=== PATIENT | female | born 1980 ===

== ENCOUNTER → 2020-10-06 08:53 | Outpatient (BNVA) | payer MEDICAID, SELFPAY | PROVIDERS: PCP Internal Medicine; Referring Provider Internal Medicine; Visit Provider Nurse Practitioner | DX: Z76.89 Persons encountering health services in other specified circumstances (principal) ==

== ENCOUNTER → 2020-10-23 09:39 | Outpatient (BNVA) | payer MEDICAID, SELFPAY | PROVIDERS: PCP Internal Medicine; Referring Provider Internal Medicine; Visit Provider Nurse Practitioner | DX: Z13.89 Encounter for screening for other disorder (principal) | CPT/HCPCS: 99212 ==

== ENCOUNTER → 2020-10-26 20:13 | Outpatient (REF) | payer MEDICAID, SELFPAY | LOC: HO.SL 20:13 | PROVIDERS: Visit Provider Internal Medicine Cardiovascular Disease | DX: G47.30 Sleep apnea, unspecified (principal) | CPT/HCPCS: 95810 ==

== ENCOUNTER → 2020-11-02 10:45 | Outpatient (BNVA) | payer MEDICAID, SELFPAY | PROVIDERS: PCP Internal Medicine; Visit Provider Advanced Practice Midwife | DX: N92.6 Irregular menstruation, unspecified (principal); Z30.09 Encounter for other general counseling and advice on contraception | CPT/HCPCS: 81025; 99212 ==

== ENCOUNTER → 2020-12-09 08:55 | Outpatient (REF) | payer MEDICAID, SELFPAY | LOC: HO.SL 08:55 | PROVIDERS: PCP Internal Medicine; Visit Provider Internal Medicine | DX: R06.81 Apnea, not elsewhere classified (principal) | CPT/HCPCS: 95806 ==

== ENCOUNTER 2021-02-03 08:59 | Outpatient (REF) | payer MEDICAID, SELFPAY ==
--- NOTE | ~2021-02-03 | XR_ITS ---
EXAMINATION: XR LUMBOSACRAL SPINE CLINICAL INFORMATION: Pain COMPARISON: Lumbar spine radiographs 05/28/2019, dorsal spine radiographs 02/03/2021. TECHNIQUE: Three views of the lumbosacral spine. FINDINGS: There is normal lumbar segmentation with 5 [id number] lumbar vertebrae of normal height and normal lumbar lordosis. There is no lumbar vertebral compression, spondylolisthesis, disc narrowing or destructive process. The SI joints and visualized sacrum are unremarkable. XR/XR lumbar spine 2-3V IMPRESSION: Unremarkable examination.
--- NOTE | ~2021-02-03 | XR_ITS ---
EXAMINATION: XR THORACOLUMBAR SPINE CLINICAL INFORMATION: Pain. COMPARISON: Chest radiographs 11/24/2013, lumbar spine 02/03/2021. TECHNIQUE: AP and lateral views of the thoracic spine are obtained. FINDINGS: There is normal thoracic segmentation with 12 rib-bearing thoracic vertebrae of normal height and normal thoracic kyphosis. There is borderline levocurvature upper thoracic spine similar to frontal chest radiographs 11/24/2013. There is no vertebral compression, spondylolisthesis, disc narrowing, or destructive process. No paraspinal soft tissue swelling. Lateral view shows focal prominent soft tissue fullness upper dorsal region measuring approximately 4 cm in thickness and 9 cm in length. Discussion with radiography technologist notes nothing overlying the back at time of imaging to suggest overlying artifact. XR/XR thoracic spine 2V IMPRESSION: 1. Focal superficial soft tissue prominence upper dorsal region approximately 4 cm in thickness by 9 cm in length. Finding is of uncertain significance. This could represent a lipoma or other nonspecific soft tissue lesion. Further evaluation with CT or MR is suggested. 2. Otherwise, unremarkable thoracic spine. Mild levocurvature stable from 2013.
[2021-02-03 10:42] LABS: MANUAL DIFF FLAG NO
[2021-02-03 10:47] LABS: Basophils Percent Auto 0.4 % (0-2); Eosinophils Percent Auto 0.2 % (0-4); Hematocrit 38.8 % (37-47); Hemoglobin 12.3 g/dl (12.0-16.0); Imm Gran Abs Auto 0.02 X10*3/uL (0.00-0.03); Imm Gran Pct Auto 0.4 % (0.0-0.4); Lymphocytes Absolute Auto 0.9 X10*3/uL (1.2-4.9); Lymphocytes Percent Auto 19.7 % (20-40); Mean Corpuscular HGB Conc 31.7 g/dl (31.0-35.0); Mean Corpuscular Hemoglobin 26.5 pg (27.0-33.0); Mean Corpuscular Volume 83.6 fL (80-98); Mean Platelet Volume 9.2 fL (9.4-12.3); Monocytes Absolute Auto 0.3 X10*3/uL (0.1-1.2); Monocytes Percent Auto 5.6 % (2-11); Neutrophils Absolute Auto 3.5 X10*3/uL (2.0-8.3); Neutrophils Percent Auto 73.7 % (45-73); Platelet Count 368 X10*3/uL (160-400); Red Blood Count 4.64 X10*6/uL (4.20-5.50); Red Cell Distribution Width 12.4 % (11.0-16.0); White Blood Count 4.8 X10*3/uL (4.8-10.8)
[2021-02-03 11:28] LABS: Alanine Aminotransferase 8 U/L (0-31); Albumin Level 4.1 g/dL (3.5-5.0); Alkaline Phosphatase 120 U/L (39-117); Anion Gap 13 (12-20); Aspartate Amino Transferase 13 U/L (5-31); Bilirubin Total 0.6 mg/dL (0.0-1.0); Blood Urea Nitrogen 9 mg/dL (9-16); C Reactive Protein 1.15 mg/dL (< or = 0.50); Calcium 9.1 mg/dL (8.4-10.2); Carbon Dioxide 26 mmol/L (22-29); Chloride 102 mmol/L (96-108); Estimated Glomerular Filt Rate > 60; Glucose Random 88 mg/dL (60-115); Potassium 4.4 mmol/L (3.3-5.1); Rheumatoid Factor < 15.0 IU/mL (<15.0); Sodium 137 mmol/L (135-145); Total Protein 7.7 g/dL (6.5-8.0)
[2021-02-03 11:33] LABS: Erythrocyte Sedimentation Rate 29 MM/HR (0-20)
[2021-02-03 12:24] LABS: Glucose Urine UA NEG (NEG); Leukocyte Esterase Urine NEG (NEG); Nitrite Urine NEG (NEG); Urine Blood NEG (NEG); Urine Ketones NEG (NEG); Urine Protein NEG (NEG-TRACE)
[2021-02-03 12:30] LABS: Appearance Urine HAZY; Color Urine YELLOW
[2021-02-03 12:59] LABS: Bacteria Urine TRACE /LPF; Mucus Urine 2+ /LPF; Squamous Epithelial Cell Urine 1+ /LPF; WBC Urine 0-2 /HPF (0-4)
[2021-02-04 05:22] LABS: Lyme Abs Screen <0.90 index
[2021-02-04 13:48] LABS: Anti Nuclear Antibody Screen NEGATIVE (NEGATIVE)
[2021-02-04 14:12] LABS: PTT (LAC) Screen 32 sec (< OR = 40)
[2021-02-04 15:01] LABS: Prot Elec - Alpha1 0.4 g/dL (0.2-0.3); Prot Elec - Alpha2 0.8 g/dL (0.5-0.9); Prot Elec - Beta 1 0.4 g/dL (0.4-0.6); Prot Elec - Beta 2 0.5 g/dL (0.2-0.5); Prot Elec - Gamma 1.6 g/dL (0.8-1.7); Prot Elec - Total Protein 7.6 g/dL (6.1-8.1)
[2021-02-04 15:27] LABS: IgA 314 mg/dL (47-310); IgG 1706 mg/dL (600-1640); IgM 147 mg/dL (50-300)
[2021-02-05 22:17] LABS: Cyclic Citrullinated Peptide <16 UNITS
[2021-02-06 11:16] LABS: Antibody to SS-A Antigen <1.0 NEG AI (<1.0 NEG); Antibody to SS-B Antigen <1.0 NEG AI (<1.0 NEG)
[2021-02-08 22:13] LABS: Cardiolipin IgG Ab <14 GPL; Cardiolipin IgM Ab <12 MPL
== END 2021-02-03 09:00 | disposition home or self-care (01) ==
LOC: HO.LAB 08:59
PROVIDERS: PCP Internal Medicine; Visit Provider Student in an Organized Health Care Education/Training Program
DX: M25.50 Pain in unspecified joint (principal); R79.82 Elevated C-reactive protein (CRP)
CPT/HCPCS: 36415; 72070; 72100; 80053; 81001; 82232; 82784; 84155; 84165; 85025; 85597; 85613; 85652; 85730; 86038; 86039; 86140; 86147; 86200; 86235; 86334; 86431; 86618; 99202

== ENCOUNTER 2021-02-04 07:43 | Outpatient (REF) | payer MEDICAID, SELFPAY ==
--- NOTE | ~2021-02-04 | MM_ITS ---
EXAMINATION: MM SCREENING DIGITAL BREAST TOMOSYNTHESIS, BILATERAL CLINICAL INFORMATION: Screening. Asymptomatic. The lifetime risk of breast cancer based on the Tyrer-Cuzick Model is 7.6%. COMPARISON: Mammography: None TECHNIQUE: Digital breast tomosynthesis is performed in both the craniocaudal and mediolateral oblique views along with computer-aided detection (CAD). Synthesized 2D images are generated from the tomosynthesis. FINDINGS: The breasts are extremely dense, which lowers the sensitivity of mammography (ACR BI-RADS breast composition Category d). There are no significant masses, abnormal calcifications, or other abnormalities. MM/MM tomosynthesis screening BI IMPRESSION: There are no significant changes from prior study. ASSESSMENT: BI-RADS 1: Negative RECOMMENDATION: Routine annual mammography screening. This patient's information was entered into a reminder system with a target due date for their next mammogram.
== END 2021-02-04 07:44 | disposition home or self-care (01) ==
LOC: HO.MAMMO 07:43
PROVIDERS: Visit Provider Internal Medicine
DX: Z12.31 Encounter for screening mammogram for malignant neoplasm of breast (principal)
CPT/HCPCS: 77063; 77067

== ENCOUNTER → 2021-02-08 07:59 | Outpatient (REF) | payer MEDICAID, SELFPAY ==
--- NOTE | ~2021-02-08 | NM_ITS ---
Exercise Myocardial perfusion study Indication: Palpitations and shortness of breath evaluate for myocardial ischemia Technique: The patient was brought in for an exercise perfusion study on 02/08/2021. Patient performed exercise as per Donovan protocol and was injected 25 mCi of sestamibi was given intravenously one target HR was achieved. Images were obtained using the SPECT gamma camera interlaced with the gating device. Images were obtained in supine position. Resting perfusion study was performed on 02/09/2021. Patient was administered 25 mCi of sestamibi intravenously at rest. Images were then obtained in supine position. Images obtained with and without CT attenuation. Total DLP 62 mGy-c. Images were processed with the software and compared side to side in short axis, horizontal long axis and vertical long axis views. Findings: The stress perfusion study showed non attenuated images show normal uptake of radiotracer in all segments of LV myocardium. Attenuated corrected images show mildly reduced uptake in the apex of the LV myocardium. The gated study shows normal LV systolic function with calculated LVEF of greater than 70 %. LV cavity is normal in size. The gated study shows normal systolic wall thickening and contraction of all segments. There is no transient ischemic dilation. Resting study shows no change in perfusion pattern compared to stress perfusion study. Gating at rest reveals normal cyst folic wall motion with ejection fraction at 63%. The findings are consistent with normal myocardial perfusion. NM/NM jose perf SPECT rest & str Impression: 1. Normal myocardial perfusion 2. Gated LVEF is 63% 3. Transient ischemic dilatation not present Stress EKG is negative for ischemia
--- NOTE | 2021-02-08 08:30 | CA_ITS ---
Acquisition Time: 2021-02-08 09:49:50 Total Exercise Time: 00:05:55 Test Indications: Dyspnea Medications: Protocol: WESLEY Max HR: 171 BPM 95% of Pred: 180 BPM Max BP: 140/080 mmHG Max Work Load: 7.0 METS Exercise stress nuclear using Wesley protocol. Total of 5 min 55 sec. METS 7.0 TAPHR up to 95 %. Pt tolerated well denies any anginal sx. EKG without arrhythmias no ischemic changes during exercise or in recovery. Nuclear images to follow. Normotensive response to exercise. Test reviewed with Dr. Armstrong Referred By: Don Blas Overread By: Bhavya Gann NP
[2021-02-08 09:59] LABS: UPreg QC Valid YES; Urine Pregnancy NEGATIVE (NEGATIVE)
== END ==
LOC: HO.CARD 07:59
PROVIDERS: Nurse Practitioner Family; Visit Provider Internal Medicine Cardiovascular Disease
DX: R00.2 Palpitations (principal)
CPT/HCPCS: 78452; 81025; 93016; 93017; 93018; A9500

== ENCOUNTER 2021-02-16 12:57 | Outpatient (REF) | payer MEDICAID, SELFPAY ==
--- NOTE | ~2021-02-16 | US_ITS ---
EXAMINATION: US ABDOMEN LIMITED CLINICAL INFORMATION: Anterior chest wall lump. COMPARISON: None. TECHNIQUE: Ultrasound of the sternum where patient palpates lump. FINDINGS: Scanning about the sternum where patient complains of lump and pain does not demonstrate any abnormal cystic or solid mass. No edematous change within the soft tissues identified. US/US abdomen limited IMPRESSION: No ultrasound abnormality identified in region of patient's complaint.
== END 2021-02-16 12:58 | disposition home or self-care (01) ==
LOC: HO.US 12:57
PROVIDERS: PCP Internal Medicine; Visit Provider Internal Medicine
DX: R22.2 Localized swelling, mass and lump, trunk (principal)
CPT/HCPCS: 76705

== ENCOUNTER → 2021-02-18 07:49 | Outpatient (BNVA) | payer MEDICAID, SELFPAY | PROVIDERS: Visit Provider Student in an Organized Health Care Education/Training Program | DX: M25.50 Pain in unspecified joint (principal); R93.7 Abnormal findings on diagnostic imaging of other parts of musculoskeletal system | CPT/HCPCS: 99212 ==

== ENCOUNTER 2021-02-25 07:43 | Outpatient (REF) | payer MEDICAID, SELFPAY ==
--- NOTE | ~2021-02-25 | CT_ITS ---
EXAMINATION: CT THORACIC SPINE WITHOUT CONTRAST CLINICAL INFORMATION: Abnormal findings on diagnostic imaging. COMPARISON: Thoracic spine x-ray 02/03/2021. TECHNIQUE: Axial 2 mm thin and reformatted 2 mm thin sagittal and coronal images of thoracic spine were obtained. This CT examination was performed using dose optimization techniques as appropriate, variously including the following: *Automated exposure control *Adjustment of mA and/or kV according to patient size (this includes techniques or standardized protocols for targeted exams where dose is matched to indication/reason for exam; i.e. extremities or head) *Use of iterative reconstruction technique DLP: 452 mGy-cm. FINDINGS: On reconstructed sagittal images of the thoracic spine, there is maintained thoracic kyphosis. The vertebral heights, alignment and disc heights are normal. There is no visible fracture, dislocation or lytic process. There is no evidence of disc bulge, herniation or spinal canal stenosis. The neural foramina are widely patent. The lungs are well expanded and are clear. The paravertebral soft tissues are normal. No soft tissue mass seen in the mid back region to correspond with ultrasound findings. CT/CT thoracic spine wo con IMPRESSION: Unremarkable CT thoracic spine exam.
--- NOTE | ~2021-02-25 | CT_ITS ---
EXAMINATION: CT THORACIC SPINE WITHOUT CONTRAST CLINICAL INFORMATION: Abnormal findings on thoracic spine x-ray 02/03/2021 COMPARISON: Thoracic spine x-ray 02/03/2021 TECHNIQUE: 2 mm axial and reformatted, 2 mm sagittal and coronal images of thoracic spine were obtained without contrast. This CT examination was performed using dose optimization techniques as appropriate, variously including the following: *Automated exposure control *Adjustment of mA and/or kV according to patient size (this includes techniques or standardized protocols for targeted exams where dose is matched to indication/reason for exam; i.e. extremities or head) *Use of iterative reconstruction technique DLP: 452 mGy-cm FINDINGS: There is normal thoracic kyphosis. The vertebral heights, alignment and disc heights are normal. There is no fracture, dislocation, lytic or sclerotic process. There is no bony or soft tissue mass seen along the posterior chest to corroborate thoracic spine x-ray findings. No bony erosive changes or hypertrophy involving any of posterior ribs. Visualized lungs are clear. CT/CT thoracic spine wo con IMPRESSION: No soft tissue mass seen along the posterior thoracic cavity. No bony erosive changes. No fracture or bony tumor involving the posterior ribs or the spine.
== END 2021-02-25 07:44 | disposition home or self-care (01) ==
LOC: HO.CT 07:43
PROVIDERS: Visit Provider Student in an Organized Health Care Education/Training Program
DX: R93.7 Abnormal findings on diagnostic imaging of other parts of musculoskeletal system (principal)
CPT/HCPCS: 72128

== ENCOUNTER 2021-02-26 15:27 | Outpatient (REF) | payer MEDICAID, SELFPAY | END 2021-02-26 15:28 | disposition home or self-care (01) | LOC: HO.LAB 15:27 | PROVIDERS: Visit Provider Internal Medicine | DX: Z20.822 Contact with and (suspected) exposure to COVID-19 (principal) | CPT/HCPCS: C9803; U0003; U0005 ==

== ENCOUNTER 2021-03-30 10:58 | Outpatient (REF) | payer MEDICAID, SELFPAY ==
--- NOTE | ~2021-03-30 | XR_ITS ---
EXAMINATION: XR CHEST CLINICAL INFORMATION: Dyspnea COMPARISON: 03/10/2018 TECHNIQUE: 2 views of the chest were obtained. FINDINGS: No significant abnormality is noted involving the heart, lungs, mediastinum, bony thorax or soft tissues. XR/XR chest 2V IMPRESSION: Unremarkable examination.
== END 2021-03-30 10:59 | disposition home or self-care (01) ==
LOC: HO.XRAY 10:58
PROVIDERS: PCP Internal Medicine; Visit Provider Internal Medicine Pulmonary Disease
DX: R06.00 Dyspnea, unspecified (principal)
CPT/HCPCS: 71046; 99202

== ENCOUNTER 2021-04-15 10:01 | Outpatient (REF) | payer MEDICAID, SELFPAY ==
--- NOTE | 2021-04-15 17:24 | PFT_ITS ---
FLOWS: FEV1 of 90% of predicted at 2.35 L. FVC 80% of predicted at 2.55 L. FEV1 to FVC ratio of 0.92. No bronchodilator response. LUNG VOLUMES: Total lung capacity 86% of predicted at 3.86 L. Residual volume 96% of predicted at 1.36 L. Slow vital capacity 82% of predicted at 2.50 L. Expiratory reserve volume 94% of predicted at 0.98 L. Diffusion capacity is normal. IMPRESSION: No obstructive or restrictive ventilatory defect. No bronchodilator response. Normal pulmonary function test. Poncho Ross MD AP/MODL / [id number]
== END 2021-04-15 10:02 | disposition home or self-care (01) ==
LOC: HO.RESP 10:01
PROVIDERS: PCP Internal Medicine; Visit Provider Internal Medicine Pulmonary Disease
DX: R60.0 Localized edema (principal)
CPT/HCPCS: 94060; 94727; 94729

== ENCOUNTER → 2021-04-22 10:37 | Outpatient (BNVA) | payer MEDICAID, SELFPAY | PROVIDERS: PCP Internal Medicine; Visit Provider Internal Medicine Pulmonary Disease | DX: R06.00 Dyspnea, unspecified (principal); Z79.899 Other long term (current) drug therapy | CPT/HCPCS: 99212 ==

== ENCOUNTER → 2021-05-28 15:00 | Outpatient (BNVA) | payer MEDICAID, SELFPAY | PROVIDERS: Visit Provider Nurse Practitioner ==

== ENCOUNTER → 2021-06-10 13:59 | Outpatient (BNVA) | payer MEDICAID, SELFPAY | PROVIDERS: PCP Internal Medicine; Visit Provider Internal Medicine Pulmonary Disease | DX: J45.909 Unspecified asthma, uncomplicated (principal) | CPT/HCPCS: 99212 ==

== ENCOUNTER → 2021-07-08 15:46 | Outpatient (BNVA) | payer MEDICAID, SELFPAY | PROVIDERS: PCP Internal Medicine; Visit Provider Nurse Practitioner ==

== ENCOUNTER 2021-08-03 14:59 | Outpatient (REF) | payer MEDICAID, SELFPAY ==
--- NOTE | ~2021-08-03 | MM_ITS ---
EXAMINATION: MM DIAGNOSTIC DIGITAL BREAST TOMOSYNTHESIS, RIGHT US TARGETED BREAST, RIGHT CLINICAL INFORMATION: Right axillary mass. The lifetime risk of breast cancer based on the Tyrer-Cuzick Model is 7.4%. COMPARISON: Mammography: 02/04/2021. TECHNIQUE: Digital breast tomosynthesis is performed in both the craniocaudal and mediolateral oblique views along with computer-aided detection (CAD). Synthesized 2-D images are generated from the tomosynthesis. FINDINGS: The breasts are heterogeneously dense, which may obscure small masses (ACR BI-RADS breast composition Category c). There are no significant masses, abnormal calcifications, or other abnormalities. ULTRASOUND: Targeted ultrasound evaluation of the right breast axillary region where patient states axillary mass is did not demonstrate any abnormal cystic or solid mass. No region of abnormal distal sound shadowing appreciated. There are normal-appearing lymph nodes present without cortical thickening or lobulation. Results are provided to the patient at time of visit by the technologist. MM/MM tomosynthesis diagnostic RT IMPRESSION: No specific evidence to suggest malignancy. ASSESSMENT: BI-RADS 1: Negative. RECOMMENDATION: 1. Patient should be managed based on the clinical impression 2. Otherwise, routine annual screening mammography. This patient's information was entered into a reminder system with a target due date for their next mammogram.
--- NOTE | ~2021-08-03 | US_ITS ---
EXAMINATION: US DIAGNOSTIC ULTRASOUND BREAST, RIGHT CLINICAL INFORMATION: Axillary mass. COMPARISON: Mammography of same day and February 04, 2021. TECHNIQUE: Ultrasound of the breast is performed with real-time carter scale imaging and color Doppler. FINDINGS: Targeted ultrasound evaluation of the right breast axillary region where patient states axillary mass is did not demonstrate any abnormal cystic or solid mass. No region of abnormal distal sound shadowing appreciated. There are normal-appearing lymph nodes present without cortical thickening or lobulation. Results are provided to the patient at time of visit by the technologist. US/US breast RT limited IMPRESSION: No specific evidence to suggest malignancy ASSESSMENT: BI-RADS 1: Negative RECOMMENDATION: 1. Patient should be managed based on the clinical impression 2. Otherwise, routine annual screening mammography. .
== END 2021-08-03 15:00 | disposition home or self-care (01) ==
LOC: HO.MAMMO 14:59
PROVIDERS: PCP Internal Medicine; Visit Provider Emergency Medicine
DX: N63.31 Unspecified lump in axillary tail of the right breast (principal)
CPT/HCPCS: 76642; 77061; 77065

== ENCOUNTER → 2021-08-19 14:51 | Outpatient (BNVA) | payer MEDICAID, SELFPAY | PROVIDERS: PCP Internal Medicine; Visit Provider Nurse Practitioner ==

== ENCOUNTER → 2022-01-20 15:15 | Outpatient (BNVA) | payer MEDICAID, SELFPAY | PROVIDERS: PCP Internal Medicine; Referring Provider Internal Medicine; Visit Provider Internal Medicine Cardiovascular Disease | DX: R00.2 Palpitations (principal); G47.33 Obstructive sleep apnea (adult) (pediatric); Z79.899 Other long term (current) drug therapy | CPT/HCPCS: 93005; 99202 ==

== ENCOUNTER → 2022-03-16 10:53 | Outpatient (BNVA) | payer MEDICAID, SELFPAY | PROVIDERS: PCP Internal Medicine; Visit Provider Nurse Practitioner Family | DX: G47.9 Sleep disorder, unspecified (principal); R00.2 Palpitations; K21.9 Gastro-esophageal reflux disease without esophagitis | CPT/HCPCS: 99202 ==

== ENCOUNTER → 2022-04-21 15:19 | Outpatient (BNVA) | payer MEDICAID, SELFPAY | PROVIDERS: PCP Internal Medicine; Visit Provider Nurse Practitioner | DX: K21.9 Gastro-esophageal reflux disease without esophagitis (principal); K58.1 Irritable bowel syndrome with constipation; K64.9 Unspecified hemorrhoids | CPT/HCPCS: 99212 ==

== ENCOUNTER 2022-06-22 11:59 | Outpatient (REF) | payer MEDICAID, SELFPAY ==
--- NOTE | ~2022-06-22 | XR_ITS ---
EXAMINATION: XR THORACOLUMBAR SPINE CLINICAL INFORMATION: Dorsalgia COMPARISON: None TECHNIQUE: 3 views FINDINGS: The vertebral alignment is normal. No intrinsic bony abnormality. The disc heights and neural foramina are well maintained. The endplates and posterior elements are normal. No fracture or subluxation. The surrounding prevertebral soft tissues are unremarkable. XR/XR thoracic spine 2V IMPRESSION: No compression fractures or subluxations are identified. The disc spaces are preserved. No endplate changes are seen. The prevertebral soft tissues are normal. The foramina are patent.
== END 2022-06-22 12:00 | disposition home or self-care (01) ==
LOC: HO.XRAY 11:59
PROVIDERS: PCP Internal Medicine; Visit Provider Emergency Medicine
DX: M54.9 Dorsalgia, unspecified (principal)
CPT/HCPCS: 72070

== ENCOUNTER 2022-07-22 15:29 | Outpatient (REF) | payer MEDICAID, SELFPAY ==
--- NOTE | ~2022-07-22 | XR_ITS ---
EXAMINATION: XR WRIST, RIGHT CLINICAL INFORMATION: Pain right distal forearm/wrist. COMPARISON: None TECHNIQUE: Right wrist is imaged in 5 views. FINDINGS: There is no acute or healing fracture, dislocation, destructive process. The ulnar variance is neutral. There is no joint narrowing or erosive change or chondrocalcinosis. Normal bony mineralization. No periostitis. XR/XR wrist RT min 3V IMPRESSION: Normal right wrist.
== END 2022-07-22 15:30 | disposition home or self-care (01) ==
LOC: HO.XRAY 15:29
PROVIDERS: Visit Provider General Practice
DX: M79.631 Pain in right forearm (principal)
CPT/HCPCS: 73110

== ENCOUNTER 2022-08-04 16:05 | Outpatient (REF) | payer MEDICAID, SELFPAY ==
--- NOTE | ~2022-08-04 | MM_ITS ---
EXAMINATION: MM SCREENING DIGITAL BREAST TOMOSYNTHESIS, BILATERAL CLINICAL INFORMATION: Screening. Asymptomatic. The lifetime risk of breast cancer based on the Tyrer-Cuzick Model is 12%. COMPARISON: Mammography: 08/03/2021, 02/04/2021 TECHNIQUE: Digital breast tomosynthesis is performed in both the craniocaudal and mediolateral oblique views along with computer-aided detection (CAD). Synthesized 2D images are generated from the tomosynthesis. FINDINGS: There are scattered areas of fibroglandular density (ACR BI-RADS breast composition Category b). There are no significant masses, abnormal calcifications, or other abnormalities. Parenchymal pattern is similar to prior studies. No developing density. No architectural abnormality. No significant changes. MM/MM tomosynthesis screening BI IMPRESSION: No mammographic evidence of malignancy. ASSESSMENT: BI-RADS 1: Negative RECOMMENDATION: Routine annual mammography screening. This patient's information was entered into a reminder system with a target due date for their next mammogram.
== END 2022-08-04 16:06 | disposition home or self-care (01) ==
LOC: HO.MAMMO 16:05
PROVIDERS: PCP Internal Medicine; Visit Provider Internal Medicine
DX: Z12.31 Encounter for screening mammogram for malignant neoplasm of breast (principal)
CPT/HCPCS: 77063; 77067

== ENCOUNTER 2022-12-11 17:52 | Emergency (ER) | payer MEDICAID, SELFPAY ==
--- NOTE | 2022-12-11 17:57 | ED.SKABFB ---
HPI - Skin/Abscess/Foreign Bdy General Chief complaint: Allergic Reaction <Dana Suarez CNP - Last Filed: 12/11/22 18:06> Stated complaint: rash back/ arms/ face <Dana Suarez CNP - Last Filed: 12/11/22 18:06> Time Seen by Provider: 12/11/22 18:44 <Dana Suarez CNP - Last Filed: 12/11/22 18:06> Source: patient <Gudelia Burleson NP - Last Filed: 12/11/22 22:21> Mode of arrival: ambulatory <Gudelia Burleson NP - Last Filed: 12/11/22 22:21> Limitations: no limitations <Gudelia Burleson NP - Last Filed: 12/11/22 22:21> History of Present Illness HPI narrative: 42-year-old female presents with full body rash, to face, arms, trunk after eating at [employer]. She stated she noted itching and hives about 15 minutes prior to arrival. 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 She is not having any difficulty breathing, and is able to manage her secretions. <Gudelia Burleson NP - Last Filed: 12/11/22 22:21> MD complaint: rash <Gudelia Burleson NP - Last Filed: 12/11/22 22:21> Onset (ago): minute(s) (15 minutes prior to arrival) <Gudelia Burleson NP - Last Filed: 12/11/22 22:21> Tetanus up to date: unsure <Gudelia Burleson NP - Last Filed: 12/11/22 22:21> Location: generalized <Gudelia Burleson NP - Last Filed: 12/11/22 22:21> Severity: moderate <Gudelia Burleson NP - Last Filed: 12/11/22 22:21> Severity scale (1-10): 6 <Gudelia Burleson NP - Last Filed: 12/11/22 22:21> Quality: constant and pruritic <Gudelia Burleson NP - Last Filed: 12/11/22 22:21> Pain Consistency: constant <Gudelia Burleson NP - Last Filed: 12/11/22 22:21> Relieving factors: none <Gudelia Burleson NP - Last Filed: 12/11/22 22:21> Exacerbating factors: other (Itching) <Gudelia Burleson NP - Last Filed: 12/11/22 22:21> Context: other (Suspected food allergy) <Gudelia Burleson NP - Last Filed: 12/11/22 22:21> Associated symptoms: itching <Gudelia Burleson NP - Last Filed: 12/11/22 22:21> Treatments prior to arrival: none <Gudelia Burleson NP - Last Filed: 12/11/22 22:21> Related Data Home medications: Home Medications Medication Instructions Recorded Confirmed clint [id number] 1 tab PO BEDTIME 11/02/20 03/16/22 loratadine 10 mg tablet 10 mg PO DAILY PRN allergies 01/20/22 03/16/22 Previous Rx's Medication Instructions Recorded albuterol sulfate 90 mcg/actuation 2 puff inhalation Q4-6H PRN 03/30/21 aerosol inhaler shortness of breath or wheezing 30 days #1 ea methylcellulose (laxative) 500 mg 1,000 mg PO DAILY #60 tabs 07/08/21 tablet (Citrucel) diltiazem HCl 120 mg 120 mg PO DAILY #30 caps 01/20/22 capsule,extended release 24 hr amitriptyline 10 mg tablet 10 mg PO BEDTIME 30 days #30 tabs 03/16/22 pantoprazole 40 mg tablet,delayed 40 mg PO DAILY 30 days #30 tabs 04/21/22 release (Protonix) diphenhydramine HCl 25 mg capsule 25 mg PO TID 3 days #9 caps 12/11/22 (Benadryl) epinephrine 0.3 mg/0.3 mL 0.3 mg (0.3 mL) IM Q4H PRN 12/11/22 injection, auto-injector (EpiPen anaphylaxis #2 ea 2-Lee) famotidine 20 mg tablet 20 mg PO BID 3 days #6 tabs 12/11/22 <Dana Suarez CNP - Last Filed: 12/11/22 18:06> Allergies/Adverse reactions: Allergies Allergy/AdvReac Type Severity Reaction Status Date / Time shrimp Allergy Severe MOUTH Verified 04/21/22 15:26 SWELLING environmetal Allergy Intermediate itchy eyes Uncoded 04/21/22 15:26 and body <Dana Suarez CNP - Last Filed: 12/11/22 18:06> Review of Systems Review of Systems: Constitutional: No Fever, No Chills Cardiovascular: No Chest Pain, No SOB Respiratory: No Cough, No Dyspnea Gastrointestinal: No Nausea, No Vomiting, No Diarrhea, No abdominal Pain Genitourinary: No Dysuria, No Hematuria Musculoskeletal: No joint pain, No Myalgias, No Joint Swelling Skin: No Skin lacerations, positive rash Neuro: No Weakness, No Numbness, No Paresthesias, No Dizziness, No Headache <Gudelia Burleson NP - Last Filed: 12/11/22 22:21> Yes all other systems are reviewed and are negative <Gudelia Burleson NP - Last Filed: 12/11/22 22:21> [facility] Past Medical History Attestation statement: The following information was validated with the patient. <Gudelia Burleson NP - Last Filed: 12/11/22 22:21> Source: old records reviewed <Gudelia Burleson NP - Last Filed: 12/11/22 22:21> Surgical History: Surgical History History of esophagogastroduodenoscopy (EGD) Hx of colonoscopy <Dana Suarez CNP - Last Filed: 12/11/22 18:06> Family History Family History: Family History Father Cirrhosis of liver Cancer Liver transplanted Mother Apnea Paternal Grandfather Cancer <Dana Suarez CNP - Last Filed: 12/11/22 18:06> Social History Social History: Social History Alcohol intake: never Patient Tobacco Use Status: Never used Tobacco Advance Directives: No Advance Directives Information Provided: No Gender identity: Female <Dana Suarez CNP - Last Filed: 12/11/22 18:06> Physical Exam Vital Signs: Vital Signs: Last Vital Signs Temp 98.1 F 12/11/22 18:00 Pulse 107 H 12/11/22 18:00 Resp 18 12/11/22 18:00 BP 127/74 12/11/22 18:00 Pulse Ox 98 12/11/22 18:00 O2 Del Method 12/11/22 18:00 BMI result Body Mass Index 24.4 <Dana Zhao AntoninoginaANABEL - Last Filed: 12/11/22 18:06> Vital Signs: Last Vital Signs Temp 98.1 F 12/11/22 18:00 Pulse 107 H 12/11/22 18:00 Resp 18 12/11/22 18:00 BP 127/74 12/11/22 18:00 Pulse Ox 98 12/11/22 18:00 O2 Del Method 12/11/22 18:00 BMI result Body Mass Index 24.4 <Gudelia Burleson NP - Last Filed: 12/11/22 22:21> Appearance: Alert. Oriented X3. Mild distress. Eyes: Pupils equal, round and reactive to light. ENT: Pharynx normal. No angioedema. Neck: Normal inspection. Neck supple. No nuchal rigidity. No vertebral tenderness. No mastoid tenderness. CVS: Normal heart rate and rhythm. Pulses normal. Respiratory: No respiratory distress. Lung sounds clear to auscultation all lobes. No tracheal stridor. Abdomen: Soft and nontender. No distention or rigidity. Skin: Skin warm and dry. Normal skin color. Normal skin turgor. Extremities: No lower extremity edema. Gait well-balanced well coordinated. Neuro: No motor deficit. No sensory deficit. Cranial nerves 2-12 intact. <Gudelia Burleson NP - Last Filed: 12/11/22 22:21> Course Course Course Narrative: This is an RME: Additional HPI, ROS, PE not included below will be deferred to primary provider. Patient is a 42 year old female presenting to emergency department for rash to the bilateral arms, back, face surrounding mouth. Started about 20 minutes prior to arrival. First noticed itching, in the noticing the rash. States last ate at 16:00 - [employer]. Denies shortness of breath, difficulty breathing, chest pain, nausea vomiting, abdominal pain, throat closing sensation. Denies any new foods, lotions, soaps, detergent. PE: Macular erythematous rash around lips, chest, arms, no angioedema, airway patent, LSCTA Plan: Benadryl, pepcid, solumedrol, <Dana Suarez, ANABEL - Last Filed: 12/11/22 18:06> This is an RME: Additional HPI, ROS, PE not included below will be deferred to primary provider. Patient is a 42 year old female presenting to emergency department for rash to the bilateral arms, back, face surrounding mouth. Started about 20 minutes prior to arrival. First noticed itching, in the noticing the rash. States last ate at 16:00 - [employer] chicken. Denies shortness of breath, difficulty breathing, chest pain, nausea vomiting, abdominal pain, throat closing sensation. Denies any new foods, lotions, soaps, detergent. PE: Macular erythematous rash around lips, chest, arms, no angioedema, airway patent, LSCTA Plan: Benadryl, pepcid, solumedrol, 42-year-old female presents with urticaria and hives throughout her body that was noted about 15 minutes ago. She did eat at [employer] about 4 hours ago, and has a known shrimp for allergy. Patient is able to manage secretions, able to speak in complete sentences, O2 sat at 99% on room air. Patient was prescribed Benadryl, Solu-Medrol and Pepcid by provider in triage. Patient does have diffuse hives and urticaria throughout her body. We will continue to monitor this patient for approximately an hour. If patient does well, will discharge her to home with Benadryl, Pepcid and prednisone. Patient does understand that she must follow-up with her primary care physician for comprehensive allergy testing. Urticaria and hives have greatly improved, rash on the trunk is now resolved. Lung sounds are clear to auscultation all lobes, no tracheal stridor. Patient continues with even unlabored respirations, and is managing her secretions. Plan of care is to discharge home with Benadryl, Pepcid, and for patient to follow-up with her primary care physician for allergy testing. I did refill her EpiPen. Patient does understand that she could only use her EpiPen if she is having difficult time breathing. Patient verbalized understanding of and agrees to plan of care discharge home. Verbalized understanding of signs symptoms indicating need for emergent intervention <Gudelia Burleson NP - Last Filed: 12/11/22 22:21> Medications Administered Discontinued Medications Generic Name Dose Route Start Last Admin Trade Name Freq PRN Reason Stop Dose Admin Diphenhydramine HCl 50 mg 12/11/22 18:06 12/11/22 18:20 Diphenhydramine Hcl 50 Mg/Ml Vial IVPUSH 12/11/22 18:07 50 mg ONCE ONE Administration Famotidine 20 mg 12/11/22 18:06 12/11/22 18:20 Famotidine/Pf 20 Mg/2 Ml Vial IVPUSH 12/11/22 18:07 20 mg ONCE ONE Administration Methylprednisolone Sodium Succinate 125 mg 12/11/22 18:06 12/11/22 18:20 Methylprednisolone Sod Succ 125 Mg/2 Ml Vial IVPUSH 12/11/22 18:07 125 mg ONCE ONE Administration <Dana Suarez CNP - Last Filed: 12/11/22 18:06> Medications Administered Discontinued Medications Generic Name Dose Route Start Last Admin Trade Name Freq PRN Reason Stop Dose Admin Diphenhydramine HCl 50 mg 12/11/22 18:06 12/11/22 18:20 Diphenhydramine Hcl 50 Mg/Ml Vial IVPUSH 12/11/22 18:07 50 mg ONCE ONE Administration Famotidine 20 mg 12/11/22 18:06 12/11/22 18:20 Famotidine/Pf 20 Mg/2 Ml Vial IVPUSH 12/11/22 18:07 20 mg ONCE ONE Administration Methylprednisolone Sodium Succinate 125 mg 12/11/22 18:06 12/11/22 18:20 Methylprednisolone Sod Succ 125 Mg/2 Ml Vial IVPUSH 12/11/22 18:07 125 mg ONCE ONE Administration <Gudelia Burleson NP - Last Filed: 12/11/22 22:21> Medical Decision Making Differential Diagnosis Differential Diagnoses: The differential diagnosis associated with the presentation includes <Gudelia Burleson NP - Last Filed: 12/11/22 22:21> Allergic reaction, contact dermatitis <Gudelia Burleson NP - Last Filed: 12/11/22 22:21> External Record Review External record reviewed: Outpatient record <Gudelia Burleson NP - Last Filed: 12/11/22 22:21> Prescription Management I considered prescription management with: Other (Antihistamines) <Gudelia Burleson NP - Last Filed: 12/11/22 22:21> Discharge Plan Discharge Clinical Impression: Allergic reaction, Urticaria <Dana Suarez CNP - Last Filed: 12/11/22 18:06> Patient Disposition: Home, Self-Care <Dana Suarez CNP - Last Filed: 12/11/22 18:06> Instructions: Urticaria (ED), General Allergic Reaction (ED), Allergy Testing (ED) <Dana Suarez CNP - Last Filed: 12/11/22 18:06> Additional Instructions: You were evaluated for an allergic reaction. Please take Benadryl 25 mg every 8 hours for the next 3 days. Please take Pepcid 20 mg every 12 hours for the next 3 days. We refilled her EpiPen. Use your EpiPen only if you are having an allergic reaction and cannot breathe. Follow-up with primary care physician for allergy testing. Thank you for choosing this emergency department for evaluation. Please follow-up with primary care physician as needed. Return to the emergency department for any new, concerning, or worsening symptoms. <Dana Suarez CNP - Last Filed: 12/11/22 18:06> Prescriptions: New epinephrine [EpiPen 2-Lee] 0.3 mg/0.3 mL auto-injector 0.3 mg IM Q4H PRN (Reason: anaphylaxis) Qty: 2 0RF diphenhydramine HCl [Benadryl] 25 mg capsule 25 mg PO TID 3 Days Qty: 9 0RF famotidine 20 mg tablet 20 mg PO BID 3 Days Qty: 6 0RF No Action prenat.vits,clint,[id number]-[id number] Tablet 1 tab PO BEDTIME albuterol sulfate 90 mcg/actuation HFA aerosol inhaler 2 puff inhalation Q4-6H PRN (Reason: shortness of breath or wheezing) 30 Days Qty: 1 3RF Citrucel 500 mg tablet 1,000 mg PO DAILY Qty: 60 6RF pantoprazole [Protonix] 40 mg tablet,delayed release (DR/EC) 40 mg PO DAILY 30 Days Qty: 30 6RF loratadine 10 mg tablet 10 mg PO DAILY PRN (Reason: allergies) diltiazem HCl 120 mg capsule,extended release 24hr 120 mg PO DAILY Qty: 30 3RF amitriptyline 10 mg tablet 10 mg PO BEDTIME 30 Days Qty: 30 3RF <Dana Suarez CNP - Last Filed: 12/11/22 18:06> Referrals: Zenaida Allen MD [Primary Care Provider] - 2 weeks (Allergy testing) <Dana Suarez CNP - Last Filed: 12/11/22 18:06> Interventions: ED Discharge Assessment Last Done: 12/11/22 21:04 <Dana Suarez CNP - Last Filed: 12/11/22 18:06> Discharge Date/Time: 12/11/22 21:06 <Dana Suarez CNP - Last Filed: 12/11/22 18:06>
[2022-12-11 18:00] VITALS: BP 127/74; PULSE 107; RESP 18; TEMP 36.7; O2SAT 98; BMI 24.4
[2022-12-11] MEDS: diphenhydrAMINE HCL 50 MG/ML VIAL IVPUSH (18:20)
[2022-12-11] MEDS: Famotidine/PF 20 MG/2 ML VIAL IVPUSH (18:20)
[2022-12-11] MEDS: methylPREDNISolone Sod Succ 125 MG/2 ML VIAL IVPUSH (18:20)
--- NOTE | 2022-12-11 18:39 | PC.NURSE ---
pt medicated for s/sx of allg rxn, placed 20g IV in right AC hives have become less red at this time
--- NOTE | 2022-12-11 20:26 | PC.NURSE ---
pt hives have resolved, pt verbalizes that she feels much better- provider aware awaiting dc paperwork
== END 2022-12-11 21:06 | disposition home or self-care (01) ==
PROVIDERS: Emergency Provider Internal Medicine; PCP Internal Medicine
DX: L50.0 Allergic urticaria (principal); Z79.899 Other long term (current) drug therapy
CPT/HCPCS: 96374; 96375; 99282; 99284; J1200; J2930

== ENCOUNTER 2022-12-12 17:40 | Emergency (ER) | payer MEDICAID, SELFPAY ==
[2022-12-12 17:58] VITALS: BP 132/72; PULSE 90; RESP 18; TEMP 36.8; O2SAT 99; BMI 27.3
--- NOTE | 2022-12-12 17:58 | ED_ITS ---
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 Patient reports she was seen here yesterday after having an allergic reaction and received IV Benadryl, Solu-Medrol and famotidine. Patient reports she was discharged with famotidine twice daily and Benadryl p.r.n. as well as a prescription for an EpiPen as needed. Patient reports she picked up both the famotidine and Benadryl. She did not take any of the famotidine today. She took a dose of Benadryl this afternoon but noticed to continued rash around her neck which made her concerned prompting her to come to the ER for further evaluation. Patient denies any difficulty breathing, abdominal cramping, vomiting, diarrhea, difficulty swallowing. Patient reports recently she changed her laundry detergent and believes this may be contributing to her right Related Data Home Medications Medication Instructions Recorded Confirmed prenat.vits,clint,[id number]-[id number] 1 tab PO BEDTIME 11/02/20 03/16/22 loratadine 10 mg tablet 10 mg PO DAILY PRN allergies 01/20/22 03/16/22 Previous Rx's Medication Instructions Recorded albuterol sulfate 90 mcg/actuation 2 puff inhalation Q4-6H PRN 03/30/21 aerosol inhaler shortness of breath or wheezing 30 days #1 ea methylcellulose (laxative) 500 mg 1,000 mg PO DAILY #60 tabs 07/08/21 tablet (Citrucel) diltiazem HCl 120 mg 120 mg PO DAILY #30 caps 01/20/22 capsule,extended release 24 hr amitriptyline 10 mg tablet 10 mg PO BEDTIME 30 days #30 tabs 03/16/22 pantoprazole 40 mg tablet,delayed 40 mg PO DAILY 30 days #30 tabs 04/21/22 release (Protonix) diphenhydramine HCl 25 mg capsule 25 mg PO TID 3 days #9 caps 12/11/22 (Benadryl) epinephrine 0.3 mg/0.3 mL 0.3 mg (0.3 mL) IM Q4H PRN 12/11/22 injection, auto-injector (EpiPen anaphylaxis #2 ea 2-Lee) famotidine 20 mg tablet 20 mg PO BID 3 days #6 tabs 12/11/22 Allergies Allergy/AdvReac Type Severity Reaction Status Date / Time shrimp Allergy Severe MOUTH Verified 04/21/22 15:26 SWELLING environmetal Allergy Intermediate itchy eyes Uncoded 04/21/22 15:26 and body Review of Systems Review of Systems: Yes all other systems are reviewed and are negative Constitutional: Constitutional: Reports no additional constitutional complaints, Denies body ache(s), Denies chills, Denies fever(s), Denies headache(s) and Denies weakness Eyes: Eyes: Reports no additional eye complaints and Denies change in vision ENT: Reports system reviewed and no additional complaints, except as documented, Denies dizziness, Denies headache(s), Denies nasal congestion, Denies nasal discharge and Denies neck pain Cardiovascular: Cardiovascular: Reports no additional cardiovascular complaints, Denies chest pain, Denies leg edema and Denies dyspnea Respiratory: Respiratory: Reports no additional respiratory complaints, Denies cough and Denies dyspnea Gastrointestinal: Gastrointestinal: Reports no additional gastrointestinal complaints, Denies abdominal pain, Denies diarrhea, Denies nausea and Denies vomiting Genitourinary: Genitourinary: Reports no additional female genitourinary complaints and Denies urinary incontinence Musculoskeletal: Musculoskeletal: Reports no additional musculoskeletal complaints, Denies back pain, Denies arthralgias, Denies joint swelling, Denies neck pain, Denies numbness and Denies tingling Integumentary/Breasts: Skin/Breast: Reports system reviewed and no additional complaints, except as docu and Reports rash Neurologic: Reports system reviewed and no additional complaints, except as documented, Denies dizziness, Denies headache(s), Denies numbness, Denies tingling and Denies weakness [facility] Past Medical History Attestation statement: The following information was validated with the patient. Source: old records reviewed and nursing notes reviewed Surgical History History of esophagogastroduodenoscopy (EGD) Hx of colonoscopy Family History Family History Father Cirrhosis of liver Cancer Liver transplanted Mother Apnea Paternal Grandfather Cancer Social History Social History Alcohol intake: never Patient Tobacco Use Status: Never used Tobacco Advance Directives: No Advance Directives Information Provided: No Gender identity: Female Physical Exam ED Vital Signs: Vital Signs - 24 hr 12/12/22 17:58 Temperature 98.3 F Pulse Rate 90 Respiratory Rate 18 Blood Pressure 132/72 Pulse Oximetry 99 Oxygen Delivery Method Room Air BMI result Body Mass Index 27.3 Const General: cooperative, healthy appearing, comfortable and no acute distress Orientation/consciousness: patient oriented x3 Limitations: no limitations HENMT Head: Yes normal to inspection Ears: hearing grossly normal bilaterally General nose exam: Normal external nose present Face and sinus: Yes normal facial exam Mouth: Normal oral and palatal mucosa present, lip normal and tongue normal Throat: Yes posterior oropharynx normal, Yes tonsils normal and Yes uvula midline Eyes General: appearance normal, both eyes and all related structures Pupils: Equal, round and reactive pupils present Neck Neck: Yes normal visual inspection, Yes full ROM and Yes no lymphadenopathy Chest Chest palpation & inspection: normal inspection of the chest Resp Effort & Inspection: normal respiratory effort Auscultation: clear to auscultation bilaterally Cardio Rate: regular rate Rhythm: regular rhythm Peripheral pulses: Peripheral pulses 2+ throughout GI Inspection: Yes normal to inspection Palpation (GI): Soft to palpation and nontender Back/Spine/Pelvis Thoracic/Lumbar Spine: thoracic and lumbar spine normal to inspection Skin Other: There is a mild urticarial rash noted around the patient's neck and along her bra line as well as 3-4 lesions noted on her face Neuro General: patient oriented x3 and moves all extremities Cranial nerves: Yes Equal, round and reactive pupils present Cognition (Neuro): normal cognition Gait exam (Neuro): Normal gait present Medical Decision Making Medical Decision Making MDM Narrative: 42-year-old female here with urticarial rash unrelieved with taking 1 dose of Benadryl at home. Patient seen here yesterday for allergic reaction was discharged with famotidine, Benadryl and EpiPen. Patient has not taken any of the famotidine. She denies any airway involvement or angioedema. Lungs are clear. Vitals are stable. Patient believes his rash is from changing her laundry detergent recently. She does have famotidine at home. I recommend she continue with plan of doing famotidine twice daily and Benadryl as needed. Patient is agreeable to this. All questions answered. Differential Diagnosis Differential Diagnoses: The differential diagnosis associated with the presentation includes Allergic reaction Discharge Plan Discharge Clinical Impression: Allergic reaction Patient Disposition: Home, Self-Care Instructions: General Allergic Reaction (ED) Additional Instructions: Use tide free and clear laundry detergent Continue your medications Prescriptions: No Action epinephrine [EpiPen 2-Lee] 0.3 mg/0.3 mL auto-injector 0.3 mg IM Q4H PRN (Reason: anaphylaxis) Qty: 2 0RF diphenhydramine HCl [Benadryl] 25 mg capsule 25 mg PO TID 3 Days Qty: 9 0RF famotidine 20 mg tablet 20 mg PO BID 3 Days Qty: 6 0RF prenat.vits,clint,[id number] Tablet 1 tab PO BEDTIME albuterol sulfate 90 mcg/actuation HFA aerosol inhaler 2 puff inhalation Q4-6H PRN (Reason: shortness of breath or wheezing) 30 Days Qty: 1 3RF Citrucel 500 mg tablet 1,000 mg PO DAILY Qty: 60 6RF pantoprazole [Protonix] 40 mg tablet,delayed release (DR/EC) 40 mg PO DAILY 30 Days Qty: 30 6RF loratadine 10 mg tablet 10 mg PO DAILY PRN (Reason: allergies) diltiazem HCl 120 mg capsule,extended release 24hr 120 mg PO DAILY Qty: 30 3RF amitriptyline 10 mg tablet 10 mg PO BEDTIME 30 Days Qty: 30 3RF Referrals: Zenaida Allen MD [Primary Care Provider] - 1 week Interventions: ED Discharge Assessment Last Done: 12/12/22 18:05 Discharge Date/Time: 12/12/22 18:07
--- NOTE | 2022-12-12 18:02 | PC.NURSE ---
eval by relocation specialist in triage. plan for dc.
== END 2022-12-12 18:07 | disposition home or self-care (01) ==
LOC: HO.ED 18:06
PROVIDERS: Emergency Provider Emergency Medicine Emergency Medical Services; PCP Internal Medicine
DX: L50.0 Allergic urticaria (principal)
CPT/HCPCS: 96372; 99282; 99284; J1200; J2930

== ENCOUNTER 2022-12-12 20:13 | Emergency (ER) | payer MEDICAID, SELFPAY ==
[2022-12-12 20:14] VITALS: BP 150/79; PULSE 113; RESP 20; TEMP 36.6; O2SAT 100; BMI 24.4
--- NOTE | 2022-12-12 20:15 | ED.ALLEREA ---
HPI - Allergic Reaction General Chief complaint: Allergic Reaction <Myrna Manzanares NP - Last Filed: 12/12/22 20:19> Stated complaint: Allergic reaction rash on chest <Myrna Manzanares NP - Last Filed: 12/12/22 20:19> Time Seen by Provider: 12/12/22 20:23 <Myrna Manzanares NP - Last Filed: 12/12/22 20:19> Source: patient <Gudelia Burleson NP - Last Filed: 12/13/22 01:18> Mode of arrival: ambulatory <Gudelia Burleson NP - Last Filed: 12/13/22 01:18> Limitations: no limitations <Gudelia Burleson NP - Last Filed: 12/13/22 01:18> History of Present Illness HPI narrative: 42-year-old female was evaluated for allergic reaction, this is her 2nd presentation to this facility today, 3rd in the past 24 hours. She presents with urticaria throughout her body with hives. She does not report any difficulty breathing or difficulty managing secretions. <Gudelia Burleson NP - Last Filed: 12/13/22 01:18> MD complaint: allergic reaction and hives <Gudelia Burleson NP - Last Filed: 12/13/22 01:18> Onset (ago): day(s) <Gudelia Burleson NP - Last Filed: 12/13/22 01:18> Exposure: food and cleaning product exposure <Gudelia Burleson NP - Last Filed: 12/13/22 01:18> Symptoms: rash and itching <Gudelia Burleson NP - Last Filed: 12/13/22 01:18> Severity: mild <Gudelia Burleson NP - Last Filed: 12/13/22 01:18> Treatment prior to arrival: benadryl <Gudelia Burleson NP - Last Filed: 12/13/22 01:18> Previous Allergic Reaction History: prior ED visit(s) <MARNI Purcell Last Filed: 12/13/22 01:18> Related Data Home medications: Home Medications Medication Instructions Recorded Confirmed prenat.vits,clint,[id number] 1 tab PO BEDTIME 11/02/20 03/16/22 loratadine 10 mg tablet 10 mg PO DAILY PRN allergies 01/20/22 03/16/22 Previous Rx's Medication Instructions Recorded albuterol sulfate 90 mcg/actuation 2 puff inhalation Q4-6H PRN 03/30/21 aerosol inhaler shortness of breath or wheezing 30 days #1 ea methylcellulose (laxative) 500 mg 1,000 mg PO DAILY #60 tabs 07/08/21 tablet (Citrucel) diltiazem HCl 120 mg 120 mg PO DAILY #30 caps 01/20/22 capsule,extended release 24 hr amitriptyline 10 mg tablet 10 mg PO BEDTIME 30 days #30 tabs 03/16/22 pantoprazole 40 mg tablet,delayed 40 mg PO DAILY 30 days #30 tabs 04/21/22 release (Protonix) diphenhydramine HCl 25 mg capsule 25 mg PO TID 3 days #9 caps 12/11/22 (Benadryl) epinephrine 0.3 mg/0.3 mL 0.3 mg (0.3 mL) IM Q4H PRN 12/11/22 injection, auto-injector (EpiPen anaphylaxis #2 ea 2-Lee) famotidine 20 mg tablet 20 mg PO BID 3 days #6 tabs 12/11/22 prednisone 20 mg tablet 40 mg PO DAILY 5 days #10 tabs 12/12/22 <Myrna Manzanares NP - Last Filed: 12/12/22 20:19> Allergies/adverse reactions: Allergies Allergy/AdvReac Type Severity Reaction Status Date / Time shrimp Allergy Severe MOUTH Verified 04/21/22 15:26 SWELLING environmetal Allergy Intermediate itchy eyes Uncoded 04/21/22 15:26 and body <Myrna Manzanares NP - Last Filed: 12/12/22 20:19> Review of Systems Review of Systems: Yes all other systems are reviewed and are negative <Gudelia Burleson NP - Last Filed: 12/13/22 01:18> Constitutional: Constitutional: Reports no additional constitutional complaints, Denies body ache(s), Denies chills, Denies fever(s), Denies headache(s) and Denies weakness <Gudelia Burleson NP - Last Filed: 12/13/22 01:18> Eyes: Eyes: Reports no additional eye complaints and Denies change in vision <Gudelia Burleson COPPER PLATE PRINTER - Last Filed: 12/13/22 01:18> ENT: Reports system reviewed and no additional complaints, except as documented, Denies dizziness, Denies headache(s), Denies nasal congestion, Denies nasal discharge and Denies neck pain <Gudelia Burleson COPPER PLATE PRINTER - Last Filed: 12/13/22 01:18> Cardiovascular: Cardiovascular: Reports no additional cardiovascular complaints, Denies chest pain, Denies leg edema and Denies dyspnea <Gudelia Burleson COPPER PLATE PRINTER - Last Filed: 12/13/22 01:18> Respiratory: Respiratory: Reports no additional respiratory complaints, Denies cough and Denies dyspnea <Gudelia Burleson COPPER PLATE PRINTER - Last Filed: 12/13/22 01:18> Gastrointestinal: Gastrointestinal: Reports no additional gastrointestinal complaints, Denies abdominal pain, Denies diarrhea, Denies nausea and Denies vomiting <Gudelia Burleson [employer]PER PLATE PRINTER - Last Filed: 12/13/22 01:18> Genitourinary: Genitourinary: Reports no additional female genitourinary complaints and Denies urinary incontinence <Gudelia Burleson [employer] PLATE PRINTER - Last Filed: 12/13/22 01:18> Musculoskeletal: Musculoskeletal: Reports no additional musculoskeletal complaints, Denies back pain, Denies arthralgias, Denies joint swelling, Denies neck pain, Denies numbness and Denies tingling <Gudelia Burleson [employer]PER PLATE PRINTER - Last Filed: 12/13/22 01:18> Integumentary/Breasts: Skin/Breast: Reports system reviewed and no additional complaints, except as docu and Reports rash <Gudelia Burleson COPPER PLATE PRINTER - Last Filed: 12/13/22 01:18> Neurologic: Reports system reviewed and no additional complaints, except as documented, Denies dizziness, Denies headache(s), Denies numbness, Denies tingling and Denies weakness <Gudelia Burleson [employer] PLATE PRINTER - Last Filed: 12/13/22 01:18> PMFSH Past Medical History Attestation statement: The following information was validated with the patient. <Gudelia Burleson [employer]ATE PRINTER - Last Filed: 12/13/22 01:18> Source: old records reviewed <Gudelia Burleson NP - Last Filed: 12/13/22 01:18> Surgical History: Surgical History History of esophagogastroduodenoscopy (EGD) Hx of colonoscopy <Myrna Manzanares NP - Last Filed: 12/12/22 20:19> Family History Family History: Family History Father Cirrhosis of liver Cancer Liver transplanted Mother Apnea Paternal Grandfather Cancer <Myrna Manzanares NP - Last Filed: 12/12/22 20:19> Social History Social History: Social History Alcohol intake: never Patient Tobacco Use Status: Never used Tobacco Advance Directives: No Advance Directives Information Provided: No Gender identity: Female <Myrna Manzanares NP - Last Filed: 12/12/22 20:19> Physical Exam ED Vital Signs: Vital Signs - 24 hr 12/12/22 20:14 Temperature 97.9 F Pulse Rate 113 H Respiratory Rate 20 Blood Pressure 150/79 H Pulse Oximetry 100 Oxygen Delivery Method Room Air BMI result Body Mass Index 24.4 <Myrna Manzanares NP - Last Filed: 12/12/22 20:19> Vital Signs - 24 hr 12/12/22 20:14 Temperature 97.9 F Pulse Rate 113 H Respiratory Rate 20 Blood Pressure 150/79 H Pulse Oximetry 100 Oxygen Delivery Method Room Air BMI result Body Mass Index 24.4 <Gudelia Burleson NP - Last Filed: 12/13/22 01:18> Const General: cooperative, healthy appearing, comfortable and no acute distress <Gudelia Burleson NP - Last Filed: 12/13/22 01:18> Orientation/consciousness: patient oriented x3 <Gudelia Burleson NP - Last Filed: 12/13/22 01:18> Limitations: no limitations <Gudelia Burleson NP - Last Filed: 12/13/22 01:18> HENMT Head: Yes normal to inspection <Gudelia Burleson NP - Last Filed: 12/13/22 01:18> Ears: hearing grossly normal bilaterally <Gudelia Burleson [employer] PLATE PRINTER - Last Filed: 12/13/22 01:18> General nose exam: Normal external nose present <Gudelia Burleson [employer]ATE PRINTER - Last Filed: 12/13/22 01:18> Face and sinus: Yes normal facial exam <Gudelia Burleson [employer] PRINTER - Last Filed: 12/13/22 01:18> Mouth: Normal oral and palatal mucosa present, lip normal and tongue normal <Gudelia Burleson [employer] PRINTER - Last Filed: 12/13/22 01:18> Throat: Yes posterior oropharynx normal, Yes tonsils normal and Yes uvula midline <Gudelia Burleson [employer] PLATE PRINTER - Last Filed: 12/13/22 01:18> Eyes General: appearance normal, both eyes and all related structures <Gudelia Burleson [employer] PLATE PRINTER - Last Filed: 12/13/22 01:18> Pupils: Equal, round and reactive pupils present <Gudelia Burleson [employer]PER PLATE PRINTER - Last Filed: 12/13/22 01:18> Neck Neck: Yes normal visual inspection, Yes full ROM and Yes no lymphadenopathy <Gudelia Burleson [employer]ATE PRINTER - Last Filed: 12/13/22 01:18> Chest Chest palpation & inspection: normal inspection of the chest <Gudelia Burleson [employer] PRINTER - Last Filed: 12/13/22 01:18> Resp Effort & Inspection: normal respiratory effort <Gudelia Burleson [employer] PRINTER - Last Filed: 12/13/22 01:18> Auscultation: clear to auscultation bilaterally <Gudelia Burleson [employer] PL[employer] PRINTER - Last Filed: 12/13/22 01:18> Cardio Rate: regular rate <Gudelia Burleson [employer]PER PLATE PRINTER - Last Filed: 12/13/22 01:18> Rhythm: regular rhythm <Gudelia Burleson [employer] PRINTER - Last Filed: 12/13/22 01:18> Peripheral pulses: Peripheral pulses 2+ throughout <Gudelia Burleson [employer] PLATE PRINTER - Last Filed: 12/13/22 01:18> GI Inspection: Yes normal to inspection <Gudelia Burleson [employer]PER PLATE PRINTER - Last Filed: 12/13/22 01:18> Palpation (GI): Soft to palpation and nontender <Gudelia Burleson [employer] PRINTER - Last Filed: 12/13/22 01:18> Back/Spine/Pelvis Thoracic/Lumbar Spine: thoracic and lumbar spine normal to inspection <Gudelia Burleson NP - Last Filed: 12/13/22 01:18> Skin Other: There is a mild urticarial rash noted around the patient's neck and along her bra line as well as 3-4 lesions noted on her face <Gudelia Burleson NP - Last Filed: 12/13/22 01:18> Neuro General: patient oriented x3 and moves all extremities <Gudelia Burleson NP - Last Filed: 12/13/22 01:18> Cranial nerves: Yes Equal, round and reactive pupils present <Gudelia Burleson NP - Last Filed: 12/13/22 01:18> Cognition (Neuro): normal cognition <Gudelia Burleson NP - Last Filed: 12/13/22 01:18> Gait exam (Neuro): Normal gait present <Gudelia Burleson NP - Last Filed: 12/13/22 01:18> Course Course Course Narrative: This is a rapid medical exam. Deferred additional HPI, ROS, PE to primary provider. Patient here last night for allergic reaction and received famotidine, benadryl, solumedrol. Discharged with famotidine, benadryl. Came here earlier because she had a mild rash but had not taken famotidine and had taken one dose of benadryl 15 min TURNTABLE MAN. Returns now because she feels rash is worsening. No airway involvement. VSS. Will give oral benadryl, famotidine and prednisone. Nursing will make charge nurse aware <Myrna Manzanares, COPPER PLATE PRINTER - Last Filed: 12/12/22 20:19> This is a rapid medical exam. Deferred additional HPI, ROS, PE to primary provider. Patient here last night for allergic reaction and received famotidine, benadryl, solumedrol. Discharged with famotidine, benadryl. Came here earlier because she had a mild rash but had not taken famotidine and had taken one dose of benadryl 15 min TURNTABLE MAN. Returns now because she feels rash is worsening. No airway involvement. VSS. Will give oral benadryl, famotidine and prednisone. Nursing will make charge nurse aware 42-year-old female presents with recurrent rash from allergic reaction. Patient has not taken any of the medications that were prescribed to her, I had was that provider that saw her last night, gave her a prescription for Benadryl and Pepcid which she has not taken. Patient has hives to her face trunk and arms. Will give IM Solu-Medrol and Benadryl at this time. 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 I did add prednisone to her prescription regimen. I did express the importance of her not exposing herself to new cleaning products and that she must take her medications as directed. Patient verbalized understanding of and agrees of care discharge home. Verbalized understanding of signs symptoms indicating need for emergent intervention. <Gudelia Burleson NP - Last Filed: 12/13/22 01:18> Medications Administered Discontinued Medications Generic Name Dose Route Start Last Admin Trade Name Freq PRN Reason Stop Dose Admin Diphenhydramine HCl 25 mg 12/12/22 20:34 12/12/22 20:49 Diphenhydramine Hcl 50 Mg/Ml Vial IM 12/12/22 20:35 25 mg ONCE ONE Administration Methylprednisolone Sodium Succinate 60 mg 12/12/22 20:34 12/12/22 20:49 Methylprednisolone Sod Succ 125 Mg/2 Ml Vial IM 12/12/22 20:35 60 mg ONCE ONE Administration <Myrna Manzanares NP - Last Filed: 12/12/22 20:19> Medications Administered Discontinued Medications Generic Name Dose Route Start Last Admin Trade Name Freq PRN Reason Stop Dose Admin Diphenhydramine HCl 25 mg 12/12/22 20:34 12/12/22 20:49 Diphenhydramine Hcl 50 Mg/Ml Vial IM 12/12/22 20:35 25 mg ONCE ONE Administration Methylprednisolone Sodium Succinate 60 mg 12/12/22 20:34 12/12/22 20:49 Methylprednisolone Sod Succ 125 Mg/2 Ml Vial IM 12/12/22 20:35 60 mg ONCE ONE Administration <Gudelia Burleson NP - Last Filed: 12/13/22 01:18> Medical Decision Making Differential Diagnosis Differential Diagnoses: The differential diagnosis associated with the presentation includes <Gudelia Burleson NP - Last Filed: 12/13/22 01:18> Allergy <Gudelia Burleson NP - Last Filed: 12/13/22 01:18> External Record Review External record reviewed: Outpatient record and Prior outpatient labs <Gudelia Burleson NP - Last Filed: 12/13/22 01:18> Prescription Management I considered prescription management with: Other (Antihistamines, prednisone) <Gudelia Burleson NP - Last Filed: 12/13/22 01:18> Discharge Plan Discharge Clinical Impression: Urticaria, Allergic reaction <Myrna Manzanares NP - Last Filed: 12/12/22 20:19> Patient Disposition: Home, Self-Care <Myrna Manzanares NP - Last Filed: 12/12/22 20:19> Instructions: Urticaria (ED), Allergy Testing (ED) <Myrna Manzanares NP - Last Filed: 12/12/22 20:19> Additional Instructions: Please take your medications as prescribed. Take Benadryl 25 mg every 6 hours for the next 3 days. Take Pepcid 20 mg every 12 hours for the next 3 days. Take prednisone 60 mg daily for the next 5 days. Thank you for choosing this emergency department for evaluation. Please follow-up with primary care physician as needed. Return to the emergency department for any new, concerning, or worsening symptoms. <Myrna Manzanares NP - Last Filed: 12/12/22 20:19> Prescriptions: New prednisone 20 mg tablet 40 mg PO DAILY 5 Days Qty: 10 0RF No Action epinephrine [EpiPen 2-Lee] 0.3 mg/0.3 mL auto-injector 0.3 mg IM Q4H PRN (Reason: anaphylaxis) Qty: 2 0RF diphenhydramine HCl [Benadryl] 25 mg capsule 25 mg PO TID 3 Days Qty: 9 0RF famotidine 20 mg tablet 20 mg PO BID 3 Days Qty: 6 0RF prenat.vits,clint,[id number] Tablet 1 tab PO BEDTIME albuterol sulfate 90 mcg/actuation HFA aerosol inhaler 2 puff inhalation Q4-6H PRN (Reason: shortness of breath or wheezing) 30 Days Qty: 1 3RF Citrucel 500 mg tablet 1,000 mg PO DAILY Qty: 60 6RF pantoprazole [Protonix] 40 mg tablet,delayed release (DR/EC) 40 mg PO DAILY 30 Days Qty: 30 6RF loratadine 10 mg tablet 10 mg PO DAILY PRN (Reason: allergies) diltiazem HCl 120 mg capsule,extended release 24hr 120 mg PO DAILY Qty: 30 3RF amitriptyline 10 mg tablet 10 mg PO BEDTIME 30 Days Qty: 30 3RF <Myrna Manzanares NP - Last Filed: 12/12/22 20:19> Interventions: ED Discharge Assessment Last Done: 12/12/22 21:06 <Myrna Manzanares NP - Last Filed: 12/12/22 20:19> Discharge Date/Time: 12/12/22 21:08 <Myrna Manzanares NP - Last Filed: 12/12/22 20:19>
[2022-12-12] MEDS: diphenhydrAMINE HCL 50 MG/ML VIAL 25 MG IM (20:49)
[2022-12-12] MEDS: methylPREDNISolone Sod Succ 125 MG/2 ML VIAL 60 MG IM (20:49)
== END 2022-12-12 21:08 | disposition home or self-care (01) ==
LOC: HO.ED 20:51
PROVIDERS: Emergency Provider Emergency Medicine Emergency Medical Services
DX: L50.0 Allergic urticaria (principal); Z79.899 Other long term (current) drug therapy
CPT/HCPCS: 96372; 99282; 99284; J1200; J2930

== ENCOUNTER → 2023-02-09 09:16 | Outpatient (BNVA) | payer MEDICAID, SELFPAY | PROVIDERS: PCP Internal Medicine; Referring Provider Internal Medicine; Visit Provider Internal Medicine Cardiovascular Disease | DX: R00.2 Palpitations (principal); R06.00 Dyspnea, unspecified | CPT/HCPCS: 93005; 99212 ==

== ENCOUNTER → 2023-03-01 14:02 | Outpatient (REF) | payer MEDICAID, SELFPAY ==
--- NOTE | 2023-03-01 14:04 | HM_ITS ---
* Total monitoring time 30 days. Wear time 28.5 days. * Underlying rhythm is sinus. * Average ventricular rate 83/Min. Range 53 to 192/Min. * About 22% the time, rate greater than 100/Min. * Short runs of what appears to be a wide complex rhythm with rates between 80- 100/Min. Some irregularity. Possibly idioventricular. Less likely supraventricular rhythm like atrial fibrillation. Any case lasting only seconds. * Tachycardic strips at 192/Min could be sinus tachycardia and less likely atrial tachycardia or flutter. * No significant pauses or AV blocks. * Palpitations or skipped beats in patient diary correlates with sinus tachycardia. MTDD
== END ==
LOC: HO.CARD 14:02
PROVIDERS: PCP Internal Medicine; Visit Provider Internal Medicine Cardiovascular Disease
DX: R00.2 Palpitations (principal)
CPT/HCPCS: 93270

== ENCOUNTER → 2023-05-17 15:53 | Outpatient (BNVA) | payer MEDICAID, SELFPAY | PROVIDERS: Visit Provider Internal Medicine Cardiovascular Disease | DX: R00.2 Palpitations (principal) | CPT/HCPCS: 99212 ==

== ENCOUNTER 2023-06-07 16:18 | Outpatient (REF) | payer MEDICAID, SELFPAY ==
[2023-06-07 17:16] LABS: MANUAL DIFF FLAG NO
[2023-06-07 17:28] LABS: Basophils Absolute Auto 0.1 X10*3/uL (0.0-0.2); Basophils Percent Auto 0.7 % (0-2); Eosinophils Absolute Auto 0.1 X10*3/uL (0.0-0.4); Eosinophils Percent Auto 0.8 % (0-4); Hematocrit 33.8 % (37.0-47.0); Hemoglobin 9.8 g/dl (12.0-16.0); Imm Gran Abs Auto 0.02 X10*3/uL (0.00-0.03); Imm Gran Pct Auto 0.3 % (0.0-0.4); Lymphocytes Absolute Auto 1.4 X10*3/uL (1.2-4.9); Lymphocytes Percent Auto 19.4 % (20-40); Mean Corpuscular Hemoglobin 20.1 pg (27.0-33.0); Mean Corpuscular Volume 69.3 fL (80.0-98.0); Mean Platelet Volume 10.2 fL (9.4-12.3); Monocytes Absolute Auto 0.5 X10*3/uL (0.1-1.2); Monocytes Percent Auto 6.9 % (2-11); Neutrophils Absolute Auto 5.4 x10*3/uL (2.0-8.3); Neutrophils Percent Auto 71.9 % (45-73); Platelet Count 453 X10*3/uL (160-400); Red Blood Count 4.88 X10*6/uL (4.20-5.50); White Blood Count 7.4 X10*3/uL (4.8-10.8)
[2023-06-07 17:59] LABS: Anion Gap 13 (12-20); Blood Urea Nitrogen 12 mg/dL (9-16); Calcium 9.2 mg/dL (8.4-10.2); Carbon Dioxide 23 mmol/L (22-29); Chloride 105 mmol/L (96-108); Cholesterol 155 mg/dL; Estimated Glomerular Filt Rate > 60; Glucose Random 68 mg/dL (60-115); HDL Cholesterol 42 mg/dL; LDL Cholesterol Calculated 86 mg/dl; Magnesium 2.2 mg/dL (1.6-2.6); Potassium 3.9 mmol/L (3.3-5.1); Sodium 137 mmol/L (135-145); Triglycerides 135 mg/dL
[2023-06-07 18:14] LABS: Vitamin D 25-OH Total 38.4 ng/mL (>30)
[2023-06-07 18:22] LABS: Vitamin B12 476 pg/mL (200-900)
[2023-06-08 08:23] LABS: HBS Num1 10.48 mIU/mL (0-7.99); HBc Num1 0.18 S/CO (0.00-0.79); HBsAGNum1 0.35 S/CO (0.00-0.99); Hepatitis A Antibody IgM 0.21 Index (0-0.79); Hepatitis B Core Antibody Nonreactive (Nonreactive); Hepatitis B Surface Antigen Negative (Negative); ~Hepatitis A Antibody IgM Nonreactive (Nonreactive); ~Hepatitis C Antibody Nonreactive (Nonreactive)
[2023-06-08 10:08] LABS: HBS Num2 10.17 mIU/mL (0-7.99); HBS Num3 10.36 mIU/mL (0-7.99); ~Hepatitis B Surface Antibody GRAYZONE (Nonreactive)
== END 2023-06-07 16:19 | disposition home or self-care (01) ==
LOC: HO.HHCL 16:18
PROVIDERS: Visit Provider Internal Medicine
DX: D50.9 Iron deficiency anemia, unspecified (principal)
CPT/HCPCS: 36415; 80048; 80061; 82306; 82607; 83735; 85025; 86704; 86706; 86709; 86803; 87340

== ENCOUNTER 2023-08-11 14:21 | Outpatient (REF) | payer MEDICAID, SELFPAY ==
--- NOTE | ~2023-08-11 | US_ITS ---
EXAMINATION: MM DIAGNOSTIC DIGITAL BREAST TOMOSYNTHESIS, BILATERAL US BREAST LIMITED, LEFT MAMMOGRAPHY: CLINICAL INFORMATION: Patient complaining of left breast pain inner quadrant. Patient also due for bilateral screening. COMPARISON: Mammography: 08/04/2022, 08/03/2021, 02/04/2021. TECHNIQUE: Digital breast tomosynthesis is performed in both the craniocaudal and mediolateral oblique views along with computer-aided detection (CAD). Synthesized 2D images are generated from the tomosynthesis. FINDINGS: The breasts are heterogeneously dense, which may obscure small masses (ACR BI-RADS breast composition Category c). There are no suspicious masses, suspicious grouped calcifications, or areas of architectural distortion. The parenchymal pattern is stable from prior exams. There are no skin changes or thickening to indicate mastoiditis. Overall appearance is unchanged from prior exams. No mammographic correlate to the region of breast pain. ULTRASOUND: CLINICAL INFORMATION: Patient complaining of breast pain inner quadrant left side. COMPARISON: None contributory. TECHNIQUE: Targeted sonographic evaluation was performed using a high frequency linear transducer. Attention was given to the area of pain left breast 6:00 through 8:00, as indicated by the patient. Selected archived documentation. FINDINGS: LEFT BREAST: There is a mixture of fatty and fibroglandular tissue. No suspicious mass is seen. There is no pathologic acoustic shadowing. There is no skin thickening or edema within the soft tissue planes. There is no cystic abnormality. There is no ultrasonographic correlate to the region of breast pain. US/US breast LT limited mamm only IMPRESSION: There are no imaging findings suspicious for malignancy. Region of breast pain left breast inner quadrant demonstrates no sonographic or mammographic correlate. Recommend clinical management. Otherwise, recommend resuming routine annual screening. OVERALL ASSESSMENT: Mammography: BI-RADS 1 - Negative Ultrasound: BI-RADS 1 - Negative RECOMMENDATION: 1. Patient should be managed based on the clinical impression. 2. Otherwise, routine annual screening mammography. Results were provided to the patient at time of visit by the technologist. This patient's information was entered into a reminder system with a target due date for their next mammogram.
== END 2023-08-11 14:22 | disposition home or self-care (01) ==
LOC: HO.MAMMO 14:21
PROVIDERS: PCP Internal Medicine; Visit Provider Internal Medicine
DX: N64.4 Mastodynia (principal)
CPT/HCPCS: 76642; 77062; 77066

== ENCOUNTER 2023-09-18 16:15 | Outpatient (REF) | payer MEDICAID, SELFPAY ==
[2023-09-18 17:23] LABS: MANUAL DIFF FLAG NO
[2023-09-18 18:02] LABS: Basophils Percent Auto 0.6 % (0-2); Eosinophils Absolute Auto 0.1 X10*3/uL (0.0-0.4); Eosinophils Percent Auto 1.6 % (0-4); Hematocrit 35.9 % (37.0-47.0); Hemoglobin 10.9 g/dl (12.0-16.0); Imm Gran Abs Auto 0.01 X10*3/uL (0.00-0.03); Imm Gran Pct Auto 0.2 % (0.0-0.4); Lymphocytes Absolute Auto 1.2 X10*3/uL (1.2-4.9); Lymphocytes Percent Auto 24.7 % (20-40); Mean Corpuscular HGB Conc 30.4 g/dl (31.0-35.0); Mean Corpuscular Hemoglobin 23.1 pg (27.0-33.0); Mean Corpuscular Volume 76.2 fL (80.0-98.0); Monocytes Absolute Auto 0.4 X10*3/uL (0.1-1.2); Monocytes Percent Auto 8.8 % (2-11); Neutrophils Absolute Auto 3.1 x10*3/uL (2.0-8.3); Neutrophils Percent Auto 64.1 % (45-73); Platelet Count 345 X10*3/uL (160-400); Red Blood Count 4.71 X10*6/uL (4.20-5.50); Red Cell Distribution Width 14.5 % (11.0-16.0); White Blood Count 4.9 X10*3/uL (4.8-10.8)
== END 2023-09-18 16:16 | disposition home or self-care (01) ==
LOC: HO.HHCL 16:15
PROVIDERS: Visit Provider Internal Medicine
DX: D50.0 Iron deficiency anemia secondary to blood loss (chronic) (principal)
CPT/HCPCS: 36415; 85025

== ENCOUNTER 2023-10-23 15:50 | Outpatient (AMB) | payer MEDICAID, SELFPAY ==
[2023-10-23 15:53] VITALS: BP 110/60; PULSE 82; BMI 25.2
--- NOTE | 2023-10-23 15:53 | MHC.OFFVIS ---
Intake Vital Signs 10/23/23 15:53 Height 5 ft Weight 129 lb 3.054 oz BMI 25.2 BP 110/60 Blood Pressure Location Lt brachial Position Sitting Pulse 82 Pulse Source Pulse Oximeter Intake Visit Reasons: 4 mth f/up [facility] Behavioral Health Specialist Required: Yes Behavioral Health Specialist Language: Gathering Machine Feeder Name: terra kate [id number] Allergies shrimp Allergy (Severe, Verified 10/23/23 15:56) MOUTH SWELLING environmetal Allergy (Intermediate, Uncoded 05/17/23 15:59) itchy eyes and body Medication List - Last Reconciled 10/23/23 by FLEX Del Toro albuterol sulfate 90 mcg/actuation 2 puffs inhalation Q4-6H PRN 30 days cetirizine 10 mg PO DAILY PRN diphenhydramine HCl (Benadryl) 25 mg PO TID PRN epinephrine (EpiPen 2-Lee) 0.3 mg (0.3 mL) IM Q4H PRN etonogestrel-ethinyl estradiol 0.12-0.015 mg/24 hr 0 vag rings vaginal methylcellulose (laxative) (Citrucel) 1,000 mg (2 x 500 mg) PO DAILY metoprolol succinate ER (Toprol XL) 25 mg PO BID prenat.vits,clint,[id number] 1 tab PO BEDTIME PRN HPI 4 mth f/up [facility] HPI Details Luann is a 43-year-old female with past medical history of GERD who presents who was being evaluated for shortness of breath and heart palpitations that occur in the nighttime. On last visit her metoprolol dose was increased. Today she reports that she stopped metoprolol. She says it was not helping her symptom at all. She then had concerns that her blood pressure was more elevated after stopping the medication. She does not want to take any medication that is going to cause another problem for her. She continues to describe heart palpitations that occur her when she goes to bed at night. They also wake her up in the night with rapid heart palpitations and a feeling of shortness of breath. She denies this symptom being anxiety or GERD related. No chest discomfort or heart palpitations during the day. No shortness of breath with physical activity. No presyncope, syncope, falls. No PND, orthopnea or edema. She has restriction over her symptom and inability to come up with a proper diagnosis. PFSH Surgical History Hx of colonoscopy History of esophagogastroduodenoscopy (EGD) Family History Father Cirrhosis of liver Cancer Liver transplanted Mother Apnea Paternal Grandfather Cancer Social History Alcohol intake: never Patient Tobacco Use Status: Never used Tobacco Gender identity: Female Female Reproductive History Menstrual Age of Menarche: 12 Review of Systems Const All systems reviewed & are unremarkable except as noted in HPI and below ENT Denies dizziness Card Details: palpitations during at night Denies chest pain, Reports chest pain at rest, Denies chest pain with activity, Denies rapid heart rate, Denies pedal edema, Denies edema, Denies leg edema, Denies lightheadedness, Denies palpitations, Denies dyspnea, Denies dyspnea on exertion and Denies orthopnea Resp Denies cough, Denies dyspnea and Denies dyspnea on exertion GI Denies hematochezia and Denies change in stool character Musc Denies abnormal gait, Denies limited range of motion, Denies muscle cramps, Denies muscle weakness, Denies numbness, Denies radiating pain into limb, Denies stiffness and Denies tingling Neuro Denies abnormal gait, Denies dizziness, Denies numbness and Denies tingling Endo Denies palpitations Physical Exam Vital Signs: Last Vital Signs Pulse 82 10/23/23 15:53 BP 110/60 10/23/23 15:53 BMI result Body Mass Index 25.2 Const General: cooperative, healthy appearing, comfortable and no acute distress Orientation/consciousness: patient oriented x3 Resp Effort & Inspection: normal respiratory effort Auscultation: clear to auscultation bilaterally, no crackles, no rales, no rhonchi and no wheezes Cardio Jugular venous distension: no JVD Rate: regular rate Rhythm: regular rhythm Heart sounds: S1 normal heart sound present, S2 normal heart sound present, no murmurs and no rubs Neuro General: patient oriented x3 Extrem General: Yes normal to inspection and No no pedal edema Psych Appearance: grossly normal Mental Status: mental status grossly normal Speech and movement: Normal speech and movement present Assessment & Plan Assessment & Plan (1) Palpitations: Code(s): R00.2 - Palpitations Plan: Report of heart palpitations which feel like strong and rapid heartbeat occurring mostly at night when she lays down and it will wake her from sleep. She will have associated shortness of breath. An exercise stress test was done 02/08/2021 with exercise 7 Mets, no symptoms, no EKG change and normal myocardial perfusion imaging. A cardiac event monitor was on on 03/01/2023 for 30 days showing sinus rhythm with average heart rate 83, range 53-192, 22% of the time heart rate greater than 100. Max heart rate of 192 could be SVT, Short runs of wide complex rhythm which appears to be possible idioventricular lasting only seconds, no AFib. She was put on metoprolol to help with heart rate control without affect. On last visit her metoprolol dose was doubled to 25 mg b.i.d.. Today she reports that no improvement in her symptom with metoprolol use. She has since stopped metoprolol and was concerned that her blood pressure readings were more elevated upon stopping. Her blood pressure has now normalized. She continues with heart palpitations approximately 3 nights a week. She does not notice symptoms in the daytime. Overall she expresses much concern. Offered trial of another rate slowing medication and she declines at this time. Informed her that I will further discuss her case with her primary director meetings and determine best plan of care. (2) Dyspnea: Code(s): R06.00 - Dyspnea, unspecified Plan: As above Coding Level of Care Code Est Pt Level 4 (83830) Diagnoses Palpitations R00.2 Dyspnea R06.00 Time Spent (min) 30
== END 2023-10-23 16:39 | disposition home or self-care (01) ==
PROVIDERS: PCP Internal Medicine; Visit Provider Nurse Practitioner Family
DX: R00.2 Palpitations (principal); R06.00 Dyspnea, unspecified
CPT/HCPCS: 99214

== ENCOUNTER → 2023-10-23 15:50 | Outpatient (BNVA) | payer MEDICAID, SELFPAY | PROVIDERS: PCP Internal Medicine; Visit Provider Nurse Practitioner Family | DX: R00.2 Palpitations (principal); R06.00 Dyspnea, unspecified | CPT/HCPCS: 99212 ==

== ENCOUNTER 2023-12-25 15:42 | Outpatient (REF) | payer OTHER, SELFPAY ==
[2023-12-25 17:47] LABS: MANUAL DIFF FLAG NO
[2023-12-25 17:57] LABS: Basophils Percent Auto 0.7 % (0-2); Eosinophils Absolute Auto 0.1 X10*3/uL (0.0-0.4); Eosinophils Percent Auto 1.4 % (0-4); Hematocrit 38.4 % (37.0-47.0); Imm Gran Abs Auto 0.01 X10*3/uL (0.00-0.03); Imm Gran Pct Auto 0.2 % (0.0-0.4); Lymphocytes Absolute Auto 1.5 X10*3/uL (1.2-4.9); Lymphocytes Percent Auto 25.7 % (20-40); Mean Corpuscular HGB Conc 31.3 g/dl (31.0-35.0); Mean Platelet Volume 9.6 fL (9.4-12.3); Monocytes Absolute Auto 0.4 X10*3/uL (0.1-1.2); Monocytes Percent Auto 6.6 % (2-11); Neutrophils Absolute Auto 3.8 x10*3/uL (2.0-8.3); Neutrophils Percent Auto 65.4 % (45-73); Platelet Count 375 X10*3/uL (160-400); Red Blood Count 4.99 X10*6/uL (4.20-5.50); Red Cell Distribution Width 14.3 % (11.0-16.0); White Blood Count 5.9 X10*3/uL (4.8-10.8)
[2023-12-25 18:35] LABS: TSH reflex Free T4 0.92 uIU/mL (0.32-4.0)
== END 2023-12-25 15:43 | disposition home or self-care (01) ==
LOC: HO.HHCL 15:42
PROVIDERS: Visit Provider Internal Medicine
DX: D50.9 Iron deficiency anemia, unspecified (principal); R00.2 Palpitations
CPT/HCPCS: 36415; 84443; 85025

== ENCOUNTER 2024-01-02 14:20 | Outpatient (REF) | payer OTHER, SELFPAY ==
--- NOTE | ~2024-01-02 | US_ITS ---
EXAMINATION: US UPPER EXTREMITY, NONVASCULAR, RIGHT CLINICAL INFORMATION: Right mid axillary lump. COMPARISON: None available. TECHNIQUE: Targeted ultrasound images were obtained by the systems developer of the area of concern as indicated by the patient in the right axilla. Radiologist was not in attendance. Images were later provided for interpretation. FINDINGS: No bulky adenopathy or fluid collection identified in the area of concern indicated by the patient to the systems developer in the right axilla. US/US extremity nonvascular IMPRESSION: 1. No bulky adenopathy or fluid collection identified in the area of concern indicated by the patient to the systems developer in the right axilla. 2. Decisions regarding further imaging, treatment or biopsy should be based on the clinical exam, as not all abnormalities are detectable on ultrasound studies.
== END 2024-01-02 14:21 | disposition home or self-care (01) ==
LOC: HO.US 14:20
PROVIDERS: PCP Internal Medicine; Visit Provider Internal Medicine
DX: R22.31 Localized swelling, mass and lump, right upper limb (principal)
CPT/HCPCS: 76882

== ENCOUNTER 2024-01-16 14:18 | Outpatient (AMB) | payer OTHER, SELFPAY ==
[2024-01-16 14:23] VITALS: BP 116/62; BMI 25.4
--- NOTE | 2024-01-16 14:23 | MHC.OFFVIS ---
Intake Vital Signs 01/16/24 14:23 Height 5 ft Weight 130 lb BMI 25.4 BP 116/62 Intake Visit Reasons: ? menopause Pharmacy Clinical Specialist Required: No Information Interpreted: clinical only Clinical Psychology Professor: Clinical Psychology Professor Present Allergies shrimp Allergy (Severe, Verified 01/16/24 14:24) MOUTH SWELLING environmetal Allergy (Intermediate, Uncoded 01/16/24 14:24) itchy eyes and body Medication List - Last Reconciled 01/16/24 by Cornelia Madden CNM albuterol sulfate 90 mcg/actuation 2 puffs inhalation Q4-6H PRN 30 days cetirizine 10 mg PO DAILY PRN diphenhydramine HCl (Benadryl) 25 mg PO TID PRN epinephrine (EpiPen 2-Lee) 0.3 mg (0.3 mL) IM Q4H PRN etonogestrel-ethinyl estradiol 0.12-0.015 mg/24 hr 0 vag rings vaginal Is last menstrual period known: Yes Last menstrual period: 11/12/23 HPI ? menopause HPI Details Patient is here because she is now changed insurances again and is back in this system she had been here in the past and saw Dr. Enriquez and had been diagnosed with fibroids and had been referred to [facility] she ended up having a there and the fibroids had shrunk and she had the baby but the baby because she had trisomy 18. Later she got again but had a miscarriage. She was told the last time her fibroids were says that she had 1 big 1 and 1 little 1. She uses the NuvaRing both for contraception and also it was helping her with vaginal dryness and also she has been having other menopausal symptoms she has been getting hot flashes but if she takes of vitamin supplement called menopause support which has vitamin-B and D and some other herbs in it she finds that it makes her feel better she will be taking the NuvaRing out this week in order to get her. She has been using [id number] lubricant for sex because she has been dry. Additionally she has been hurting with intercourse and thinks that it is the fibroids. She thinks the last ultrasound was done a few years ago at [facility]. She also thinks her last Pap smear was a couple of years ago at [facility]. She and her use 1 position in order to avoid the discomfort that she thinks is related to the fibroids. She does want to continue on the NuvaRing she is worried that it is dangerous to be on it and would cause her something bad if she is now going to menopause but she only had her last period in October she is hoping she will get a period when she takes the NuvaRing out. She is otherwise out of NuvaRing but wants to continue if she can. She does not want to risk another abnormality or miscarriage,. PFSH Surgical History Hx of colonoscopy History of esophagogastroduodenoscopy (EGD) Family History Father Cirrhosis of liver Cancer Liver transplanted Mother Apnea Paternal Grandfather Cancer Social History Alcohol intake: never Patient Tobacco Use Status: Never used Tobacco Gender identity: Female Female Reproductive History Menstrual Age of Menarche: 12 Duration of menses: 3-5 days Date of last menstrual period: 11/12/23 control method: vaginal ring Total pregnancies: 5 Full term: 3 Premature: 1 Ab spontaneous: 1 History of abnormal pap smear: No (previous pap 2021,neg,per patient at [facility]) Physical Exam Vital Signs: BMI result Body Mass Index 25.4 Other: Vagina is pink and moist with smooth mucosa and cervix however the cervix is irregular and scarred patient does believe on questioning that she had a laceration to her cervix during 1 of her deliveries. Her uterus is bulky and enlarged consistent with fibroids. Is anterior. Very good tone with Kegel. External Female Exam: normal external appearance Speculum Exam - Vagina: normal appearance of the vagina and normal vaginal discharge Bimanual exam- vagina & uterus: normal bimanual exam, consistency normal, uterine mobility normal and non-tender Bimanual Exam- Adnexa, other: normal adnexae, no masses and No adnexal tenderness Results AMB Test Urine AMB Test Urine Negative Last Edit by Isiah Carney CMA on 01/16/24 14:37 Assessment & Plan Assessment & Plan (1) Fibroids: Comment: History of fibroids had been referred to [facility] for them states they had shrunk. Had afterwards with trisomy 18. Uterus very bulky today will reassess. Also dyspareunia Code(s): D21.9 - Benign neoplasm of connective and other soft tissue, unspecified (2) Uses control: Comment: Uses NuvaRing refill ordered Code(s): Z78.9 - Other specified health status (3) Perimenopause: Code(s): N95.1 - Menopausal and female climacteric states Plan Discussed her hermila menopausal symptoms and the range of them. The menopause support vitamins she is taking are benign. She says that when she takes them she does not get hot flashes as much. She is using the NuvaRing she also says she gets hot flashes when the NuvaRing is out. She has not gotten menses since October discussed that it has not worth doing an FSH until it has been 12 months of no menses with no hormonal support. Her skin is moist as her is her vagina with normal premenopausal mucosa. Her uterus is bulky consistent with fibroids and her cervix is scarred consistent with a cervical laceration in delivery. Patient does think this is what happened. We will get ultrasound to assess for the fibroids patient will sign for her Pap smear records at [facility] and we will discuss the follow-up after her ultrasound. If the fibroids are very big or enlarged then she can see Dr. Enriquez to discuss best plan for management. Patient states she is getting tired of the 1 position with sex that she uses because of the fibroids. Orders: Orders Bacterial Vaginosis Panel Today Z20.2 - Contact with and (suspected) exposure to infections with a predominantly sexual mode of transmission AMB HCG Urine Test Today Z32.02 - Encounter for test, result negative US pelvic and transvaginal Today D21.9 - Benign neoplasm of connective and other soft tissue, unspecified, Z78.9 - Other specified health status CT NG by PCR Today Z01.419 - Encounter for gynecological examination (general) (routine) without abnormal findings Medications: New etonogestrel-ethinyl estradiol 0.12-0.015 mg/[address] for 3 weeks of a 4-week cycle 1 vag ring vaginal Q4W 3 ea 3RF Coding Level of Care Code Est Pt Level 3 (54821) Diagnoses Fibroids D21.9 Uses control Z78.9 Perimenopause N95.1
== END 2024-01-16 15:38 | disposition home or self-care (01) ==
LOC: HO.HWSM 14:18
PROVIDERS: PCP Internal Medicine; Visit Provider Advanced Practice Midwife
DX: D21.9 Benign neoplasm of connective and other soft tissue, unspecified (principal); Z78.9 Other specified health status; N95.1 Menopausal and female climacteric states; Z32.02 Encounter for pregnancy test, result negative
CPT/HCPCS: 99213

== ENCOUNTER 2024-01-16 14:18 | Outpatient (REF) | payer OTHER, SELFPAY | END 2024-01-16 14:19 | disposition home or self-care (01) | LOC: HO.LAB 14:18 | PROVIDERS: PCP Internal Medicine; Visit Provider Advanced Practice Midwife | DX: D21.9 Benign neoplasm of connective and other soft tissue, unspecified (principal); N95.1 Menopausal and female climacteric states; Z78.9 Other specified health status | CPT/HCPCS: 81025; 99212 ==

== ENCOUNTER 2024-01-16 19:08 | Outpatient (REF) | payer OTHER, SELFPAY ==
[2024-01-18 02:41] LABS: CT PCR NOT DETECTED (Not Detect.); NG PCR NOT DETECTED (Not Detect.)
[2024-01-18 11:10] LABS: BV Int Neg Control Negative (Negative); BV Int Pos Control Positive (Positive)
== END 2024-01-16 19:09 | disposition home or self-care (01) ==
LOC: HO.HHCLNP 19:08
PROVIDERS: Visit Provider Advanced Practice Midwife
DX: Z01.419 Encounter for gynecological examination (general) (routine) without abnormal findings (principal); Z20.2 Contact with and (suspected) exposure to infections with a predominantly sexual mode of transmission
CPT/HCPCS: 0353U; 87480; 87510; 87660

== ENCOUNTER 2024-01-24 16:05 | Outpatient (REF) | payer OTHER, SELFPAY ==
--- NOTE | ~2024-01-24 | US_ITS ---
EXAMINATION: US PELVIS CLINICAL INFORMATION: Leiomyoma. COMPARISON: Pelvic ultrasound 05/24/2019. TECHNIQUE: Ultrasound of the pelvis is performed using both transabdominal and transvaginal transducers along with Doppler. Transvaginal imaging is performed due to inadequate visualization transabdominally. FINDINGS: Uterus: The uterus measures 7.3 x 6.1 x 7.4 cm. The uterus is anteverted and anteflexed. The endometrial stripe measures 2 mm. There is a 8.0 x 6.6 x 6.7 cm subserosal fibroid anterior uterine fundus. This previously measured 7.1 x 4.5 x 7.6 cm in 2019. The right ovary appears normal measuring 2.9 x 1.7 x 2.0 cm, volume 5.2 mL. The left ovary appears normal measuring 2.8 x 1.4 x 1.7 cm, volume 3.5 mm. Trace free fluid in the cul-de-sac consistent with normal physiologic fluid. US/US pelvic and transvaginal IMPRESSION: 8 cm subserosal fibroid anterior uterus increased mildly increased in size from 2019.
== END 2024-01-24 16:06 | disposition home or self-care (01) ==
LOC: HO.US 16:05
PROVIDERS: PCP Internal Medicine; Visit Provider Advanced Practice Midwife
DX: D21.9 Benign neoplasm of connective and other soft tissue, unspecified (principal); Z78.9 Other specified health status
CPT/HCPCS: 76830; 76856

== ENCOUNTER 2024-02-08 14:40 | Outpatient (AMB) | payer OTHER, SELFPAY ==
--- NOTE | 2024-02-08 15:04 | MHC.OFFVIS ---
Intake Vital Signs 02/08/24 15:05 Height 5 ft Weight 129 lb BMI 25.2 BP 112/50 L Intake Visit Reasons: Ultrasound follow/annual Bagging Salvager Required: No Information Interpreted: non-clinical & clinical Fuel Truck Driver: Fuel Truck Driver Present (Dima) Allergies shrimp Allergy (Severe, Verified 02/08/24 15:07) MOUTH SWELLING environmetal Allergy (Intermediate, Uncoded 02/08/24 15:07) itchy eyes and body Is last menstrual period known: Yes Last menstrual period: 01/23/24 Post menopausal: No HPI Ultrasound follow/annual HPI Details Patient is here for her annual exam and Pap smear and also to review the ultrasound that she had done to check on her fibroids she has a longstanding history of fibroids she had fibroids noted many years ago and was referred to [facility] because they were large and Dr. Enriquez had referred her there she then turned out to be so that baby did not live. Her fibroids apparently got a little smaller per her history but they are bothering her now again especially when she has sex and we had the ultrasound done because her uterus felt boggy and to see whether not they had changed in size and according to the ultrasound they have gotten bigger. She also uses the NuvaRing for control but every now and then she stops it to let herself have a heavier. So she has been using it for 3 months at a time and then gives herself a month off and then starts it up again. She is trying to figure out what she wants to do and if there is anything else to be done and she is worried about secondary effects of everything she also does get hot flashes and they are ameliorated when she uses the NuvaRing. Some STI testing was done at the last visit though not the Pap. And the test showed positive Gardnerella she did not have any symptoms of itching burning bad odor bad discharge or anything so she said the nurse told her she did not need to treat it but would like to be checked again I had a discussion with her again that if it is not symptomatic she does not need to treat it that is a very common finding in our vagina as she has no worries about STDs and does not require that test to be done again. [facility] Surgical History Hx of colonoscopy History of esophagogastroduodenoscopy (EGD) Family History Father Cirrhosis of liver Cancer Liver transplanted Mother Apnea Paternal Grandfather Cancer Social History Alcohol intake: never Patient Tobacco Use Status: Never used Tobacco Gender identity: Female Female Reproductive History Menstrual Age of Menarche: 12 Duration of menses: 3-5 days Date of last menstrual period: 01/23/24 control method: vaginal ring Total pregnancies: 7 Full term: 3 Number of Living Children: 3 Ab spontaneous: 3 Date of last pap smear: 06/30/17 (negative) History of abnormal pap smear: Yes (2001 ANSELMO 1) Date of Mammogram: 08/11/23 Physical Exam Vital Signs: Last Vital Signs BP 112/50 L 02/08/24 15:05 BMI result Body Mass Index 25.2 Const General: healthy appearing, comfortable, no acute distress, well developed and alert Nutritional Appearance: average body habitus Orientation/consciousness: patient oriented x3 Limitations: no limitations HEENT Head: Yes normocephalic Neck Neck: Yes normal visual inspection Chest Chest palpation & inspection: normal inspection of the chest Breast/axilla inspection: normal inspection of the breasts and normal inspection of the axillae Breast/axilla palpation: normal palpation of the breasts and normal palpation of the axillae Resp Effort & Inspection: normal respiratory effort GI Inspection: Yes normal to inspection, No Abdominal wall edema and No distended Palpation (GI): Soft to palpation and nontender Other: Cervix is pink appears scarred from a previous obstetrical laceration. Mucosa is very smooth and healthy appearing Uterus is bulky and enlarged consistent with fibroid uterus Adnexa nontender good tone with Kegel General: Yes bladder normal to palpation External Female Exam: normal external appearance and normal appearance of the urethra Speculum Exam - Vagina: normal appearance of the vagina, normal palpation and normal vaginal discharge Speculum Exam - Cervix: normal appearance of the cervix, normal palpation and nontender Bimanual exam- vagina & uterus: normal bimanual exam, normal palpation, uterine size normal, bladder normal to palpation, consistency normal, normal palpation, uterine mobility normal, uterine shape normal, No Cervical tenderness present, non-tender and no cervical motion tenderness Bimanual Exam- Adnexa, other: normal adnexae, no masses, normal and No adnexal tenderness Neuro General: patient oriented x3 Results Reviewed Results Reviewed: Patient: Luann Wellington MR#: [id number] : 1980 Acct:[id number] Age/Sex: 43 / F ADM Date: 01/24/24 Loc: HO.US Attending Dr: Cornelia Madden CNM Ordering Physician: Cornelia Madden CNM Date of Service: 01/24/24 Procedure(s): US pelvic and transvaginal Accession Number(s): [id number] cc: Zenaida Allen MD; Cornelia Madden CNM~ EXAMINATION: US PELVIS CLINICAL INFORMATION: Leiomyoma. COMPARISON: Pelvic ultrasound 05/24/2019. TECHNIQUE: Ultrasound of the pelvis is performed using both transabdominal and transvaginal transducers along with Doppler. Transvaginal imaging is performed due to inadequate visualization transabdominally. FINDINGS: Uterus: The uterus measures 7.3 x 6.1 x 7.4 cm. The uterus is anteverted and anteflexed. The endometrial stripe measures 2 mm. There is a 8.0 x 6.6 x 6.7 cm subserosal fibroid anterior uterine fundus. This previously measured 7.1 x 4.5 x 7.6 cm in 2019. The right ovary appears normal measuring 2.9 x 1.7 x 2.0 cm, volume 5.2 mL. The left ovary appears normal measuring 2.8 x 1.4 x 1.7 cm, volume 3.5 mm. Trace free fluid in the cul-de-sac consistent with normal physiologic fluid. US/US pelvic and transvaginal IMPRESSION: 8 cm subserosal fibroid anterior uterus increased mildly increased in size from 2019. Dictated By: Lino Byers MD Signed By: <Electronically signed by Lino Byers MD in OV> 01/26/24 1544 DD/ 1711 TD/TT: Library Science Professor: KHLOE Assessment & Plan Assessment & Plan (1) Perimenopause: Code(s): N95.1 - Menopausal and female climacteric states (2) Uses control: Comment: Uses NuvaRing refill ordered Code(s): Z78.9 - Other specified health status (3) Fibroids: Comment: History of fibroids had been referred to [facility] for them states they had shrunk. Had afterwards with trisomy 18. Uterus very bulky today will reassess. Also dyspareunia. 02/03 ultrasound shows fibroids have increased by 1 cm. review at follow-up visit today w annual 02/08/[address]riquez.. Code(s): D21.9 - Benign neoplasm of connective and other soft tissue, unspecified (4) Family planning education, guidance, and counseling: Code(s): Z30.09 - Encounter for other general counseling and advice on contraception (5) Well woman exam with routine gynecological exam: Code(s): Z01.419 - Encounter for gynecological examination (general) (routine) without abnormal findings Plan -----Discussed in this visit the following: healthy balanced diet, regular and consistent exercise, getting recommended health screens, doing the best she can for her particular health concerns, kegel exercises, pap smear screening and followup recommendations, mammography screening and SBE, normal changes in cycles in her life stage--- . Discussed what some women do to deal with their fibroids. She had wondered about hysterectomy. She has not interested in having anymore children currently she is using the NuvaRing and has been for years. She is comfortable with it. Patient assisted in finding some reputable medical information sites online that she can read at her leisure to look up about fibroids and hysterectomies and pros and cons in detail including [facility], [facility], [facility] sites. -her next visit will be with Dr. Enriquez and I recommend she do her reading 1st so she can ask questions. Reviewed the possibility that he may refer her back to [facility] for management of this. Pap smear was done today as well as testing for Gardnerella Delia and trich just as a repeat of her Gardnerella testing, Orders: Orders Bacterial Vaginosis Panel Today B96.89 - Other specified bacterial agents as the cause of diseases classified elsewhere, N76.0 - Acute vaginitis Pap Smear Today Z12.4 - Encounter for screening for malignant neoplasm of cervix Coding Level of Care Code Est Pt Prev Care 40-64y(33180) Diagnoses Perimenopause N95.1 Uses control Z78.9 Fibroids D21.9 Family planning education, guidance, and counseling Z30.09 Well woman exam with routine gynecological exam Z01.419
[2024-02-08 15:05] VITALS: BP 112/50; BMI 25.2
== END 2024-02-08 17:00 | disposition home or self-care (01) ==
PROVIDERS: PCP Internal Medicine; Visit Provider Advanced Practice Midwife
DX: Z01.419 Encounter for gynecological examination (general) (routine) without abnormal findings (principal); N95.1 Menopausal and female climacteric states; Z78.9 Other specified health status; D25.9 Leiomyoma of uterus, unspecified; Z30.09 Encounter for other general counseling and advice on contraception
CPT/HCPCS: 99396

== ENCOUNTER 2024-02-08 14:40 | Outpatient (REF) | payer OTHER, SELFPAY ==
[2024-02-09 08:53] LABS: BV Int Neg Control Negative (Negative); BV Int Pos Control Positive (Positive)
[2024-02-13 21:14] LABS: HPV mRNA E6/E7 rflx Not Detected (Not Detected)
== END 2024-02-08 14:41 | disposition home or self-care (01) ==
LOC: HO.LNP 14:40
PROVIDERS: PCP Internal Medicine; Visit Provider Advanced Practice Midwife
DX: Z01.419 Encounter for gynecological examination (general) (routine) without abnormal findings (principal); N95.1 Menopausal and female climacteric states; D21.9 Benign neoplasm of connective and other soft tissue, unspecified; N76.0 Acute vaginitis; B96.89 Other specified bacterial agents as the cause of diseases classified elsewhere
CPT/HCPCS: 87480; 87510; 87624; 87660; 88142; 99396

== ENCOUNTER 2024-03-11 15:23 | Outpatient (REF) | payer OTHER, SELFPAY ==
--- NOTE | ~2024-03-11 | XR_ITS ---
Examination: Bilateral knees CLINICAL INFORMATION: Chronic pain COMPARISON: None TECHNIQUE: AP and lateral views of each knee. FINDINGS: Both knees are unremarkable without evidence of joint effusion or malalignment. Soft tissues unremarkable. XR/XR knee RT 2V IMPRESSION: no abnormal findings
--- NOTE | ~2024-03-11 | XR_ITS ---
Examination: Bilateral knees CLINICAL INFORMATION: Chronic pain COMPARISON: None TECHNIQUE: AP and lateral views of each knee. FINDINGS: Both knees are unremarkable without evidence of joint effusion or malalignment. Soft tissues unremarkable. XR/XR knee LT 2V IMPRESSION: no abnormal findings
--- NOTE | ~2024-03-11 | XR_ITS ---
EXAMINATION: XR LUMBOSACRAL SPINE CLINICAL INFORMATION: Chronic low back pain COMPARISON: 02/03/2021 TECHNIQUE: Three views of the lumbosacral spine. FINDINGS: The vertebral bodies and posterior elements are normal. The disc spaces are preserved and the vertebral alignment is normal. The paraspinal soft tissues are normal. XR/XR lumbar spine 2-3V IMPRESSION: Unremarkable examination.
== END 2024-03-11 15:24 | disposition home or self-care (01) ==
LOC: HO.HHCX 15:23
PROVIDERS: Visit Provider Internal Medicine
DX: M25.561 Pain in right knee (principal); M25.562 Pain in left knee; G89.29 Other chronic pain; M54.50 Low back pain, unspecified
CPT/HCPCS: 72100; 73560

== ENCOUNTER 2024-05-09 15:06 | Outpatient (AMB) | payer OTHER, SELFPAY ==
[2024-05-09 15:08] VITALS: BMI 24.7
--- NOTE | 2024-05-09 15:08 | MHC.OFFVIS ---
Vital Signs 05/09/24 15:08 Height 5 ft Weight 126 lb 8.725 oz BMI 24.7 Intake Visit Reasons: pt req appt Intake Note: Luann presents to in office visit today for concerns of loose stools. CC: Patient states that since after having Covid last July her stools became soft. Per Pt most of the time after she eats out she has to run to the bathroom with diarrhea. Per patient she use to suffer from constipation before. She also c/o LUQ abdominal and a lot of gas. 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 Accompanied by: Self / Same As Patient Allergies shrimp Allergy (Severe, Verified 05/09/24 15:16) MOUTH SWELLING environmetal Allergy (Intermediate, Uncoded 02/08/24 15:07) itchy eyes and body Medication List - Last Reconciled 05/09/24 by JASMEET Sorenson albuterol sulfate 90 mcg/actuation 2 puffs inhalation Q4-6H PRN 30 days cetirizine 10 mg PO DAILY PRN dicyclomine 10 mg PO QID diphenhydramine HCl (Benadryl) 25 mg PO TID PRN epinephrine (EpiPen 2-Lee) 0.3 mg (0.3 mL) IM Q4H PRN etonogestrel-ethinyl estradiol 0.12-0.015 mg/24 hr 1 vag ring vaginal Q4W xxewpwkccweo-Oz-rsdc-minerals tabs PO HPI HPI pt req appt: Details: Assessment & Plan (1) Irritable bowel syndrome with constipation: Code(s): K58.1 - Irritable bowel syndrome with constipation Plan: Indian #[id number], Juliet She says that when she strains at her stooling she will have RB on the TT and in the toilet bowel. She will also have a lot of rectal pain when this happens. She will drink prune juice when this happens and it will succeed to soften the stools and then she will not bleed. This certainly sounds like hemorrhoids. She had a colonoscopy in 2018 that was negative. She is no longer using the senna and colace - it seem she never received the senna and the colace alone did not control her sx. She feels it is much better with the prune juice, and wants to know if this is safe to use daily - which it certainly is. She may add some fiber supplement to it as well if she wishes. I offered to send a hemorrhoid cream but she prefers using [id number] suppositories along with tucks wipes and of course this is fine. She is using her protonix only prn now with better bowel motility. Return office visit in 6 months. (2) GERD (gastroesophageal reflux disease): Code(s): K21.9 - Gastro-esophageal reflux disease without esophagitis (3) Bleeding hemorrhoids: Code(s): K64.9 - Unspecified hemorrhoids Medications: Refilled pantoprazole (Protonix) 40 mg PO DAILY 30 days 30 tabs 6RF K21.9 - Gastro-esophageal reflux disease without esophagitis Discontinued docusate sodium (Colace) Discontinued Reason: Doctor's Order 100 mg PO .DAILY WITH FOOD 30 days 30 caps 6RF K58.1 - Irritable bowel syndrome with constipation, K64.9 - Unspecified hemorrhoids sennosides (senna) Discontinued Reason: Doctor's Order 17.2 mg (2 x 8.6 mg) PO BEDTIME 30 days 60 caps 6RF constipation K58.1 - Irritable bowel syndrome with constipation TODAY'S VISIT Indian #declines Patient has been lost to follow-up since 04/2022 Apparently she had COVID in July of 2023 and ever since then she has been having postprandial diarrhea. This is a big change from her prior baseline of constipation. Her stooling has really changed while she still has CIC sometimes but it is more diarrhea. She has noticed this with eating very spicy foods and sometimes all you can eat DE food. She has not had any surgeries (bree). She is no longer on any GI medications including the pantoprazole she was on in the past. Will get some basic labs to see if we can figure out why this is changed for her and the meantime give her a trial of dicyclomine for comfort. Return office visit in 6 weeks [facility] Medical History Esophagitis Chronic gastritis with bleeding Family planning education, guidance, and counseling Abnormal x-ray of thoracic spine Abnormal x-ray of thoracic spine Sleep disorder Uses control Cervical cancer screening Well woman exam with routine gynecological exam Surgical History Hx of colonoscopy History of esophagogastroduodenoscopy (EGD) Family History Father Cirrhosis of liver Cancer Liver transplanted Mother Apnea Paternal Grandfather Cancer Social History Alcohol intake: never Patient Tobacco Use Status: Never used Tobacco Gender identity: Female Female Reproductive History Menstrual Age of Menarche: 12 Review of Systems Const Denies fatigue, Denies fever(s), Denies night sweats, Denies poor appetite and Denies weight loss ENT Reports Normal hearing present, Denies dental pain, Denies dysphagia, Denies hearing loss, Denies mouth pain, Denies odynophagia, Denies throat swelling, Denies tongue swelling and Reports other (Dentition adequate) Card Reports no additional complaints Resp Reports no additional complaints GI Details: Reports abdominal pain, Denies melena, Denies bloating, Denies hematochezia, Denies constipation, Reports GI cramping, Denies dysphagia, Denies excessive flatus, Denies early satiety, Denies heartburn, Reports diarrhea, Denies nausea, Denies odynophagia, Denies vomiting and Denies hematemesis Skin/Breast Denies pruritus, Denies lesions, Denies rash and Denies jaundice Neuro Reports Normal hearing present and Denies Abnormal speech present Endo Denies fatigue Aller/Immun Denies throat swelling and Denies tongue swelling Physical Exam Vital Signs: BMI result Body Mass Index 24.7 Const General: cooperative, no acute distress, well developed and well groomed Nutritional Appearance: average body habitus and well nourished Orientation/consciousness: oriented to person, oriented to place and oriented to time Limitations: language barrier HEENT Head: Yes normocephalic and Yes atraumatic Eyes General: appearance normal, both eyes and all related structures Pupils: Equal, round and reactive pupils present Neck Neck: Yes normal visual inspection and Yes no lymphadenopathy Thyroid: Thyroid normal Resp Effort & Inspection: normal respiratory effort and able to speak in complete sentences Auscultation: clear to auscultation bilaterally Cardio Rate: regular rate Rhythm: regular rhythm Heart sounds: Normal, physiologic split S2 sound present Peripheral pulses: radial pulses present and posterior tibial pulses present GI Inspection: No distended and No Abdominal panniculus present Palpation (GI): Soft to palpation, nontender, no guarding, not rigid and No hepatosplenomegaly present Percussion: Yes normal to percussion Auscultation: normal bowel sounds Rectal Exam - Female: deferred Skin General skin exam: no rashes or lesions noted, turgor normal, skin not dry, no jaundice, No spider nevi and no striae Rashes: no rashes Nails: normal Neuro General: oriented to person, oriented to place and oriented to time Cranial nerves: Yes Equal, round and reactive pupils present and Yes Normal hearing present Speech: No Abnormal speech present Extrem General: Yes normal to inspection, No clubbing, No cyanosis and No edema Psych Appearance: grossly normal and well kempt Mental Status: mental status grossly normal Speech and movement: Normal speech and movement present Affect: normal affect Attitude: cooperative Thought process: Normal thought process present and not confabulating Thought content: Normal thought content present Insight: Fair insight present (Psych) Judgement: Fair judgement present (Psych) Assessment & Plan Assessment & Plan (1) Bleeding hemorrhoids: Code(s): K64.9 - Unspecified hemorrhoids Category: Medical (2) Irritable bowel syndrome with constipation: Code(s): K58.1 - Irritable bowel syndrome with constipation Category: Medical (3) GERD (gastroesophageal reflux disease): Code(s): K21.9 - Gastro-esophageal reflux disease without esophagitis Category: Medical (4) IBS (irritable bowel syndrome): Code(s): K58.9 - Irritable bowel syndrome without diarrhea Category: Medical (5) Diarrhea: Code(s): R19.7 - Diarrhea, unspecified Category: Medical (6) Acute urticaria: Code(s): L50.8 - Other urticaria Category: Medical (7) Allergic rhinitis: Code(s): J30.9 - Allergic rhinitis, unspecified Category: Medical (8) Abdominal pain: Code(s): R10.9 - Unspecified abdominal pain Category: Medical Plan Indian #declines Patient has been lost to follow-up since 04/2022 Apparently she had COVID in July of 2023 and ever since then she has been having postprandial diarrhea. This is a big change from her prior baseline of constipation. Her stooling has really changed while she still has CIC sometimes but it is more diarrhea. She has noticed this with eating very spicy foods and sometimes all you can eat DE food. She has not had any surgeries (bree). She is no longer on any GI medications including the pantoprazole she was on in the past. Will get some basic labs to see if we can figure out why this is changed for her and the meantime give her a trial of dicyclomine for comfort. I think an ultrasound would be prudent to see if there is any gallstones or gallbladder problems contributing. Return office visit in 6 weeks Orders: Orders Rast Allergen 05/09/24 R19.7 - Diarrhea, unspecified, K58.9 - Irritable bowel syndrome without diarrhea, R10.9 - Unspecified abdominal pain US abdomen complete 05/09/24 R19.7 - Diarrhea, unspecified, K58.9 - Irritable bowel syndrome without diarrhea, R10.9 - Unspecified abdominal pain Calprotectin, Fecal 05/11/24 R19.7 - Diarrhea, unspecified, K58.9 - Irritable bowel syndrome without diarrhea, R10.9 - Unspecified abdominal pain Pancreatic Elastase-1 05/11/24 R19.7 - Diarrhea, unspecified, K58.9 - Irritable bowel syndrome without diarrhea, R10.9 - Unspecified abdominal pain Medications: New dicyclomine 10 mg PO QID 120 caps 6RF K58.9 - Irritable bowel syndrome without diarrhea Coding Level of Care Code Est Pt Level 4 (35529) Diagnoses Bleeding hemorrhoids K64.9 Irritable bowel syndrome with constipation K58.1 GERD (gastroesophageal reflux disease) K21.9 IBS (irritable bowel syndrome) K58.9 Diarrhea R19.7 Acute urticaria L50.8 Allergic rhinitis J30.9 Abdominal pain R10.9 Time Spent (min) 33
== END 2024-05-09 15:39 | disposition home or self-care (01) ==
PROVIDERS: PCP Internal Medicine; Visit Provider Nurse Practitioner
DX: K64.9 Unspecified hemorrhoids (principal); K58.1 Irritable bowel syndrome with constipation; K21.9 Gastro-esophageal reflux disease without esophagitis; K58.9 Irritable bowel syndrome, unspecified; R19.7 Diarrhea, unspecified; L50.8 Other urticaria; J30.9 Allergic rhinitis, unspecified; R10.9 Unspecified abdominal pain
CPT/HCPCS: 99214

== ENCOUNTER 2024-05-09 15:06 | Outpatient (REF) | payer OTHER, SELFPAY ==
[2024-05-09 16:11] LABS: MANUAL DIFF FLAG NO
[2024-05-09 18:48] LABS: Basophils Percent Auto 0.4 % (0-2); Eosinophils Percent Auto 0.4 % (0-4); Hematocrit 35.9 % (37.0-47.0); Hemoglobin 11.2 g/dl (12.0-16.0); Imm Gran Abs Auto 0.02 X10*3/uL (0.00-0.03); Imm Gran Pct Auto 0.3 % (0.0-0.4); Lymphocytes Absolute Auto 1.2 X10*3/uL (1.2-4.9); Lymphocytes Percent Auto 17.4 % (20-40); Mean Corpuscular HGB Conc 31.2 g/dl (31.0-35.0); Mean Corpuscular Hemoglobin 23.3 pg (27.0-33.0); Mean Corpuscular Volume 74.6 fL (80.0-98.0); Monocytes Absolute Auto 0.5 X10*3/uL (0.1-1.2); Monocytes Percent Auto 7.1 % (2-11); Neutrophils Absolute Auto 5.1 x10*3/uL (2.0-8.3); Neutrophils Percent Auto 74.4 % (45-73); Platelet Count 377 X10*3/uL (160-400); Red Blood Count 4.81 X10*6/uL (4.20-5.50); Red Cell Distribution Width 15.7 % (11.0-16.0); White Blood Count 6.9 X10*3/uL (4.8-10.8)
[2024-05-09 19:01] LABS: Alanine Aminotransferase 6 U/L (0-31); Albumin Level 3.7 g/dL (3.5-5.0); Alkaline Phosphatase 98 U/L (39-117); Anion Gap 11 (12-20); Aspartate Amino Transferase 10 U/L (5-31); Bilirubin Total 0.1 mg/dL (0.0-1.0); Blood Urea Nitrogen 11 mg/dL (9-16); C Reactive Protein 2.38 mg/dL (< or = 0.50); Calcium 9.1 mg/dL (8.4-10.2); Carbon Dioxide 23 mmol/L (22-29); Chloride 107 mmol/L (96-108); Estimated Glomerular Filt Rate > 60; Glucose Random 85 mg/dL (60-115); Potassium 3.9 mmol/L (3.3-5.1); Sodium 137 mmol/L (135-145); Total Protein 7.7 g/dL (6.5-8.0)
[2024-05-09 19:16] LABS: TSH reflex Free T4 0.82 uIU/mL (0.32-4.0)
[2024-05-10 22:08] LABS: Transglutaminase Ab IgG <1.0 U/mL; Transglutaminase IgA <1.0 U/mL
== END 2024-05-09 15:07 | disposition home or self-care (01) ==
LOC: HO.LAB 15:06
PROVIDERS: PCP Internal Medicine; Visit Provider Nurse Practitioner
DX: R10.9 Unspecified abdominal pain (principal); K58.1 Irritable bowel syndrome with constipation; K58.0 Irritable bowel syndrome with diarrhea; K21.9 Gastro-esophageal reflux disease without esophagitis; K64.9 Unspecified hemorrhoids; R19.7 Diarrhea, unspecified; L50.8 Other urticaria; J30.9 Allergic rhinitis, unspecified
CPT/HCPCS: 36415; 80053; 84443; 85025; 86003; 86140; 86364; 99212

== ENCOUNTER 2024-05-11 09:15 | Outpatient (REF) | payer OTHER, SELFPAY ==
[2024-05-19 19:03] LABS: Calprotectin, Fecal 80 mcg/g
[2024-05-20 19:38] LABS: Pancreatic Elastase-1 >500 mcg/g
== END 2024-05-11 09:16 | disposition home or self-care (01) ==
LOC: HO.LNP 09:15
PROVIDERS: Visit Provider Nurse Practitioner
DX: R19.7 Diarrhea, unspecified (principal); K58.9 Irritable bowel syndrome, unspecified; R10.9 Unspecified abdominal pain
CPT/HCPCS: 82656; 83993

== ENCOUNTER 2024-05-17 09:08 | Outpatient (REF) | payer OTHER, SELFPAY ==
--- NOTE | ~2024-05-17 | US_ITS ---
EXAMINATION: US ABDOMEN COMPLETE CLINICAL INFORMATION: Diarrhea, unspecified. COMPARISON: Ultrasound abdomen limited 02/16/2021. Renal ultrasound 07/05/2018. CT abdomen and pelvis 06/29/2018. TECHNIQUE: Real-time imaging of the abdominal viscera. Limited visualization due to bowel gas. FINDINGS: PANCREAS: Limited visualization of pancreatic tail and head. Imaged portion of pancreatic body is unremarkable. ABDOMINAL AORTA: Nonaneurysmal INFERIOR VENA CAVA: Visualized portions are normal. LIVER: Hepatic contour is normal. Liver is normal in size. Mildly increased hepatic parenchymal heterogeneity and echogenicity could be associated with hepatocellular disease/hepatic steatosis and substantially limits visualization. Correlation with liver function tests and clinical exam recommended to determine further management. GALLBLADDER: No gallstones. No gallbladder wall thickening. COMMON BILE DUCT: Normal in caliber measuring 0.23 cm in diameter. RIGHT KIDNEY: No hydronephrosis. No renal calculi. Limited visualization. . The kidney measures 10.5 cm in maximum dimension. LEFT KIDNEY: No hydronephrosis. No renal calculi. Limited visualization. The kidney measures 9.3 cm in maximum dimension. SPLEEN: Normal. The spleen measures 10.6 cm in maximum dimension. FREE FLUID: None. US/US abdomen complete IMPRESSION: Mildly increased hepatic parenchymal heterogeneity and echogenicity could be associated with hepatocellular disease/hepatic steatosis and substantially limits visualization. Correlation with liver function tests and clinical exam recommended to determine further management. This study was presented today June 05, 2024 for interpretation. Stat results provided at this time as requested by referring provider.
== END 2024-05-17 09:09 | disposition home or self-care (01) ==
LOC: HO.US 09:08
PROVIDERS: PCP Internal Medicine; Visit Provider Nurse Practitioner
DX: R10.9 Unspecified abdominal pain (principal); R19.7 Diarrhea, unspecified; K58.9 Irritable bowel syndrome, unspecified
CPT/HCPCS: 76700

== ENCOUNTER 2024-06-19 16:15 | Outpatient (AMB) | payer OTHER, SELFPAY ==
--- NOTE | 2024-06-19 16:17 | MHC.OFFVIS ---
Vital Signs 06/19/24 16:18 Height 5 ft Weight 121 lb 4.068 oz BMI 23.7 BP 117/70 Blood Pressure Location Lt brachial Position Sitting Respiration 94 H Intake Visit Reasons: 6 week follow up Intake Note: Patient in office today in follow of US and labs. CC: Patient states that she is a little upset because she tried calling regarding concerns with US results but she never got a call back. She continues to have LUQ abdominal pain and she has noticed the pain the next day after she has a BM. 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 Accompanied by: Self / Same As Patient Allergies shrimp Allergy (Severe, Verified 06/19/24 16:18) MOUTH SWELLING No Known Drug Allergies Allergy (Unknown, Verified 06/19/24 16:27) none Seasonal Allergies Allergy (Verified 06/19/24 16:27) Itchy Eyes HPI HPI 6 week follow up: Details: Assessment & Plan (1) Bleeding hemorrhoids: Code(s): K64.9 - Unspecified hemorrhoids Category: Medical (2) Irritable bowel syndrome with constipation: Code(s): K58.1 - Irritable bowel syndrome with constipation Category: Medical (3) GERD (gastroesophageal reflux disease): Code(s): K21.9 - Gastro-esophageal reflux disease without esophagitis Category: Medical (4) IBS (irritable bowel syndrome): Code(s): K58.9 - Irritable bowel syndrome without diarrhea Category: Medical (5) Diarrhea: Code(s): R19.7 - Diarrhea, unspecified Category: Medical (6) Acute urticaria: Code(s): L50.8 - Other urticaria Category: Medical (7) Allergic rhinitis: Code(s): J30.9 - Allergic rhinitis, unspecified Category: Medical (8) Abdominal pain: Code(s): R10.9 - Unspecified abdominal pain Category: Medical Plan [place]ian #declines Patient has been lost to follow-up since 04/2022 Apparently she had COVID in July of 2023 and ever since then she has been having postprandial diarrhea. This is a big change from her prior baseline of constipation. Her stooling has really changed while she still has CIC sometimes but it is more diarrhea. She has noticed this with eating very spicy foods and sometimes all you can eat [place] food. She has not had any surgeries (bree). She is no longer on any GI medications including the pantoprazole she was on in the past. Will get some basic labs to see if we can figure out why this is changed for her and the meantime give her a trial of dicyclomine for comfort. I think an ultrasound would be prudent to see if there is any gallstones or gallbladder problems contributing. Return office visit in 6 weeks Orders: Orders Rast Allergen 05/09/24 R19.7 - Diarrhea, unspecified, K58.9 - Irritable bowel syndrome without diarrhea, R10.9 - Unspecified abdominal pain US abdomen complete 05/09/24 R19.7 - Diarrhea, unspecified, K58.9 - Irritable bowel syndrome without diarrhea, R10.9 - Unspecified abdominal pain Calprotectin, Fecal 05/11/24 R19.7 - Diarrhea, unspecified, K58.9 - Irritable bowel syndrome without diarrhea, R10.9 - Unspecified abdominal pain Pancreatic Elastase-1 05/11/24 R19.7 - Diarrhea, unspecified, K58.9 - Irritable bowel syndrome without diarrhea, R10.9 - Unspecified abdominal pain Medications: New dicyclomine 10 mg PO QID 120 caps 6RF K58.9 - Irritable bowel syndrome without diarrhea LABS: Laboratory Tests 05/11/24 07:14 Stool Calprotectin 80 Stool Pancreat Elastase >500 Laboratory Tests 05/09/24 16:09 C-Reactive Protein 2.38 H RAST PANEL SHOWS NO SIGNIFICANT FOOD ALLERGIES ULTRASOUND OF THE ABDOMEN 06/05/24 FINDINGS: PANCREAS: Limited visualization of pancreatic tail and head. Imaged portion of pancreatic body is unremarkable. ABDOMINAL AORTA: Nonaneurysmal INFERIOR VENA CAVA: Visualized portions are normal. LIVER: Hepatic contour is normal. Liver is normal in size. Mildly increased hepatic parenchymal heterogeneity and echogenicity could be associated with hepatocellular disease/hepatic steatosis and substantially limits visualization. Correlation with liver function tests and clinical exam recommended to determine further management. GALLBLADDER: No gallstones. No gallbladder wall thickening. COMMON BILE DUCT: Normal in caliber measuring 0.23 cm in diameter. RIGHT KIDNEY: No hydronephrosis. No renal calculi. Limited visualization. . The kidney measures 10.5 cm in maximum dimension. LEFT KIDNEY: No hydronephrosis. No renal calculi. Limited visualization. The kidney measures 9.3 cm in maximum dimension. SPLEEN: Normal. The spleen measures 10.6 cm in maximum dimension. FREE FLUID: None. US/US abdomen complete IMPRESSION: Mildly increased hepatic parenchymal heterogeneity and echogenicity could be associated with hepatocellular disease/hepatic steatosis and substantially limits visualization. Correlation with liver function tests and clinical exam recommended to determine further management. TODAY'S VISIT [place]ian #Keisha She has not tried the bentyl, she says since I changed my diet I have not had diarrhea. It seems that fatty foods really set off her diarrhea. Given the elevated fecal calprotectin and CRP borderline I think we should get a colonoscopy, a repeat crp a [facility] test. She has a very strong FHX Of GB disease so a HIDA scan would be prudent despite the US not showing gallstones. She has a 1/2 sister with Crohns - maternal side - so IBD is in the DDX. Her stools now are soft, but if she has a more solid stool, she will have LUQ pain the next day. I uncertain if this is bowel spasm and I ask her to try the Bentyl when she has it to see if it helps. The ultrasound concerned her because it showed some fatty liver. Because of this she stopped eating and lost 5 lb. Apparently her father really suffered from cirrhosis but he probably had an element of fatty liver superimposed on hepatitis C infection. He had a liver transplant but again developed cirrhosis and is quite ill currently. Obviously this is quite concerning to her. I tell her not to diet so strictly because her transaminases are normal and she only would have a 20-30% chance of developing this without alcohol or another infection stressing the liver and we do not want her to do developed malnutrition related to fearing this. She does not drink alcohol. She was tested last year and is negative for hepatitis a and C and she had a carter zone response hepatitis-B which is likely from her vaccine. Return office visit in 8 weeks and will go over what ever blood work is available at that time. PENDING SALE TO [facility] Medical History (Updated 06/19/24 @ 17:12 by JASMEET Sorenson) IBS (irritable bowel syndrome) Esophagitis Chronic gastritis with bleeding Family planning education, guidance, and counseling Abnormal x-ray of thoracic spine Abnormal x-ray of thoracic spine Sleep disorder Uses control Cervical cancer screening Well woman exam with routine gynecological exam Surgical History Hx of colonoscopy History of esophagogastroduodenoscopy (EGD) Family History Father Cirrhosis of liver Cancer Liver transplanted Mother Apnea Paternal Grandfather Cancer Social History Alcohol intake: never Patient Tobacco Use Status: Never used Tobacco Gender identity: Female Female Reproductive History Menstrual Age of Menarche: 12 Review of Systems Const Denies fatigue, Denies fever(s), Denies night sweats, Denies poor appetite and Reports weight loss ENT Reports Normal hearing present, Denies dysphagia, Denies odynophagia, Denies throat swelling and Denies tongue swelling Card Reports no additional complaints Resp Reports no additional complaints GI Details: Denies abdominal pain, Denies melena, Denies bloating, Denies hematochezia, Denies constipation, Reports GI cramping, Denies dysphagia, Denies excessive flatus, Denies early satiety, Denies heartburn, Denies diarrhea, Reports loose stools, Denies nausea, Denies odynophagia, Denies vomiting and Denies hematemesis Musc Reports back pain, Reports myalgias and Reports muscle cramps Skin/Breast Denies pruritus, Denies lesions, Denies rash and Denies jaundice Neuro Reports Normal hearing present and Denies Abnormal speech present Endo Denies fatigue Aller/Immun Denies throat swelling and Denies tongue swelling Physical Exam Vital Signs: Last Vital Signs Resp 94 H 06/19/24 16:18 BP 117/70 06/19/24 16:18 BMI result Body Mass Index 23.7 Const General: cooperative, no acute distress, well developed and well groomed Nutritional Appearance: average body habitus and well nourished Orientation/consciousness: oriented to person, oriented to place and oriented to time Limitations: language barrier HEENT Head: Yes normocephalic and Yes atraumatic Eyes General: appearance normal, both eyes and all related structures Pupils: Equal, round and reactive pupils present Neck Neck: Yes normal visual inspection and Yes no lymphadenopathy Thyroid: Thyroid normal Resp Effort & Inspection: normal respiratory effort and able to speak in complete sentences Auscultation: clear to auscultation bilaterally Cardio Rate: regular rate Rhythm: regular rhythm Heart sounds: Normal, physiologic split S2 sound present Peripheral pulses: radial pulses present and posterior tibial pulses present GI Inspection: No distended and No Abdominal panniculus present Palpation (GI): Soft to palpation, nontender, no guarding, not rigid and No hepatosplenomegaly present Percussion: Yes normal to percussion Auscultation: normal bowel sounds Rectal Exam - Female: deferred Skin General skin exam: no rashes or lesions noted, turgor normal, skin not dry, no jaundice, No spider nevi and no striae Rashes: no rashes Nails: normal Neuro General: oriented to person, oriented to place and oriented to time Cranial nerves: Yes Equal, round and reactive pupils present and Yes Normal hearing present Speech: No Abnormal speech present Extrem General: Yes normal to inspection, No clubbing, No cyanosis and No edema Psych Appearance: grossly normal and well kempt Mental Status: mental status grossly normal Speech and movement: Normal speech and movement present Affect: normal affect Attitude: cooperative Thought process: Normal thought process present and not confabulating Thought content: Normal thought content present Insight: Limited insight present (Psych) Judgement: Limited judgement present (Psych) Results Reviewed Results Reviewed: Laboratory Tests 05/11/24 07:14 Stool Calprotectin 80 Stool Pancreat Elastase >500 RAST PANEL SHOWS NO SIGNIFICANT FOOD ALLERGIES ULTRASOUND OF THE ABDOMEN 06/05/24 FINDINGS: PANCREAS: Limited visualization of pancreatic tail and head. Imaged portion of pancreatic body is unremarkable. ABDOMINAL AORTA: Nonaneurysmal INFERIOR VENA CAVA: Visualized portions are normal. LIVER: Hepatic contour is normal. Liver is normal in size. Mildly increased hepatic parenchymal heterogeneity and echogenicity could be associated with hepatocellular disease/hepatic steatosis and substantially limits visualization. Correlation with liver function tests and clinical exam recommended to determine further management. GALLBLADDER: No gallstones. No gallbladder wall thickening. COMMON BILE DUCT: Normal in caliber measuring 0.23 cm in diameter. RIGHT KIDNEY: No hydronephrosis. No renal calculi. Limited visualization. . The kidney measures 10.5 cm in maximum dimension. LEFT KIDNEY: No hydronephrosis. No renal calculi. Limited visualization. The kidney measures 9.3 cm in maximum dimension. SPLEEN: Normal. The spleen measures 10.6 cm in maximum dimension. FREE FLUID: None. US/US abdomen complete IMPRESSION: Mildly increased hepatic parenchymal heterogeneity and echogenicity could be associated with hepatocellular disease/hepatic steatosis and substantially limits visualization. Correlation with liver function tests and clinical exam recommended to determine further management. Assessment & Plan Assessment & Plan (1) Elevated C-reactive protein (CRP): Code(s): R79.82 - Elevated C-reactive protein (CRP) Category: Medical (2) Diarrhea: Code(s): R19.7 - Diarrhea, unspecified Category: Medical (3) Elevated fecal calprotectin: Code(s): R19.5 - Other fecal abnormalities Category: Medical (4) Abdominal pain: Code(s): R10.9 - Unspecified abdominal pain Category: Medical (5) Hepatic steatosis: Code(s): K76.0 - Fatty (change of) liver, not elsewhere classified Category: Medical Plan [place] #Keisha She has not tried the bentyl, she says since I changed my diet I have not had diarrhea. It seems that fatty foods really set off her diarrhea. Given the elevated fecal calprotectin and CRP borderline I think we should get a colonoscopy, a repeat crp a [facility] test. She has a very strong FHX Of GB disease so a HIDA scan would be prudent despite the US not showing gallstones. She has a 1/2 sister with Crohns - maternal side - so IBD is in the DDX. Her stools now are soft, but if she has a more solid stool, she will have LUQ pain the next day. I uncertain if this is bowel spasm and I ask her to try the Bentyl when she has it to see if it helps. The ultrasound concerned her because it showed some fatty liver. Because of this she stopped eating and lost 5 lb. Apparently her father really suffered from cirrhosis but he probably had an element of fatty liver superimposed on hepatitis C infection. He had a liver transplant but again developed cirrhosis and is quite ill currently. Obviously this is quite concerning to her. I tell her not to diet so strictly because her transaminases are normal and she only would have a 20-30% chance of developing this without alcohol or another infection stressing the liver and we do not want her to do developed malnutrition related to fearing this. She does not drink alcohol. She was tested last year and is negative for hepatitis a and C and she had a carter zone response hepatitis-B which is likely from her vaccine. Return office visit in 8 weeks and will go over what ever blood work is available at that time. Orders: Orders [facility] SGI Today R19.5 - Other fecal abnormalities, R19.7 - Diarrhea, unspecified, R79.82 - Elevated C-reactive protein (CRP) NM hepatobiliary w pharm Today R10.9 - Unspecified abdominal pain Hepatitis A,B,C Profile Today K76.0 - Fatty (change of) liver, not elsewhere classified Colonoscopy - GI Use Only Today R19.5 - Other fecal abnormalities, R19.7 - Diarrhea, unspecified C Reactive Protein Today R19.5 - Other fecal abnormalities, R19.7 - Diarrhea, unspecified Medications: New sodium,potassium,mag sulfates 17.5-3.13-1.6 gram (Suprep Bowel Prep Kit) 480 mL orally; FOR COLONOSCOPY PREP 354 mL 0RF Coding Level of Care Code Est Pt Level 4 (47524) Diagnoses Elevated C-reactive protein (CRP) R79.82 Diarrhea R19.7 Elevated fecal calprotectin R19.5 Abdominal pain R10.9 Hepatic steatosis K76.0 Time Spent (min) 38
[2024-06-19 16:18] VITALS: BP 117/70; RESP 94; BMI 23.7
== END 2024-06-20 07:47 | disposition home or self-care (01) ==
PROVIDERS: PCP Internal Medicine; Visit Provider Nurse Practitioner
DX: R79.82 Elevated C-reactive protein (CRP) (principal); R19.7 Diarrhea, unspecified; R19.5 Other fecal abnormalities; R10.9 Unspecified abdominal pain; K76.0 Fatty (change of) liver, not elsewhere classified
CPT/HCPCS: 99214

== ENCOUNTER → 2024-06-19 16:15 | Outpatient (BNVA) | payer OTHER, SELFPAY | PROVIDERS: PCP Internal Medicine; Visit Provider Nurse Practitioner | DX: R79.82 Elevated C-reactive protein (CRP) (principal); R19.7 Diarrhea, unspecified; R19.5 Other fecal abnormalities; R10.9 Unspecified abdominal pain; K76.0 Fatty (change of) liver, not elsewhere classified | CPT/HCPCS: 99212 ==

== ENCOUNTER 2024-06-27 14:21 | Outpatient (REF) | payer OTHER, SELFPAY ==
[2024-06-28 04:03] LABS: HBS Num1 2.61 mIU/mL (0-7.99); HBc Num1 0.18 S/CO (0.00-0.79); HBsAGNum1 0.27 S/CO (0.00-0.99); Hepatitis A Antibody IgM 0.23 Index (0-0.79); Hepatitis B Core Antibody Nonreactive (Nonreactive); Hepatitis B Surface Antigen Negative (Negative); ~HepC Num1 0.14 S/CO (0.00-0.79); ~Hepatitis A Antibody IgM Nonreactive (Nonreactive); ~Hepatitis B Surface Antibody NONREACTIVE (Nonreactive); ~Hepatitis C Antibody Nonreactive (Nonreactive)
== END 2024-06-27 14:22 | disposition home or self-care (01) ==
LOC: HO.LAB 14:21
PROVIDERS: PCP Internal Medicine; Visit Provider Nurse Practitioner
DX: K76.0 Fatty (change of) liver, not elsewhere classified (principal); R19.7 Diarrhea, unspecified; K58.9 Irritable bowel syndrome, unspecified; R10.9 Unspecified abdominal pain; R79.82 Elevated C-reactive protein (CRP); R19.5 Other fecal abnormalities
CPT/HCPCS: 36415; 81405; 81479; 82397; 83520; 86003; 86140; 86704; 86706; 86709; 86803; 87340; 88346; 88350

== ENCOUNTER 2024-06-27 14:30 | Outpatient (RCR) | payer OTHER, SELFPAY ==
--- NOTE | 2024-04-22 15:48 | MHC.OT.EP ---
[address] [phone] Occupational Therapy Plan of Care Patient Name: Luann Becerra Date of Evaluation: 04/22/24 Diagnosis: R wrist pain Pain Location: Radial side of wrist and FA Pain Score: 6 Pain Scale Used: Numeric (0 - 10) Aggravating Factors: Work ; lifting ; twisting wrist/ FA Alleviating Factors: Just rest Assessment: Pt is a 43 yr old R hand dominant female who is reporting pain along the radial side of her wrist and elbow. 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 She reports having this problem a few years ago and she went to therapy on [address] in [place] and the sx's improved. No X-ray was taken this time ; she is going to have an EMG but she is awaiting the phone call for the appointment. Pt has been referred to skilled OT therapy for increased functional use of her R UE Frequency and Duration: The patient will be seen 2xs a week for 6 weeks Short Term Goals: Pt will be compliant w/ the use of heat/ ice to decrease inflammation and promote blood flow Pt will report a decrease of pain to 4/10 Pt will be complaint w/ use of prefabricated orthoses during work Residential Goals: Pt will deny pain w/ palpation of the radial side of her wrist/ hand Pt will increase to full wrist extension w/ out pain (50) Pt will increase flight surgeon strength to 10 lbs to Treatment Plan: Therapeutic Exercise Therapeutic Activity Home Exercise Program Splinting Neuro Re-ed Patient Education Desensitization/Sensory Re-ed Edema Control ADL Training Ultrasound NMES Iontophoresis Paraffin Fluidotherapy MHP Cold Packs Joint Mobilization Soft Tissue Mobilization Kinesiotaping Other (see comments) Pt reported pain w/ palpation of her ECRB , Lateral epicondyle and Radial wrist Pt (-) Mariya najera Pt (-) Zavala test Electronically Signed By: Kalli Cortez OTR/L Please Sign and return to therapist. Thank you once again for your referral.
== END 2024-07-23 11:48 | disposition home or self-care (01) ==
LOC: HO.OT 14:30
PROVIDERS: PCP Internal Medicine; Visit Provider Orthopaedic Surgery
DX: S66.911D Strain of unspecified muscle, fascia and tendon at wrist and hand level, right hand, subsequent encounter (principal)
CPT/HCPCS: 36415; 80053; 84443; 85025; 86140; 86364; 97033; 97035; 97110; 97112; 97140; 97165; 97535

== ENCOUNTER → 2024-07-12 07:46 | Outpatient (REF) | payer OTHER, SELFPAY ==
--- NOTE | ~2024-07-12 | NM_ITS ---
EXAMINATION: BILIARY TRACT IMAGING STUDY WITH CCK CLINICAL INFORMATION: Unspecified abdominal pain.. COMPARISON: Abdominal ultrasound done on 05/17/2024.. TECHNIQUE: Serial gamma scintillation camera images were obtained over the abdomen for a total observation period of 60 minutes following the intravenous administration of 5.0 mCi Tc-99m mebrofenin. FINDINGS: There is good concentration of activity in the liver by 5 minutes post injection. Biliary activity is visualized by 15 minutes. The gallbladder is well visualized by 30 minutes. Small bowel is well visualized by 15 minutes. At 60 minutes post radiopharmaceutical injection, a 30-minute infusion of 1.07 micrograms Sincalide was then begun and an additional 40 minutes of images were obtained. There is very poor emptying of the gallbladder. By the end of the study there is good clearance of activity from the liver and visualization of diffuse small bowel activity. The calculated gallbladder ejection fraction is 2% (Normal range of gallbladder ejection fraction is between 35-80%; GBEF <35% is considered biliary hypokinesia and >80% is considered biliary hyperkinesia; Ref. #1-Clinical Journal of Gastroenterology (2020) 14:4953-1282; Ref.#2-[email or web address]). NM/NM hepatobiliary w pharm IMPRESSION: Visualization of the gallbladder is evidence of a patent cystic duct and strong evidence against the diagnosis of acute cholecystitis. The common bile duct is patent. Gallbladder emptying and ejection fraction are abnormal. Liver function appears normal. Electronically signed by: Mel Ceron MD 07/19/2024 04:44 PM EDT
== END ==
LOC: HO.NUCMED 07:46
PROVIDERS: PCP Internal Medicine; Visit Provider Physical Medicine & Rehabilitation
DX: R10.9 Unspecified abdominal pain (principal)
CPT/HCPCS: 78227; A9537; J2805

== ENCOUNTER 2024-08-06 09:15 | Outpatient (AMB) | payer OTHER, SELFPAY ==
[2024-08-06 09:17] VITALS: BP 127/69; PULSE 92; BMI 22.1
--- NOTE | 2024-08-06 09:17 | A.OFFVIS_ITS ---
Vital Signs 08/06/24 09:17 Height 5 ft Weight 113 lb BMI 22.1 BP 127/69 Blood Pressure Location Lt brachial Position Sitting Pulse 92 Intake Visit Reasons: follow up HIDA scan Intake Note: Luann presents to in office follow up of HIDA scan. CC: Patient reports that she has been doing well since she stopped consuming sugar, and decreased carbs. Also, she reports that she had been taking care of her father who yesterday. 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 Accompanied by: Self / Same As Patient Allergies shrimp Allergy (Severe, Verified 08/06/24 09:26) MOUTH SWELLING No Known Drug Allergies Allergy (Unknown, Verified 08/06/24 09:26) none Seasonal Allergies Allergy (Verified 08/06/24 09:26) Itchy Eyes HPI HPI follow up HIDA scan: Details: Assessment & Plan (1) Elevated C-reactive protein (CRP): Code(s): R79.82 - Elevated C-reactive protein (CRP) Category: Medical (2) Diarrhea: Code(s): R19.7 - Diarrhea, unspecified Category: Medical (3) Elevated fecal calprotectin: Code(s): R19.5 - Other fecal abnormalities Category: Medical (4) Abdominal pain: Code(s): R10.9 - Unspecified abdominal pain Category: Medical (5) Hepatic steatosis: Code(s): K76.0 - Fatty (change of) liver, not elsewhere classified Category: Medical Plan Israeli #Keisha She has not tried the bentyl, she says since I changed my diet I have not had diarrhea. It seems that fatty foods really set off her diarrhea. Given the elevated fecal calprotectin and CRP borderline I think we should get a colonoscopy, a repeat crp a [facility] test. She has a very strong FHX Of GB disease so a HIDA scan would be prudent despite the US not showing gallstones. She has a 1/2 sister with Crohns - maternal side - so IBD is in the DDX. Her stools now are soft, but if she has a more solid stool, she will have LUQ pain the next day. I uncertain if this is bowel spasm and I ask her to try the Bentyl when she has it to see if it helps. The ultrasound concerned her because it showed some fatty liver. Because of this she stopped eating and lost 5 lb. Apparently her father really suffered from cirrhosis but he probably had an element of fatty liver superimposed on hepatitis C infection. He had a liver transplant but again developed cirrhosis and is quite ill currently. Obviously this is quite concerning to her. I tell her not to diet so strictly because her transaminases are normal and she only would have a 20-30% chance of developing this without alcohol or another infection stressing the liver and we do not want her to do developed malnutrition related to fearing this. She does not drink alcohol. She was tested last year and is negative for hepatitis a and C and she had a carter zone response hepatitis-B which is likely from her vaccine. Return office visit in 8 weeks and will go over what ever blood work is available at that time. Orders: Orders [facility] SGI Today R19.5 - Other fecal abnormalities, R19.7 - Diarrhea, unspecified, R79.82 - Elevated C-reactive protein (CRP) NM hepatobiliary w pharm Today R10.9 - Unspecified abdominal pain Hepatitis A,B,C Profile Today K76.0 - Fatty (change of) liver, not elsewhere classified Colonoscopy - GI Use Only Today R19.5 - Other fecal abnormalities, R19.7 - Diarrhea, unspecified C Reactive Protein Today R19.5 - Other fecal abnormalities, R19.7 - Diarrhea, unspecified Medications: New sodium,potassium,mag sulfates 17.5-3.13-1.6 gram (Suprep Bowel Prep Kit) 480 mL orally; FOR COLONOSCOPY PREP 354 mL 0RF LABS Laboratory Tests 05/09/24 05/11/24 06/27/24 16:09 07:14 15:08 C-Reactive Protein 2.38 H 1.40 H Stool Calprotectin 80 Hepatitis A IgM Ab Nonreactive Hep Bs Antigen Negative Hep Bs Antibody NONREACTIVE Hep B Core Total Ab Nonreactive Hepatitis C Ab (EIA) Nonreactive PROMETHEUS LABS IS NOT consistent with IBD. COLONOSCOPY 10/17/2024 BIOPSY HIDA SCAN 07/19/24 The calculated gallbladder ejection fraction is 2% (Normal range of gallbladder ejection fraction is between 35-80%; GBEF <35% is considered biliary hypokinesia and >80% is considered biliary hyperkinesia; Ref. #1-Clinical Journal of Gastroenterology (2020) 14:3995-8285; Ref.#2-[email or web address]). NM/NM hepatobiliary w pharm IMPRESSION: Visualization of the gallbladder is evidence of a patent cystic duct and strong evidence against the diagnosis of acute cholecystitis. The common bile duct is patent. Gallbladder emptying and ejection fraction are abnormal. Liver function appears normal. Electronically signed by: Mel Ceron MD 07/19/2024 04:44 PM EDT RP TODAYS VISIT She has not yet started the Creon as she was fearful that something was wrong with her pancreas. I explained that it is used for pancreatic insufficiency but that is not why we are using it in this case, we are using it for biliary dyskinesia. I reviewed the HIDA scan unexplained what this means and how this can cause pain and diarrhea. She did asked to be referred to a surgeon and she has an upcoming appointment to discuss a possible elective cholecystectomy. We discussed the elevated CRP, I am not convinced that this is originating in the bowel given the borderline fecal calprotectin and the negative IBD genetics. However her upcoming colonoscopy in October will be helpful in this determination. I am going to do a basic rheumatology workup/screening to decide if she should go back to see stainless steel finisher. Apparently she has a standing diagnosis of fibromyalgia syndrome but when I look in the computer I do not see that any rheumatologic screening was done on her in the past. She is agreeable to this. She is worried about the fat in her liver and I tell her that this is minimal she likely has not inherited gene for fatty liver, but she is not overweight. I told her that if she gains weight or starts drinking a lot of alcohol this could become a problem for her but at this time it is not something she needs to worry about. She is reassured and will start her Creon. She already has an appointment for me after her colonoscopy in October and we will keep that for her next follow- up. Keep 11/01 [facility] Medical History (Updated 08/06/24 @ 09:56 by JASMEET Sorenson) IBS (irritable bowel syndrome) Esophagitis Chronic gastritis with bleeding Family planning education, guidance, and counseling Abnormal x-ray of thoracic spine Abnormal x-ray of thoracic spine Sleep disorder Uses control Cervical cancer screening Well woman exam with routine gynecological exam Surgical History Hx of colonoscopy History of esophagogastroduodenoscopy (EGD) Family History Father Cirrhosis of liver Cancer Liver transplanted Mother Apnea Paternal Grandfather Cancer Social History Alcohol intake: never Patient Tobacco Use Status: Never used Tobacco Gender identity: Female Female Reproductive History Menstrual Age of Menarche: 12 Review of Systems Const Denies fatigue, Denies fever(s), Denies night sweats, Denies poor appetite and Denies weight loss ENT Reports Normal hearing present, Denies dental pain, Denies dysphagia, Denies hearing loss, Denies mouth pain, Denies odynophagia, Denies throat swelling, Denies tongue swelling and Reports other (Dentition adequate) Card Reports no additional complaints Resp Reports no additional complaints GI Details: Reports abdominal pain, Denies melena, Reports bloating, Denies hematochezia, Denies constipation, Denies GI cramping, Denies dysphagia, Denies excessive flatus, Denies early satiety, Reports heartburn, Reports diarrhea, Denies na usea, Denies odynophagia, Denies vomiting and Denies hematemesis Musc Reports arthralgias Skin/Breast Denies pruritus, Denies lesions, Denies rash and Denies jaundice Neuro Reports Normal hearing present and Denies Abnormal speech present Endo Denies fatigue Aller/Immun Denies throat swelling and Denies tongue swelling Physical Exam Vital Signs: Last Vital Signs Pulse 92 08/06/24 09:17 BP 127/69 08/06/24 09:17 BMI result Body Mass Index 22.1 Const General: cooperative, no acute distress, well developed and well groomed Nutritional Appearance: average body habitus and well nourished Orientation/consciousness: oriented to person, oriented to place and oriented to time Limitations: No language barrier HEENT Head: Yes normocephalic and Yes atraumatic Eyes General: appearance normal, both eyes and all related structures Pupils: Equal, round and reactive pupils present Neck Neck: Yes normal visual inspection and Yes no lymphadenopathy Thyroid: Thyroid normal Resp Effort & Inspection: normal respiratory effort and able to speak in complete sentences Auscultation: clear to auscultation bilaterally Cardio Rate: regular rate Rhythm: regular rhythm Heart sounds: Normal, physiologic split S2 sound present Peripheral pulses: radial pulses present and posterior tibial pulses present GI Inspection: No distended and No Abdominal panniculus present Palpation (GI): Soft to palpation, nontender, no guarding, not rigid and No hepatosplenomegaly present Percussion: Yes normal to percussion Auscultation: normal bowel sounds Rectal Exam - Female: deferred Skin General skin exam: no rashes or lesions noted, turgor normal, skin not dry, no jaundice, No spider nevi and no striae Rashes: no rashes Nails: normal Neuro General: oriented to person, oriented to place and oriented to time Cranial nerves: Yes Equal, round and reactive pupils present and Yes Normal hearing present Speech: No Abnormal speech present Extrem General: Yes normal to inspection, No clubbing, No cyanosis and No edema Psych Appearance: grossly normal and well kempt Mental Status: mental status grossly normal Speech and movement: Normal speech and movement present Affect: normal affect Attitude: cooperative Thought process: Normal thought process present and not confabulating Thought content: Normal thought content present Insight: Limited insight present (Psych) Judgement: Limited judgement present (Psych) Results Reviewed Results Reviewed: Laboratory Tests 05/09/24 16:09 Plt Count 377 Total Bilirubin 0.1 AST 10 ALT 6 Alkaline Phosphatase 98 Laboratory Tests 05/09/24 05/11/24 06/27/24 16:09 07:14 15:08 C-Reactive Protein 2.38 H 1.40 H Stool Calprotectin 80 Hepatitis A IgM Ab Nonreactive Hep Bs Antigen Negative Hep Bs Antibody NONREACTIVE Hep B Core Total Ab Nonreactive Hepatitis C Ab (EIA) Nonreactive PROMETHEUS LABS IS NOT consistent with IBD. COLONOSCOPY 10/17/2024 BIOPSY HIDA SCAN 07/19/24 The calculated gallbladder ejection fraction is 2% (Normal range of gallbladder ejection fraction is between 35-80%; GBEF <35% is considered biliary hypokinesia and >80% is considered biliary hyperkinesia; Ref. #1-Clinical Journal of Gastroenterology (2020) 14:1965-9567; Ref.#2-[email or web address]). NM/NM hepatobiliary w pharm IMPRESSION: Visualization of the gallbladder is evidence of a patent cystic duct and strong evidence against the diagnosis of acute cholecystitis. The common bile duct is patent. Gallbladder emptying and ejection fraction are abnormal. Liver function appears normal. Electronically signed by: Mel Ceron MD 07/19/2024 04:44 PM EDT RP Workstation: [employer] Assessment & Plan Assessment & Plan (1) Biliary dyskinesia: Code(s): K82.8 - Other specified diseases of gallbladder Category: Medical (2) Hepatic steatosis: Comment: BASELINE LABS 05/09/2406/ 16:0907:1415:08 C-Reactive Protein 2.38 H 1.40 H Stool Calprotectin 80 Hepatitis A IgM Ab Nonreactive Hep Bs Antigen Negative Hep Bs Antibody NONREACTIVE Hep B Core Total Ab Nonreactive Hepatitis C Ab (EIA) Nonreactive 16:09 Plt Count 377 Total Bilirubin 0.1 AST 10 ALT 6 Alkaline Phosphatase 98 CURRENT LABS US OF ABD 06/05/24 FINDINGS: PANCREAS: Limited visualization of pancreatic tail and head. Imaged portion of pancreatic body is unremarkable. ABDOMINAL AORTA: Nonaneurysmal INFERIOR VENA CAVA: Visualized portions are normal. LIVER: Hepatic contour is normal. Liver is normal in size. Mildly increased hepatic parenchymal heterogeneity and echogenicity could be associated with hepatocellular disease/hepatic steatosis and substantially limits visualization. Correlation with liver function tests and clinical exam recommended to determine further management. GALLBLADDER: No gallstones. No gallbladder wall thickening. COMMON BILE DUCT: Normal in caliber measuring 0.23 cm in diameter. RIGHT KIDNEY: No hydronephrosis. No renal calculi. Limited visualization. . The kidney measures 10.5 cm in maximum dimension. LEFT KIDNEY: No hydronephrosis. No renal calculi. Limited visualization. The kidney measures 9.3 cm in maximum dimension. SPLEEN: Normal. The spleen measures 10.6 cm in maximum dimension. FREE FLUID: None. US/US abdomen complete IMPRESSION: Mildly increased hepatic parenchymal heterogeneity and echogenicity could be associated with hepatocellular disease/hepatic steatosis and substantially limits visualization. Correlation with liver function tests and clinical exam recommended to determine further management. This study was presented today June 05, 2024 for interpretation. Stat results provided at this time as requested by referring provider. Code(s): K76.0 - Fatty (change of) liver, not elsewhere classified Category: Medical (3) Diarrhea: Code(s): R19.7 - Diarrhea, unspecified Category: Medical (4) Abdominal pain: Code(s): R10.9 - Unspecified abdominal pain Category: Medical (5) Elevated C-reactive protein (CRP): Comment: Fecal calprotectin borderline elevated, RAST panel negative for food allergies Code(s): R79.82 - Elevated C-reactive protein (CRP) Category: Medical Plan She has not yet started the Creon as she was fearful that something was wrong with her pancreas. I explained that it is used for pancreatic insufficiency but that is not why we are using it in this case, we are using it for biliary dyskinesia. I reviewed the HIDA scan unexplained what this means and how this can cause pain and diarrhea. She did asked to be referred to a surgeon and she has an upcoming appointment to discuss a possible elective cholecystectomy. We discussed the elevated CRP, I am not convinced that this is originating in the bowel given the borderline fecal calprotectin and the negative IBD genetics. However her upcoming colonoscopy in October will be helpful in this determination. I am going to do a basic rheumatology workup/screening to decide if she should go back to see stainless steel finisher. Apparently she has a standing diagnosis of fibromyalgia syndrome but when I look in the computer I do not see that any rheumatologic screening was done on her in the past. She is agreeable to this. She is worried about the fat in her liver and I tell her that this is minimal she likely has not inherited gene for fatty liver, but she is not overweight. I told her that if she gains weight or starts drinking a lot of alcohol this could become a problem for her but at this time it is not something she needs to worry about. She is reassured and will start her Creon. She already has an appointment for me after her colonoscopy in October and we will keep that for her next follow- up. Keep 11/01 Orders: Orders CLAUDIO Reflex Titer and Pattern Today K82.8 - Other specified diseases of gallbladder Erythrocyte Sedimentation Rate Today K82.8 - Other specified diseases of gallbladder Rheumatoid Factor Today K82.8 - Other specified diseases of gallbladder Cyclic Citrullinated Peptide Today K82.8 - Other specified diseases of gallbladder Coding Level of Care Code Est Pt Level 4 (17329) Diagnoses Biliary dyskinesia K82.8 Hepatic steatosis K76.0 Diarrhea R19.7 Abdominal pain R10.9 Elevated C-reactive protein (CRP) R79.82 Time Spent (min) 37
== END 2024-08-06 10:07 | disposition home or self-care (01) ==
PROVIDERS: PCP Internal Medicine; Visit Provider Nurse Practitioner
DX: K82.8 Other specified diseases of gallbladder (principal); K76.0 Fatty (change of) liver, not elsewhere classified; R19.7 Diarrhea, unspecified; R10.9 Unspecified abdominal pain; R79.82 Elevated C-reactive protein (CRP)
CPT/HCPCS: 99214

== ENCOUNTER → 2024-08-06 09:15 | Outpatient (BNVA) | payer OTHER, SELFPAY | PROVIDERS: PCP Internal Medicine; Visit Provider Nurse Practitioner | DX: K82.8 Other specified diseases of gallbladder (principal); K76.0 Fatty (change of) liver, not elsewhere classified; R19.7 Diarrhea, unspecified; R10.9 Unspecified abdominal pain; R79.82 Elevated C-reactive protein (CRP) | CPT/HCPCS: 99212 ==

== ENCOUNTER 2024-08-07 08:06 | Outpatient (AMB) | payer OTHER, SELFPAY ==
[2024-08-07 08:13] VITALS: BMI 22.0
--- NOTE | 2024-08-07 08:13 | A.OFFVIS_ITS ---
Vital Signs 08/07/24 08:13 Height 5 ft Weight 112 lb 6.972 oz BMI 22.0 Intake Visit Reasons: Fibroids / do not reschedule x 2 Science Specialist Required: Yes Science Specialist Language: Electric Motor Assembler Services: Science Specialist Present (in person) Science Specialist Name: Shabnam MARVIN Information Interpreted: non-clinical & clinical Accompanied by: Self / Same As Patient Allergies shrimp Allergy (Severe, Verified 08/07/24 08:17) MOUTH SWELLING No Known Drug Allergies Allergy (Unknown, Verified 08/07/24 08:17) none Seasonal Allergies Allergy (Verified 08/07/24 08:17) Itchy Eyes Is last menstrual period known: Yes HPI Comments Details: Presenting complaining of irregular menstrual cycles on NuvaRing associated with pain for intercourse and pelvic pressure. Pelvic ultrasound done in 02/03 showed the following: Uterus: The uterus measures 7.3 x 6.1 x 7.4 cm. The uterus is anteverted and anteflexed. The endometrial stripe measures 2 mm. There is a 8.0 x 6.6 x 6.7 cm subserosal fibroid anterior uterine fundus. This previously measured 7.1 x 4.5 x 7.6 cm in 2019. The right ovary appears normal measuring 2.9 x 1.7 x 2.0 cm, volume 5.2 mL. The left ovary appears normal measuring 2.8 x 1.4 x 1.7 cm, volume 3.5 mm. Trace free fluid in the cul-de-sac consistent with normal physiologic fluid. The patient is complaining of vulvovaginal irritation with no discharge or vaginal odor. Last mammogram in 08/05 was BI-RADS 1 Last co testing in 02/03 was negative [facility] Medical History IBS (irritable bowel syndrome) Esophagitis Chronic gastritis with bleeding Family planning education, guidance, and counseling Abnormal x-ray of thoracic spine Abnormal x-ray of thoracic spine Sleep disorder Uses control Cervical cancer screening Well woman exam with routine gynecological exam Surgical History Hx of colonoscopy History of esophagogastroduodenoscopy (EGD) Family History Father Cirrhosis of liver Cancer Liver transplanted Mother Apnea Paternal Grandfather Cancer Social History Household Members: Spouse Household Members Other:: son Housing: Apartment Alcohol intake: never Patient Tobacco Use Status: Never used Tobacco Current occupational status: employed Current occupation: [employer] and paid Sexual orientation: Straight/Heterosexual Gender identity: Female Female Reproductive History Menstrual Age of Menarche: 12 Total pregnancies: 8 Full term: 3 Number of Living Children: 3 Ab spontaneous: 5 Date of last pap smear: 02/09/24 Review of Systems Const All systems reviewed & are unremarkable except as noted in HPI and below Physical Exam Vital Signs: BMI result Body Mass Index 22.0 General: Yes no CVA tenderness External Female Exam: normal external appearance and normal appearance of the urethra Speculum Exam - Vagina: normal appearance of the vagina, normal palpation, no lesions and no masses Speculum Exam - Cervix: normal appearance of the cervix, normal palpation, no lesions, no masses and nontender Bimanual exam- vagina & uterus: normal bimanual exam, normal palpation, normal palpation, uterine shape normal, No Cervical tenderness present, non-tender and enlarged Bimanual Exam- Adnexa, other: normal adnexae Back/Spine/Pelvis Back: no CVA tenderness Office Procedures Endometrial Biopsy Details: The patient was counseled regarding the indication and benefits of endometrial sampling to rule out endometrial pathology including not limited to endometrial hyperplasia or endometrial cancer and others; The alternatives (Either do nothing vs. hysteroscopy D&C) & the risks were discussed with the patient including but not limited: pain, uterine perforation, bleeding, infection, possible injury to bladder, bowel, ureter, possible need for blood transfusion with all its possible risks. The patient verbalized understanding all questions answered and signed consent. Urine test done in the office was negative The patient was placed into the dorsal lithotomy position; a speculum was inserted in the vagina. Using aseptic technique for the procedure, the cervix was cleansed with Betadine. The anterior lip of the cervix was grasped with a single tooth tenaculum. The uterus was sounded to 7 cm with a 4 mm Pipelle was used. Tissues samples were obtained and placed in formalin, in a patient labeled container and sent to the pathology department. At the end of the procedure, there was minimal bleeding noted The patient tolerated the procedure well and was discharged in good condition with the following instructions: Nothing in the vagina until the bleeding stops. No sex until the bleeding stops, to call if any of the following occurs: fever (>100.4), flu-like symptoms, abdominal pain, heavy bleeding, four smelling vaginal discharge. The patient was instructed to schedule a Follow up appointment in 2 weeks to discuss pathology results of the biopsy and treatment options. This note was generated with a voice recognition program. Some errors may have been overlooked during the review of this note. Sometimes these errors may affect the content or meaning of a given sentence. [id number] Biopsy Assessment & Plan Assessment & Plan (1) Abnormal uterine bleeding (AUB): Comment: on Nuvaring Code(s): N93.9 - Abnormal uterine and vaginal bleeding, unspecified Category: Medical Plan: GC and chlamydia taken CBC, TSH, prolactin, FSH/LH, HCG ordered. Discussed with the patient the different causes of abnormal bleeding including thyroid disorders, uterine and ovarian pathology, endometrial hyperplasia, carcinoma and other potential causes. Discussed with the patient the work up including CBC (to r/o anemia), TSH, prolactin, endometrial biopsy to r/o endometrial pathology. EMB done, see procedure note All questions answered and the patient verbalized understanding. Instructed the patient to schedule a follow-up appointment in 2 weeks. (2) Uterine myoma: Code(s): D25.9 - Leiomyoma of uterus, unspecified Category: Medical Plan: Discussed with the patient the results of the ultrasound and the size of the myomas. Discussed with the patient risk of myosarcoma and symptoms that are caused by myomas including but not limited to pelvic pain, pressure symptoms, abnormal uterine bleeding. In addition discussed with the patient options of treatment for myomas including: Serial ultrasounds periodically to follow-up on the size of the myoma while targeting the treatment against fibroids related symptoms ( control pills, Mirena IUD, progesterone treatment, GnRH agonist/antagonist, uterine artery embolization or endometrial ablation) versus surgical treatment including hysterectomy and or myomectomy. All pros and cons, risks and benefits of all options were discussed with the patient. The patient understands that delay in surgical treatment in case of myosarcoma can affect her prognosis, after further discussion, the patient decided to think about it and get back to us next visit (3) Vulvovaginitis: Code(s): N76.0 - Acute vaginitis Category: Medical Plan: GC/CT, Bacterial Vaginosis panel taken, Terazol 0.8% q.h.s. for 3 days was sent to the patient's pharmacy. The patient was instructed to call if symptoms don't improve in 48 hours. Orders: Orders TSH reflex Free T4 Today N93.9 - Abnormal uterine and vaginal bleeding, unspecified Prolactin Today N93.9 - Abnormal uterine and vaginal bleeding, unspecified Follicle Stimulating Hormone Today N93.9 - Abnormal uterine and vaginal bleeding, unspecified Complete Blood Count no Diff Today N93.9 - Abnormal uterine and vaginal bleeding, unspecified AMB Endometrial Biopsy Today N93.9 - Abnormal uterine and vaginal bleeding, unspecified HCG Quantitative Today N93.9 - Abnormal uterine and vaginal bleeding, unspecified Lutenizing Hormone Today N93.9 - Abnormal uterine and vaginal bleeding, unspecified Medications: New terconazole 0.8% 1 appful vaginal BEDTIME 3 days 20 grams 0RF Coding Level of Care Code Est Pt Level 3 (71006) Procedure Only Diagnoses Abnormal uterine bleeding (AUB) N93.9 Uterine myoma D25.9 Vulvovaginitis N76.0 CPT Codes Endometrial Biopsy - CPT: 38911-Llvdunwidte Biopsy ([id number])
== END 2024-08-07 08:55 | disposition home or self-care (01) ==
PROVIDERS: PCP Internal Medicine; Visit Provider Obstetrics & Gynecology
DX: N93.9 Abnormal uterine and vaginal bleeding, unspecified (principal); D25.9 Leiomyoma of uterus, unspecified; N76.0 Acute vaginitis
CPT/HCPCS: 58100; 99213

== ENCOUNTER 2024-08-07 08:06 | Outpatient (REF) | payer OTHER, SELFPAY ==
[2024-08-07 09:32] LABS: Hematocrit 40.8 % (37.0-47.0); Hemoglobin 12.9 g/dl (12.0-16.0); Mean Corpuscular HGB Conc 31.6 g/dl (31.0-35.0); Mean Corpuscular Hemoglobin 24.1 pg (27.0-33.0); Mean Corpuscular Volume 76.3 fL (80.0-98.0); Mean Platelet Volume 9.7 fL (9.4-12.3); Platelet Count 364 X10*3/uL (160-400); Red Blood Count 5.35 X10*6/uL (4.20-5.50); Red Cell Distribution Width 13.6 % (11.0-16.0); White Blood Count 4.7 X10*3/uL (4.8-10.8)
[2024-08-07 10:10] LABS: Erythrocyte Sedimentation Rate 20 MM/HR (0-20)
[2024-08-07 10:23] LABS: HCG Quantitative < 2 mIU/mL; Rheumatoid Factor < 13.0 IU/mL (<15.0); TSH reflex Free T4 0.55 uIU/mL (0.32-4.0)
[2024-08-07 16:23] LABS: Bacterial Vaginosis PCR NEGATIVE (Negative); Candida Group PCR NOT DETECTED (Not Detect); Candida glab krusei PCR NOT DETECTED (Not Detect); Trichomonas vaginalis PCR NOT DETECTED (Not Detect)
[2024-08-07 16:59] LABS: CT PCR NOT DETECTED (Not Detect.); NG PCR NOT DETECTED (Not Detect.)
[2024-08-08 07:33] LABS: Follicle Stimulating Hormone 73.1 mIU/mL; Lutenizing Hormone 26.6 mIU/mL; Prolactin 3.8 ng/mL
[2024-08-09 11:14] LABS: Anti Nuclear Antibody Screen NEGATIVE (NEGATIVE)
[2024-08-12 15:18] LABS: Cyclic Citrullinated Peptide <16 UNITS
== END 2024-08-07 08:07 | disposition home or self-care (01) ==
LOC: HO.LAB 08:06
PROVIDERS: Absent Provider Nurse Practitioner; PCP Internal Medicine; Visit Provider Obstetrics & Gynecology
DX: N93.9 Abnormal uterine and vaginal bleeding, unspecified (principal); D25.9 Leiomyoma of uterus, unspecified; N76.0 Acute vaginitis; K82.8 Other specified diseases of gallbladder
CPT/HCPCS: 0352U; 36415; 58100; 83001; 83002; 84146; 84443; 84702; 85027; 85652; 86038; 86200; 86431; 87491; 87591; 99212

== ENCOUNTER 2024-08-07 08:56 | Outpatient (REF) | payer OTHER, SELFPAY | END 2024-08-07 08:57 | disposition home or self-care (01) | LOC: HO.LNP 08:56 | PROVIDERS: Visit Provider Obstetrics & Gynecology | DX: N93.9 Abnormal uterine and vaginal bleeding, unspecified (principal); N76.0 Acute vaginitis | CPT/HCPCS: 88305 ==

== ENCOUNTER 2024-08-28 15:54 | Outpatient (AMB) | payer MEDICAID, SELFPAY ==
--- NOTE | 2024-08-28 15:58 | MHC.OFFVIS ---
Vital Signs 08/28/24 15:59 Height 5 ft Weight 112 lb 6.972 oz BMI 22.0 Intake Visit Reasons: EMB results Passenger Car Inspector Required: Yes Passenger Car Inspector Language: Employment Legal Assistant Services: Passenger Car Inspector Present (in person ) Passenger Car Inspector Name: Shabnam MARVIN Information Interpreted: non-clinical & clinical Accompanied by: Self / Same As Patient Allergies shrimp Allergy (Severe, Verified 08/28/24 16:00) MOUTH SWELLING No Known Drug Allergies Allergy (Unknown, Verified 08/28/24 16:00) none Seasonal Allergies Allergy (Verified 08/28/24 16:00) Itchy Eyes HPI Comments Details: The patient is presenting for follow-up to discuss the results and options of treatment. The following workup was done.: H&H= 12.9/40.8 TSH, prolactin, hCG, GC and chlamydia were negative. FSH/LH= 73.1/26.5 Endometrial biopsy pathology showed inactive endometrium no evidence of hyperplasia and/or malignancy. Co testing was done was negative. Mammogram was BI-RADS 1 in 08/05, the patient is scheduled in a week for repeat screening mammogram Pelvic ultrasound in 02/03 showed the following: Uterus: The uterus measures 7.3 x 6.1 x 7.4 cm. The uterus is anteverted and anteflexed. The endometrial stripe measures 2 mm. There is a 8.0 x 6.6 x 6.7 cm subserosal fibroid anterior uterine fundus. This previously measured 7.1 x 4.5 x 7.6 cm in 2019. The right ovary appears normal measuring 2.9 x 1.7 x 2.0 cm, volume 5.2 mL. The left ovary appears normal measuring 2.8 x 1.4 x 1.7 cm, volume 3.5 mm. Trace free fluid in the cul-de-sac consistent with normal physiologic fluid. The patient discontinued her NuvaRing after her last visit, since then no menstrual cycles PFSH Medical History IBS (irritable bowel syndrome) Esophagitis Chronic gastritis with bleeding Family planning education, guidance, and counseling Abnormal x-ray of thoracic spine Abnormal x-ray of thoracic spine Sleep disorder Uses control Cervical cancer screening Well woman exam with routine gynecological exam Surgical History Hx of colonoscopy History of esophagogastroduodenoscopy (EGD) Family History Father Cirrhosis of liver Cancer Liver transplanted Mother Apnea Paternal Grandfather Cancer Social History Household Members: Spouse Household Members Other:: son Housing: Apartment Alcohol intake: never Patient Tobacco Use Status: Never used Tobacco Current occupational status: employed Current occupation: [employer] and paid Sexual orientation: Straight/Heterosexual Gender identity: Female Female Reproductive History Menstrual Age of Menarche: 12 Review of Systems Const All systems reviewed & are unremarkable except as noted in HPI and below Reports as per HPI and Reports no additional complaints GI Reports no additional complaints Reports no additional complaints Assessment & Plan Assessment & Plan (1) Uterine myoma: Code(s): D25.9 - Leiomyoma of uterus, unspecified Category: Medical Plan: Repeat pelvic Ultrasound ordered. Instructions given the patient to schedule ultrasound follow-up appointment to compare the size of the myoma. (2) Abnormal uterine bleeding (AUB): Code(s): N93.9 - Abnormal uterine and vaginal bleeding, unspecified Category: Medical Plan: Discussed with the patient the results of the work up done and options of treatment including expectant management, endometrial ablation and hysterectomy. All pros, cons, risks and benefits if each option was discussed with the patient and the patient decided to think about it and get back to us. All questions answered the patient verbalized understanding. (3) Menopause: Code(s): Z78.0 - Asymptomatic menopausal state Category: Medical Plan: Discussed with the patient the elevated FSH LH and the diagnosis of menopause. All questions answered, the patient verbalized understanding Orders: Orders US pelvic and transvaginal Today D25.9 - Leiomyoma of uterus, unspecified Coding Level of Care Code Est Pt Level 3 (25044) Diagnoses Uterine myoma D25.9 Abnormal uterine bleeding (AUB) N93.9 Menopause Z78.0
[2024-08-28 15:59] VITALS: BMI 22.0
== END 2024-08-28 16:12 | disposition home or self-care (01) ==
LOC: HO.HWS 15:54
PROVIDERS: PCP Internal Medicine; Referring Provider Internal Medicine; Visit Provider Obstetrics & Gynecology
DX: D25.9 Leiomyoma of uterus, unspecified (principal); N93.9 Abnormal uterine and vaginal bleeding, unspecified; Z78.0 Asymptomatic menopausal state
CPT/HCPCS: 99213

== ENCOUNTER → 2024-08-28 15:54 | Outpatient (BNVA) | payer OTHER, SELFPAY | PROVIDERS: PCP Internal Medicine; Visit Provider Obstetrics & Gynecology | DX: D25.9 Leiomyoma of uterus, unspecified (principal); N93.9 Abnormal uterine and vaginal bleeding, unspecified; Z78.0 Asymptomatic menopausal state | CPT/HCPCS: 99212 ==

== ENCOUNTER 2024-08-29 08:26 | Outpatient (AMB) | payer OTHER, SELFPAY ==
[2024-08-29 08:27] VITALS: BP 115/53; PULSE 90; BMI 22.3
--- NOTE | 2024-08-29 08:27 | MHC.OFFVIS ---
Vital Signs 08/29/24 08:27 Height 5 ft Weight 114 lb BMI 22.3 BP 115/53 L Blood Pressure Location Rt brachial Position Sitting Pulse 90 Intake Visit Reasons: Other specified diseases of gallbladder Intake Note: This patient presents for acute cholecystitis. Pt c/o; LLQ pain after meals , reports had diarrhea but this has resolved after changing diet. 05/17/2024: Abd U/S 07/12/2024: HIDA Scan Residential Framing Carpenter Required: Yes Residential Framing Carpenter Services: Residential Framing Carpenter Present Residential Framing Carpenter Name: Eddy Information Interpreted: non-clinical & clinical Accompanied by: Self / Same As Patient Allergies shrimp Allergy (Severe, Verified 08/29/24 08:45) MOUTH SWELLING No Known Drug Allergies Allergy (Unknown, Verified 08/29/24 08:45) none Seasonal Allergies Allergy (Verified 08/29/24 08:45) Itchy Eyes Medication List - Last Reconciled 08/29/24 by Shivam Ceballos MD albuterol sulfate 90 mcg/actuation 2 puffs inhalation Q4-6H PRN 30 days cetirizine 10 mg PO DAILY PRN dicyclomine 10 mg PO QID diphenhydramine HCl (Benadryl) 25 mg PO TID PRN epinephrine (EpiPen 2-Lee) 0.3 mg (0.3 mL) IM Q4H PRN etonogestrel-ethinyl estradiol 0.12-0.015 mg/24 hr 1 vag ring vaginal Q4W hydrocortisone 2.5% (Proctosol HC) 1 appl SC BID ruroae-hxfrlpbr-fyreszu 36,000-114,000- 180,000 unit (Creon) 2 caps PO BID icmyfyqaeboq-Fr-mzmg-minerals tabs PO sodium,potassium,mag sulfates 17.5-3.13-1.6 gram (Suprep Bowel Prep Kit) 480 mL orally; FOR COLONOSCOPY PREP terconazole 0.8% 1 appful vaginal BEDTIME 3 days vitamin E mixed 400 units PO HPI HPI Other specified diseases of gallbladder: Details: 44-year-old female referred for an abnormal HIDA scan. She had an HIDA scan last June, showing an ejection fraction of 2%. The patient denies any history of right upper quadrant pain. She says that she has a long history of diarrhea and periodic left lower quadrant pain. She denies association of these symptoms with oral intake. She denies any abdominal pain recently. She has good oral intake. She actually is being followed by a business insurance agent because of her chronic GI issues. [facility] Medical History IBS (irritable bowel syndrome) Esophagitis Chronic gastritis with bleeding Family planning education, guidance, and counseling Abnormal x-ray of thoracic spine Abnormal x-ray of thoracic spine Sleep disorder Uses control Cervical cancer screening Well woman exam with routine gynecological exam Surgical History Hx of colonoscopy History of esophagogastroduodenoscopy (EGD) Family History Father Cirrhosis of liver Cancer Liver transplanted Mother Apnea Paternal Grandfather Cancer Social History Household Members: Spouse Household Members Other:: son Housing: Apartment Alcohol intake: never Patient Tobacco Use Status: Never used Tobacco Current occupational status: employed Current occupation: [employer] and paid Sexual orientation: Straight/Heterosexual Gender identity: Female Female Reproductive History Menstrual Age of Menarche: 12 Review of Systems Const Denies chills and Denies fever(s) Card Denies chest pain, Denies dyspnea and Denies dyspnea on exertion Resp Denies cough, Denies dyspnea and Denies dyspnea on exertion GI Denies hematochezia and Denies change in bowel habits Denies hematuria Musc Denies back pain and Denies limited range of motion Neuro Denies focal weakness and Denies convulsions Psych Denies depression and Denies mood swings Physical Exam Const General: comfortable and no acute distress Orientation/consciousness: patient oriented x3 Neck Neck: Yes no lymphadenopathy Resp Auscultation: clear to auscultation bilaterally Cardio Rhythm: regular rhythm GI Palpation (GI): Soft to palpation, nontender and no guarding Neuro General: patient oriented x3 Assessment & Plan Assessment & Plan (1) Biliary dyskinesia: Code(s): K82.8 - Other specified diseases of gallbladder Category: Medical Plan: Her HIDA scan showed an ejection fraction of 2% consistent with biliary hypokinesia. However, she really has had no pain on the right upper quadrant. She decide for a long history of periodic diarrhea and left lower quadrant pain. I am uncertain as to the clinical significance of this abnormal HIDA scan. I would not recommend proceeding with cholecystectomy in view of any absence of symptoms that would suggest a gallbladder problem. I do not think there will be benefit of doing this surgery with the symptoms that she is presenting with. It was unlikely that the etiology is gallbladder dysfunction. I explained to her that symptoms of biliary hypokinesia would mimic biliary colic and she does not have any of these. I did explain to her that if she has concerns or questions down the line or if she has right upper quadrant pain, then she should back to the office to be re-evaluated. Coding Level of Care Code New Pt Level 3 (65386) Diagnoses Biliary dyskinesia K82.8
== END 2024-08-29 08:56 | disposition home or self-care (01) ==
PROVIDERS: PCP Internal Medicine; Visit Provider Surgery
DX: K82.8 Other specified diseases of gallbladder (principal)
CPT/HCPCS: 99203

== ENCOUNTER → 2024-08-29 08:26 | Outpatient (BNVA) | payer OTHER, SELFPAY | PROVIDERS: PCP Internal Medicine; Visit Provider Surgery | DX: K82.8 Other specified diseases of gallbladder (principal); R10.32 Left lower quadrant pain | CPT/HCPCS: 99202 ==

== ENCOUNTER 2024-09-05 15:47 | Outpatient (REF) | payer OTHER, SELFPAY ==
--- NOTE | ~2024-09-05 | MM_ITS ---
EXAMINATION: MM SCREENING DIGITAL BREAST TOMOSYNTHESIS, BILATERAL CLINICAL INFORMATION: Screening. Asymptomatic. COMPARISON: Mammography: Comparison is made with available priors TECHNIQUE: Digital breast mammography with tomosynthesis is performed in both the craniocaudal and mediolateral oblique views along with computer-aided detection (CAD). FINDINGS: The breasts are heterogeneously dense, which may obscure small masses (ACR BI-RADS breast composition Category c). There are no significant masses, abnormal calcifications, or other abnormalities. MM/MM tomosynthesis screening BI IMPRESSION: No mammographic evidence of malignancy. ASSESSMENT: BI-RADS BI-RADS 1 - Negative RECOMMENDATION: Routine annual mammography screening. 1 year F/U This examination should not preclude the clinical evaluation of a suspicious palpable abnormality. This patient's information was entered into a reminder system with a target due date for their next mammogram. Electronically signed by: Crys Izaguirre DO 09/17/2024 08:47 AM GRAH[facility]
== END 2024-09-05 15:48 | disposition home or self-care (01) ==
LOC: HO.MAMMO 15:47
PROVIDERS: PCP Internal Medicine; Visit Provider Internal Medicine
DX: Z12.31 Encounter for screening mammogram for malignant neoplasm of breast (principal)
CPT/HCPCS: 77063; 77067

== ENCOUNTER → 2024-09-05 16:00 | Outpatient (BNV) | payer OTHER, SELFPAY | PROVIDERS: PCP Internal Medicine; Visit Provider Internal Medicine | DX: Z12.31 Encounter for screening mammogram for malignant neoplasm of breast (principal) | CPT/HCPCS: 77063; 77067 ==

== ENCOUNTER 2024-09-09 15:50 | Outpatient (REF) | payer MEDICAID, SELFPAY | END 2024-09-09 15:51 | disposition home or self-care (01) | LOC: HO.US 15:50 | PROVIDERS: PCP Internal Medicine; Visit Provider Obstetrics & Gynecology | DX: D25.9 Leiomyoma of uterus, unspecified (principal) | CPT/HCPCS: 76830; 76856 ==

== ENCOUNTER 2024-09-25 15:25 | Outpatient (AMB) | payer MEDICAID, SELFPAY ==
--- NOTE | 2024-09-25 15:25 | MHC.OFFVIS ---
Intake Visit Reasons: Ultrasound follow up Healthcare Translator Required: Yes Healthcare Translator Language: Quality And Reliability Engineer Services: Healthcare Translator Present (in person) Healthcare Translator Name: Shabnam MARVIN Allergies shrimp Allergy (Severe, Verified 08/29/24 08:45) MOUTH SWELLING No Known Drug Allergies Allergy (Unknown, Verified 08/29/24 08:45) none Seasonal Allergies Allergy (Verified 08/29/24 08:45) Itchy Eyes HPI Comments Details: The patient is scheduled tele health visit for ultrasound follow-up. Official report not available yet, unofficial reading showed urine myoma measuring 7.6x 5.3 x7.3cm previously 8 x 6.6 x 6.7 cm The following workup was done.: H&H= 12.9/40.8 TSH, prolactin, hCG, GC and chlamydia were negative. FSH/LH= 73.1/26.5 08/06 Endometrial biopsy pathology showed inactive endometrium no evidence of hyperplasia and/or malignancy. 02/03 Co testing was done was negative. Mammogram was BI-RADS 1 in 09/05 No vag bleeding since Nuvaring was removed in 08/06 c/o hot flashes PFSH Medical History IBS (irritable bowel syndrome) Esophagitis Chronic gastritis with bleeding Family planning education, guidance, and counseling Abnormal x-ray of thoracic spine Abnormal x-ray of thoracic spine Sleep disorder Uses control Cervical cancer screening Well woman exam with routine gynecological exam Surgical History Hx of colonoscopy History of esophagogastroduodenoscopy (EGD) Family History Father Cirrhosis of liver Cancer Liver transplanted Mother Apnea Paternal Grandfather Cancer Social History Household Members: Spouse Household Members Other:: son Housing: Apartment Alcohol intake: never Patient Tobacco Use Status: Never used Tobacco Current occupational status: employed 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 Sexual orientation: Straight/Heterosexual Gender identity: Female Female Reproductive History Menstrual Age of Menarche: 12 Telehealth Telehealth Telehealth Platform: Telephone Location of provider rendering services: practice address Location of patient: address on file Patient Identification confirmed using: Name, : Yes Telehealth method: video Patient verbally consented to treatment: Yes Patient verbally consented to billing insurance company: Yes Patient informed of any privacy concerns related to visit: Yes Assessment & Plan Assessment & Plan (1) Uterine myoma: Code(s): D25.9 - Leiomyoma of uterus, unspecified Category: Medical Plan: Discussed with the patient the findings on pelvic ultrasound & the risk of myosarcoma; discussed with the patient the options of treatment including expectant management versus hysterectomy; the pros and cons, risks benefits of each approach were discussed with the patient including the fact that in cases of myosarcoma, surgical treatment can lead to early diagnosis and positively affects the prognosis; after further discussion, the patient decided to proceed with expectant management. Will repeat pelvic ultrasound periodically. Instructions given to patient to call in case any of the following occurs: pressure symptoms, abnormal uterine bleeding, pelvic pain; and to schedule a six-months pelvic ultrasound and a follow-up appointment . All questions answered, the patient verbalized understanding and agreed with the plan . (2) Hot flashes: Code(s): R23.2 - [place] Category: Medical Plan: Discussed with the patient the options of treatment of hot flashes including hormonal replacement therapy, all the pros, cons, risks and benefits (benefits= prevention of hot flashes, atrophic vaginitis, osteoporosis, decrease colon ca risk; also discussed with the patient the risks of GA, Breast ca, DVT, PE, Strokes). In addition, discussed with the patient non hormonal treatment options for hot flashes treatment in surgical menopausal patient. Options discussed with the patient include the following: SSRI/SNRIs , difficulty has been demonstrated in multiple trials clinical response is more rapid (days) than typical response to SSRI for depression (weeks), they are equally effective in natural versus surgical menopause, they have similar modest benefit for hot flashes; the patient would like to think about it and get back to us I spent a total of 20 minutes reviewing the chart, talking to the patient via video and documenting in the medical record. Orders: Orders US pelvic and transvaginal 6 Months D25.9 - Leiomyoma of uterus, unspecified Coding Level of Care Code Tele Est Pt Level 3 (70428) Diagnoses Uterine myoma D25.9 Hot flashes R23.2
== END 2024-09-25 16:02 | disposition home or self-care (01) ==
LOC: HO.HWS 15:25
PROVIDERS: PCP Internal Medicine; Visit Provider Obstetrics & Gynecology
DX: D25.9 Leiomyoma of uterus, unspecified (principal); R23.2 Flushing
CPT/HCPCS: 99213

== ENCOUNTER → 2024-09-25 15:25 | Outpatient (BNVA) | payer MEDICAID, SELFPAY | PROVIDERS: PCP Internal Medicine; Visit Provider Obstetrics & Gynecology ==

== ENCOUNTER 2024-10-17 07:53 | Day surgery (SDC) | payer MEDICAID, SELFPAY ==
[2024-10-15 11:26] VITALS: BMI 22.1
--- NOTE | 2024-10-16 10:23 | P.CONAN_ITS ---
Documented by User: Marcie Anne NP 10/16/24 10:24 HPI - Anesthesia Eval Consult details Narrative: 44yo F for Colonoscopy PMFSH Active Problems Active Problems: All Active Problems Hot flashes (Acute) Menopause (Acute) Vulvovaginitis (Acute) Uterine myoma (Acute) Abnormal uterine bleeding (AUB) (Acute) Biliary dyskinesia (Acute) Hepatic steatosis (Acute) Abdominal pain (Acute) Allergic rhinitis (Acute) Acute urticaria (Acute) Diarrhea (Acute) Perimenopause (Acute) Fibroids (Acute) ELVI (obstructive sleep apnea) (Acute) Palpitations (Acute) Reactive airway disease (Acute) Dyspnea (Acute) Elevated C-reactive protein (CRP) (Acute) Polyarthralgia (Acute) Late menses (Acute) Bleeding hemorrhoids (Acute) Irritable bowel syndrome with constipation (Acute) GERD (gastroesophageal reflux disease) (Acute) Past Medical History Medical History IBS (irritable bowel syndrome) Esophagitis Chronic gastritis with bleeding Family planning education, guidance, and counseling Abnormal x-ray of thoracic spine Abnormal x-ray of thoracic spine Sleep disorder Uses control Cervical cancer screening Well woman exam with routine gynecological exam Family History Family History Father Cirrhosis of liver Cancer Liver transplanted Mother Apnea Paternal Grandfather Cancer Surgical History Surgical History Hx of colonoscopy History of esophagogastroduodenoscopy (EGD) Social History Social History Household Members: Spouse Household Members Other:: son Housing: Apartment Alcohol intake: never Patient Tobacco Use Status: Never used Tobacco Have you been hit, kicked, punched, or otherwise hurt by someone within the past year? 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 Sexual orientation: Straight/Heterosexual Gender identity: Female Meds Allergies Allergy/AdvReac Type Severity Reaction Status Date / Time shrimp Allergy Severe MOUTH Verified 08/29/24 08:45 SWELLING No Known Drug Allergies Allergy Unknown none Verified 08/29/24 08:45 Seasonal Allergies Allergy Itchy Eyes Verified 08/29/24 08:45 Home Medications ?Medication ?Instructions ?Recorded ?Confirmed ?Last Taken ?Type cetirizine 10 mg tablet 10 mg PO DAILY PRN allergies 02/09/23 08/29/24 10/13/24 History nkmubliunwyk-Gm-kywb-minerals 18 tab PO 02/08/24 08/29/24 10/13/24 History mg-0.4 mg tablet vitamin E mixed 400 unit capsule 400 unit PO 06/19/24 08/29/24 10/13/24 History Exam Height,Weight and Vital Signs: Height 5 ft Weight 51.256 kg Assessment and Plan Assessment Anesthesia Assessment: Chart Reviewed Documented by User: Isela Kennedy MD 10/17/24 09:29 [facility] Past Medical History Medical History IBS (irritable bowel syndrome) Esophagitis Chronic gastritis with bleeding Family planning education, guidance, and counseling Abnormal x-ray of thoracic spine Abnormal x-ray of thoracic spine Sleep disorder Uses control Cervical cancer screening Well woman exam with routine gynecological exam Family History Family History Father Cirrhosis of liver Cancer Liver transplanted Mother Apnea Paternal Grandfather Cancer Family history of problems with anesthesia: No Surgical History Surgical History Hx of colonoscopy History of esophagogastroduodenoscopy (EGD) History of Problems with Anesthesia: No Social History Social History Household Members: Spouse Household Members Other:: son Housing: Apartment Alcohol intake: never Patient Tobacco Use Status: Never used Tobacco Have you been hit, kicked, punched, or otherwise hurt by someone within the past year? 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 Sexual orientation: Straight/Heterosexual Gender identity: Female Meds Allergies Allergy/AdvReac Type Severity Reaction Status Date / Time shrimp Allergy Severe MOUTH Verified 08/29/24 08:45 SWELLING No Known Drug Allergies Allergy Unknown none Verified 08/29/24 08:45 Seasonal Allergies Allergy Itchy Eyes Verified 08/29/24 08:45 Home Medications ?Medication ?Instructions ?Recorded ?Confirmed ?Last Taken ?Type cetirizine 10 mg tablet 10 mg PO DAILY PRN allergies 02/09/23 08/29/24 10/13/24 History arqurrzxvdvk-Jj-cdkf-minerals 18 tab PO 02/08/24 08/29/24 10/13/24 History mg-0.4 mg tablet vitamin E mixed 400 unit capsule 400 unit PO 06/19/24 08/29/24 10/13/24 History Exam Airway Mallampati Class: II TM Dist: >3cm Neck ROM: Full Heart: rrr Lungs: cta Assessment and Plan Assessment Anesthesia Assessment: Anesthesia Plan Discussed Final Anesthetic Review Family History of Problems with Anesthesia: No History of Problems with Anesthesia: No NPO: Yes ASA Class: II Final Preanesthetic Review: No Changes in Pt Med Stat, Meds/Allgs Chart Reviewed, Consent Obtained/Reviewed and Anes Risks/Benef Reviewed Patient Risk: Low Procedure Risk: Low Anesthetic Plan Anesthetic Plan: MAC: Disposition: Standard PACU
[2024-10-17 08:40] LABS: UPreg QC Valid YES; Urine Pregnancy NEGATIVE (NEGATIVE)
[2024-10-17 08:49] VITALS: BP 127/79; PULSE 102; RESP 18; TEMP 36.9; O2SAT 97; BMI 22.5
[2024-10-17] MEDS: Lactated Ringers 1,000 ML 100 ML IVCONT (09:09)
--- NOTE | 2024-10-17 09:17 | MHC.SHP ---
Pre-Procedural Eval Section A - 24 Hr Update-Section A only Date of Service: 10/17/24 Section B - Complete if H&P > 30 days Chief Complaint: diarrhea,abdominal pain,fecal abnormalities Relevant Family History (Specify if Yes): No Relevant Social History: None Present Medications: see Short Stay Collaborative assessment Medical History: Significant History (IBS (irritable bowel syndrome) Esophagitis Chronic gastritis with bleeding Family planning education, guidance, and counseling Abnormal x-ray of thoracic spine Abnormal x-ray of thoracic spine Sleep disorder Uses control Cervical cancer screening Well woman exam with routine gynecological exam) History of Previous Operations: Relevant previous surgery/procedure and date(s) (Hx of colonoscopy History of esophagogastroduodenoscopy (EGD)) Allergies: Allergies Allergy/AdvReac Type Severity Reaction Status Date / Time shrimp Allergy Severe MOUTH Verified 08/29/24 08:45 SWELLING No Known Drug Allergies Allergy Unknown none Verified 08/29/24 08:45 Seasonal Allergies Allergy Itchy Eyes Verified 08/29/24 08:45 Review of Systems Sugical H&P ROS: Negative: Constitution, Cardiovascular, Respiratory, Neurological, Psychiatric, Hem-Onc, Allergic/Immunologic, Gastrointestinal, Genitourinary, Musculoskeletal, Integumentary, Endocrine and Eyes/Ears/Nose/Throat Exam Surgical H&P Exam: Normal: HEENT, Normal: Heart, Normal: Lungs, Normal: Extremities, Normal: Abdomen, Normal: Skin and Normal: Neurological Plan Diagnosis/Plan: Unchanged I have reviewed the history and physical and performed a pertinent physical examination on my patient. No changes have occurred unless specified. Time Spent With Patient Time: Total time managing care of this patient today ____ minutes.
--- NOTE | 2024-10-17 10:26 | P.OPN-COLO_ITS ---
Colonoscopy Operative Note Operative Note Date of Service: 10/17/24 Narrative: Operative Information Procedure Description: Colonoscopy Indication: abdominal pain Anesthesia: MAC COLONOSCOPY Instrument: Olympus variable stiffness pediatric scope 190L Colonoscopy Monitoring: Vital signs and clinical assessment, continuous EKG monitoring, Pulse oximetry, Carbon Dioxide monitoring and blood pressure monitoring were done throughout the procedure. Colon withdrawal time was 6 minutes. Procedure: The patient was placed in the left lateral decubitis position and pre-procedure medications were administered. After a digital rectal examination of the ano-rectum, the video colonoscope was inserted into the rectum and advanced through the colon to the cecum/TI. The colonoscope was slowly withdrawn in a retrograde panoramic fashion and the colon mucosa was carefully examined including a retroflexed view of the rectum. Findings and interventions are described below. Procedure Difficulty: easy Findings: Terminal Ileum-normal random bx taken Random colon bx taken from right and left colon Cecum:normal Ascending Colon: normal Transverse Colon -normal Descending Colon:normal Sigmoid Colon: normal Rectum: Retroflexion with small internal hemorrhoids seen, grade I Anorectum - normal Intervention: cold forceps bx Colon preparation: [place] Bowel Preparation Scale Right colon; 1-2 Transverse colon: 1-2 Left colon; 1-2 (0 = Unprepared colon segment with mucosa not seen due to solid stool that cannot be cleared. 1 = Portion of mucosa of the colon segment seen, but other areas of the colon segment not well seen due to staining, residual stool and/or opaque liquid. 2 = Minor amount of residual staining, small fragments of stool and/or opaque liquid, but mucosa of colon segment seen well. 3 = Entire mucosa of colon segment seen well with no residual staining, small fragments of stool or opaque liquid) Impression and Post Procedure Diagnosis: internal hemorrhoids Plan: High fiber diet leaflet Avoid straining at stool, epsom salts and sitz bath, anusol supps or cream Repeat Colonoscopy in 1 year due to areas of fair prep or earlier if clinically indicated Above findings were reviewed with the patient and relevant handouts were provided if indicated.
[2024-10-17 10:33] VITALS: BP 89/51; PULSE 98; RESP 22; TEMP 36.6; O2SAT 99
[2024-10-17 10:48] VITALS: BP 107/59; PULSE 86; RESP 16; TEMP 36.6; O2SAT 98
== END 2024-10-17 11:16 | disposition home or self-care (01) ==
PROVIDERS: Nurse Practitioner; PCP Internal Medicine; Visit Provider Internal Medicine Gastroenterology
PROC: 0DJD8ZZ Inspection of Lower Intestinal Tract, Via Natural or Artificial Opening Endoscopic (ICD-10-PCS; CPT 45378; principal; 2024-10-17 09:50)
DX: K64.0 First degree hemorrhoids (principal); R19.5 Other fecal abnormalities; K82.8 Other specified diseases of gallbladder; K76.0 Fatty (change of) liver, not elsewhere classified; R19.7 Diarrhea, unspecified; R79.82 Elevated C-reactive protein (CRP); K21.9 Gastro-esophageal reflux disease without esophagitis; G47.33 Obstructive sleep apnea (adult) (pediatric)
CPT/HCPCS: 45380; 81025; 88305; J2003; J2704

== ENCOUNTER → 2024-10-17 07:53 | Outpatient (BNV) | payer MEDICAID, SELFPAY | PROVIDERS: PCP Internal Medicine; Visit Provider Internal Medicine Gastroenterology | DX: R10.9 Unspecified abdominal pain (principal); R19.7 Diarrhea, unspecified; K64.0 First degree hemorrhoids | CPT/HCPCS: 45380 ==

== ENCOUNTER 2024-10-29 15:52 | Outpatient (AMB) | payer MEDICAID, SELFPAY ==
--- NOTE | 2024-10-29 16:17 | A.OFFVIS_ITS ---
Vital Signs 10/29/24 16:20 Height 5 ft Weight 111 lb 8.862 oz BMI 21.8 BP 115/59 L Blood Pressure Location Lt brachial Position Sitting Pulse 70 Intake Visit Reasons: s/p colonoscopy Intake Note: Patient in office today in follow up s/p colonoscopy. CC: Patient reports that after colonoscopy she was having LLQ abdominal pain and her hemorrhoids were out. She said that she tried a natural ointment she found online that helped her with her hemorrhoids. Quarry Plug And Feather Driller Required: No Accompanied by: Self / Same As Patient Allergies shrimp Allergy (Severe, Verified 10/29/24 16:35) MOUTH SWELLING No Known Drug Allergies Allergy (Unknown, Verified 10/29/24 16:35) none Seasonal Allergies Allergy (Verified 10/29/24 16:35) Itchy Eyes HPI HPI s/p colonoscopy: Details: Assessment & Plan (1) Biliary dyskinesia: Code(s): K82.8 - Other specified diseases of gallbladder Category: Medical (2) Hepatic steatosis: Comment: BASELINE LABS 05/09/2406/ [id number] C-Reactive Protein 2.38 H 1.40 H Stool Calprotectin 80 Hepatitis A IgM Ab Nonreactive Hep Bs Antigen Negative Hep Bs Antibody NONREACTIVE Hep B Core Total Ab Nonreactive Hepatitis C Ab (EIA) Nonreactive 16:09 Plt Count 377 Total Bilirubin 0.1 AST 10 ALT 6 Alkaline Phosphatase 98 CURRENT LABS US OF ABD 06/05/24 FINDINGS: PANCREAS: Limited visualization of pancreatic tail and head. Imaged portion of pancreatic body is unremarkable. ABDOMINAL AORTA: Nonaneurysmal INFERIOR VENA CAVA: Visualized portions are normal. LIVER: Hepatic contour is normal. Liver is normal in size. Mildly increased hepatic parenchymal heterogeneity and echogenicity could be associated with hepatocellular disease/hepatic steatosis and substantially limits visualization. Correlation with liver function tests and clinical exam recommended to determine further management. GALLBLADDER: No gallstones. No gallbladder wall thickening. COMMON BILE DUCT: Normal in caliber measuring 0.23 cm in diameter. RIGHT KIDNEY: No hydronephrosis. No renal calculi. Limited visualization. . The kidney measures 10.5 cm in maximum dimension. LEFT KIDNEY: No hydronephrosis. No renal calculi. Limited visualization. The kidney measures 9.3 cm in maximum dimension. SPLEEN: Normal. The spleen measures 10.6 cm in maximum dimension. FREE FLUID: None. US/US abdomen complete IMPRESSION: Mildly increased hepatic parenchymal heterogeneity and echogenicity could be associated with hepatocellular disease/hepatic steatosis and substantially limits visualization. Correlation with liver function tests and clinical exam recommended to determine further management. This study was presented today June 05, 2024 for interpretation. Stat results provided at this time as requested by referring provider. Code(s): K76.0 - Fatty (change of) liver, not elsewhere classified Category: Medical (3) Diarrhea: Code(s): R19.7 - Diarrhea, unspecified Category: Medical (4) Abdominal pain: Code(s): R10.9 - Unspecified abdominal pain Category: Medical (5) Elevated C-reactive protein (CRP): Comment: Fecal calprotectin borderline elevated, RAST panel negative for food allergies Code(s): R79.82 - Elevated C-reactive protein (CRP) Category: Medical Plan She has not yet started the Creon as she was fearful that something was wrong with her pancreas. I explained that it is used for pancreatic insufficiency but that is not why we are using it in this case, we are using it for biliary dyskinesia. I reviewed the HIDA scan unexplained what this means and how this can cause pain and diarrhea. She did asked to be referred to a surgeon and she has an upcoming appointment to discuss a possible elective cholecystectomy. We discussed the elevated CRP, I am not convinced that this is originating in the bowel given the borderline fecal calprotectin and the negative IBD genetics. However her upcoming colonoscopy in October will be helpful in this determination. 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 Apparently she has a standing hugo gnosis of fibromyalgia syndrome but when I look in the computer I do not see that any rheumatologic screening was done on her in the past. She is agreeable to this. She is worried about the fat in her liver and I tell her that this is minimal she likely has not inherited gene for fatty liver, but she is not overweight. I told her that if she gains weight or starts drinking a lot of alcohol this could become a problem for her but at this time it is not something she needs to worry about. She is reassured and will start her Creon. She already has an appointment for me after her colonoscopy in October and we will keep that for her next follow- up. Keep 11/01 Orders: Orders CLAUDIO Reflex Titer and Pattern Today K82.8 - Other specified diseases of gallbladder Erythrocyte Sedimentation Rate Today K82.8 - Other specified diseases of gallbladder Rheumatoid Factor Today K82.8 - Other specified diseases of gallbladder Cyclic Citrullinated Peptide Today K82.8 - Other specified diseases of gallbladder LABS: Laboratory Tests 08/07/24 09:09 ESR 20 Rheumatoid Factor < 13.0 Cycl Citrul Peptide IgG <16 CLAUDIO Screen NEGATIVE COLONOSCOPY 10/17/24 Findings: Terminal Ileum-normal random bx taken Random colon bx taken from right and left colon Cecum:normal Ascending Colon: normal Transverse Colon -normal Descending Colon:normal Sigmoid Colon: normal Rectum: Retroflexion with small internal hemorrhoids seen, grade I Anorectum - normal Intervention: cold forceps bx Impression and Post Procedure Diagnosis: internal hemorrhoids Plan: High fiber diet leaflet Avoid straining at stool, epsom salts and sitz bath, anusol supps or cream Repeat Colonoscopy in 1 year due to areas of fair prep or earlier if clinically indicated BIOPSY Received: 10/17/24 Diagnosis A. Terminal ileum, biopsy: Terminal ileal mucosa within normal limits. B. Colon, right, biopsy: Colonic mucosa within normal limits. C. Colon, left, biopsy: Colonic mucosa within normal limits CORRESPONDENCE Medication Orders hydrocortisone 1 appl GA BID 30 grams 6RF New On 08/20/24 @ 10:27 Shannan Aviles Wrote To Mejia Patient notified and she would like to receive the prescription cream. On 08/20/24 @ 10:24 JackieRaysa Wrote To Shannan Aviles Usually they will progress back in once the swelling goes down. I can send a prescription cream if needed. On 08/20/24 @ 10:15 Shannan Aviles Wrote To Jackie Patient states that last Monday her hemorrhoids came out and she was having a lot of pain and burning. She bought some OTC ointment and suppositories and does not have any more pain or burning. Patient is asking if the hemorrhoids will go back in or what she should do. Denies bleeding, pain, or constipation. Please advise. On 07/23/24 @ 17:08 Raysa Mejia Wrote To JackieFebruary (2) done New Orders General Surgery Referral 07/23/24 On 07/23/24 @ 16:56 Shannan Aviles Wrote To Mejia Patient was notified per message below. She verbalized understanding and asked if you could put a referral in for her to see a surgeon to discuss possible cholecystectomy. On 07/23/24 @ 09:20 Raysa Mejia Wrote To Shannan Aviles Please call this patient and let her know that the gallbladder emptying fraction is extremely low. 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 This mimics the same symptoms as gallstone gallbladder problems but it is not because gallstones or blocking it is because the gallbladder can not eject its enzymes. This can be helped in the short term, sometimes, with Creon which is a digestive enzyme to help breast the gallbladder. I will send her a trial of this medication but she also should consider speaking to a surgeon for possible elective cholecystectomy. I will send the Creon please advise if she wants me to refer her to surgery. Medication Orders [id number] 36,000-114,000- 180,000 unit 2 caps PO BID 120 caps 6 RF TODAY'S VISIT She is agreeable to a 1 year follow up. The procedure was well tolerated. The results were explained and the patient is agreeable to the follow-up interval as stated. The bowel pattern has returned to normal. Education was provided to tell any 1st degree relatives about their findings to be sure that they are screened by age 45. Educated that they will be put on a recall list when it is time for their repeat scope but should they move out of state or away from the hospital they will need to remember along with their primary to repeat the procedure in a timely fashion to avoid any adverse complications. SHe says she is eating more healthfully and the pain is decreasing. She also started a probiotic. We discuss sx that would indicate that her GB is part of the problem, and if she notes increasing pain or diarrhea with fatty foods we may want to reconsder the CREON - which she stopped because she says Dr. Ceballos told her to stop it (!!). However, it also has a role in IBS. I will also give her bentyl as a trial at 10mg ROV 6 mos. [facility] Medical History IBS (irritable bowel syndrome) Esophagitis Chronic gastritis with bleeding Family planning education, guidance, and counseling Abnormal x-ray of thoracic spine Abnormal x-ray of thoracic spine Sleep disorder Uses control Cervical cancer screening Well woman exam with routine gynecological exam Surgical History Hx of colonoscopy History of esophagogastroduodenoscopy (EGD) Family History Father Cirrhosis of liver Cancer Liver transplanted Mother Apnea Paternal Grandfather Cancer Social History Household Members: Spouse Household Members Other:: son Housing: Apartment Alcohol intake: never Patient Tobacco Use Status: Never used Tobacco Current occupational status: employed Current occupation: [employer] and paid Sexual orientation: Straight/Heterosexual Gender identity: Female Female Reproductive History Menstrual Age of Menarche: 12 Review of Systems Const Denies fatigue, Denies fever(s), Denies night sweats, Denies poor appetite and Denies weight loss ENT Reports Normal hearing present, Denies dental pain, Denies dysphagia, Denies hearing loss, Denies mouth pain, Denies odynophagia, Denies throat swelling, Denies tongue swelling and Reports other (Dentition adequate) Card Reports no additional complaints Resp Reports no additional complaints GI Details: Reports abdominal pain, Denies melena, Denies bloating, Denies hematochezia, Denies constipation, Denies GI cramping, Denies dysphagia, Denies excessive flatus, Denies early satiety, Denies heartburn, Reports diarrhea, Denies nausea, Denies odynophagia, Denies vomiting and Denies hematemesis Skin/Breast Denies pruritus, Denies lesions, Denies rash and Denies jaundice Neuro Reports Normal hearing present and Denies Abnormal speech present Endo Denies fatigue Aller/Immun Denies throat swelling and Denies tongue swelling Physical Exam Vital Signs: Last Vital Signs Pulse 70 10/29/24 16:20 BP 115/59 L 10/29/24 16:20 BMI result Body Mass Index 21.8 Const General: cooperative, no acute distress, well developed and well groomed Nutritional Appearance: average body habitus and well nourished Orientation/consciousness: oriented to person, oriented to place and oriented to time Limitations: No language barrier HEENT Head: Yes normocephalic and Yes atraumatic Eyes General: appearance normal, both eyes and all related structures Pupils: Equal, round and reactive pupils present Neck Neck: Yes normal visual inspection and Yes no lymphadenopathy Thyroid: Thyroid normal Resp Effort & Inspection: normal respiratory effort and able to speak in complete sentences Auscultation: clear to auscultation bilaterally Cardio Rate: regular rate Rhythm: regular rhythm Heart sounds: Normal, physiologic split S2 sound present Peripheral pulses: radial pulses present and posterior tibial pulses present GI Inspection: No distended and No Abdominal panniculus present Palpation (GI): Soft to palpation, nontender, no guarding, not rigid and No hepatosplenomegaly present Percussion: Yes normal to percussion Auscultation: normal bowel sounds Rectal Exam - Female: deferred Skin General skin exam: no rashes or lesions noted, turgor normal, skin not dry, no jaundice, No spider nevi and no striae Rashes: no rashes Nails: normal Neuro General: oriented to person, oriented to place and oriented to time Cranial nerves: Yes Equal, round and reactive pupils present and Yes Normal hearing present Speech: No Abnormal speech present Extrem General: Yes normal to inspection, No clubbing, No cyanosis and No edema Psych Appearance: grossly normal and well kempt Mental Status: mental status grossly normal Speech and movement: Normal speech and movement present Affect: normal affect Attitude: cooperative Thought process: Normal thought process present and not confabulating Thought content: Normal thought content present Insight: Limited insight present (Psych) Judgement: Limited judgement present (Psych) Results Reviewed Results Reviewed: Laboratory Tests 08/07/24 09:09 ESR 20 Rheumatoid Factor < 13.0 Cycl Citrul Peptide IgG <16 CLAUDIO Screen NEGATIVE COLONOSCOPY 10/17/24 Findings: Terminal Ileum-normal random bx taken Random colon bx taken from right and left colon Cecum:normal Ascending Colon: normal Transverse Colon -normal Descending Colon:normal Sigmoid Colon: normal Rectum: Retroflexion with small internal hemorrhoids seen, grade I Anorectum - normal Intervention: cold forceps bx Impression and Post Procedure Diagnosis: internal hemorrhoids Plan: High fiber diet leaflet Avoid straining at stool, epsom salts and sitz bath, anusol supps or cream Repeat Colonoscopy in 1 year due to areas of fair prep or earlier if clinically indicated BIOPSY Received: 10/17/24 Diagnosis A. Terminal ileum, biopsy: Terminal ileal mucosa within normal limits. B. Colon, right, biopsy: Colonic mucosa within normal limits. C. Colon, left, biopsy: Colonic mucosa within normal limits Assessment & Plan Assessment & Plan (1) Irritable bowel syndrome with constipation: Code(s): K58.1 - Irritable bowel syndrome with constipation Category: Medical Plan She is agreeable to a 1 year follow up. The procedure was well tolerated. The results were explained and the patient is agreeable to the follow-up interval as stated. The bowel pattern has returned to normal. Education was provided to tell any 1st degree relatives about their findings to be sure that they are screened by age 45. Educated that they will be put on a recall list when it is time for their repeat scope but should they move out of state or away from the hospital they will need to remember along with their primary to repeat the procedure in a timely fashion to avoid any adverse complications. SHe says she is eating more healthfully and the pain is decreasing. She also started a probiotic. We discuss sx that would indicate that her GB is part of the problem, and if she notes increasing pain or diarrhea with fatty foods we may want to reconsder the CREON - which she stopped because she says Dr. Ceballos told her to stop it (!!). However, it also has a role in IBS. I will also give her bentyl as a trial at 10mg ROV 6 mos. Medications: New dicyclomine 10 mg PO TID PRN 90 caps 6RF abdominal pain K58.1 - Irritable bowel syndrome with constipation Coding Level of Care Code Est Pt Level 3 (39694) Diagnoses Irritable bowel syndrome with constipation K58.1
[2024-10-29 16:20] VITALS: BP 115/59; PULSE 70; BMI 21.8
== END 2024-10-30 08:31 | disposition home or self-care (01) ==
PROVIDERS: PCP Internal Medicine; Visit Provider Nurse Practitioner
DX: K58.1 Irritable bowel syndrome with constipation (principal)
CPT/HCPCS: 99213

== ENCOUNTER → 2024-10-29 15:52 | Outpatient (BNVA) | payer MEDICAID, SELFPAY | PROVIDERS: PCP Internal Medicine; Visit Provider Nurse Practitioner | DX: K58.1 Irritable bowel syndrome with constipation (principal) | CPT/HCPCS: 99212 ==

== ENCOUNTER 2025-02-25 14:51 | Outpatient (REF) | payer MEDICAID, SELFPAY ==
--- NOTE | ~2025-02-25 | US_ITS ---
EXAMINATION: US PELVIS TRANSABDOMINAL AND TRANSVAGINAL HISTORY: D25.9 - Leiomyoma of uterus, unspecified COMPARISON: Comparison is made with the prior examination dated 09/09/2024. TECHNIQUE: Transabdominal and endovaginal real-time 2D carter-scale ultrasound was performed. FINDINGS: Uterus: The uterus is normal in size, measuring 11.3 x 4.8 x 5.3 cm. Myometrium has a normal echotexture. Again seen is a left fundal fibroid measuring 7.6 x 6.8 x 6.2 cm (previously 7.6 x 5.3 x 7.3 cm). Endometrium: The endometrial stripe measures 5 mm in thickness. Right ovary: The right ovary measures 1.9 x 1.5 x 2.1 cm. The right ovary is normal in size and echotexture. Left ovary: The left ovary measures 2.4 x 1.9 x 1.7 cm. The left ovary is normal in size and echotexture. Pelvic fluid: none. US/US pelvic and transvaginal IMPRESSION: 7.6 x 6.8 x 6.2 cm left fundal fibroid. Electronically signed by: Jose Huitron MD 02/26/2025 07:56 AM EDT
--- OUTSIDE RECORDS SUMMARY | 2025-02-25 18:07 | XMS_ITS | Data Portability ---
Author Organization [facility], [facility] Address [address] [place] [address] Care Team Providers Care Dining Car Server Name Role Phone KIA KEE Research Biologist [phone] Assessment No assessment recorded. Plan of Treatment Reminders Order Date Submit Date Provider Last Modified By Organization Details Last Modified Time Details Appointments None recorded. Lab None recorded. Referral occupatio nal therapist referral - Diagnosis : rt wrist/for earm strainCus ilene molded orthosis: noneTreat ment: ROM, edema control 2023 024 rmessenger Not available 12:49:34 Procedures None recorded. Surgeries None recorded. Imaging None recorded. Medication Orders None recorded. Patient TargetsNo targets recorded. Patient InstructionsNo instructions recorded. Reason for Referral Occupational Therapist Refer ral for Strain of muscle of right wrist Diagnosis: rt wrist/forearm strainCustom molded orthosis: noneTreatment: ROM, edema control Referring Physician: John Cifuentes, Orthopedic Surgery, Encounter Date: 04/09/2024 Results Created Date Observation Date Name Description Value Unit Range Abnormal Flag Note LastModifiedBy Organization Detail LastModifiedTime 07/03/20 24 07/03/2024 elect romyo gram + nerve condu ction study No observ ation record ed. [facility] [address], [address], 07/04/2024 11:44:39 07/03/20 24 07/03/2024 elect romyo gram + nerve condu ction study No observ ation record ed. [facility] [address] [facility] [address], [address], 07/04/2024 11:44:40 Result Notes None recorded. Procedures Surgical History None recorded. Imaging Results Imaging Date Name Status LastModified by Organization Details LastModified Time 07/03/2024 electromyogram + nerve conduction study completed [facility] 85 [facility] [address], [place], [address], 07/04/2024 11:44:39 07/03/2024 electromyogram + nerve conduction study completed [facility] [address] [facility] [address], [place], [address], 07/04/2024 11:44:40 Procedure Notes None recorded. Medical Equipment None Reported. Allergies Allergen ID Allergen Name Allergen Category Reaction Reaction Severity Criticality Documentation Date Start Date Code Code System Note Provider Name and Address Organization Details Recorded Time 41740 shrimp allergeni c extract food Not available Not available Not available 01/15/20242021 39824 2 RxNorm Not Available [facility] 11:09:53 Medications Name Sig Start Date Stop Date Status Note LastModified by Organization Details LastModified Time cetirizine 10 mg tablet TAKE 1 TABLET (10 MG) BY MOUTH ONCE PER DAY. active Not Available Not Available No t Available metronidazol e 0.75 % (37.5 mg/5 gram) vaginal gel APPLY 1 APPLICATORF UL VAGINALLY BEDTIME FOR 5 DAYS active Not Available Not Available No t Available ciclopirox 8 % topical solution APPLY TO NAILS EVERY NIGHT FOR 48 WEEKS active Not Available Not Available No t Available propranolol 10 mg tablet TOME JUAN TABLETA POR V A ORAL 3 TIMES DAILY active Not Available Not Available Not Available ascorbic acid (vitamin C) 500 mg tablet TAKE ONE TABLET IN THE MORNING TOGETHER WITH IRON PILL active Not Available Not Available No t Available triamcinolon e acetonide 55 mcg nasal spray aerosol INSTILL 1-2 SPRAYS PER NOSTRIL A DIARIO active Not Available Not Available No t Available metoprolol succinate ER 25 mg tablet,exten ded release 24 hr TOME JUAN TABLETA TODOS LOS D active Not Available Not Available No t Available epinephrine 0.3 mg/0.3 mL injection, auto-injecto r PLEASE SEE ATTACHED FOR DETAILED DIRECTIONS active Not Available Not Available N ot Available ferrous sulfate 325 mg (65 mg iron) tablet,delay ed release TOME JUAN TABLETA POR V A ORAL WITH BREAKFAST. DO NOT CRUSH, CHEW OR SPLIT active Not Available Not Available No t Available verapamil ER 120 mg 24 hr capsule,exte nded release TOME JUAN C PSULA TODOS LOS D active Not Available Not Available No t Available etonogestrel 0.12 mg-ethinyl estradiol 0.015 mg/24 hr vaginal ring 1 RING VAGINALLY EVERY [address] FOR 3 WEEKS OF A 4-WEEK CYCLE active Not Available Not Available No t Available blood pressure test kit-large cuff USE TO CHECK BLOOD PRESSURE NEEDED active Not Available Not Available No t Available Vitals Date Recorded Body height Body mass index (BMI) Body weight Provider Name and Address Organization Details Last Updated DateTime 04/09/2024 152.4 cm 25.4 kg/m2 47335.01 g [facility] 04/09/2024 15:07:30 Date Recorded Body height Body mass index (BMI) Body weight Provider Name and Address Organization Details Last Updated DateTime 07/19/2024 152.4 cm 25.4 kg/m2 94891.01 g [facility] 07/19/2024 13:42:05 Social History None recorded. Functional Status None recorded. Mental Status None recorded. Family History Nothing Reported. Medical History No medical history recorded. Gynecological HistoryNo gynecological history recorded. 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 8117954551 38250 G56.01 [id number] MD Ricki Palma [address] [place] [id number] 07/19/2024 13:29:00 08/12/2024 17:55:56 Pain in right arm 534636907 M79.601 Health Concerns Section Related Observation LastModified by Organization Detai ls LastModified Time None Recorded Concern Status LastModified by Organization Details LastModified Time None Recorded Advance Directives Directive None Recorded Payers Encounter Date Sequence Insurance Name Policy Number Policy Walter Covered Member ID Walter Member ID Guarantor Name 04/09/2024 GWYN ESQUIVEL Unknown Luann Ramos 07/19/2024 GWYN - MEMIC Unknown Luann Ramos Notes Date Note Type Note Provider Name and Address Organization Details Recorded Time 04/09/2024 text/html Diagnosis: Right upper extremity pain possible peripheral nerve [id number] d female who presents with pain that begins in her shoulder and runs to her fingers whenever she is working. This involves the index middle and ring fingers. Pain is sharp and she does not describe numbness and tinglingPast family, medical, social history and review of systems has been reviewed, updated and is located in the patient? s chart.Examination: Healthy appearing patient in no apparent distress. Alert and oriented. She has symmetric range of motion of her bilateral elbows, forearms, wrists and digits. Provocative testing of elbows and wrists reveal no instability. She has some tenderness in her forearm and some soft tissue swelling in her hand. No atrophy in either upper extremity. Brisk capillary refill in all digitsPlan:The patient and I discussed the situation at length. The patient's history and physical examination are consistent with a peripheral nerve irritation. I would like to obtain an EMG/NCS to confirm the diagnosis and get a sense of its severity and location. The patient will follow-up with me after the study has been obtained.In the interim the patient will use a Velcro wrist splint intermittently for her wrist and will begin occupational therapy for edema control and range of motion. John Cifuentes MD [address] [place] [address] [address], [place], [address], [facility] 04/10/2024 13:42:05 07/19/2024 text/html Diagnosis: Right upper extremity pain resolvedThe patient returns at our request. Since her last visit she underwent an EMG/NCS of her right upper extremity. She reports that her pain is almost completely resolved.Past family, medical, social history and review of systems has been reviewed, updated and is located in the patient? s chart.Examination: Healthy appearing patient in no apparent distress. Alert and oriented. She has symmetric range of motion of her bilateral elbows, forearms, wrists and digits. Provocative testing of elbows and wrists reveal no instability. No atrophy in either upper extremity. Brisk capillary refill in all digitsI reviewed her EMG/NCS. No abnormalities were noted.Plan: Patient has done well. She is eager to return to work. We will arrange for this. She will follow up at her discretion. John Cifuentes MD [address] [place] [address] [address], [place], [address], [facility] 07/19/2024 13:48:54 OBGyn Episode No OBEpisode recorded.
== END 2025-02-25 14:52 | disposition home or self-care (01) ==
LOC: HO.US 14:51
PROVIDERS: PCP Internal Medicine; Visit Provider Obstetrics & Gynecology
DX: D25.9 Leiomyoma of uterus, unspecified (principal)
CPT/HCPCS: 76830; 76856

== ENCOUNTER → 2025-02-25 14:53 | Outpatient (BNV) | payer MEDICAID, SELFPAY | PROVIDERS: PCP Internal Medicine; Visit Provider Radiology Diagnostic Radiology | DX: D25.9 Leiomyoma of uterus, unspecified (principal) | CPT/HCPCS: 76830; 76856 ==

== ENCOUNTER 2025-03-13 15:17 | Outpatient (REF) | payer MEDICAID, SELFPAY ==
--- OUTSIDE RECORDS SUMMARY | 2025-03-13 17:29 | XMS_ITS | Encounter Summary ---
Author Organization [employer] Address [address] [facility] 7t [place] [address] Care Team Providers Care Design Engineer Products Name Role Phone Zenaida Allen MD Primary Care Provide r Encounter Details Date Type Department Care Team (Late st Contact Info) Description 12/12/2022 Orders Only [facility] MEDICINE [address] [place] [phone] Teresa Santos MD [address] [place] [address] [phone] Skin tags, multiple acquired (Primary Dx) Social [...] Description 03/25/2025 3:15 PM EDT Office Visit [facility] MEDICINE [address] [place] [address] Zenaida Allen MD [address] [place] [address] 08/27/2025 3:00 PM EDT Office Visit [facility] ADULT DENTAL [address] [place], [place] [phone] Trini Yancey [address] [place], [place] [phone] documented as of this encounter Visit Diagnoses Diagnosis Skin tags, multiple acquired- Primary documented in this encounter Care Teams Design Engineer Products Relationship Specialty Start Date End Date Zenaida Allen MD [address] [place], [place] [phone] PCP - General Family Medicine 01/10/19 documented as of this encounter
--- OUTSIDE RECORDS SUMMARY | 2025-03-13 17:29 | XMS_ITS | Encounter Summary ---
Author Organization [employer] Address 75 [facility] 7t [place] [address] Care Team Providers Care Raftsman Name Role Phone Zenaida Allen MD Primary Care Provide r Reason for Visit * Reason Onset Date Comments Referral 10/22/2024 Encounter Details Date Type Department Care Team ([facility] st Contact Info) Description 10/22/2024 Telephone [facility] MEDICINE [address] [place] [address] Zenaida Allen MD [address] [place] [address] Referral Social History Tobacco Use Types Packs/Day [...] herhair. RN advised pt to come to [facility] for concerns d/t no available appt with PCP, RN did offer appt with HOT KNIFE CUTTER but pt will be away on vacation. Pt declined and wants to wait for an appt with PCP, Please set up pt with an appt when recall opebns after 3pm thank you Tc from pt requesting a referral to a freight trucker. Please call to clarify. * Telephone Encounter - Ashely Larkin - 10/22/2024 10:15 AM EST Tc from pt requesting a referral to a freight trucker. Please call to clarify. documented in this encounter Plan of Treatment Upcoming Encounters Date Type Department Care Team (Late st Contact Info) Description 03/25/2025 3:15 PM EDT Office Visit [facility] MEDICINE [address] [place], [place] [phone] Zenaida Allen MD [address] [place] [address] 08/27/2025 3:00 PM EDT Office Visit [facility] ADULT DENTAL [address] [place] [address] Trini Yancey [address] [place], [place] [phone] documented as of this encounter Visit Diagnoses Not on filedocumented in this encounter Additional Health Concerns Assessment Noted Time PHQ-9 Depression Total Score: 0 06/07/20 23 3:39 PM EDT documented as of this encounter Care Teams Raftsman Relationship Specialty Start Date End Date Zenaida Allen MD [address] [place] [address] PCP - General Family Medicine 01/10/19 documented as of this encounter
--- OUTSIDE RECORDS SUMMARY | 2025-03-13 17:29 | XMS_ITS | Encounter Summary ---
Author Organization [employer] [facility] Address 75 [facility] 7t [place] [address] Care Team Providers Care Product Development Ecologist Name Role Phone Zenaida Allen MD Primary Care Provide r Encounter Details Date Type Department Care Team (Latest Contact Info) Description 01/27/2021 Abstract [facility] CONVERSIONS Dental, Provider, DDS Social [...] Description 03/25/2025 3:15 PM EDT Office Visit [facility] MEDICINE [address] [place] [address] Zenaida Allen MD [address] [place] [address] 08/27/2025 3:00 PM EDT Office Visit [facility] ADULT DENTAL [address] [place] [address] Marv Yanceyaris [address] [place] [address] documented as of this encounter Visit Diagnoses Not on filedocumented in this encounter Care Teams Product Development Ecologist Relationship Specialty Start Date End Date Zenaida Allen MD [address] [place] [address] PCP - General Family Medicine 01/10/19 documented as of this encounter
--- OUTSIDE RECORDS SUMMARY | 2025-03-13 17:29 | XMS_ITS | Encounter Summary ---
Author Organization [employer] [facility] Address 75 [facility] 7t [place] [address] Care Team Providers Care Regional Education Coordinator Name Role Phone Zenaida Allen MD Primary Care Provide r Encounter Details Date Type Department Care Team (Latest Contact Info) Description 07/08/2022 Abstract [facility] CONVERSIONS Dental, Provider, DDS Social History [...] Description 03/25/2025 3:15 PM EDT Office Visit [facility] MEDICINE [address] [place] [address] Zenaida Allen MD [address] [place] [address] 08/27/2025 3:00 PM EDT Office Visit [facility] ADULT DENTAL [address] [place] [address] Marv Yanceyaris [address] [place] [address] documented as of this encounter Visit Diagnoses Not on filedocumented in this encounter Care Teams Regional Education Coordinator Relationship Specialty Start Date End Date Zenaida Allen MD [address] [place] [address] PCP - General Family Medicine 01/10/19 documented as of this encounter
--- OUTSIDE RECORDS SUMMARY | 2025-03-13 17:29 | XMS_ITS | Encounter Summary ---
Author Organization [employer] Address 75 [facility] 7t [place] [address] Care Team Providers Care Lead Generation Marketing Manager Name Role Phone Zenaida Allen MD Primary Care Provide r Reason for Referral * Imaging (Routine) - Closed Specialty Diagnoses / Procedures Referred By Contac t Referred To Contact Radiology Diagnoses Lump in armpit, right Procedures US Extremity Non Vascular Tung Watts MD [address] [place] [address] Phone: tel: fax: [address] Phone: tel: fax: Referral ID Status Reason Start Date Expiration Date Visits Re quested Visits Authorized [id number] Closed 10/25/2023 10/24/2024 1 1 Encounter Details Date Type Department Care Team (Late st Contact Info) Description 10/25/2023 Orders Only [facility] [address] [place] [address] Tung Watts MD [address] [place] [address] Lump in armpit, right (Primary Dx) Social [...] Description 03/25/2025 3:15 PM EDT Office Visit [facility] MEDICINE [address] [place] [address] Zenaida Allen MD [address] [place] [address] 08/27/2025 3:00 PM EDT Office Visit [facility] ADULT DENTAL [address] [place] [address] Trini Yancey [address] [place] [address] documented as of this encounter Procedures Procedure Name Priority Date/Time Associated Diagnosis Comments US EXTREMITY NON-VASCULAR Routine 01/02/2024 2:29 PM EST Lump in armpit, right documented in this encounter Results * US Extremity Non Vascular (01/02/2024 2:29 PM EST) Anatomical Region Laterality Modality Ultrasound 01/02/2024 2:29 PM EST Narrative 01/03/2024 7:30 PM EST ? [facility] ?[address] ?[place] [address] ? Ultrasound Report ? Signed ? Patient: Luann Wellington ?MR#: [id number] ?? [id number] ? : 1980 ?Acct:[id number] ? Age/Sex: 43 / F ?ADM Date: 01/02/24 ? Loc: HO.US ? Attending Dr: Tung Kelly MD ? Ordering Physician: Tung Watts MD ?? Date of Service: 01/02/24 ?? Procedure(s): US extremity nonvascular ?? Accession Number(s): [id number] ? cc: Zenaida Allen MD; Tung Watts MD ? EXAMINATION: ?? US UPPER EXTREMITY, NONVASCULAR, RIGHT ? CLINICAL INFORMATION: ?? Right mid axillary lump. ? COMPARISON: ?? None available. ? TECHNIQUE: ?? Targeted ultrasound images were obtained by the hobber of the area ?? of concern as indicated by the patient in the right axilla. Radiologist ?? was not in attendance. Images were later provided for interpretation. ? FINDINGS: ?? No bulky adenopathy or fluid collection identified in the area of ?? concern indicated by the patient to the hobber in the right ?? axilla. ? US/US extremity nonvascular ?? IMPRESSION: ?? 1. No bulky adenopathy or fluid collection identified in the area of ?? concern indicated by the patient to the hobber in the right ?? axilla. ? 2. Decisions regarding further imaging, treatment or biopsy should be ?? based on the clinical exam, as not all abnormalities are detectable on ?? ultrasound studies. ? Dictated By: ?Elana Jc MD ? Signed By: ?<Electronically signed by Elana Jc MD in OV> ? 01/03/241925 ? DD/ 28 ? TD/TT: ? Industrial Court Magistrate: ? Procedure Note Donhirenter, Image - 01/03/2024 [place] [address] Ultrasound Report Signed Patient: Luann Wellington LMR#: [id number] : 1980Acct:[id number] Age/Sex: 43 / FADM Date: 01/02/24 Loc: HO.US Attending Dr: Tung Kelly MD Ordering Physician: Tung Watts MD Date of Service: 01/02/24 Procedure(s): US extremity nonvascular Accession Number(s): [id number] cc: Zenaida Allen MD; Tung Watts MD EXAMINATION: US UPPER EXTREMITY, NONVASCULAR, RIGHT CLINICAL INFORMATION: Right mid axillary lump. COMPARISON: None available. TECHNIQUE: Targeted ultrasound images were obtained by the hobber of the area of concern as indicated by the patient in the right axilla. Radiologist was not in attendance. Images were later provided for interpretation. FINDINGS: No bulky adenopathy or fluid collection identified in the area of concern indicated by the patient to the hobber in the right axilla. US/US extremity nonvascular IMPRESSION: 1. No bulky adenopathy or fluid collection identified in the area of concern indicated by the patient to the hobber in the right axilla. 2. Decisions regarding further imaging, treatment or biopsy should be based on the clinical exam, as not all abnormalities are detectable on ultrasound studies. Dictated By: Elana Jc MD Signed By: <Electronically signed by Elana Jc MD in OV> 01/03/24 192 DD/ 1429 TD/TT: Industrial Court Magistrate: us Tung Kelly MD IMG US PROCEDURES Final Result documented in this encounter Visit Diagnoses Diagnosis Lump in armpit, right- Primary documented in this encounter Additional Health Concerns Assessment Noted Time PHQ-9 Depression Total Score: 0 07/26/20 23 3:39 PM EDT documented as of this encounter Care Teams Lead Generation Marketing Manager Relationship Specialty Start Date End Date Zenaida Allen MD [address] [place] [address] PCP - General Family Medicine 01/10/19 documented as of this encounter
--- OUTSIDE RECORDS SUMMARY | 2025-03-13 17:29 | XMS_ITS | Encounter Summary ---
Author Organization [employer] Address 75 [facility] 7t [place] [address] Care Team Providers Care University President Name Role Phone Zenaida Allen MD Primary Care Provide r Reason for Visit * Reason Onset Date Comments Results 06/06/2024 Encounter Details Date Type Department Care Team ([facility] st Contact Info) Description 06/06/2024 Telephone [facility] MEDICINE [address] [place] [address] Zenaida Allen MD [address] [place] [address] Results Social History Tobacco Use Types Packs/Day [...] - 06/06/2024 3:42 PM EDT Ordered by [facility] February. TC returned to pt. And advised pt. To call their office forresults.Pt. Reports she received results via [employer] and already called [facility] to discuss however they advised would have to wait to f/up appt. In June. Pt. Would like to discuss sooner. Advised pt. Results only showed mild fatty liver, no other concerning findings that can not wait until June for f/up. Reviewed dietary changes and increase physical activity as tolerated. Also reviewed pt.'s recent CBC results ordered by [facility] showing slightly low hemoglobin 11.2) at pt.'s baseline. Pt. Verbalizesunderstanding. Pt is requesting internal referral to construction safety consultant, please place if agreeable thank you! * Telephone Encounter - Cari Matthews - 06/06/2024 3:32 PM EDT Tc from pt requesting a call back with US results from 05/17 Serbian speaker documented in this encounter Plan of Treatment Upcoming Encounters Date Type Department Care Team (Late st Contact Info) Description 03/25/2025 3:15 PM EDT Office Visit [facility] MEDICINE [address] [place] [address] Zenaida Allen MD [address] [place] [address] 08/27/2025 3:00 PM EDT Office Visit [facility] ADULT DENTAL [address] [place] [address] Trini Yancey [address] [place] [address] documented as of this encounter Visit Diagnoses Not on filedocumented in this encounter Additional Health Concerns Assessment Noted Time PHQ-9 Depression Total Score: 0 06/07/20 23 3:39 PM EDT documented as of this encounter Care Teams University President Relationship Specialty Start Date End Date Zenaida Allen MD [address] [place] [address] PCP - General Family Medicine 01/10/19 documented as of this encounter
--- OUTSIDE RECORDS SUMMARY | 2025-03-13 17:29 | XMS_ITS | Encounter Summary ---
Author Organization [employer] Address 75 [facility] 7t [place] [address] Care Team Providers Care Landscape Artist Name Role Phone Zenaida Allen MD Primary Care Provide r Reason for Visit * Reason Onset Date Comments Request For Order(s) 11/09/2023 Encounter Details Date Type Department Care Team ([facility] Contact Info) Description 11/09/2023 Telephone [facility] MEDICINE [address] [place] [address] Zenaida Allen MD [address] [place] [address] Request For Order(s) Social History Tobacco Use [...] EST Tc from pt was advised by [facility] order for US extremity Non vascular needs to be US to the breast. documented in this encounter Plan of Treatment Upcoming Encounters Date Type Department Care Team (Late st Contact Info) Description 03/25/2025 3:15 PM EDT Office Visit [facility] MEDICINE [address] [place] [address] Zenaida Allen MD [address] [place] [address] 08/27/2025 3:00 PM EDT Office Visit [facility] ADULT DENTAL [address] [place] [address] Bc, Trini [address] [place] [address] documented as of this encounter Visit Diagnoses Not on filedocumented in this encounter Additional Health Concerns Assessment Noted Time PHQ-9 Depression Total Score: 0 06/07/20 23 3:39 PM EDT documented as of this encounter Care Teams Landscape Artist Relationship Specialty Start Date End Date Zenaida Allen MD [address] [place] [address] PCP - General Family Medicine 01/10/19 documented as of this encounter
--- OUTSIDE RECORDS SUMMARY | 2025-03-13 17:29 | XMS_ITS | Data Portability ---
Author Organization [facility], [facility] Address [address] [place] [address] Care Team Providers Care Instrument Assembler Name Role Phone [employer] Qa Analyst [phone] Assessment No assessment recorded. Plan of Treatment [...] ction study No observ ation record ed. [facility] [address], [address], 07/04/2024 11:44:39 07/03/20 24 07/03/2024 elect romyo gram + nerve condu ction study No observ ation record ed. [facility] [address] [facility] [address], [place], [address], 07/04/2024 11:44:40 Result Notes None recorded. Procedures Surgical History None recorded. Imaging Results Imaging Date Name Status LastModified by Organization Details LastModified Time 07/03/2024 electromyogram + nerve conduction study completed [facility] 85 [facility] [address], [place], [address], 07/04/2024 11:44:39 07/03/2024 electromyogram + nerve conduction study completed [facility] [address] [facility] [address], [place], [address], 07/04/2024 11:44:40 Procedure Notes None recorded. Medical Equipment None Reported. Allergies Allergen ID Allergen Name Allergen Category Reaction Reaction Severity Criticality Documentation Date Start Date Code Code System Note Provider Name and Address Organization Details Recorded Time 89514 shrimp allergeni c extract food Not available Not available Not available 01/15/20242021 78011 2 RxNorm Not Available [facility] 11:09:53 Medications Name Sig Start Date Stop [...] Updated DateTime 04/09/2024 152.4 cm 25.4 kg/m2 93936.01 g [facility] 04/09/2024 15:07:30 Date Recorded Body height Body mass index (BMI) Body weight Provider Name and Address Organization Details Last Updated DateTime 07/19/2024 152.4 cm 25.4 kg/m2 29463.01 g [facility] 07/19/2024 13:42:05 Social History None recorded. Functional Status None recorded. Mental Status None recorded. Family History Nothing Reported. Medical History No medical history recorded. Gynecological HistoryNo gynecological history recorded. 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 John Cifuentes MD [address] [place] [address] [address], [place], [address], [facility] 04/10/2024 13:42:05 07/19/2024 text/html [...] up at her discretion. John Cifuentes MD [address] [place] [address] [address], [place], [address], [facility] 07/19/2024 13:48:54 OBGyn Episode No OBEpisode recorded.
--- OUTSIDE RECORDS SUMMARY | 2025-03-13 17:29 | XMS_ITS | Clinical Summary ---
Author Organization [employer] Address 75 [facility] 7t [place] [address] Care Team Providers Care Wet End Operator Name Role Phone Zenaida Allen MD Primary [...] the affected area(s) 0 Active sodium chloride ([place]) 0.65 % nasal spray apply every 8 [...] -pt reports already to be following w HUMAN RESOURCES COMPLIANCE MANAGER for this -advised pt to start iron daily prescribed by her PCP and pt was wondering if ok to take with MVI that she has been taking -pt explained that she can take both -advised to f w PCP in 2 months to monitor CBC ,iron panel -ok to continue metoprolol px by her media relations specialist but if causing any symptoms ok to [...] Department Care Team Description 02/25/2025 Orders Only [facility] External Provider, [facility] 02/17/2025 3:00 PM EDT Office Visit [facility] ADULT DENTAL [address] [place] [address] BcTrini Dental calculus (Primary Dx); Impacted molar 01/24/2025 Population Health Risk Score [facility] Department [address] [address] Provider, Population Health Generic 12/27/[address] [facility] MEDICINE [address] [place] [address] NUTRITION APPT REQUEST 12/24/2024 3:30 PM EST Office Visit [facility] MEDICINE [address] [place] [address] Zenaida Allen MD Symptoms, such as flushing, [...] 03/25/2025 3:15 PM EDT Office Visit [facility] MEDICINE [address] [place] [address] Zenaida Allen MD [address] [place] [address] 08/27/2025 3:00 PM EDT Office Visit [facility] ADULT DENTAL [address] [place] [address] Trini Yancey [address] [place] [address] Health Maintenance Due Date Last Done Comments [...] EDT Narrative 02/26/2025 7:59 AM EDT ? [facility] ?[address] ?[place] [address] ? Ultrasound Report ? Signed ? Patient: Ramos Becerra,Luann L ?MR#: [id number] ?? [id number] ? : 1980 ?Acct:[id number] ? Age/Sex: 44 / F ?ADM Date: 02/25/25 ? Loc: HO.US ? Attending Dr: Dmitry Enriquez MD ? Ordering Physician: Dmitry Enriquez MD ?? Date of Service: 02/25/25 ?? Procedure(s): US pelvic and transvaginal ?? Accession Number(s): [id number] ? cc: Zenaida Allen MD; Dmitry Enriquez [...] DD/ 1506 ? TD/TT: 02/25/25 1517 ? Bone Char Operator: ? Procedure Note Donmillicentnicoleter, Image - 02/26/2025 [place] [address] Ultrasound Report Signed Patient: Luann Wellington LMR#: [id number] : 1980Acct:[id number] Age/Sex: 44 / FADM Date: 02/25/25 Loc: HO.US Attending Dr: Dmitry Enriquez MD Ordering Physician: Dmitry Enriquez MD Date of Service: 02/25/25 Procedure(s): US pelvic and transvaginal Accession Number(s): [id number] cc: Zenaida Allen MD; Dmitry Enriquez MD [...] 02/26/25 0756 DD/ 1506 TD/TT: 02/25/25 1517 Bone Char Operator: [facility] External Provider IMG US PROCEDURES Final Result * BI Mammogram Screening Tomosynthesis Bilateral (09/05/2024 3:50 PM EDT) Anatomical Region Laterality Modality Breast Bilateral Mammography 09/05/2024 3:50 PM EDT Narrative 09/17/2024 8:50 AM EST ? [facility] ? [address] [facility] [address] ?[place] [address] ? Mammography Report ? Signed ? Patient: Luann Wellington L ?MR#: [id number] ?? [id number] ? : 1980 ?Acct:[id number] ? Age/Sex: 44 / F ?ADM Date: 10/24/24 ? Loc: HO.MAMMO ? Attending Dr: Zenaida Leal MD ? Ordering Physician: Zenaida Allen MD ?Results: ?? 1Negative ? Date of Service: 09/05/24 ?Follow Up: 1 Year From Orig ?? inal Mammogram ? Procedure(s): MM tomosynthesis screening BI ?? Accession Number(s): [id number] ? cc: Zenaida Allen MD ? EXAMINATION: [...] DO ? Signed By: ?<Electronically signed by Crys Izaguirre, DO in OV> ? 09/17/24 0847 ? DD/ 1550 ? TD/TT: 09/05/24 1603 ? Bone Char Operator: ? Procedure Note Efren, Image - 09/17/2024 [facility] [address] [place], [place] [address] Mammography Report Signed Patient: Luann Wellington LMR#: [id number] : 1980Acct:[id number] Age/Sex: 44 / FADM Date: 09/05/24 Loc: HO.MAMMO Attending Dr: Zenaida Leal MD Ordering Physician: Zenaida Allen MDResults: 1Negative Date of Service: 09/05/24Follow Up: 1 Year From Orig inal Mammogram Procedure(s): MM tomosynthesis screening BI Accession Number(s): [id number] cc: Zenaida Allen MD EXAMINATION: MM SCREENING [...] 09/17/24 0847 DD/ 1550 TD/TT: 09/05/24 1603 Bone Char Operator: us Zenaida Leal MD IMG BI PROCEDURES Fin al Result * Hepatitis Panel, General (06/27/2024 3:08 PM EDT) Hepatitis A IgM Nonreactive Nonreactive [facility] Comment:IgM antibodies to MEDELLIN V not detected; does not exclude earlyacute or recovered HAV infection. ~Hepatitis B Surface Antibody NONREACTIVE Nonreactive [facility] Comment:Nonreactive: < 8.00 mIU/mL Hepatitis B Core Antibody Nonreactive Nonreactive [facility] Hepatitis C Antibody Nonreactive Nonreactive [facility] Comment:Antibodies to HCV no t detected; does not exclude early acuteHCV infection. Hepatitis B Surface Ag Negative Negative [facility] 06/27/2024 3:08 PM EDT 06/27/2024 3:08 PM EDT us Generic External Data Provider LAB BLOOD ORDERAB LES Final Result [facility] [address] [place] [phone] * Pap Smear (02/08/2024 3:47 PM EDT) 02/08/2024 3:47 PM EDT 02/09/2024 9:30 AM EDT Narrative [facility] - 02/18/2024 5:56 PM EDT ----- ------- Name: Luann Wellington ?Age/Sex: 43/F ? : 1980 Unit#: [id number] ?? Attend Dr: Cornelia Madden CNM ?Re02/08/24 ?Status: DEP REF ? Location: HO.LNP ?Disch: ? ----- ------- SPEC : [id number] ? RECD: 02/09/24 ? STATUS: ??SOUT ? REQ NUM: [id number] ? URI: 02/08/24-1547 ? SUBM DR: Cornelia [...] 66, 68) ? HPV testing performed by [facility], [place], [place]. ??See reference laboratory ?? portion of the EMR for entire report. ?Clinical Information LMP: 01/23/24 Previous PAP test: 06/30/2017, WNL ? Material Received ?? ThinPrep-Cervical Copies To: ?? Zenaida Allen MD ?? [address] [facility] ?? [place] [address] ?? [phone] ?? Cornelia Madden CNM ?? [address] [place] [facility] ?? [place] [address] ?? [phone] ----- ------- Signed (signature on file) Nelly Quinn 02/18/24 175 ? ----- ------- ? END OF REPORT ? us Generic External Data Provider LAB CYTOLOGY PACO RENO Final Result [facility] [address] [place] [address] [phone] * Hm Pap Smear (10/18/2022) Pap Negative for intraephithelial lesion or malignancy Negative for intraephithelial lesion or malignancy, Other HPV Undetected Undetected, Indeterminate, Quantitative, Not Detected [facility] Provider HEALTH MAINTENANCE Final Result * HIV 1/2 ANTIGEN/ANTIBODY,FOURTH GENERATION W/RFL (03/16/2022 1:14 PM EDT) HIV-1/2 ANTIGEN AND ANTIBODIES, 4TH GENERATION W/ REFLEX NON-REACT DELL NON-REACT DELL [facility] Comment: HIV-1 antigen and HIV-1/HIV-2 [...] ? For additional information please refer to http://education.Lum[employer]/faq/VJL408 (This link is being provided for informational/ educational purposes only.) ? The performance of this assay has not been clinically validated in patients less than 2 years old. ?? 03/16/2022 1:14 PM EDT Zenaida Leal MD LAB BLOOD ORDERABLES Final Result [facility] [address] from Last 3 Months or Most Recently Relevant to Health Maintenance [place] [address] [place] [address] C3 [facility] MED[facility] STAND ADULT DENTAL - HSN PARTIAL (MEDICAID) Care Teams Wet End Operator Relationship Specialty Start Date End Date Zenaida Allen MD [address] [place] [address] PCP - General Family Medicine 01/10/19
== END 2025-03-13 15:18 | disposition home or self-care (01) ==
LOC: HO.LNP 15:17
PROVIDERS: PCP Internal Medicine; Visit Provider Obstetrics & Gynecology
DX: N93.9 Abnormal uterine and vaginal bleeding, unspecified (principal); Z32.02 Encounter for pregnancy test, result negative
CPT/HCPCS: 58100; 81025; 88305

== ENCOUNTER 2025-03-13 15:17 | Outpatient (AMB) | payer MEDICAID, SELFPAY ==
--- NOTE | 2025-03-13 15:20 | A.OFFVIS_ITS ---
Vital Signs 03/13/25 15:27 Height 5 ft Weight 111 lb BMI 21.7 Intake Visit Reasons: U/S Follow Up & EMB Chief Librarian Circulation Department Required: Yes Chief Librarian Circulation Department Language: Air Bag Stripper Services: Chief Librarian Circulation Department Present (in person) Chief Librarian Circulation Department Name: Shabnam MARVIN Information Interpreted: non-clinical & clinical Allergies shrimp Allergy (Severe, Verified 10/29/24 16:35) MOUTH SWELLING No Known Drug Allergies Allergy (Unknown, Verified 10/29/24 16:35) none Seasonal Allergies Allergy (Verified 10/29/24 16:35) Itchy Eyes HPI Comments Details: Presenting for EMB [facility] Medical History IBS (irritable bowel syndrome) Esophagitis Chronic gastritis with bleeding Family planning education, guidance, and counseling Abnormal x-ray of thoracic spine Abnormal x-ray of thoracic spine Sleep disorder Uses control Cervical cancer screening Well woman exam with routine gynecological exam Surgical History Hx of colonoscopy History of esophagogastroduodenoscopy (EGD) Family History Father Cirrhosis of liver Cancer Liver transplanted Mother Apnea Paternal Grandfather Cancer Social History Household Members: Spouse Household Members Other:: son Housing: Apartment Alcohol intake: never Patient Tobacco Use Status: Never used Tobacco Current occupational status: employed 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 Sexual orientation: Straight/Heterosexual Gender identity: Female Female Reproductive History Menstrual Age of Menarche: 12 Review of Systems Const All systems reviewed & are unremarkable except as noted in HPI and below Reports as per HPI and Reports no additional complaints GI Reports no additional complaints Reports no additional complaints Physical Exam Vital Signs: BMI result Body Mass Index 21.7 Office Procedures Endometrial Biopsy Details: The patient was counseled regarding the indication and benefits of endometrial sampling to rule out endometrial pathology including not limited to endometrial hyperplasia or endometrial cancer and others; The alternatives (Either do nothing vs. hysteroscopy D&C) & the risks were discussed with the patient including but not limited: pain, uterine perforation, bleeding, infection, possible injury to bladder, bowel, ureter, possible need for blood transfusion with all its possible risks. The patient verbalized understanding all questions answered and signed consent. Urine test done in the office was negative The patient was placed into the dorsal lithotomy position; a speculum was inserted in the vagina. Using aseptic technique for the procedure, the cervix was cleansed with Betadine. The anterior lip of the cervix was grasped with a single tooth tenaculum. The uterus was sounded to 7 cm with a 4 mm Pipelle was used. Tissues samples were obtained and placed in formalin, in a patient labeled container and sent to the pathology department. At the end of the procedure, there was minimal bleeding noted The patient tolerated the procedure well and was discharged in good condition with the following instructions: Nothing in the vagina until the bleeding stops. No sex until the bleeding stops, to call if any of the following occurs: fever (>100.4), flu-like symptoms, abdominal pain, heavy bleeding, four smelling vaginal discharge. The patient was instructed to schedule a Follow up appointment in 2 weeks to discuss pathology results of the biopsy and treatment options. This note was generated with a voice recognition program. Some errors may have been overlooked during the review of this note. Sometimes these errors may affect the content or meaning of a given sentence. [id number] Biopsy Assessment & Plan Assessment & Plan (1) Abnormal uterine bleeding (AUB): Code(s): N93.9 - Abnormal uterine and vaginal bleeding, unspecified Category: Medical Plan: EMB done, see procedure Orders: Orders AMB Endometrial Biopsy Today N93.9 - Abnormal uterine and vaginal bleeding, unspecified Coding Level of Care Code Procedure Only Diagnoses Abnormal uterine bleeding (AUB) N93.9 CPT Codes Endometrial Biopsy - CPT: 52666-Ybinhoaddah Biopsy ([id number])
[2025-03-13 15:27] VITALS: BMI 21.7
--- OUTSIDE RECORDS SUMMARY | 2025-03-13 17:05 | XMS_ITS | Encounter Summary ---
Author Organization [employer] Address [address] [facility] [address] [place] [address] Care Team Providers Care [employer] Name Role Phone Zenaida Allen MD Primary Care Provide r Reason for Visit * Reason Onset Date Comments Results 06/06/2024 Encounter Details Date Type Department Care Team ([facility] st Contact Info) Description 06/06/[address] [facility] [address] [place] [address] Zenaida Allen MD [address] [place] [address] Results Social History Tobacco Use Types Packs/Day Years Used Date Smoking Tobacco: Never Passive Smoke Exposure: Never Smokeless Tobacco: Never Alcohol Use Standard Drinks/Week Comments Never 0 (1 standard drink = 0.6 oz pur e alcohol) Depression Answer Date Recorded Patient Health Questionnaire-9 Score 0 06/07/2023 Housing Stability Answer Date Recorded What is your housing situation today? I have danika reilly 09/15/[address] you li ve. Do you have problems with any of the following? None of the above 09/15/2023 Food Insecurity Answer Date Recorded Within the past 12 months, y ou worried that your food would run out before you got money to buy more: Never True 09/15/2023 Within the past 12 months,th e food you bought just didn't last and you didn't have enough money to get more: Never True 01/2023 Transportation Answer Date Recorded In the past 12 months, has l ack of transportation kept you from medical appts, meetings, work or from getting things needed for daily living? No 09/15/2023 Utilities Answer Date Recorded In the past 12 months, has t he electric, gas, oil or water company threatened to shut off services in your home? No 09/15/2023 Depression Answer Date Recorded Patient Health Questionnaire-2 Score 0 06/07/2023 Comments Unknown Sex and Gender Information Value Date Recorded Sex Assigned at Female 09/12/2022 10:14 AM EDT Legal Sex Female 10:14 AM EDT Gender Identity Female 09/12/2022 10:14 AM EDT Sexual Orientation Straight 09/12/2022 10 :14 AM EDT documented as of this encounter Miscellaneous Notes * Telephone Encounter - Gloria Iyer RN - 06/06/2024 3:42 PM EDT Ordered by [facility] February. TC returned to pt. And advised pt. To call their office forresults.Pt. Reports she received results via [employer] and already called [facility] to discuss however they advised would have to wait to f/up appt. In June. Pt. Would like to discuss sooner. Advised pt. Results only showed mild fatty liver, no other concerning findings that can not wait until June for f/up. Reviewed dietary changes and increase physical activity as tolerated. Also reviewed pt.'s recent CBC results ordered by [facility] showing slightly low hemoglobin 11.2) at pt.'s baseline. Pt. Verbalizesunderstanding. 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 * Telephone Encounter - Cari Matthews - 06/06/2024 3:32 PM EDT Tc from pt requesting a call back with US results from 05/17 Tajik speaker documented in this encounter Plan of Treatment Upcoming Encounters Date Type Department Care Team (Late st Contact Info) Description 03/25/2025 3:15 PM EDT Office Visit [facility] [address] [place] [phone] Zenaida Allen MD [address] [place] [address] 08/27/2025 3:00 PM EDT Office Visit [facility] [address] [place] [address] Trini Yancey [address] [place] [address] documented as of this encounter Visit Diagnoses Not on filedocumented in this encounter Additional Health Concerns Assessment Noted Time PHQ-9 Depression Total Score: 0 06/07/20 23 3:39 PM EDT documented as of this encounter Care Teams [employer] Relationship Specialty Start Date End Date Zenaida Allen MD [address] [place] [address] PCP - General Family Medicine 01/10/19 documented as of this encounter
--- OUTSIDE RECORDS SUMMARY | 2025-03-13 17:05 | XMS_ITS | Clinical Summary ---
Author Organization [employer] Address [address] [facility] [address] [place] [address] Care Team Providers Care Edge Kitter Name Role Phone Zenaida Allen MD Primary Care Provide r Allergies Active Allergy Reactions Criticality Noted Date Comments Germanium 12/24/2024 Shellfish-Derived Products 1 Medications acetaminophen (Tylenol) 500 MG tablet Take 1 tablet by mouth every 4 (four) hours. 2 Active chlorhexidine (Periogard) 0.12 % solution Place 15 mL into mouth between cheek and gum every 12 (twelve) hours. 6 Active cholecalciferol (Vitamin D-3) 25 MCG (1000 UT) capsule Take 1 capsule by mouth 1 (one) time each day. 2 Active diclofenac (Voltaren) 75 MG EC tablet Take 1 tablet by mouth every 12 (twelve) hours. 2 Active ferrous sulfate 325 (65 Fe) MG tablet take 1 by Oral route every other day with vitamin C 2 Active hydrocortisone 2.5 % cream apply by topical route every day to the affected area(s) 0 Active sodium chloride ([place]) 0.65 % nasal spray apply every 8 hrs as needed 0 Active Diclofenac Sodium 1 % gel Apply 2 g topically if needed in the morning, at noon, and at bedtime. 2 Active Vit-Fe Fumarate-FA ( Vitamins) 28-0.8 MG tablet Take 1 tablet by mouth in the morning. 1 Active albuterol 108 (90 Base) MCG/ACT inhalerIndicatio ns:Mild intermittent asthma without complication inhale 2 puffs by Inhalation route every 6 hours as needed for shortness of breath 18 g 1 3 Active etonogestrel-eth inyl estradiol (NuvaRing) 0.12-0.015 MG/24HR vaginal ring Insert 1 each into the vagina. 3 Active metoprolol succinate XL (Toprol-XL) 25 MG 24 hr tablet TOME JUAN TABLETA TODOS LOS D 3 Active Blood Pressure Monitor kitIndications:P alpitations Use kit to monitor blood pressure as needed 1 kit 3 Active venlafaxine XR (Effexor XR) 37.5 MG 24 hr capsuleIndicatio ns:Menopause syndrome Take 1 capsule (37.5 mg) by mouth in the morning. Do not crush or chew. 30 capsule 11 4 Active propranolol (Inderal) 10 MG tabletIndication s:Tachycardia TOME JUAN TABLETA POR VIA ORAL 3 TIMES DAILY 270 tablet 1 4 Active Additional Information Patient not taking.Reported on 02/17/2025 cetirizine (ZyrTEC) 10 MG tabletIndication s:Seasonal allergies Take 1 tablet (10 mg) by mouth Once per day. 30 tablet 3 4 Active EPINEPHrine (Epipen) 0.3 MG/0.3ML injection syringeIndicatio ns:Hx of anaphylactic shock INJECT 0.3 ML DIRECTED 1 TIME IF NEEDED FOR ANAPHYLAXIS FOR UP TO 1 DOSE. INJECT INTO UPPER LEG. CALL 911 AFTER USE. 2 each 4 Active Active Problems Problem Noted Date Diagnosed Date Impacted molar 02/17/2025 Symptoms, such as flushing, sleeplessness, headache, lack of concentration, associated with the menopause 12/24/2024 Fatty liver 08/09/2024 Overview (08/09/2024): C/w healthy habits Assessment & Plan (08/09/2024 4:18 PM EDT): C/w healthy habits Gingival bleeding 08/01/2024 Motion sickness 04/09/2024 Dizziness 04/09/2024 Assessment & Plan (04/09/2024 11:37 AM EDT): Meclizine PRN for when she goes to her trip Chronic bilateral low back pain 03/11/2024 Assessment & Plan (03/11/2024 4:48 PM EDT): XRAY Apply heat on affected area Acetaminophen PRN RTC 4 weeks Chronic pain of both knees 03/11/2024 Assessment & Plan (03/11/2024 4:46 PM EDT): Possible fibromyalgia?? I will order XRAYS and review results with patient Meanwhile acetaminophen PRN Tachycardia 03/11/2024 Assessment & Plan (03/11/2024 4:47 PM EDT): Avoid caffeine I started her on propanolol 10mg Q 8hrs RTC 4 weeks Seasonal allergies 03/11/2024 Hx of anaphylactic shock 03/11/2024 Menopause syndrome 12/25/2023 Neck pain 12/25/2023 Dental calculus 12/21/2023 Urticaria 09/18/2023 Breast pain, left 07/27/2023 Assessment & Plan (07/27/2023 5:26 PM EDT): Reports ongoing pain in left breast w normal examination Given ongoing symptoms will further eval with dx MM and US --pt has upcoming apt for screening MM this month -will send referral today to have new test instead trisomy 18 affecting care of mother, antep artum 06/28/2023 Anemia 06/28/2023 Assessment & Plan (09/18/2023 4:30 PM EST): I will ordered CBC to monitor Plan is if hg better will hold iron supplement if is still the same or worse I will prescribe ferrous gluconate every other day to try to avoid constipation Painful rib 06/28/2023 Costochondritis 06/28/2023 Assessment & Plan (06/28/2023 4:34 PM EDT): -Breast exam normal. -Mammo normal 07/2022 -Pt will have a repeat done 07/2023 -No indication for x-ray at this time. -Recomend tylenol, stretching, and warm compress. -Adviced seek medical attentions if symptoms do not resolve or worsen in the next several weeks. Acute thoracic back pain 10/18/2022 Anxiety 10/18/2022 Axillary lymphadenopathy 10/18/2022 Chest pain 10/18/2022 Fatigue 10/18/2022 Fibromyalgia 10/18/2022 Assessment & Plan (12/24/2024 5:19 PM EST): Patient was educated about multidisciplinary approach for her condition, it was advise cardiovascular exercise, maintain hydration Acupuncture information provided Assessment & Plan (08/09/2024 4:18 PM EDT): Patient was educated about multidisciplinary approach for her condition, it was advise cardiovascular exercise, maintain hydration, treat anxiety/depression and take medications as directed Assessment & Plan (04/09/2024 11:37 AM EDT): Patient was educated about multidisciplinary approach for her condition, it was advise cardiovascular exercise, maintain hydration, treat anxiety/depression and take medications as directed Increased frequency of urination 10/18/2022 Iron (Fe) deficiency anemia 10/18/2022 Assessment & Plan (07/27/2023 5:47 PM EDT): Pt with iron def anemia 2/2 menorrhagia 05/2023 Hb1AC 9.8 <---12.2<--10.9 Possible symptoms of dizziness,MEDELLIN and palpitations could be from anemia - currently denies to be symptomatic for the past 2 weeks here w normal VS and exam -pt reports already to be following w [facility] for this -advised pt to start iron daily prescribed by her PCP and pt was wondering if ok to take with MVI that she has been taking -pt explained that she can take both -advised to f w PCP in 2 months to monitor CBC ,iron panel -ok to continue metoprolol px by 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 coordinator but if causing any symptoms ok to hold and to discuss w her specialist -advised pt to have a preg test if nor having regular periods -pt states will do test if not having periods normally this month once is changing her vaginal ring -alarm signs and symptoms explained Assessment & Plan (06/07/2023 4:24 PM EDT): CBC will be check with labs Mild intermittent asthma 10/18/2022 Assessment & Plan (06/07/2023 4:23 PM EDT): Continue with albuterol PRN Avoid asthma triggers Pain in right arm 10/18/2022 Reducible umbilical hernia 10/18/2022 Umbilical pain 10/18/2022 Uterine leiomyoma 07/09/2018 Assessment & Plan (08/09/2024 4:18 PM EDT): Continue to follow with gynecology Constipation 06/15/2018 Acute hemorrhagic cystitis 06/08/2018 Bilateral tinnitus 06/08/2018 Dysuria 06/08/2018 Vitamin D deficiency 06/08/2018 Gastroesophageal reflux disease 04/16/2018 Pain in lower limb 04/16/2018 Palpitations 04/16/2018 Assessment & Plan (12/25/2023 4:35 PM EST): F/iu with cardiology Assessment & Plan (06/07/2023 4:23 PM EDT): Continue to follow with cardiology Continue with metoprolol 25mg at bed time Allergic rhinitis 08/18/2014 Pure hypercholesterolemia 05/02/2012 Encounters Date Type Department Care Team Description 02/25/2025 Orders Only [facility] External Provider, [facility] 02/17/2025 3:00 PM EDT Office Visit [facility] ADULT DENTAL [address] [place] [address] [facility] Dental calculus (Primary Dx); Impacted molar 01/24/2025 Population Health Risk Score [facility] Department [address] [phone] Provider, Population Health Generic 12/27/2024 Telephone [facility] MEDICINE [address] [place] [address] NUTRITION APPT REQUEST 12/24/2024 3:30 PM EST Office Visit [facility] [address] [place] [address] Zenaida Allen MD Symptoms, such as flushing, sleeplessness, headache, lack of concentration, associated with the menopause (Primary Dx); Menopause syndrome; Pure hypercholesterolem ia; Fibromyalgia 12/24/2024 Travel from Last 3 Months Immunizations Name Administration Dates Next Due DTP 02/21/1985, 1,1980,1979 Hep B, adult 10/06/2010,06/11/1997 IPV 02/14/1984, 1,1980,1979 Influenza injectable quadriv alent preservative free 11/29/2019 Influenza, IIV3, injectable 09/02/2011 Influenza, Split (incl. randy fied surface antigen) 08/01/2013,08/14/2012 MMR 05/12/1993,08/13/1981 TD (adult), 2 Lf tetanus tox oid, preservative free, adsorbed 05/15/2007,10/15/1996 Tdap 05/06/2020 Social History Tobacco Use Types Packs/Day Years Used Date Smoking Tobacco: Never Passive Smoke Exposure: Never Smokeless Tobacco: Never Tobacco Cessation:Counseling Given: Not Answered Alcohol Use Standard Drinks/Week Comments Never 0 (1 standard drink = 0.6 oz pur e alcohol) Depression Answer Date Recorded Patient Health Questionnaire-9 Score 0 06/07/2023 Housing Stability Answer Date Recorded What is your housing situation today? I have danika reilly 12/24/[address] you li ve. Do you have problems with any of the following? None of the above 12/24/2024 Food Insecurity Answer Date Recorded Within the past 12 months, y ou worried that your food would run out before you got money to buy more: Never True 12/24/2024 Within the past 12 months,th e food you bought just didn't last and you didn't have enough money to get more: Never True 09/2025 Transportation Answer Date Recorded In the past 12 months, has l ack of transportation kept you from medical appts, meetings, work or from getting things needed for daily living? No 12/24/2024 Utilities Answer Date Recorded In the past 12 months, has t he electric, gas, oil or water company threatened to shut off services in your home? No 12/24/2024 Depression Answer Date Recorded Patient Health Questionnaire-2 Score 0 12/24/2024 Internet Access Answer Date Recorded Internet Access Q1 No 12/24/2024 Internet Access Q2 I do not want or need it 12/14 Comments Unknown Sex and Gender Information Value Date Recorded Sex Assigned at Female 09/12/2022 10:14 AM EDT Legal Sex Female 10:14 AM EDT Gender Identity Female 09/12/2022 10:14 AM EDT Sexual Orientation Straight 09/12/2022 10 :14 AM EDT Last Filed Vital Signs Vital Sign Reading Time Taken Comments Blood Pressure 122/74 02/17/2025 3:05 PM EDT Pulse 74 12/24/2024 3:20 PM EST Temperature 35.4 ??C (95.7 ??F) 12/24/2024 3:20 PM ES T Respiratory Rate 18 12/24/2024 3:20 PM EST Oxygen Saturation 99% 05/17/2024 8:37 AM EDT Inhaled Oxygen Concentration - - Weight 53.6 kg (118 lb 3.2 oz) 12/24/2024 3:20 P M EST Height 152.4 cm (5') 12/24/2024 3:20 PM EST Body Mass Index 23.08 12/24/2024 3:20 PM EST Plan of Treatment Upcoming Encounters Date Type Department Care Team (Late st Contact Info) Description 03/25/2025 3:15 PM EDT Office Visit [facility] [address] [place] [address] Zenaida Allen MD [address] [place] [address] 08/27/2025 3:00 PM EDT Office Visit [facility] ADULT D[facility] [address] [place] [address] Trini Yancey [address] [place] [address] Health Maintenance Due Date Last Done Comments Alcohol/Substance Use Screening 1992 Family Planning (PISQ) 1995 Hepatitis A Vaccines (1 of 2 - Risk 2-dose series) 1999 Pneumococcal Vaccine: Pediatrics (0 to 5 Years) and At-Risk Patients (6 to 49) Years) (1 of 2 - PCV) 1999 Hepatitis B Vaccines (3 of 3 - 3-dose series) 12/01/2010 10/06/2010, 06/11/1997 COVID-19 Vaccine (3 - season) 2024 04/06/2021, 03/11/2021 Influenza Vaccine (#1) 2024 , 08/01/2013, 08/14/2012, Additional history exists Dental Oral Exam 08/20/2025 02/17/2025, 06/2024, 07/08/2022, Additional history exists Dental Prophylaxis 08/20/2025 02/17/2025, 0 08/01/2024, 12/21/2023, Additional history exists Mammogram 09/05/2025 09/05/2024, 07/15, 08/11/2023, Additional history exists Depression Screening 12/24/2025 12/24/2024, 06/07/20 23 SDOH Screening 12/24/2025 12/24/2024 Tobacco Screening 02/17/2026 02/17/2025 Dental X-Ray: Bitewings 02/18/2026 02/18/20 25, 12/21/2023, 07/08/2022, Additional history exists Cervical Cancer Screening 10/18/2027 HPV/Cotest 10/18/2027 10/18/2022 Dental X-Ray: Full Mouth 02/19/2028 025, 02/12/2021, 01/27/2021, Additional history exists Pap Smear 02/07/2029 02/08/2024, 10/18/2022 DTaP/Tdap/Td Vaccines (6 - Td or Tdap) 05/06/2030 05/06/2020, 05/15/2007, 10/15/1996, Additional history exists Zoster Vaccines (1 of 2) 2030 RSV Patients and Patients Aged 60 years or older (1 - 1-dose 75+ series) 2055 IPV Vaccines Completed 02/14/1984, 02/12, 1980, Additional history exists HIV Screening Completed 03/16/2022 Hepatitis C Screening Completed 06/27/2024 , 06/07/2023, 03/16/2022 HIB Vaccines Aged Out No longer eligi ble based on patient's age to complete this topic HPV Vaccines Aged Out No longer eligi ble based on patient's age to complete this topic Meningococcal Vaccine Aged Out No ermias maría eligible based on patient's age to complete this topic RSV under 20 months Aged Out No longe r eligible based on patient's age to complete this topic Rotavirus Vaccines Aged Out No longer eligible based on patient's age to complete this topic Procedures Procedure Name Priority Date/Time Associated Diagnosis Comments US PELVIS TRANSVAGINAL Routine 3:06 PM EDT PERIODIC ORAL EVALUATION - ESTABLISHED PATIENT Routine 02/17/2025 3:00 PM EDT PANORAMIC RADIOGRAPHIC IMAGE Routine 02/17/2025 3:00 PM EDT BITEWINGS - 4 RADIOGRAPHIC IMAGES Routine 02/17/2025 3:00 PM EDT Dental calculus CASE PRESENTATION, DETAILED AND EXTENSIVE TREATMENT PLANNING Routine 02/17/2025 3:00 PM EDT Dental calculus ORAL HYGIENE INSTRUCTIONS Routine 02/17/2025 3:00 PM EDT Dental calculus PROPHYLAXIS - ADULT Routine 02/17/2025 3 :00 PM EDT Dental calculus BI MAMMOGRAM SCREENING TOMOSYNTHESIS BILATERAL Routine 09/05/2024 3:50 PM EDT HEPATITIS PANEL, GENERAL Routine 06/27/2024 3:08 PM EDT PAP SMEAR Routine 02/08/2024 3:47 PM EDT HM PAP/HPV Routine 10/18/2022 HIV 1/2 ANTIGEN/ANTIBODY, FOURTH GENERATION W/RFL Routine 03/16/2022 1:14 PM EDT from Last 3 Months or Most Recently Relevant to Health Maintenance Results * US Pelvis Transvaginal (02/25/2025 3:06 PM EDT) Anatomical Region Laterality Modality Pelvis Ultrasound 02/25/2025 3:06 PM EDT Narrative 02/26/2025 7:59 AM EDT ? [facility] ?[address] ?[place] [address] ? Ultrasound Report ? Signed ? Patient: Ramos Becerra,Luann L ?MR#: [id number] ?? [id number] ? : 1980 ?Acct:[id number] ? Age/Sex: 44 / F ?ADM Date: 02/25/25 ? Loc: HO.US ? Attending Dr: Dmirty Enriquez MD ? Ordering Physician: Dmitry Enriquez MD ?? Date of Service: 02/25/25 ?? Procedure(s): US pelvic and transvaginal ?? Accession Number(s): [id number] ? cc: Zenaida Allen MD; Dmitry Enriquez MD ? EXAMINATION: ??US PELVIS TRANSABDOMINAL AND TRANSVAGINAL ? HISTORY: D25.9 - Leiomyoma of uterus, unspecified ? COMPARISON: Comparison is made with the prior examination dated ?? 09/09/2024. ? TECHNIQUE: ? Transabdominal and endovaginal real-time 2D carter-scale ultrasound was ?? performed. ? FINDINGS: ? Uterus: ??The uterus is normal in size, measuring 11.3 x 4.8 x 5.3 cm. ? Myometrium has a normal echotexture. ??Again seen is a left fundal ?? fibroid measuring 7.6 x 6.8 x 6.2 cm (previously 7.6 x 5.3 x 7.3 cm). ? Endometrium: ??The endometrial stripe measures 5 mm in thickness. ? Right ovary: ??The right ovary measures 1.9 x 1.5 x 2.1 cm. ??The right ?? ovary is normal in size and echotexture. ? Left ovary: ?? The left ovary measures 2.4 x 1.9 x 1.7 cm. ??The left ?? ovary is normal in size and echotexture. ? Pelvic fluid: none. ? US/US pelvic and transvaginal ?? IMPRESSION: ?? 7.6 x 6.8 x 6.2 cm left fundal fibroid. ? Electronically signed by: ??Jose Huitron MD ??02/26/2025 07:56 AM EDT ?? RP ? Dictated By: ?Jose Huitron MD ? Signed By: ?<Electronically signed by Jose Huitron MD in OV> ?02/26/25 0756 ? DD/ 1506 ? TD/TT: 02/25/25 1517 ? Last Dipper: ? Procedure Note Donmillicentnicoleter, Image - 02/26/2025 [place] [address] Ultrasound Report Signed Patient: Luann Wellington LMR#: [id number] : 1980Acct:[id number] Age/Sex: 44 / FADM Date: 02/25/25 Loc: HO.US Attending Dr: Dmitry Enriquez MD Ordering Physician: Dmitry Enriquez MD Date of Service: 02/25/25 Procedure(s): US pelvic and transvaginal Accession Number(s): [id number] cc: Zenaida Allen MD; Dmitry Enriquez MD EXAMINATION: US PELVIS TRANSABDOMINAL AND TRANSVAGINAL HISTORY: D25.9 - Leiomyoma of uterus, unspecified COMPARISON: Comparison is made with the prior examination dated 09/09/2024. TECHNIQUE: Transabdominal and endovaginal real-time 2D carter-scale ultrasound was performed. FINDINGS: Uterus: The uterus is normal in size, measuring 11.3 x 4.8 x 5.3 cm. Myometrium has a normal echotexture. Again seen is a left fundal fibroid measuring 7.6 x 6.8 x 6.2 cm (previously 7.6 x 5.3 x 7.3 cm). Endometrium: The endometrial stripe measures 5 mm in thickness. Right ovary: The right ovary measures 1.9 x 1.5 x 2.1 cm. The right ovary is normal in size and echotexture. Left ovary: The left ovary measures 2.4 x 1.9 x 1.7 cm. The left ovary is normal in size and echotexture. Pelvic fluid: none. US/US pelvic and transvaginal IMPRESSION: 7.6 x 6.8 x 6.2 cm left fundal fibroid. Electronically signed by: Jose Huitron MD 02/26/2025 07:56 AM EDT Dictated By: Jose Huitron MD Signed By: <Electronically signed by Jose Huitron MD in OV> 02/26/25 0756 DD/ 1506 TD/TT: 02/25/25 1517 Last Dipper: [facility] External Provider IMG US PROCEDURES Final Result * BI Mammogram Screening Tomosynthesis Bilateral (09/05/2024 3:50 PM EDT) Anatomical Region Laterality Modality Breast Bilateral Mammography 09/05/2024 3:50 PM EDT Narrative 09/17/2024 8:50 AM EST ? [facility] ? [address] ?[place] [address] ? Mammography Report ? Signed ? Patient: Luann Wellington L ?MR#: [id number] ?? [id number] ? : 1980 ?Acct:[id number] ? Age/Sex: 44 / F ?ADM Date: 10/24/24 ? Loc: HO.MAMMO ? Attending Dr: Zenaida Leal MD ? Ordering Physician: Zenaida Allen MD ?Results: ?? 1Negative ? Date of Service: 09/05/24 ?Follow Up: 1 Year From Orig ?? inal Mammogram ? Procedure(s): MM tomosynthesis screening BI ?? Accession Number(s): [id number] ? cc: Zenaida Allen MD ? EXAMINATION: ?? MM SCREENING DIGITAL BREAST TOMOSYNTHESIS, BILATERAL ? CLINICAL INFORMATION: ? Screening. Asymptomatic. ? COMPARISON: ?? Mammography: Comparison is made with available priors ? TECHNIQUE: ?? Digital breast mammography with tomosynthesis is performed in both the ?? craniocaudal and mediolateral oblique views along with computer-aided ?? detection (CAD). ? FINDINGS: ?? The breasts are heterogeneously dense, which may obscure small masses ?? (ACR BI-RADS breast composition Category c). ? There are no significant masses, abnormal calcifications, or other ?? abnormalities. ? MM/MM tomosynthesis screening BI ?? IMPRESSION: ?? No mammographic evidence of malignancy. ? ASSESSMENT: ? BI-RADS BI-RADS 1 - Negative ? RECOMMENDATION: ?? Routine annual mammography screening. ? 1 year F/U ? This examination should not preclude the clinical evaluation of a ?? suspicious palpable abnormality. ? This patient's information was entered into a reminder system with a ?? target due date for their next mammogram. ? Electronically signed by: ??Crys Izaguirre DO ??09/17/2024 08:47 AM EST ?? RP ? Dictated By: ?Crys Izaguirre DO ? Signed By: ?<Electronically signed by rCys Izaguirre, DO in OV> ? 09/17/24 0847 ? DD/ 1550 ? TD/TT: 09/05/24 1603 ? Last Dipper: ? Procedure Note Efren, Image - 09/17/2024 [facility] [address] [place], [place] [address] Mammography Report Signed Patient: Luann Wellington LMR#: [id number] : 1980Acct:[id number] Age/Sex: 44 / FADM Date: 09/05/24 Loc: HO.MAMMO Attending Dr: Zenaida Leal MD Ordering Physician: Zenaida Allen MDResults: 1Negative Date of Service: 09/05/24Follow Up: 1 Year From Orig inal Mammogram Procedure(s): MM tomosynthesis screening BI Accession Number(s): [id number] cc: Zenaida Allen MD EXAMINATION: MM SCREENING DIGITAL BREAST TOMOSYNTHESIS, BILATERAL CLINICAL INFORMATION: Screening. Asymptomatic. COMPARISON: Mammography: Comparison is made with available priors TECHNIQUE: Digital breast mammography with tomosynthesis is performed in both the craniocaudal and mediolateral oblique views along with computer-aided detection (CAD). FINDINGS: The breasts are heterogeneously dense, which may obscure small masses (ACR BI-RADS breast composition Category c). There are no significant masses, abnormal calcifications, or other abnormalities. MM/MM tomosynthesis screening BI IMPRESSION: No mammographic evidence of malignancy. ASSESSMENT: BI-RADS BI-RADS 1 - Negative RECOMMENDATION: Routine annual mammography screening. 1 year F/U This examination should not preclude the clinical evaluation of a suspicious palpable abnormality. This patient's information was entered into a reminder system with a target due date for their next mammogram. Electronically signed by: Crys Izaguirre DO 09/17/2024 08:47 AM EST Dictated By: Crys Izaguirre DO Signed By: <Electronically signed by Crys Izaguirre DO in OV> 09/17/24 0847 DD/ 1550 TD/TT: 09/05/24 1603 Last Dipper: us Zenaida Leal MD IMG BI PROCEDURES Fin al Result * Hepatitis Panel, General (06/27/2024 3:08 PM EDT) Hepatitis A IgM Nonreactive Nonreactive [facility] Comment:IgM antibodies to MEDELLIN V not detected; does not exclude earlyacute or recovered HAV infection. ~Hepatitis B Surface Antibody NONREACTIVE Nonreactive [facility] Comment:Nonreactive: < 8.00 mIU/mL Hepatitis B Core Antibody Nonreactive Nonreactive [facility] Hepatitis C Antibody Nonreactive Nonreactive [facility] Comment:Antibodies to HCV no t detected; does not exclude early acuteHCV infection. Hepatitis B Surface Ag Negative Negative [facility] 06/27/2024 3:08 PM EDT 06/27/2024 3:08 PM EDT us Generic External Data Provider LAB BLOOD ORDERAB LES Final Result [facility] [address] [place] [phone] * Pap Smear (02/08/2024 3:47 PM EDT) 02/08/2024 3:47 PM EDT 02/09/2024 9:30 AM EDT Narrative [facility] - 02/18/2024 5:56 PM EDT ----- ------- Name: Luann Wellington ?Age/Sex: 43/F ? : 1980 Unit#: [id number] ?? Attend Dr: Cornelia Madden CNM ?Re02/08/24 ?Status: DEP REF ? Location: HO.LNP ?Disch: ? ----- ------- SPEC : [id number] ? RECD: 02/09/24 ? STATUS: ??SOUT ? REQ NUM: [id number] ? URI: 02/08/24-1547 ? SUBM DR: Cornelia Madden CNM ? ENTERED: ??02/09/24-0 ?SP TYPE: Pap Smr ?OTHR DR: Zenaida Allen MD ? ORDERED: ??Pap Smear ? Interpretation ?? Satisfactory for evaluation. ?? Negative for intraepithelial lesion or malignancy. ? HPV mRNA E6/E7: ?NOT DETECTED ? This assay detects E6/E7 viral messenger RNA (mRNA) from 14 high-risk HPV types (16, 18, ?? 31, 33, 35, 39, 45, 51, 52, 56, 58, 59, 66, 68) ? HPV testing performed by [employer], [place], [place]. ??See reference laboratory ?? portion of the EMR for entire report. ?Clinical Information LMP: 01/23/24 Previous PAP test: 06/30/2017, WNL ? Material Received ?? ThinPrep-Cervical Copies To: ?? Zenaida Allen MD ?? [address] ?? [place] [address] ?? [phone] ?? Cornelia Madden CNM ?? [address] [facility] ?? [place] [address] ?? [phone] ----- ------- Signed (signature on file) Nelly Quinn 02/18/24 175 ? ----- ------- ? END OF REPORT ? us Generic External Data Provider LAB CYTOLOGY PACO RENO Final Result [facility] [address] [place] [address] [phone] * Hm Pap Smear (10/18/2022) Pap Negative for intraephithelial lesion or malignancy Negative for intraephithelial lesion or malignancy, Other HPV Undetected Undetected, Indeterminate, Quantitative, Not Detected [facility] Provider HEALTH MAINTENANCE Final Result * HIV 1/2 ANTIGEN/ANTIBODY,FOURTH GENERATION W/RFL (03/16/2022 1:14 PM EDT) HIV-1/2 ANTIGEN AND ANTIBODIES, 4TH GENERATION W/ REFLEX NON-REACT DELL NON-REACT DELL [facility] Comment: HIV-1 antigen and HIV-1/HIV-2 antibodies were not detected. There is no laboratory evidence of HIV infection. ?? PLEASE NOTE: This information has been disclosed to you from records whose confidentiality may be protected by state law. ??If your state requires such protection, then the state law prohibits you from making any further disclosure of the information without the specific written consent of the person to whom it pertains, or as otherwise permitted by law. A general authorization for the release of medical or other information is NOT sufficient for this purpose. ? For additional information please refer to http://education.[employer].eduPad/faq/NEG075 (This link is being provided for informational/ educational purposes only.) ? The performance of this assay has not been clinically validated in patients less than 2 years old. ?? 03/16/2022 1:14 PM EDT Zenadia Leal MD LAB BLOOD ORDERABLES Final Result [facility] [address] from Last 3 Months or Most Recently Relevant to Health Maintenance [place] [address] C3 HSN PARTIAL DENTAL-[facility] MEDICAID STAND ADULT DENTAL - HSN PARTIAL (MEDICAID) Care Teams Edge Kitter Relationship Specialty Start Date End Date Zenaida Allen MD [address] [place] [id number] PCP - General Family Medicine 01/10/19
--- OUTSIDE RECORDS SUMMARY | 2025-03-13 17:05 | XMS_ITS | Encounter Summary ---
Author Organization [employer] Address 75 [facility] 7t [place] [address] Care Team Providers Care Paralegal Secretary Name Role Phone Zenaida Allen MD Primary Care Provide r Reason for Visit * Reason Onset Date Comments Request For Order(s) 11/09/2023 Encounter Details Date Type Department Care Team ([facility] Contact Info) Description 11/09/2023 Telephone [facility] MEDICINE [address] [place] [address] Zenaida Allen MD [address] [place] [address] Request For Order(s) Social History Tobacco Use Types Packs/Day Years Used Date Smoking Tobacco: Never Smokeless Tobacco: Never Alcohol Use Standard Drinks/Week Comments Never 0 (1 standard drink = 0.6 oz pur e alcohol) Depression Answer Date Recorded Patient Health Questionnaire-9 Score 0 06/07/2023 Housing Stability Answer Date Recorded What is your housing situation today? I have danikacesar reilly 09/15/[address] you [...] encounter Miscellaneous Notes * Telephone Encounter - Shruti Cramer - 11/09/2023 4:27 PM EST Tc from pt was advised by [facility] order for US extremity Non vascular needs to be US to the breast. documented in this encounter Plan of Treatment Upcoming Encounters Date Type Department Care Team (Late st Contact Info) Description 03/25/2025 3:15 PM EDT Office Visit [facility] MEDICINE [address] [place] [address] Zenaida Allen MD [address] [place] [address] 08/27/2025 3:00 PM EDT Office Visit [facility] ADULT DENTAL [address] [place] [address] Bc, Trini [address] [place] [address] documented as of this encounter Visit Diagnoses Not on filedocumented in this encounter Additional Health Concerns Assessment Noted Time PHQ-9 Depression Total Score: 0 06/07/20 23 3:39 PM EDT documented as of this encounter Care Teams Paralegal Secretary Relationship Specialty Start Date End Date Zenaida Allen MD [address] [place] [phone] PCP - General Family Medicine 01/10/19 documented as of this encounter
--- OUTSIDE RECORDS SUMMARY | 2025-03-13 17:05 | XMS_ITS | Encounter Summary ---
Author Organization [employer] [facility] Address 75 [facility] 7t [place] [address] Care Team Providers Care Pie Dough Roller Name Role Phone Zenaida Allen MD Primary Care Provide r Encounter Details Date Type Department Care Team (Latest Contact Info) Description 01/27/2021 Abstract [facility] CONVERSIONS Dental, Provider, DDS Social History Tobacco Use Types Packs/Day Years Used Date Smoking Tobacco: Never Assessed Comments Unknown Sex and Gender Information Value Date Recorded Sex Assigned at Female 09/12/2022 10:14 AM EDT Legal Sex Female 10:14 AM EDT Gender Identity Female 09/12/2022 10:14 AM EDT Sexual Orientation Straight 09/12/2022 10 :14 AM EDT documented as of this encounter Plan of Treatment Upcoming Encounters Date Type Department Care Team ( st Contact Info) Description 03/25/2025 3:15 PM EDT Office Visit [facility] MEDICINE [address] [place] [address] Zenaida Allen MD [address] [place] [address] 08/27/2025 3:00 PM EDT Office Visit [facility] ADULT DENTAL [address] [place] [address] Marv Yanceyaris [address] [place] [address] documented as of this encounter Visit Diagnoses Not on filedocumented in this encounter Care Teams Pie Dough Roller Relationship Specialty Start Date End Date eZnaida Allen MD [address] [place] [address] PCP - General Family Medicine 01/10/19 documented as of this encounter
--- OUTSIDE RECORDS SUMMARY | 2025-03-13 17:05 | XMS_ITS | Encounter Summary ---
Author Organization [employer] Address 75 [facility] 7t [place] [address] Care Team Providers Care Higher Education Administrator Name Role Phone Zenaida Allen MD Primary Care Provide r Encounter Details Date Type Department Care Team (Late st Contact Info) Description 12/12/2022 Orders Only [facility] MEDICINE [address] [place] [phone] Teresa Santos MD [address] [place] [address] [phone] Skin tags, multiple acquired (Primary Dx) Social History Tobacco Use Types Packs/Day Years Used Date Smoking Tobacco: Never Smokeless Tobacco: Never Alcohol Use Standard Drinks/Week Comments Never 0 (1 standard drink = 0.6 oz pur e alcohol) Comments Unknown Sex and Gender Information Value Date Recorded Sex Assigned at Female 09/12/2022 10:14 AM EDT Legal Sex Female 10:14 AM EDT Gender Identity Female 09/12/2022 10:14 AM EDT Sexual Orientation Straight 09/12/2022 10 :14 AM EDT COVID-19 Exposure Response Date Recorded In the last 10 days, have yo u been in contact with someone who was confirmed or suspected to have Coronavirus/COVID-19? No / Unsure 12/14/2022 8:37 AM EST documented as of this encounter Plan of Treatment Upcoming Encounters Date Type Department Care Team (Late st Contact Info) Description 03/25/2025 3:15 PM EDT Office Visit [facility] MEDICINE [address] [place] [address] Zenaida Allen MD [address] [place] [address] 08/27/2025 3:00 PM EDT Office Visit [facility] ADULT DENTAL [address] [place], [place] [phone] Trini Yancey [address] [place], [place] [phone] documented as of this encounter Visit Diagnoses Diagnosis Skin tags, multiple acquired- Primary documented in this encounter Care Teams Higher Education Administrator Relationship Specialty Start Date End Date Zenaida Allen MD [address] [place], [place] [phone] PCP - General Family Medicine 01/10/19 documented as of this encounter
--- OUTSIDE RECORDS SUMMARY | 2025-03-13 17:05 | XMS_ITS | Encounter Summary ---
Author Organization [employer] Address 75 [facility] 7t [place] [address] Care Team Providers Care Carriage Dogger Name Role Phone Zenaida Allen MD Primary Care Provide r Reason for Referral * Imaging (Routine) - Closed Specialty Diagnoses / Procedures Referred By Contac t Referred To Contact Radiology Diagnoses Lump in armpit, right Procedures US Extremity Non Vascular Tung Watts MD [address] [place] [address] Phone: tel: fax: [address] Phone: tel: fax: Referral ID Status Reason Start Date Expiration Date Visits Re quested Visits Authorized [id number] Closed 10/25/2023 10/24/2024 1 1 Encounter Details Date Type Department Care Team (Late st Contact Info) Description 10/25/2023 Orders Only [facility]S [address] [place] [address] Tung Watts MD [address] [place] [address] Lump in armpit, right (Primary Dx) Social History Tobacco Use Types [...] 3:15 PM EDT Office Visit [facility] MEDICINE [address] [place] [address] Zenaida Allen MD [address] [place] [address] 08/27/2025 3:00 PM EDT Office Visit [facility] ADULT DENTAL [address] [place] [address] Trini Yancey [address] [place] [address] documented as of this encounter Procedures Procedure Name Priority Date/Time Associated Diagnosis Comments US EXTREMITY NON-VASCULAR Routine 01/02/2024 2:29 PM EST Lump in armpit, right documented in this encounter Results * US Extremity Non Vascular (01/02/2024 2:29 PM EST) Anatomical Region Laterality Modality Ultrasound 01/02/2024 2:29 PM EST Narrative 01/03/2024 7:30 PM EST ? [facility] ?[address] ?[place] [address] ? Ultrasound Report ? Signed ? Patient: Luann Wellington ?MR#: [id number] ?? [id number] ? : 1980 ?Acct:[id number] ? Age/Sex: 43 / F ?ADM Date: 01/02/24 ? Loc: HO.US ? Attending Dr: Tung Kelly MD ? Ordering Physician: Tung Watts MD ?? Date of Service: 01/02/24 ?? Procedure(s): US extremity nonvascular ?? Accession Number(s): [id number] ? cc: Zenaida Allen MD; Tung Watts MD ? EXAMINATION: ?? US UPPER EXTREMITY, NONVASCULAR, RIGHT ? CLINICAL INFORMATION: ?? Right mid axillary lump. ? COMPARISON: ?? None available. ? TECHNIQUE: ?? Targeted ultrasound images were obtained by the cloth examiner of the area ?? of concern as indicated by the patient in the right axilla. Radiologist ?? was not in attendance. Images were later provided for interpretation. ? FINDINGS: ?? No bulky adenopathy or fluid collection identified in the area of ?? concern indicated by the patient to the cloth examiner in the right ?? axilla. ? US/US extremity nonvascular ?? IMPRESSION: ?? 1. No bulky adenopathy or fluid collection identified in the area of ?? concern indicated by the patient to the cloth examiner in the right ?? axilla. ? 2. Decisions regarding further imaging, treatment or biopsy should be ?? based on the clinical exam, as not all abnormalities are detectable on ?? ultrasound studies. ? Dictated By: ?Elana Jc MD ? Signed By: ?<Electronically signed by Elana Jc MD in OV> ? 01/03/241925 ? DD/ 28 ? TD/TT: ? Acetylene Operator: ? Procedure Note Donhirenter, Image - 01/03/2024 [place] [address] Ultrasound Report Signed Patient: Luann Wellington LMR#: [id number] : 1980Acct:[id number] Age/Sex: 43 / FADM Date: 01/02/24 Loc: HO.US Attending Dr: Tung Kelly MD Ordering Physician: Tung Watts MD Date of Service: 01/02/24 Procedure(s): US extremity nonvascular Accession Number(s): [id number] cc: Zenaida Allen MD; Tung Watts MD EXAMINATION: US UPPER EXTREMITY, NONVASCULAR, RIGHT CLINICAL INFORMATION: Right mid axillary lump. COMPARISON: None available. TECHNIQUE: Targeted ultrasound images were obtained by the cloth examiner of the area of concern as indicated by the patient in the right axilla. Radiologist was not in attendance. Images were later provided for interpretation. FINDINGS: No bulky adenopathy or fluid collection identified in the area of concern indicated by the patient to the cloth examiner in the right axilla. US/US extremity nonvascular IMPRESSION: 1. No bulky adenopathy or fluid collection identified in the area of concern indicated by the patient to the cloth examiner in the right axilla. 2. Decisions regarding further imaging, treatment or biopsy should be based on the clinical exam, as not all abnormalities are detectable on ultrasound studies. Dictated By: Elana Jc MD Signed By: <Electronically signed by Elana Jc MD in OV> 01/03/24 192 DD/ 1429 TD/TT: Acetylene Operator: us Tung Kelly MD IMG US PROCEDURES Final Result documented in this encounter Visit Diagnoses Diagnosis Lump in armpit, right- Primary documented in this encounter Additional Health Concerns Assessment Noted Time PHQ-9 Depression Total Score: 0 07/26/20 23 3:39 PM EDT documented as of this encounter Care Teams Carriage Dogger Relationship Specialty Start Date End Date Zenaida Allen MD [address] [place] [address] PCP - General Family Medicine 01/10/19 documented as of this encounter
--- OUTSIDE RECORDS SUMMARY | 2025-03-13 17:05 | XMS_ITS | Encounter Summary ---
Author Organization [employer] [facility] Address 75 [facility] 7t [place] [address] Care Team Providers Care Antisqueak Worker Name Role Phone Zenaida Allen MD Primary Care Provide r Encounter Details Date Type Department Care Team (Latest Contact Info) Description 07/08/2022 Abstract [facility] CONVERSIONS Dental, Provider, DDS Social [...] Description 03/25/2025 3:15 PM EDT Office Visit [facility] MEDICINE [address] [place] [address] Zenaida Allen MD [address] [place] [address] 08/27/2025 3:00 PM EDT Office Visit [facility] ADULT DENTAL [address] [place] [address] Marv Yanceyaris [address] [place] [address] documented as of this encounter Visit Diagnoses Not on filedocumented in this encounter Care Teams Antisqueak Worker Relationship Specialty Start Date End Date Zenaida Allen MD [address] [place] [address] PCP - General Family Medicine 01/10/19 documented as of this encounter
--- OUTSIDE RECORDS SUMMARY | 2025-03-13 17:05 | XMS_ITS | Encounter Summary ---
Author Organization [employer] Address 75 [facility] 7t [place] [address] Care Team Providers Care Spot Welder Body Assembly Name Role Phone Zenaida Allen MD Primary Care Provide r Reason for Visit * Reason Onset Date Comments Referral 10/22/2024 Encounter Details Date Type Department Care Team ([facility] st Contact Info) Description 10/22/2024 Telephone [facility] MEDICINE [address] [place] [address] Zenaida Allen MD [address] [place] [address] Referral Social History Tobacco Use Types Packs/Day Years [...] encounter Miscellaneous Notes * Telephone Encounter - Ruth Ann Richmond RN - 10/22/2024 10:39 AM EST RN called pt to clarify request, pt asking because she is experiencing [place] sx and losing herhair. RN advised pt to come to [facility] for concerns d/t no available appt with PCP, RN did offer appt with ENGINEER TECHNICIAN but pt will be away on vacation. Pt declined and wants to wait for an appt with PCP, Please set up pt with an appt when recall opebns after 3pm thank you Tc from pt requesting a referral to a stove refinisher. Please call to clarify. * Telephone Encounter - Ashely Larkin - 10/22/2024 10:15 AM EST Tc from pt requesting a referral to a stove refinisher. Please call to clarify. documented in this encounter Plan of Treatment Upcoming Encounters Date Type Department Care Team (Late st Contact Info) Description 03/25/2025 3:15 PM EDT Office Visit [facility] MEDICINE [address] [place], [place] [phone] Zenaida Allen MD [address] [place] [address] 08/27/2025 3:00 PM EDT Office Visit [facility] ADULT DENTAL [address] [place] [address] Trini Yancey [address] [place], [place] [phone] documented as of this encounter Visit Diagnoses Not on filedocumented in this encounter Additional Health Concerns Assessment Noted Time PHQ-9 Depression Total Score: 0 06/07/20 23 3:39 PM EDT documented as of this encounter Care Teams Spot Welder Body Assembly Relationship Specialty Start Date End Date Zenaida Allen MD [address] [place] [address] PCP - General Family Medicine 01/10/19 documented as of this encounter
== END 2025-03-13 15:45 | disposition home or self-care (01) ==
LOC: HO.HWS 15:17
PROVIDERS: PCP Internal Medicine; Visit Provider Obstetrics & Gynecology
DX: N93.9 Abnormal uterine and vaginal bleeding, unspecified (principal); Z32.02 Encounter for pregnancy test, result negative
CPT/HCPCS: 58100

== ENCOUNTER 2025-03-18 15:36 | Outpatient (AMB) | payer MEDICAID, SELFPAY ==
--- NOTE | 2025-03-18 15:44 | A.OFFVIS_ITS ---
Vital Signs 03/18/25 15:46 Height 5 ft Weight 111 lb BMI 21.7 Intake Visit Reasons: EMB results Aerial Sprayer Required: Yes Aerial Sprayer Language: Emergency Department Services: Aerial Sprayer Present (in person) Aerial Sprayer Name: Shabnam MARVIN Information Interpreted: non-clinical & clinical Accompanied by: Self / Same As Patient Allergies shrimp Allergy (Severe, Verified 03/18/25 15:46) MOUTH SWELLING No Known Drug Allergies Allergy (Unknown, Verified 03/18/25 15:46) none Seasonal Allergies Allergy (Verified 03/18/25 15:46) Itchy Eyes HPI Comments Details: The patient is presenting for follow-up to discuss the results of her abnormal uterine bleeding workup and options of treatment. The patient is doing well with no complaints, menstrual cycles are regular and not heavy over the last few months, complaining of mild Greene's symptoms The following workup was done.: 08/06 H&H= 12.9/40.8 08/06 TSH, prolactin, hCG, GC and chlamydia were negative. 08/06 FSH/LH 73.1/26.6 Endometrial biopsy pathology showed the following: Mixed pattern secretory and inactive (mostly secretory) endometrium; no atypia or hyperplasia identified 02/03 Co testing was done was negative. 09/05 Mammogram was BI-RADS 1 Pelvic ultrasound showed the following: Uterus: The uterus is normal in size, measuring 11.3 x 4.8 x 5.3 cm. Myometrium has a normal echotexture. Again seen is a left fundal fibroid measuring 7.6 x 6.8 x 6.2 cm (previously 7.6 x 5.3 x 7.3 cm). Endometrium: The endometrial stripe measures 5 mm in thickness. Right ovary: The right ovary measures 1.9 x 1.5 x 2.1 cm. The right ovary is normal in size and echotexture. Left ovary: The left ovary measures 2.4 x 1.9 x 1.7 cm. The left ovary is normal in size and echotexture. Pelvic fluid: none. [facility] Medical History IBS (irritable bowel syndrome) Esophagitis Chronic gastritis with bleeding Family planning education, guidance, and counseling Abnormal x-ray of thoracic spine Abnormal x-ray of thoracic spine Sleep disorder Uses control Cervical cancer screening Well woman exam with routine gynecological exam Surgical History Hx of colonoscopy History of esophagogastroduodenoscopy (EGD) Family History Father Cirrhosis of liver Cancer Liver transplanted Mother Apnea Paternal Grandfather Cancer Social History Household Members: Spouse Household Members Other:: son Housing: Apartment Alcohol intake: never Patient Tobacco Use Status: Never used Tobacco Current occupational status: employed Current occupation: [employer] Sexual orientation: Straight/Heterosexual Gender identity: Female Female Reproductive History Menstrual Age of Menarche: 12 Review of Systems Const All systems reviewed & are unremarkable except as noted in HPI and below Reports as per HPI and Reports no additional complaints GI Reports no additional complaints Reports no additional complaints Assessment & Plan Assessment & Plan (1) Abnormal uterine bleeding (AUB): Comment: elevated FSH/LH Code(s): N93.9 - Abnormal uterine and vaginal bleeding, unspecified Category: Medical Plan: Discussed with the patient the results of the work up done and options of treatment including Lysteda, cyclic Provera, Mirena IUD, endometrial ablation and hysterectomy. All pros, cons, risks and benefits if each option was discussed with the patient and the patient decided to think about it and get back to us. All questions answered the patient verbalized understanding. (2) Uterine myoma: Code(s): D25.9 - Leiomyoma of uterus, unspecified Category: Medical Plan: Discussed with the patient the findings on pelvic ultrasound & the risk of myosarcoma; in addition reviewed with the patient that malignancy and pre malignancy cannot be ruled out without hysterectomy for pathological evaluation ; furthermore, explained to the patient the limitation of pelvic ultrasound and endometrial biopsy in the setting. Discussed with the patient the options of treatment including expectant management versus hysterectomy; the pros and cons, risks benefits of each approach were discussed with the patient including the fact that in cases of myosarcoma, surgical treatment can lead to early diagnosis and positively affects the prognosis; after further discussion, the patient decided to proceed with expectant management. Will repeat pelvic ultrasound periodically. Instructions given to patient to call in case any of the following occurs: pressure symptoms, abnormal uterine bleeding, pelvic pain; and to schedule a six-months pelvic ultrasound (order placed) and a follow-up appointment . All questions answered, the patient verbalized understanding and agreed with the plan . Orders: Orders US pelvic and transvaginal 6 Months D25.9 - Leiomyoma of uterus, unspecified Coding Level of Care Code Est Pt Level 3 (84142) Diagnoses Abnormal uterine bleeding (AUB) N93.9 Uterine myoma D25.9
[2025-03-18 15:46] VITALS: BMI 21.7
--- OUTSIDE RECORDS SUMMARY | 2025-03-18 16:42 | XMS_ITS | Data Portability ---
Author Organization [facility], [facility] Address [address] [place] [address] Care Team Providers Care Enlisted Advisor Name Role Phone KIA KEE Vineyardist Assessment No assessment recorded. Plan of Treatment [...] ction study No observ ation record ed. [facility] [address], [address], 07/04/2024 11:44:39 07/03/20 24 07/03/2024 elect romyo gram + nerve condu ction study No observ ation record ed. [facility] [address] [facility] [address], [place], [address], 07/04/2024 11:44:40 Result Notes None recorded. Procedures Surgical History None recorded. Imaging Results Imaging Date Name Status LastModified by Organization Details LastModified Time 07/03/2024 electromyogram + nerve conduction study completed [facility] [address] [facility] [address], [place], [address], 07/04/2024 11:44:39 07/03/2024 electromyogram + nerve conduction study completed [facility] [address] [facility] [address], [place], [address], 07/04/2024 11:44:40 Procedure Notes None recorded. Medical Equipment None Reported. Allergies Allergen ID Allergen Name Allergen Category Reaction Reaction Severity Criticality Documentation Date Start Date Code Code System Note Provider Name and Address Organization Details Recorded Time 75275 shrimp allergeni c extract food Not available Not available Not available 01/15/20242021 77748 2 RxNorm Not Available [facility] 11:09:53 Medications Name Sig Start Date Stop [...] Updated DateTime 04/09/2024 152.4 cm 25.4 kg/m2 63702.01 g [facility] 04/09/2024 15:07:30 Date Recorded Body height Body mass index (BMI) Body weight Provider Name and Address Organization Details Last Updated DateTime 07/19/2024 152.4 cm 25.4 kg/m2 54310.01 g [facility] 07/19/2024 13:42:05 Social History None recorded. Functional Status None recorded. Mental Status None recorded. Family History Nothing Reported. Medical History No medical history recorded. Gynecological HistoryNo gynecological history recorded. 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 John Cifuentes MD [address] [place] [address] [address], [place], [address], [facility] 04/10/2024 13:42:05 07/19/2024 text/html [...] up at her discretion. John Cifuentes MD [address] [place] [address] [address], [place], [address], [facility] 07/19/2024 13:48:54 OBGyn Episode No OBEpisode recorded.
== END 2025-03-18 16:20 | disposition home or self-care (01) ==
LOC: HO.HWS 15:36
PROVIDERS: PCP Internal Medicine; Visit Provider Obstetrics & Gynecology
DX: N93.9 Abnormal uterine and vaginal bleeding, unspecified (principal); D25.9 Leiomyoma of uterus, unspecified
CPT/HCPCS: 99213

== ENCOUNTER → 2025-03-18 15:36 | Outpatient (BNVA) | payer MEDICAID, SELFPAY | PROVIDERS: PCP Internal Medicine; Visit Provider Obstetrics & Gynecology | DX: N93.9 Abnormal uterine and vaginal bleeding, unspecified (principal); D25.9 Leiomyoma of uterus, unspecified | CPT/HCPCS: 99212 ==

== ENCOUNTER 2025-04-30 15:36 | Outpatient (AMB) | payer MEDICAID, SELFPAY ==
--- NOTE | 2025-04-30 15:38 | A.OFFVIS_ITS ---
Vital Signs 04/30/25 15:47 Height 5 ft Weight 122 lb BMI 23.8 BP 108/62 Blood Pressure Location Rt brachial Position Sitting Pulse 72 Pulse Source Pulse Oximeter Pulse Oximetry (%) 100 Oxygen Delivery Method Room Air Intake Visit Reasons: 6 months follow up Intake Note: Est pt for mgmt of IBS + Chronic abd pain. CC; Pt denies any GI sx or concerns at this time. Pt is here to discuss possible repeat colo per poor prep from procedure last year. Big Data Hadoop Developer Required: No Big Data Hadoop Developer Services: Big Data Hadoop Developer Offered & Declined Accompanied by: Self / Same As Patient Allergies shrimp Allergy (Severe, Verified 04/30/25 15:46) MOUTH SWELLING No Known Drug Allergies Allergy (Unknown, Verified 04/30/25 15:46) none Seasonal Allergies Allergy (Verified 04/30/25 15:46) Itchy Eyes HPI HPI 6 months follow up : Details: Assessment & Plan (1) Irritable bowel syndrome with constipation: Code(s): K58.1 - Irritable bowel syndrome with constipation Category: Medical Plan She is agreeable to a 1 year follow up. The procedure was well tolerated. The results were explained and the patient is agreeable to the follow-up interval as stated. The bowel pattern has returned to normal. Education was provided to tell any 1st degree relatives about their findings to be sure that they are screened by age 45. Educated that they will be put on a recall list when it is time for their repeat scope but should they move out of state or away from the hospital they will need to remember along with their primary to repeat the procedure in a timely fashion to avoid any adverse complications. SHe says she is eating more healthfully and the pain is decreasing. She also started a probiotic. We discuss sx that would indicate that her GB is part of the problem, and if she notes increasing pain or diarrhea with fatty foods we may want to reconsder the CREON - which she stopped because she says Dr. Ceballos told her to stop it (!!). However, it also has a role in IBS. I will also give her bentyl as a trial at 10mg ROV 6 mos. Medications: New dicyclomine 10 mg PO TID PRN 90 caps 6RF abdominal pain K58.1 - Irritable bowel syndrome with constipation TODAYS VISIT She is here today for her repeat colonoscopy since she did not clear a year ago and for crc screening. She vomited the go lytely it tasted nasty, so will try for Suprpep and 2 bisacodyl 3 days prior to assure clearance. She is doing well. The only thing she asks if for a fiber in water that is orange flavored. I am unsure if insurance pays for this, will try sending CItrucle as I also am unsure which is orange flavored. NO anes or sed problesm. No ID problems. NO cardiac or respiratory problems. No known FHX cr cor polyps but there is Crohns disease. [facility] Medical History (Updated 04/30/25 @ 16:08 by JASMEET Sorenson) Diarrhea IBS (irritable bowel syndrome) Esophagitis Chronic gastritis with bleeding Family planning education, guidance, and counseling Abnormal x-ray of thoracic spine Abnormal x-ray of thoracic spine Sleep disorder Uses control Cervical cancer screening Well woman exam with routine gynecological exam Surgical History Hx of colonoscopy History of esophagogastroduodenoscopy (EGD) Family History Father Cirrhosis of liver Cancer Liver transplanted Mother Apnea Paternal Grandfather Cancer Social History Household Members: Spouse Household Members Other:: son Housing: Apartment Alcohol intake: never Patient Tobacco Use Status: Never used Tobacco Current occupational status: employed Current occupation: [employer] and paid Sexual orientation: Straight/Heterosexual Gender identity: Female Female Reproductive History Menstrual Age of Menarche: 12 Review of Systems Const Denies fatigue, Denies fever(s), Denies night sweats, Denies poor appetite and Denies weight loss ENT Reports Normal hearing present, Denies dental pain, Denies dysphagia, Denies hearing loss, Denies mouth pain, Denies odynophagia, Denies throat swelling, Denies tongue swelling and Reports other (Dentition adequate) Card Reports no additional complaints Resp Reports no additional complaints GI Details: Denies abdominal pain, Denies melena, Denies bloating, Reports hematochezia, Reports constipation, Denies GI cramping, Denies dysphagia, Denies excessive flatus, Denies early satiety, Denies heartburn, Denies diarrhea, Denies nausea, Denies odynophagia, Denies vomiting and Denies hematemesis Skin/Breast Denies pruritus, Denies lesions, Denies rash and Denies jaundice Neuro Reports Normal hearing present and Denies Abnormal speech present Endo Denies fatigue Aller/Immun Denies throat swelling and Denies tongue swelling Physical Exam Vital Signs: Last Vital Signs Pulse 72 04/30/25 15:47 BP 108/62 04/30/25 15:47 Pulse Ox 100 04/30/25 15:47 Oxygen Delivery Method Room Air 04/30/25 15:47 BMI result Body Mass Index 23.8 Const General: cooperative, no acute distress, well developed and well groomed Nutritional Appearance: average body habitus and well nourished Orientation/consciousness: oriented to person, oriented to place and oriented to time Limitations: No language barrier HEENT Head: Yes normocephalic and Yes atraumatic Eyes General: appearance normal, both eyes and all related structures Pupils: Equal, round and reactive pupils present Neck Neck: Yes normal visual inspection and Yes no lymphadenopathy Thyroid: Thyroid normal Resp Effort & Inspection: normal respiratory effort and able to speak in complete sentences Auscultation: clear to auscultation bilaterally Cardio Rate: regular rate Rhythm: regular rhythm Heart sounds: Normal, physiologic split S2 sound present Peripheral pulses: radial pulses present and posterior tibial pulses present GI Inspection: No distended and No Abdominal panniculus present Palpation (GI): Soft to palpation, nontender, no guarding, not rigid and No hepatosplenomegaly present Percussion: Yes normal to percussion Auscultation: normal bowel sounds Rectal Exam - Female: deferred Skin General skin exam: no rashes or lesions noted, turgor normal, skin not dry, no jaundice, No spider nevi and no striae Rashes: no rashes Nails: normal Neuro General: oriented to person, oriented to place and oriented to time Cranial nerves: Yes Equal, round and reactive pupils present and Yes Normal hearing present Speech: No Abnormal speech present Extrem General: Yes normal to inspection, No clubbing, No cyanosis and No edema Psych Appearance: grossly normal and well kempt Mental Status: mental status grossly normal Speech and movement: Normal speech and movement present Affect: normal affect Attitude: cooperative Thought process: Normal thought process present and not confabulating Thought content: Normal thought content present Insight: Good insight present (Psych) Judgement: Good judgement present (Psych) Assessment & Plan Assessment & Plan (1) Pre-op examination: Code(s): Z01.818 - Encounter for other preprocedural examination Category: Medical (2) Irritable bowel syndrome with constipation: Code(s): K58.1 - Irritable bowel syndrome with constipation Category: Medical (3) Bleeding hemorrhoids: Code(s): K64.9 - Unspecified hemorrhoids Category: Medical Plan She is here today for her repeat colonoscopy since she did not clear a year ago and for crc screening. She vomited the go lytely it tasted nasty, so will try for Suprpep and 2 bisacodyl 3 days prior to assure clearance. She is doing well. The only thing she asks if for a fiber in water that is orange flavored. I am unsure if insurance pays for this, will try sending CItrucle as I also am unsure which is orange flavored. NO anes or sed problesm. No ID problems. NO cardiac or respiratory problems. No known FHX cr cor polyps but there is Crohns disease Orders: Orders Colonoscopy - GI Use Only 04/30/25 Comprehensive Met. Panel 04/30/25 Z01.818 - Encounter for other preprocedural examination Complete Blood Count Auto Diff 04/30/25 Z01.818 - Encounter for other preprocedural examination Medications: New sodium,potassium,mag sulfates 17.5-3.13-1.6 gram (Suprep Bowel Prep Kit) 480 mL orally; FOR COLONOSCOPY PREP 354 mL 0RF bisacodyl (Dulcolax (bisacodyl)) take 2 qhs for 3 days prior to colonoscopy for prep orally bedtime; 8 tabs 0RF 2 days methylcellulose (laxative) (Citrucel Sugar Free oral powder) 2 grams PO BID 907 grams 6RF K58.1 - Irritable bowel syndrome with constipation, K64.9 - Unspecified hemorrhoids Coding Level of Care Code New Pt Level 3 (16882) Diagnoses Pre-op examination Z01.818 Irritable bowel syndrome with constipation K58.1 Bleeding hemorrhoids K64.9
[2025-04-30 15:47] VITALS: BP 108/62; PULSE 72; O2SAT 100; BMI 23.8
--- OUTSIDE RECORDS SUMMARY | 2025-04-30 17:47 | XMS_ITS | Encounter Summary ---
Author Organization [employer] Address [address] [place] [address] Care Team Providers Care Host And Hostess Name Role Phone Zenaida Allen MD Primary Care Provide r Reason for Referral * Imaging (Routine) - Closed Specialty Diagnoses / Procedures Referred By Contac t Referred To Contact Radiology Diagnoses Lump in armpit, right Procedures US Extremity Non Vascular Tung Watts MD [address] [place] [address] Phone: tel: fax: [address] Phone: tel: fax: Referral ID Status Reason Start Date Expiration Date Visits Re quested Visits Authorized [id number] Closed 10/25/2023 10/24/2024 1 1 Encounter Details Date Type Department Care Team (Late st Contact Info) Description 10/25/2023 Orders Only [facility] [address] [place], [place] [id number] Tung Watts MD [address] [place] [address] Lump in armpit, right (Primary Dx) Social [...] Care Team (Late st Contact Info) Description 08/27/2025 3:00 PM EDT Office Visit [facility] [address] [place] [address] Bc, [address] [place] [address] documented as of this encounter Procedures Procedure Name Priority Date/Time Associated Diagnosis Comments US EXTREMITY NON-VASCULAR Routine 01/02/2024 2:29 PM EST Lump in armpit, right documented in this encounter Results * US Extremity Non Vascular (01/02/2024 2:29 PM EST) Anatomical Region Laterality Modality Ultrasound 01/02/2024 2:29 PM EST Narrative 01/03/2024 7:30 PM EST [address] [address] Ultrasound Report Signed Patient: Luann Wellington MR#: [id number] : 1980 Acct:[id number] Age/Sex: 43 / F ADM Date: 01/02/24 Loc: HO.US Attending Dr: Tung Kelly MD Ordering Physician: Tung Watts MD Date of Service: 01/02/24 Procedure(s): US extremity nonvascular Accession Number(s): [id number] cc: Zenaida Allen MD; Tung Watts MD EXAMINATION: US UPPER EXTREMITY, NONVASCULAR, RIGHT CLINICAL INFORMATION: Right mid axillary lump. COMPARISON: None available. TECHNIQUE: Targeted ultrasound images were obtained by the extruding machine operator of the area of concern as indicated by the patient in the right axilla. Radiologist was not in attendance. Images were later provided for interpretation. FINDINGS: No bulky adenopathy or fluid collection identified in the area of concern indicated by the patient to the extruding machine operator in the right axilla. US/US extremity nonvascular IMPRESSION: 1. No bulky adenopathy or fluid collection identified in the area of concern indicated by the patient to the extruding machine operator in the right axilla. 2. Decisions regarding further imaging, treatment or biopsy should be based on the clinical exam, as not all abnormalities are detectable on ultrasound studies. Dictated By: Elana Jc MD Signed By: <Electronically signed by Elana Jc MD in OV> 01/03/24 1926 DD/ 1429 TD/TT: Pile Trimmer: Procedure Note Donotuseinterpreter, Image - 01/03/[address] [address] Ultrasound Report Signed Patient: Luann Wellington LMR#: [id number] : 1980Acct:[id number] Age/Sex: 43 / FADM Date: 01/02/24 Loc: HO.US Attending Dr: Tung Kelly MD Ordering Physician: Tung Watts MD Date of Service: 01/02/24 Procedure(s): US extremity nonvascular Accession Number(s): [id number] cc: Zenaida Allen MD; Tung Watts MD EXAMINATION: US UPPER EXTREMITY, NONVASCULAR, RIGHT CLINICAL INFORMATION: Right mid axillary lump. COMPARISON: None available. TECHNIQUE: Targeted ultrasound images were obtained by the extruding machine operator of the area of concern as indicated by the patient in the right axilla. Radiologist was not in attendance. Images were later provided for interpretation. FINDINGS: No bulky adenopathy or fluid collection identified in the area of concern indicated by the patient to the extruding machine operator in the right axilla. US/US extremity nonvascular IMPRESSION: 1. No bulky adenopathy or fluid collection identified in the area of concern indicated by the patient to the extruding machine operator in the right axilla. 2. Decisions regarding further imaging, treatment or biopsy should be based on the clinical exam, as not all abnormalities are detectable on ultrasound studies. Dictated By: Elana Jc MD Signed By: <Electronically signed by Elana Jc MD in OV> 01/03/24 1926 DD/ 1429 TD/TT: Pile Trimmer: us Tung Kelly MD IMG US PROCEDURES Final Result documented in this encounter Visit Diagnoses Diagnosis Lump in armpit, right- Primary documented in this encounter Additional Health Concerns Assessment Noted Time PHQ-9 Depression Total Score: 0 06/07/20 23 3:39 PM EDT documented as of this encounter Care Teams Host And Hostess Relationship Specialty Start Date End Date Zenaida Allen MD [address] [place] [phone] PCP - General Family Medicine 01/10/19 documented as of this encounter
== END 2025-04-30 16:10 | disposition home or self-care (01) ==
LOC: HO.HGI 15:37
PROVIDERS: PCP Internal Medicine; Visit Provider Nurse Practitioner
DX: Z01.818 Encounter for other preprocedural examination (principal); Z12.11 Encounter for screening for malignant neoplasm of colon; K58.1 Irritable bowel syndrome with constipation; K64.9 Unspecified hemorrhoids
CPT/HCPCS: 99213

== ENCOUNTER 2025-04-30 15:36 | Outpatient (REF) | payer MEDICAID, SELFPAY ==
[2025-04-30 16:25] LABS: MANUAL DIFF FLAG NO
[2025-04-30 16:41] LABS: Basophils Percent Auto 0.4 % (0-2); Eosinophils Absolute Auto 0.1 X10*3/uL (0.0-0.4); Eosinophils Percent Auto 1.2 % (0-4); Hematocrit 33.6 % (37.0-47.0); Hemoglobin 10.8 g/dl (12.0-16.0); Imm Gran Abs Auto 0.01 X10*3/uL (0.00-0.03); Imm Gran Pct Auto 0.2 % (0.0-0.4); Lymphocytes Absolute Auto 1.3 X10*3/uL (1.2-4.9); Lymphocytes Percent Auto 26.7 % (20-40); Mean Corpuscular HGB Conc 32.1 g/dl (31.0-35.0); Mean Corpuscular Hemoglobin 24.4 pg (27.0-33.0); Monocytes Absolute Auto 0.3 X10*3/uL (0.1-1.2); Monocytes Percent Auto 6.2 % (2-11); Neutrophils Absolute Auto 3.2 x10*3/uL (2.0-8.3); Neutrophils Percent Auto 65.3 % (45-73); Platelet Count 322 X10*3/uL (160-400); Red Blood Count 4.42 X10*6/uL (4.20-5.50); White Blood Count 4.8 X10*3/uL (4.8-10.8)
[2025-04-30 17:16] LABS: Alanine Aminotransferase 12 U/L (0-31); Albumin Level 4.4 g/dL (3.5-5.0); Alkaline Phosphatase 113 U/L (39-117); Anion Gap 11 (12-20); Aspartate Amino Transferase 16 U/L (5-31); Bilirubin Total 0.1 mg/dL (0.0-1.0); Blood Urea Nitrogen 18 mg/dL (9-16); Calcium 9.3 mg/dL (8.4-10.2); Carbon Dioxide 26 mmol/L (22-29); Chloride 105 mmol/L (96-108); Estimated Glomerular Filt Rate > 60; Glucose Random 89 mg/dL (60-115); Sodium 138 mmol/L (135-145); Total Protein 8.1 g/dL (6.5-8.0)
== END 2025-04-30 15:37 | disposition home or self-care (01) ==
LOC: HO.LAB 15:36
PROVIDERS: PCP Internal Medicine; Visit Provider Nurse Practitioner
DX: Z01.818 Encounter for other preprocedural examination (principal); K58.1 Irritable bowel syndrome with constipation; K64.9 Unspecified hemorrhoids
CPT/HCPCS: 36415; 80053; 85025; 99212

== ENCOUNTER 2025-05-30 13:09 | Outpatient (AMB) | payer MEDICAID, SELFPAY ==
--- OUTSIDE RECORDS SUMMARY | 2025-05-30 13:12 | XMS_ITS | Encounter Summary ---
Author Organization [employer] Address [address] [facility] [address], [place] [address] Care Team Providers Care Vp Software Engineering Name Role Phone Zenaida Allen MD Primary Care Provide r Reason for Referral * Imaging (Routine) - Closed Specialty Diagnoses / Procedures Referred By Contac t Referred To Contact Radiology Diagnoses Lump in armpit, right Procedures US Extremity Non Vascular Tung Watts MD [address] [place] [address] Phone: tel: fax: [address] Phone: tel: fax: Referral ID Status Reason Start Date Expiration Date Visits Re quested Visits Authorized [id number] Closed 10/25/2023 10/24/2024 1 1 Encounter Details Date Type Department Care Team (Late st Contact Info) Description 10/25/2023 Orders Only [facility] CHC MED & PEDS [address] [place], [place] [phone] Tung Watts MD [address] [place] [address] Lump in armpit, right (Primary Dx) Social [...] Care Team (Late st Contact Info) Description 07/31/2025 1:45 PM EDT Office Visit [facility] MEDICINE [address] [place] [address] Zenaida Allen MD [address] [place] [address] 08/27/2025 3:00 PM EDT Office Visit [facility] ADULT DENTAL [address] [place] [address] Trini Yancey [address] [place] [address] documented as of this encounter Procedures Procedure Name Priority Date/Time Associated Diagnosis Comments US EXTREMITY NON-VASCULAR Routine 01/02/2024 2:29 PM EST Lump in armpit, right documented in this encounter Results * US Extremity Non Vascular (01/02/2024 2:29 PM EST) Anatomical Region Laterality Modality Ultrasound 01/02/2024 2:29 PM EST Narrative 01/03/2024 7:30 PM EST [address] [address] Ultrasound Report Signed Patient: Luann Wellington MR#: [id number] : 1980 Acct:[id number] Age/Sex: 43 / F ADM Date: 01/02/24 Loc: HO.US Attending Dr: Tung Kelly MD Ordering Physician: Tung Watts MD Date of Service: 01/02/24 Procedure(s): US extremity nonvascular Accession Number(s): [id number] cc: Zenaida Allen MD; Tung Watts MD EXAMINATION: US UPPER EXTREMITY, NONVASCULAR, RIGHT CLINICAL INFORMATION: Right mid axillary lump. COMPARISON: None available. TECHNIQUE: Targeted ultrasound images were obtained by the casting inspector of the area of concern as indicated by the patient in the right axilla. Radiologist was not in attendance. Images were later provided for interpretation. FINDINGS: No bulky adenopathy or fluid collection identified in the area of concern indicated by the patient to the casting inspector in the right axilla. US/US extremity nonvascular IMPRESSION: 1. No bulky adenopathy or fluid collection identified in the area of concern indicated by the patient to the casting inspector in the right axilla. 2. Decisions regarding further imaging, treatment or biopsy should be based on the clinical exam, as not all abnormalities are detectable on ultrasound studies. Dictated By: Elana Jc MD Signed By: <Electronically signed by Elana Jc MD in OV> 01/03/241925 DD/ 1429 TD/TT: Newspaper Manager: Procedure Note Donotuseinterpreter, Image - 01/03/[address] [address] Ultrasound Report Signed Patient: Luann Wellington LMR#: [id number] : 1980Acct:[id number] Age/Sex: 43 / FADM Date: 01/02/24 Loc: HO.US Attending Dr: Tung Kelyl MD Ordering Physician: Tung Watts MD Date of Service: 01/02/24 Procedure(s): US extremity nonvascular Accession Number(s): [id number] cc: Zenaida Allen MD; Tung Watts MD EXAMINATION: US UPPER EXTREMITY, NONVASCULAR, RIGHT CLINICAL INFORMATION: Right mid axillary lump. COMPARISON: None available. TECHNIQUE: Targeted ultrasound images were obtained by the casting inspector of the area of concern as indicated by the patient in the right axilla. Radiologist was not in attendance. Images were later provided for interpretation. FINDINGS: No bulky adenopathy or fluid collection identified in the area of concern indicated by the patient to the casting inspector in the right axilla. US/US extremity nonvascular IMPRESSION: 1. No bulky adenopathy or fluid collection identified in the area of concern indicated by the patient to the casting inspector in the right axilla. 2. Decisions regarding further imaging, treatment or biopsy should be based on the clinical exam, as not all abnormalities are detectable on ultrasound studies. Dictated By: Elana Jc MD Signed By: <Electronically signed by Elana Jc MD in OV> 01/03/24 1926 DD/ 1429 TD/TT: Newspaper Manager: us Tung Kelly MD IMG US PROCEDURES Final Result documented in this encounter Visit Diagnoses Diagnosis Lump in armpit, right- Primary documented in this encounter Additional Health Concerns Assessment Noted Time PHQ-9 Depression Total Score: 0 06/07/20 23 3:39 PM EDT documented as of this encounter Care Teams Vp Software Engineering Relationship Specialty Start Date End Date Zenaida Allen MD [address] [place] [address] PCP - General Family Medicine 01/10/19 documented as of this encounter
--- OUTSIDE RECORDS SUMMARY | 2025-05-30 13:12 | XMS_ITS | Data Portability ---
Author Organization [place] [facility], [facility] Address [address] [place] [address] Care Team Providers Care Truck Guard Name Role Phone KIA KEE Party Bus Driver [phone] Assessment No assessment recorded. Plan of Treatment Reminders Order Date Submit Date Provider Last Modified By Organization Details Last Modified Time Details Appointments None recorded. Lab None recorded. Referral occupatio nal therapist referral - Diagnosis : rt wrist/for earm strain Custom molded orthosis: none Treatment : ROM, edema control 2023 024 rmessenger Not [...] ction study No observ ation record ed. [facility] [address], [address], 07/04/2024 11:44:39 07/03/20 24 07/03/2024 elect romyo gram + nerve condu ction study No observ ation record ed. [facility] [address], [address], 07/04/2024 11:44:40 Result Notes None recorded. Medical Equipment None Reported. Allergies Allergen ID Allergen Name Allergen Category Reaction Reaction Severity Criticality Documentation Date Start Date Code Code System Note Provider Name and Address Organization Details Recorded Time 46534 shrimp allergeni c extract food Not available Not available Not available 01/15/20242021 13712 2 RxNorm Not Available [facility] 11:09:53 Medications Name Sig Start Date Stop [...] Updated DateTime 04/09/2024 152.4 cm 25.4 kg/m2 29942.01 [facility] 04/09/2024 15:07:30 Date Recorded Body height Body mass index (BMI) Body weight Provider Name and Address Organization Details Last Updated DateTime 07/19/2024 152.4 cm 25.4 kg/m2 62654.01 fela [facility] 07/19/2024 13:42:05 Social History None recorded. Functional Status None recorded. Mental Status None recorded. Family History Nothing Reported. Medical History No medical history recorded. Gynecological HistoryNo gynecological history recorded. 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 2816953070 49726 G56.01 [id number] John Cifuentes MD [facility] [address] [address] [place] [address] 07/19/2024 13:29:00 08/12/2024 17:55:56 Pain in right arm 933630699 M79.601 Health Concerns Section Related Observation LastModified by Organization Detai ls LastModified Time None Recorded Concern Status LastModified by Organization Details LastModified Time None Recorded Advance Directives Directive None Recorded Payers Insurance Date Sequence Insurance Name Policy Number Policy Walter Covered Member ID Walter Member ID Guarantor Name 04/02/2024 GWYN Ramos Notes Date Note Type Note Provider Name and Address Organization Details Recorded Time 04/09/2024 text/html Diagnosis: Right upper extremity pain possible peripheral nerve [id number] d female who presents with pain that begins in her shoulder and runs to her fingers whenever she is working. This involves the index middle and ring fingers. Pain is sharp and she does not describe numbness and tinglingPast family, medical, social history and review of systems has been reviewed, updated and is located in the patient s chart.Examination: Healthy appearing patient in no [...] and range of motion. John Cifuentes MD [address] [place] [address], [place], [address], [facility] 04/10/2024 13:42:05 07/19/2024 text/html Diagnosis: Right upper extremity pain resolvedThe patient returns at our request. Since her last visit she underwent an EMG/NCS of her right upper extremity. She reports that her pain is almost completely resolved.Past family, medical, social history and review of systems has been reviewed, updated and is located in the patient s chart.Examination: Healthy appearing patient in no [...] up at her discretion. John Cifuentes MD [address] [facility] [address], [place], [address], [facility] 07/19/2024 13:48:54 OBGyn Episode No OBEpisode recorded.
--- OUTSIDE RECORDS SUMMARY | 2025-05-30 13:12 | XMS_ITS | Patient Health Record ---
Author Organization [facility] Address [address] [place] [address] Care Team Providers Care Animal Pathology Teacher Name Role Phone Chris GRDIER, Igor Primary Care Provider Jose Patiño Unavailable [phone] Reason For Referral No Information Medications Medication SIG (Take, Route, Frequency, Duration) Notes Start Date End Date Status Hyoscyamine Sulfate 0.125 MG 1 or 2 tablets Orally TID prn abdominal pain for 30 days 12/02/2011 11/13/2024 Active Social History Tobacco Use: Social History Observation Description Date Details (start date - stop date) Never Smoker NA - NA Tobacco Use/Smoking Question Answer Notes Patient is a nonsmoker Section Notes: She does not smoke nor use a ny significant amounts of alcohol Problems Problem Type SNOMED Code ICD Code Onset Dates Problem Status W/U Status Risk Notes Problem Constipation (27362973) Unspecified constipation (564.00) Active confirmed Problem Irritable bowel syndrome (11571257) Irritable bowel syndrome (564.1) Active confirmed Problem Vomiting (145061224) Vomiting alone (787.03) Active confirmed Problem Left lower quadrant pain (711828355) Abdominal pain, left lower quadrant (789.04) Active confirmed Plan Of Treatment No Information Insurance Providers Payer Name Payer Address Payer Phone Subscriber Number Group Number Insured Name Patient Relationship to Insured Coverage Start Date Coverage End Date [facility] Plan [address] [address] [place], [place] [id number] ROSALIA MUNSON Self - patient is the insured [employer] OF [facility] [address] [place] [address] [id number] ROSALIA MUNSON Self - patient is the insured Medical (General) History Medical History History ICD Code anemia Denies [place],DM,CVA,Lung disease,renal dise ase Surgical History Surgery Date(Month/Year) as per previous records, no new surgical history
--- NOTE | 2025-05-30 13:16 | MHC.OFFVIS ---
Vital Signs 05/30/25 13:19 Height 5 ft Weight 119 lb 0.794 oz BMI 23.2 BP 112/57 L Blood Pressure Location Lt brachial Position Sitting Pulse 69 Intake Visit Reasons: discuss labs Intake Note: Luann presents in the office as a follow up to go over results to her blood work. CC: She is here for the results. Assembly Line Robot Operator Required: Yes Allergies shrimp Allergy (Severe, Verified 05/30/25 13:19) MOUTH SWELLING No Known Drug Allergies Allergy (Unknown, Verified 05/30/25 13:19) none Seasonal Allergies Allergy (Verified 05/30/25 13:19) Itchy Eyes HPI HPI discuss labs: Details: Assessment & Plan (1) Pre-op examination: Code(s): Z01.818 - Encounter for other preprocedural examination Category: Medical (2) Irritable bowel syndrome with constipation: Code(s): K58.1 - Irritable bowel syndrome with constipation Category: Medical (3) Bleeding hemorrhoids: Code(s): K64.9 - Unspecified hemorrhoids Category: Medical Plan She is here today for her repeat colonoscopy since she did not clear a year ago and for crc screening. She vomited the go lytely it tasted nasty, so will try for Suprpep and 2 bisacodyl 3 days prior to assure clearance. She is doing well. The only thing she asks if for a fiber in water that is orange flavored. I am unsure if insurance pays for this, will try sending CItrucle as I also am unsure which is orange flavored. NO anes or sed problesm. No ID problems. NO cardiac or respiratory problems. No known FHX cr cor polyps but there is Crohns disease Orders: Orders Colonoscopy - GI Use Only 04/30/25 Comprehensive Met. Panel 04/30/25 Z01.818 - Encounter for other preprocedural examination Complete Blood Count Auto Diff 04/30/25 Z01.818 - Encounter for other preprocedural examination Medications: New sodium,potassium,mag sulfates 17.5-3.13-1.6 gram (Suprep Bowel Prep Kit) 480 mL orally; FOR COLONOSCOPY PREP 354 mL 0RF bisacodyl (Dulcolax (bisacodyl)) take 2 qhs for 3 days prior to colonoscopy for prep orally bedtime; 8 tabs 0RF 2 days methylcellulose (laxative) (Citrucel Sugar Free oral powder) 2 grams PO BID 907 grams 6RF K58.1 - Irritable bowel syndrome with constipation, K64.9 - Unspecified hemorrhoids LABS; Laboratory Tests 04/30/25 16:23 WBC 4.8 Hgb 10.8 L Hct 33.6 L MCV 76.0 L MCH 24.4 L MCHC 32.1 Plt Count 322 Estimated GFR > 60 Total Bilirubin 0.1 AST 16 ALT 12 Alkaline Phosphatase 113 COLONOSCOPY BIOPSY TODAYS VISIT Estonian #[id number] She had requested this appt to review her pre op labs. She was concerned about the high report of her BUN, anion gap, and GFR - I explain that these things are not significant to her health - except that she likely needed to drink more water. She DOes have anemia and heavy menses r/t fibroids. SHe will start iron gummies. [facility], [facility] Medical History Diarrhea IBS (irritable bowel syndrome) Esophagitis Chronic gastritis with bleeding Family planning education, guidance, and counseling Abnormal x-ray of thoracic spine Abnormal x-ray of thoracic spine Sleep disorder Uses control Cervical cancer screening Well woman exam with routine gynecological exam Surgical History Hx of colonoscopy History of esophagogastroduodenoscopy (EGD) Family History Father Cirrhosis of liver Cancer Liver transplanted Mother Apnea Paternal Grandfather Cancer Social History Household Members: Spouse Household Members Other:: son Housing: Apartment Alcohol intake: never Patient Tobacco Use Status: Never used Tobacco Current occupational status: employed Current occupation: [employer] and paid Sexual orientation: Straight/Heterosexual Gender identity: Female Female Reproductive History Menstrual Age of Menarche: 12 Review of Systems Const Denies fatigue, Denies fever(s), Denies night sweats, Denies poor appetite and Denies weight loss ENT Reports Normal hearing present, Denies dental pain, Denies dysphagia, Denies hearing loss, Denies mouth pain, Denies odynophagia, Denies throat swelling, Denies tongue swelling and Reports other (Dentition adequate) Card Reports no additional complaints Resp Reports no additional complaints GI Details: Denies abdominal pain, Denies melena, Denies bloating, Denies hematochezia, Denies constipation, Denies GI cramping, Denies dysphagia, Denies excessive flatus, Denies early satiety, Denies heartburn, Denies diarrhea, Denies nausea, Denies odynophagia, Denies vomiting and Denies hematemesis Skin/Breast Denies pruritus, Denies lesions, Denies rash and Denies jaundice Neuro Reports Normal hearing present and Denies Abnormal speech present Endo Denies fatigue Aller/Immun Denies throat swelling and Denies tongue swelling Physical Exam Vital Signs: Last Vital Signs Pulse 69 05/30/25 13:19 BP 112/57 L 05/30/25 13:19 BMI result Body Mass Index 23.2 Const General: cooperative, no acute distress, well developed and well groomed Nutritional Appearance: well nourished Orientation/consciousness: oriented to person, oriented to place and oriented to time Limitations: language barrier HEENT Head: Yes normocephalic and Yes atraumatic Eyes General: appearance normal, both eyes and all related structures Pupils: Equal, round and reactive pupils present Neck Neck: Yes normal visual inspection and Yes no lymphadenopathy Thyroid: Thyroid normal Resp Effort & Inspection: normal respiratory effort and able to speak in complete sentences Auscultation: clear to auscultation bilaterally Cardio Rate: regular rate Rhythm: regular rhythm Heart sounds: Normal, physiologic split S2 sound present Peripheral pulses: radial pulses present and posterior tibial pulses present GI Inspection: No distended and No Abdominal panniculus present Palpation (GI): Soft to palpation, nontender, no guarding, not rigid and No hepatosplenomegaly present Percussion: Yes normal to percussion Auscultation: normal bowel sounds Rectal Exam - Female: deferred Skin General skin exam: no rashes or lesions noted, turgor normal, skin not dry, no jaundice, No spider nevi and no striae Rashes: no rashes Nails: normal Neuro General: oriented to person, oriented to place and oriented to time Cranial nerves: Yes Equal, round and reactive pupils present and Yes Normal hearing present Speech: No Abnormal speech present Extrem General: Yes normal to inspection, No clubbing, No cyanosis and No edema Psych Appearance: grossly normal and well kempt Mental Status: mental status grossly normal Speech and movement: Normal speech and movement present Affect: normal affect Attitude: cooperative Thought process: Normal thought process present and not confabulating Thought content: Normal thought content present Insight: Fair insight present (Psych) Judgement: Fair judgement present (Psych) Assessment & Plan Assessment & Plan (1) Irritable bowel syndrome with constipation: Code(s): K58.1 - Irritable bowel syndrome with constipation Category: Medical (2) GERD (gastroesophageal reflux disease): Code(s): K21.9 - Gastro-esophageal reflux disease without esophagitis Category: Medical (3) Hepatic steatosis: Comment: BASELINE LABS 05/09/2406/ 16:0907:1415:08 C-Reactive Protein 2.38 H 1.40 H Stool Calprotectin 80 Hepatitis A IgM Ab Nonreactive Hep Bs Antigen Negative Hep Bs Antibody NONREACTIVE Hep B Core Total Ab Nonreactive Hepatitis C Ab (EIA) Nonreactive 16:09 Plt Count 377 Total Bilirubin 0.1 AST 10 ALT 6 Alkaline Phosphatase 98 CURRENT LABS US OF ABD 06/05/24 FINDINGS: PANCREAS: Limited visualization of pancreatic tail and head. Imaged portion of pancreatic body is unremarkable. ABDOMINAL AORTA: Nonaneurysmal INFERIOR VENA CAVA: Visualized portions are normal. LIVER: Hepatic contour is normal. Liver is normal in size. Mildly increased hepatic parenchymal heterogeneity and echogenicity could be associated with hepatocellular disease/hepatic steatosis and substantially limits visualization. Correlation with liver function tests and clinical exam recommended to determine further management. GALLBLADDER: No gallstones. No gallbladder wall thickening. COMMON BILE DUCT: Normal in caliber measuring 0.23 cm in diameter. RIGHT KIDNEY: No hydronephrosis. No renal calculi. Limited visualization. . The kidney measures 10.5 cm in maximum dimension. LEFT KIDNEY: No hydronephrosis. No renal calculi. Limited visualization. The kidney measures 9.3 cm in maximum dimension. SPLEEN: Normal. The spleen measures 10.6 cm in maximum dimension. FREE FLUID: None. US/US abdomen complete IMPRESSION: Mildly increased hepatic parenchymal heterogeneity and echogenicity could be associated with hepatocellular disease/hepatic steatosis and substantially limits visualization. Correlation with liver function tests and clinical exam recommended to determine further management. This study was presented today June 05, 2024 for interpretation. Stat results provided at this time as requested by referring provider. Code(s): K76.0 - Fatty (change of) liver, not elsewhere classified Category: Medical Plan Estonian #[id number] She had requested this appt to review her pre op labs. She was concerned about the high report of her BUN, anion gap, and GFR - I explain that these things are not significant to her health - except that she likely needed to drink more water. She DOes have anemia and heavy menses r/t fibroids. SHe will start iron gummies. Coding Level of Care Code Est Pt Level 3 (64666) Diagnoses Irritable bowel syndrome with constipation K58.1 GERD (gastroesophageal reflux disease) K21.9 Hepatic steatosis K76.0
[2025-05-30 13:19] VITALS: BP 112/57; PULSE 69; BMI 23.2
== END 2025-05-30 13:42 | disposition home or self-care (01) ==
LOC: HO.HGI 13:10
PROVIDERS: PCP Internal Medicine; Visit Provider Nurse Practitioner
DX: K58.1 Irritable bowel syndrome with constipation (principal); K21.9 Gastro-esophageal reflux disease without esophagitis; K76.0 Fatty (change of) liver, not elsewhere classified
CPT/HCPCS: 99213

== ENCOUNTER → 2025-05-30 13:09 | Outpatient (BNVA) | payer MEDICAID, SELFPAY | PROVIDERS: PCP Internal Medicine; Visit Provider Nurse Practitioner | DX: K58.1 Irritable bowel syndrome with constipation (principal); K21.9 Gastro-esophageal reflux disease without esophagitis; K76.0 Fatty (change of) liver, not elsewhere classified | CPT/HCPCS: 99212 ==

== ENCOUNTER 2025-07-31 14:30 | Outpatient (REF) | payer MEDICAID, SELFPAY ==
--- OUTSIDE RECORDS SUMMARY | 2025-07-31 13:45 | XMS_ITS | Encounter Summary ---
Author Organization [employer] Address [address] [facility] 7t [place] [address] Care Team Providers Care Therapy Coordinator Name Role Phone Zenaida Allen MD Primary Care Provide r Encounter Details Date Type Department Care Team ([facility] st Contact Info) Description 07/31/2025 1:45 PM EDT Office Visit [facility] MEDICINE [address] [place], [place] [phone] Zenaida Allen MD [address] [place], [place] [phone] Iron deficiency anemia, unspecified iron deficiency anemia type (Primary Dx); Muscle spasm Social History Tobacco Use Types Packs/Day Years Used Date Smoking Tobacco: Never Passive Smoke Exposure: Never Smokeless Tobacco: Never Alcohol Use Standard Drinks/Week Comments Never 0 (1 standard drink = 0.6 oz pur e alcohol) Depression Answer Date Recorded Patient Health Questionnaire-9 Score 0 03/25/2025 Patient Health Questionnaire-9 Score 0 03/25/2025 Last PHQ-9: Questionnaire Data Not on file 0 03/25/2025 Housing Stability Answer Date Recorded What is your housing situation today? I have danikacesar reilly 12/24/[address] you [...] Date Recorded Patient Health Questionnaire-2 Score 0 03/25/2025 Internet Access Answer Date Recorded Internet Access [...] AM EDT documented as of this encounter Last Filed Vital Signs Vital Sign Reading Time Taken Comments Blood Pressure 117/78 07/31/2025 1:51 PM EDT Pulse 86 07/31/2025 1:51 PM EDT Temperature 36.8 C (98.3 F) 07/31/2025 1:51 PM EDT Respiratory Rate 17 07/31/2025 1:51 PM EDT Oxygen Saturation 97% 07/31/2025 1:51 PM EDT Inhaled Oxygen Concentration - - Weight 56.7 kg (125 lb) 07/31/2025 1:51 PM EDT Height 152.4 cm (5') 07/31/2025 1:51 PM EDT Body Mass Index 24.41 07/31/2025 1:51 PM EDT documented in this encounter Plan of Treatment Upcoming Encounters Date Type Department Care Team (Late st Contact Info) Description 08/27/2025 3:00 PM EDT Office Visit [facility] ADULT DENTAL [address] [place] [address] Marv Yanceyaris [address] [place] [address] Scheduled Orders Name Type Priority Associated Diagnoses Orde r Schedule CBC auto differential Lab Routine Iron deficiency anemia, unspecified iron deficiency anemia type Expected: 07/31/2025 (Approximate), Expires: 07/31/2026 Iron And Total Iron Binding Capacity Lab Routine Iron deficiency anemia, unspecified iron deficiency anemia type Expected: 07/31/2025, Expires: 07/31/2026 Ferritin Lab Routine Iron deficiency anemia, unspecified iron deficiency anemia type Expected: 07/31/2025, Expires: 07/31/2026 Vitamin B12 (Cobalamin) and Folate Panel, Serum Lab Routine Iron deficiency anemia, unspecified iron deficiency anemia type Expected: 07/31/2025, Expires: 07/31/2026 documented as of this encounter Visit Diagnoses Diagnosis Iron deficiency anemia, unspecified iron deficiency anemia type- Primary Muscle spasm Spasm of muscle documented in this encounter Additional Health Concerns Assessment Noted Time PHQ-9 Depression Total Score: 0 03/25/20 25 3:08 PM EDT documented as of this encounter Care Teams Therapy Coordinator Relationship Specialty Start Date End Date Zenaida Allen MD [address] [place] [address] PCP - General Family Medicine 01/10/19 documented as of this encounter
[2025-07-31 16:14] LABS: MANUAL DIFF FLAG NO
--- OUTSIDE RECORDS SUMMARY | 2025-07-31 16:16 | XMS_ITS | Encounter Summary ---
Author Organization [employer] Address [address] [facility] 7t [place] [address] Care Team Providers Care Plasterer Rough Name Role Phone Zenaida Allen MD Primary Care Provide r Encounter Details Date Type Department Care Team (Latest Contact Info) Description 07/31/2025 Travel Social History Tobacco Use Types Packs/Day Years [...] Description 08/27/2025 3:00 PM EDT Office Visit [facility] ADULT DENTAL [address] [place] [address] Bc, Trini [address] [place] [address] documented as of this encounter Visit Diagnoses Not on filedocumented in this encounter Additional Health Concerns Assessment Noted Time PHQ-9 Depression Total Score: 0 03/25/20 25 3:08 PM EDT documented as of this encounter Care Teams Plasterer Rough Relationship Specialty Start Date End Date Zenaida Allen MD [address] [place] [address] PCP - General Family Medicine 01/10/19 documented as of this encounter
--- OUTSIDE RECORDS SUMMARY | 2025-07-31 16:16 | XMS_ITS | Encounter Summary ---
Author Organization [employer] Address [address] [facility] [address] [place] [address] Care Team Providers Care Courier Name Role Phone Zenaida Allen MD Primary Care Provide r Encounter Details Date Type Department Care Team (Latest Contact Info) Description 01/27/2021 Abstract [facility] CONVERSIONS Dental, Provider, DDS Social History Tobacco [...] Description 08/27/2025 3:00 PM EDT Office Visit [facility] ADULT DENTAL [address] [place] [address] Bc, Trini [address] [place] [address] documented as of this encounter Visit Diagnoses Not on filedocumented in this encounter Care Teams Courier Relationship Specialty Start Date End Date Zenaida Allen MD [address] [place] [address] PCP - General Family Medicine 01/10/19 documented as of this encounter
--- OUTSIDE RECORDS SUMMARY | 2025-07-31 16:16 | XMS_ITS | Encounter Summary ---
Author Organization [employer] Address [address] [facility] 7[address] [place] [address] Care Team Providers Care Range Technician Name Role Phone Zenaida Allen MD Primary Care Provide r Reason for Visit * Reason Onset Date Comments Request For Order(s) 11/09/2023 Encounter Details Date Type Department Care Team ([facility] Contact Info) Description 11/09/2023 Telephone [facility] MEDICINE [address] [place] [address] Zenaida Allen MD [address] [place], [place] [phone] Request For Order(s) Social History Tobacco Use [...] EST Tc from pt was [place] [facility] [place] extremity Non vascular needs to be US to the breast. documented in this encounter Plan of Treatment Upcoming Encounters Date Type Department Care Team (Late st Contact Info) Description 08/27/2025 3:00 PM EDT Office Visit [facility] ADULT DENTAL [address] [place] [address] Bc, Trini [address] [place] [address] documented as of this encounter Visit Diagnoses Not on filedocumented in this encounter Additional Health Concerns Assessment Noted Time PHQ-9 Depression Total Score: 0 06/07/20 23 3:39 PM EDT documented as of this encounter Care Teams Range Technician Relationship Specialty Start Date End Date Zenaida Allen MD [address] [place] [address] PCP - General Family Medicine 01/10/19 documented as of this encounter
--- OUTSIDE RECORDS SUMMARY | 2025-07-31 16:16 | XMS_ITS | Encounter Summary ---
Author Organization [employer] Address [address] [facility] [address] [place] [address] Care Team Providers Care Real Estate Marketing Coordinator Name Role Phone Zenaida Allen MD Primary Care Provide r Encounter Details Date Type Department Care Team (Latest Contact Info) Description 07/08/2022 Abstract [facility] CONVERSIONS Dental, Provider, DDS Social History Tobacco [...] Description 08/27/2025 3:00 PM EDT Office Visit [facility] ADULT DENTAL [address] [place] [address] Bc, Trini [address] [place] [address] documented as of this encounter Visit Diagnoses Not on filedocumented in this encounter Care Teams Real Estate Marketing Coordinator Relationship Specialty Start Date End Date Zenaida Allen MD [address] [place] [address] PCP - General Family Medicine 01/10/19 documented as of this encounter
--- OUTSIDE RECORDS SUMMARY | 2025-07-31 16:16 | XMS_ITS | Encounter Summary ---
Author Organization [employer] Address [address] [facility] [address] [place] [address] Care Team Providers Care Home Hospice Aide Name Role Phone Zenaida Allen MD Primary Care Provide r Reason for Visit * Reason Onset Date Comments Results 06/06/2024 Encounter Details Date Type Department Care Team ([facility] st Contact Info) Description 06/06/[address] [facility] MEDICINE [address] [place] [address] Zenaida Allen MD [address] [place] [address] Results Social History Tobacco Use Types Packs/Day [...] - 06/06/2024 3:42 PM EDT Ordered by [facility] February Mejia. TC returned to pt. And advised pt. To call their office forresults.Pt. Reports she received results via [employer] and already called [facility] to discuss however they advised would have to wait to f/up appt. In June. Pt. Would like to discuss sooner. Advised pt. Results only showed mild fatty liver, no other concerning findings that can not wait until June for f/up. Reviewed dietary changes and increase physical activity as tolerated. Also reviewed pt.'s recent CBC results ordered by [facility] showing slightly low hemoglobin 11.2) at pt.'s baseline. Pt. Verbalizesunderstanding. Pt is requesting internal referral to billet grinder, please place if agreeable thank you! * Telephone Encounter - Cari Matthews - 06/06/2024 3:32 PM EDT Tc from pt requesting a call back with US results from 05/17 Sami speaker documented in this encounter Plan of Treatment Upcoming Encounters Date Type Department Care Team (Late st Contact Info) Description 08/27/2025 3:00 PM EDT Office Visit [facility] ADULT DENTAL 230 [place] [address] Trini Yancey [address] [place] [address] documented as of this encounter Visit Diagnoses Not on filedocumented in this encounter Additional Health Concerns Assessment Noted Time PHQ-9 Depression Total Score: 0 06/07/20 23 3:39 PM EDT documented as of this encounter Care Teams Home Hospice Aide Relationship Specialty Start Date End Date Zenaida Allen MD [address] [place] [address] PCP - General Family Medicine 01/10/19 documented as of this encounter
--- OUTSIDE RECORDS SUMMARY | 2025-07-31 16:16 | XMS_ITS | Encounter Summary ---
Author Organization [employer] Address [address] [facility] 7t [place] [address] Care Team Providers Care Before School Name Role Phone Zenaida Allen MD Primary Care Provide r Encounter Details Date Type Department Care Team (Late st Contact Info) Description 12/12/2022 Orders Only [facility] [address] [place] [address] Teresa Santos MD [address] [place] [address] Skin tags, multiple acquired (Primary Dx) Social [...] Description 08/27/2025 3:00 PM EDT Office Visit [facility] ADULT D[facility] [address] [place] [address] Trini Yancey [address] [place] [address] documented as of this encounter Visit Diagnoses Diagnosis Skin tags, multiple acquired- Primary documented in this encounter Care Teams Before School Relationship Specialty Start Date End Date Zenaida Allen MD [address] [place] [address] PCP - General Family Medicine 01/10/19 documented as of this encounter
--- OUTSIDE RECORDS SUMMARY | 2025-07-31 16:16 | XMS_ITS | Encounter Summary ---
Author Organization [employer] Address [address] [facility] [address], [place] [address] Care Team Providers Care Secretary To Board Of Commissioners Name Role Phone Zenaida Allen MD Primary Care Provide r Reason for Referral * Imaging (Routine) - Closed Specialty Diagnoses / Procedures Referred By Contac t Referred To Contact Radiology Diagnoses Lump in armpit, right Procedures US Extremity Non Vascular Tung Watts MD [address] [place] [address] Phone: tel: fax: [address] Phone: tel: fax: Referral ID Status Reason Start Date Expiration Date Visits Re quested Visits Authorized [id number] Closed 10/25/2023 10/24/2024 1 1 Encounter Details Date Type Department Care Team (Late st Contact Info) Description 10/25/2023 Orders Only [facility] [address] [place], [place] [phone] Tung Watts MD [address] [place] [address] Lump in armpit, right (Primary Dx) Social [...] Description 08/27/2025 3:00 PM EDT Office Visit [facility] ADULT DENTAL [address] [place] [address] Bc, Trini [address] [place] [address] documented as of this encounter Procedures Procedure Name Priority Date/Time Associated Diagnosis Comments US EXTREMITY NON-VASCULAR Routine 01/02/2024 2:29 PM EST Lump in armpit, right documented in this encounter Results * US Extremity Non Vascular (01/02/2024 2:29 PM EST) Anatomical Region Laterality Modality Ultrasound 01/02/2024 2:29 PM EST Narrative 01/03/2024 7:30 PM EST [address] [address] Ultrasound Report Signed Patient: Luann Wellington MR#: [id number] : 1980 Acct:[id number] Age/Sex: 43 / F ADM Date: 01/02/24 Loc: HO.US Attending Dr: Tung Kelly MD Ordering Physician: Tung Watts MD Date of Service: 01/02/24 Procedure(s): US extremity nonvascular Accession Number(s): [id number] cc: Zenaida Allen MD; Tung Watts MD EXAMINATION: US UPPER EXTREMITY, NONVASCULAR, RIGHT CLINICAL INFORMATION: Right mid axillary lump. COMPARISON: None available. TECHNIQUE: Targeted ultrasound images were obtained by the tutoring assistant of the area of concern as indicated by the patient in the right axilla. Radiologist was not in attendance. Images were later provided for interpretation. FINDINGS: No bulky adenopathy or fluid collection identified in the area of concern indicated by the patient to the tutoring assistant in the right axilla. US/US extremity nonvascular IMPRESSION: 1. No bulky adenopathy or fluid collection identified in the area of concern indicated by the patient to the tutoring assistant in the right axilla. 2. Decisions regarding further imaging, treatment or biopsy should be based on the clinical exam, as not all abnormalities are detectable on ultrasound studies. Dictated By: Elana Jc MD Signed By: <Electronically signed by Elana Jc MD in OV> 01/03/24 1926 DD/ 1429 TD/TT: Wearing Apparel Shaker: Procedure Note Donotuseinterpreter, Image - 01/03/[address] [address] Ultrasound Report Signed Patient: Luann Wellington LMR#: [id number] : 1980Acct:[id number] Age/Sex: 43 / FADM Date: 01/02/24 Loc: HO.US Attending Dr: Tung Kelly MD Ordering Physician: Tung Watts MD Date of Service: 01/02/24 Procedure(s): US extremity nonvascular Accession Number(s): [id number] cc: Zenaida Allen MD; Tung Watts MD EXAMINATION: US UPPER EXTREMITY, NONVASCULAR, RIGHT CLINICAL INFORMATION: Right mid axillary lump. COMPARISON: None available. TECHNIQUE: Targeted ultrasound images were obtained by the tutoring assistant of the area of concern as indicated by the patient in the right axilla. Radiologist was not in attendance. Images were later provided for interpretation. FINDINGS: No bulky adenopathy or fluid collection identified in the area of concern indicated by the patient to the tutoring assistant in the right axilla. US/US extremity nonvascular IMPRESSION: 1. No bulky adenopathy or fluid collection identified in the area of concern indicated by the patient to the tutoring assistant in the right axilla. 2. Decisions regarding further imaging, treatment or biopsy should be based on the clinical exam, as not all abnormalities are detectable on ultrasound studies. Dictated By: Elana Jc MD Signed By: <Electronically signed by Elana Jc MD in OV> 01/03/24 1926 DD/ 1429 TD/TT: Wearing Apparel Shaker: us Tung Kelly MD IMG US PROCEDURES Final Result documented in this encounter Visit Diagnoses Diagnosis Lump in armpit, right- Primary documented in this encounter Additional Health Concerns Assessment Noted Time PHQ-9 Depression Total Score: 0 06/07/20 23 3:39 PM EDT documented as of this encounter Care Teams Secretary To Board Of Commissioners Relationship Specialty Start Date End Date Zenaida Allen MD [address] [place] [address] PCP - General Family Medicine 01/10/19 documented as of this encounter
--- OUTSIDE RECORDS SUMMARY | 2025-07-31 16:17 | XMS_ITS | Encounter Summary ---
Author Organization [employer] Address [address] [facility] 7t [place] [address] Care Team Providers Care Restaurant Delivery Driver Name Role Phone Zenaida Allen MD Primary Care Provide r Reason for Visit * Reason Onset Date Comments Referral 10/22/2024 Encounter Details Date Type Department Care Team ([facility] st Contact Info) Description 10/22/2024 Telephone [facility] MEDICINE [address] [place] [address] Zenaida Allen MD [address] [place] [address] Referral Social History Tobacco Use Types Packs/Day [...] herhair. RN advised pt to come to [facility] for concerns d/t no available appt with PCP, RN did offer appt with [facility] but pt will be away on vacation. Pt declined and wants to wait for an appt with PCP, Please set up pt with an appt when recall opebns after 3pm thank you Tc from pt requesting a referral to a yarder boss. Please call to clarify. * Telephone Encounter - Ashely Larkin - 10/22/2024 10:15 AM EST Tc from pt requesting a referral to a yarder boss. Please call to clarify. documented in this encounter Plan of Treatment Upcoming Encounters Date Type Department Care Team (Late st Contact Info) Description 08/27/2025 3:00 PM EDT Office Visit [facility] ADULT DENTAL [address] [place], [place] [phone] Bc Trini [address] [place] [address] documented as of this encounter Visit Diagnoses Not on filedocumented in this encounter Additional Health Concerns Assessment Noted Time PHQ-9 Depression Total Score: 0 06/07/20 23 3:39 PM EDT documented as of this encounter Care Teams Restaurant Delivery Driver Relationship Specialty Start Date End Date Zenaida Allen MD [address] [place] [address] PCP - General Family Medicine 01/10/19 documented as of this encounter
--- OUTSIDE RECORDS SUMMARY | 2025-07-31 16:17 | XMS_ITS | Clinical Summary ---
Author Organization [employer] Address [address] [facility] 7[address] [place] [address] Care Team Providers Care Coloring Machine Operator Name Role Phone Zenaida Allen MD Primary Care Provide r Allergies Active Allergy Reactions Criticality Noted Date Comments Germanium 12/24/2024 Shellfish-Derived Products Medications sodium chloride ([place]) 0.65 % nasal spray apply every 8 hrs as needed 06/12/20 20 Active albuterol 108 (90 Base) MCG/ACT inhalerIndicatio ns:Mild intermittent asthma without complication inhale 2 puffs by Inhalation route every 6 hours as needed for shortness of breath 18 g 1 12/19/19 23 Active Blood Pressure Monitor kitIndications:P alpitations Use kit to monitor blood pressure as needed 1 kit 09/18/20 23 Active EPINEPHrine (Epipen) 0.3 MG/0.3ML injection syringeIndicatio ns:Hx of anaphylactic shock Inject 0.3 mL (0.3 mg) as directed 1 (one) time for 1 dose. Inject into upper leg. Call 911 after use. 1 each 03/25/20 25 Active cetirizine (ZyrTEC) 10 MG tabletIndication s:Seasonal allergies TAKE 1 TABLET (10 MG) BY MOUTH ONCE PER DAY. 90 tablet 1 06/23/20 25 Active lidocaine (Lidoderm) 5 % patchIndications :Muscle spasm Apply 1 patch topically Once per day. Remove & discard patch within 12 hours or as directed by MD. 30 patch 1 07/31/20 25 Active etonogestrel-eth inyl estradiol (NuvaRing) 0.12-0.015 MG/24HR vaginal ring Insert 1 each into the vagina. 02/01/20 23 025 Discontinued venlafaxine XR (Effexor XR) 37.5 MG 24 hr capsuleIndicatio ns:Menopause syndrome Take 1 capsule (37.5 mg) by mouth in the morning. Do not crush or chew. 30 capsule 11 12/25/19 24 025 Discontinued Active Problems Problem Noted Date Diagnosed Date Iron deficiency anemia 07/31/2025 Muscle spasm 07/31/2025 Impacted molar 02/17/2025 Symptoms, such as flushing, [...] -pt reports already to be following w APPRENTICE PLANT ATTENDANT for this -advised pt to start iron daily prescribed by her PCP and pt was wondering if ok to take with MVI that she has been taking -pt explained that she can take both -advised to f w PCP in 2 months to monitor CBC ,iron panel -ok to continue metoprolol px by her film painter but if causing any symptoms ok to [...] 10/18/2022 Uterine leiomyoma 07/09/2018 Assessment & Plan (03/25/2025 5:18 PM EDT): Patient is now being followed by bar pointer, she has an appointment for another office I advised not to miss his appointment Assessment & Plan (08/09/2024 4:18 PM EDT): [...] Encounters Date Type Department Care Team Description 07/31/2025 1:45 PM EDT Office Visit [facility] MEDICINE [address] [place] [address] Zenaida Allen MD Iron deficiency anemia, unspecified iron deficiency anemia type (Primary Dx); Muscle spasm 07/31/2025 Travel 06/23/2025 Refill [facility] [address] [place] [address] Zenaida Allen MD Seasonal allergies 04/30/2025 Orders Only GENERIC EXTERNAL DATA DEPARTMENT Provider, Generic External Data from Last 3 Months Immunizations Immunization Administration Dates Next Due DTP 02/21/1985, 1,1980,1979 [...] Mass Index 24.41 07/31/2025 1:51 PM EDT Plan of Treatment Upcoming Encounters Date Type Department Care Team (Late st Contact Info) Description 08/27/2025 3:00 PM EDT Office Visit [facility] ADULT DENTAL [address] [place] [address] Trini Yancey [address] [place] [address] Health Maintenance Due Date Last Done Comments CT Colonography 1980 Colonoscopy 1980 Colorectal Cancer Screening 1980 FIT DNA/Cologuard 1980 FIT 1980 FOBT 1980 Sigmoidoscopy 1980 Disability Screening 1980 Alcohol/Substance Use Screening 1992 Family Planning (PISQ) 1995 HPV Vaccines (1 - 3-dose series) 1995 Hepatitis A Vaccines (1 of 2 - Risk 2-dose series) 1999 Pneumococcal Vaccine: Pediatrics (0 to 5 Years) and At-Risk Patients (6 to 49) Years (1 of 2 - PCV) 1999 Hepatitis B Vaccines (3 of 3 - 3-dose series) 12/01/2010 10/06/2010, 06/11/1997 COVID-19 Vaccine ( - season) 2025 04/06/2021, 03/11/2021 Influenza Vaccine (#1) 2025 , 08/01/2013, 08/14/2012, Additional history exists Dental Oral Exam 08/20/2025 02/17/2025, 06/2024, 07/08/2022, Additional history exists Dental Prophylaxis 08/20/2025 02/17/2025, 0 08/01/2024, 12/21/2023, Additional history exists Mammogram 09/05/2025 09/05/2024, 07/15, 08/11/2023, Additional history exists SDOH Screening 12/24/2025 12/24/2024 Dental X-Ray: Bitewings 02/18/2026 02/18/20 25, 12/21/2023, 07/08/2022, Additional history exists Depression Screening 03/25/2026 03/25/2025, 03/25/20 Tobacco Screening 07/31/2026 07/31/2025 Cervical Cancer Screening 10/18/2027 HPV/Cotest 10/18/2027 10/18/2022 [...] patient's age to complete this topic Meningococcal B Vaccine Aged Out No l onger eligible based on patient's age to complete [...] Procedure Name Priority Date/Time Associated Diagnosis Comments COMPREHENSIVE METABOLIC PANEL Routine 04/30/2025 4:23 PM EDT CBC WITH AUTO DIFFERENTIAL Routine 04/30/2025 4:23 PM EDT PROPHYLAXIS - ADULT Routine 02/17/2025 3 :00 PM EDT Dental calculus PANORAMIC RADIOGRAPHIC IMAGE Routine 02/17/2025 3:00 PM EDT BITEWINGS - 4 RADIOGRAPHIC IMAGES Routine 02/17/2025 3:00 PM EDT Dental calculus PERIODIC ORAL EVALUATION - ESTABLISHED PATIENT Routine 02/17/2025 3:00 PM EDT BI MAMMOGRAM SCREENING TOMOSYNTHESIS BILATERAL Routine 09/05/2024 3:50 PM EDT HEPATITIS PANEL, GENERAL Routine 06/27/2024 3:08 PM EDT PAP SMEAR Routine 02/08/2024 3:47 PM EDT HM PAP/HPV Routine 10/18/2022 HIV 1/2 ANTIGEN/ANTIBODY, FOURTH GENERATION W/RFL Routine 03/16/2022 1:14 PM EDT from Last 3 Months or Most Recently Relevant to Health Maintenance Results * (ABNORMAL) CBC auto differential (04/30/2025 4:23 PM EDT) White Blood Count 4.8 4.8 - 10.8 X10*3/uL [facility] Red Blood Count 4.42 4.20 - 5.50 X10*6/uL [facility] Hemoglobin 10.8(L) 12.0 - 16.0 g/dl [facility] Hematocrit 33.6(L) 37.0 - 47.0 % [facility] Mean Corpuscular Volume 76.0(L) 80.0 - 98.0 fL [facility] Mean Corpuscular Hemoglobin 24.4(L) 27.0 - 33.0 pg [facility] Mean Corpuscular HGB Conc 32.1 31.0 - 35.0 g/dl [facility] Red Cell Distribution Width 13.0 11.0 - 16.0 % [facility] Platelet Count 322 160 - 400 X10*3/uL [facility] Mean Platelet Volume 10.0 9.4 - 12.3 fL [facility] Neutrophils Percent Auto 65.3 45 - 73 % [facility] Imm Gran Pct Auto 0.2 0.0 - 0.4 % [facility] Lymphocytes Percent Auto 26.7 20 - 40 % [facility] Monocytes Percent Auto 6.2 2 - 11 % [facility] Eosinophils Percent Auto 1.2 0 - 4 % [facility] Basophils Percent Auto 0.4 0 - 2 % [facility] NRBC Pct Auto 0.0 0.0 - 0.2 /100WBC [facility] Neutrophils Absolute Auto 3.2 2.0 - 8.3 x10*3/uL [facility] Imm Gran Abs Auto 0.01 0.00 - 0.03 X10*3/uL [facility] Lymphocytes Absolute Auto 1.3 1.2 - 4.9 X10*3/uL [facility] Monocytes Absolute Auto 0.3 0.1 - 1.2 X10*3/uL [facility] Eosinophils Absolute Auto 0.1 0.0 - 0.4 X10*3/uL [facility] Basophils Absolute Auto 0.0 0.0 - 0.2 X10*3/uL [facility] NRBC Abs Auto 0.000 0.0 - 0.012 X10*3/uL [facility] 04/30/2025 4:23 PM EDT 04/30/2025 4:23 PM EDT us Generic External Data Provider LAB BLOOD ORDERAB LES Final Result [facility] [address] [place] [phone] * (ABNORMAL) Comprehensive Metabolic Panel (04/30/2025 4:23 PM EDT) Sodium 138 135 - 145 mmol/L [facility] Potassium 4.0 3.3 - 5.1 mmol/L [facility] Chloride 105 96 - 108 mmol/L [facility] Carbon Dioxide 26 22 - 29 mmol/L [facility] Anion Gap 11(L) 12 - 20 [facility] Urea Nitrogen (BUN) 18(H) 9 - 16 mg/dL [facility] Creatinine, Serum 0.71 0.5 - 1.4 mg/dL [facility] Estimated Glomerular Filt Rate >60 [facility] Comment:Chronic Kidney Disea se: Estimated GFR < 60 mL/min/1.03j1Itolea Kidney Disease: Estimated GFR < 15 mL/min/1.73m2 Glucose 89 60 - 115 mg/dL [facility] Calcium 9.3 8.4 - 10.2 mg/dL [facility] Bilirubin, Total 0.1 0.0 - 1.0 mg/dL [facility] Aspartate Amino Transferase 16 5 - 31 U/L [facility] Alanine Aminotransferase 12 0 - 31 U/L [facility] Total Protein 8.1(H) 6.5 - 8.0 g/dL [facility] Albumin Level 4.4 3.5 - 5.0 g/dL [facility] Alkaline Phosphatase 113 39 - 117 U/L [facility] 04/30/2025 4:23 PM EDT 04/30/2025 4:23 PM EDT us Generic External Data Provider LAB BLOOD ORDERAB LES Final Result [facility] [address] [place] [address] [phone] * BI Mammogram Screening Tomosynthesis Bilateral (09/05/2024 3:50 PM EDT) Anatomical Region Laterality Modality Breast Bilateral Mammography 09/05/2024 3:50 PM EDT Narrative 09/17/2024 8:50 AM [facility] [address] [place] [address] Mammography Report Signed Patient: Luann Wellington MR#: [id number] : 1980 Acct:[id number] Age/Sex: 44 / F ADM Date: 09/05/24 Loc: EDUARDO Attending Dr: Zenaida Leal MD Ordering Physician: Zenaida Allen MD Results: 1Negative Date of Service: 09/05/24 Follow Up: 1 Year From Orig inal Mammogram Procedure(s): MM tomosynthesis screening BI Accession Number(s): [id number] cc: Zenaida Allen MD EXAMINATION: MM SCREENING [...] 09/17/24 0847 DD/ 1550 TD/TT: 09/05/24 1603 Preschool Adviser: Procedure Note Donotuseinterpreter, Image - [facility]17/[facility] [address] [place] [address] Mammography Report Signed Patient: Luann Wellington LMR#: [id number] : 1980Acct:[id number] Age/Sex: 44 / FADM Date: 09/05/24 Loc: HO.MAMMO Attending Dr: Zenaida Leal MD Ordering Physician: Zenaida Allen MDResults: 1Negative Date of Service: 09/05/24Follow Up: 1 Year From Orig inal Mammogram Procedure(s): MM tomosynthesis screening BI Accession Number(s): [id number] cc: Zenaida Allen MD EXAMINATION: MM SCREENING [...] 09/17/24 0847 DD/ 1550 TD/TT: 09/05/24 1603 Preschool Adviser: us Zenaida Leal MD IMG BI PROCEDURES Fin al Result * Hepatitis Panel, General (06/27/2024 3:08 PM EDT) Hepatitis A IgM Nonreactive Nonreactive [facility] Comment:IgM antibodies to MEDELLIN V not detected; does not exclude earlyacute or recovered HAV infection. ~Hepatitis B Surface Antibody NONREACTIVE Nonreactive [facility] Comment:Nonreactive: < 8.00 mIU/mL Hepatitis B Core Antibody Nonreactive Nonreactive [facility] Hepatitis C Antibody Nonreactive Nonreactive [facility] Comment:Antibodies to HCV no t detected; does not exclude early acuteHCV infection. Hepatitis B Surface Ag Negative Negative [facility] 06/27/2024 3:08 PM EDT 06/27/2024 3:08 PM EDT us Generic External Data Provider LAB BLOOD ORDERAB LES Final Result [facility] [address] [place] [address] [phone] * Pap Smear (02/08/2024 3:47 PM EDT) 02/08/2024 3:47 PM EDT 02/09/2024 9:30 AM EDT Vannesa [facility] - 02/18/2024 5:56 PM EDT ----- ------- Name: Luann Wellington Age/Sex: 43/F : 1980 Unit#: [id number] Attend Dr: Cornelia Madden CNM Re02/08/24 Status: DEP REF Location: [facility] Disch: ----- ------- SPEC : [id number] RECD: 02/09/24-929 STATUS: JOHNNY JUNIOR NUM: [id number] URI: 02/08/24-1547 [facility] DR: Cornelia Madden CNM ENTERED: 02/09/24-1020 SP TYPE: Pap Smr OTHR DR: Zenaida Allen MD ORDERED: Pap Smear Interpretation Satisfactory for evaluation. Negative for intraepithelial lesion or malignancy. HPV mRNA E6/E7: NOT DETECTED This assay detects E6/E7 viral messenger RNA (mRNA) from 14 high-risk HPV types (16, 18, 31, 33, 35, 39, 45, 51, 52, 56, 58, 59, 66, 68) HPV testing performed by [employer] [facility], [place], [place]. See reference laboratory portion of the EMR for entire report. Clinical Information LMP: 01/23/24 Previous PAP test: 06/30/2017, WNL Material Received ThinPrep-Cervical Copies To: Zenaida Allen MD [address] [place] [address] Cornelia Madden [address] [place] [address] [place] [phone] ----- ------- Signed (signature on file) Nelly Quinn 02/18/24 1756 ----- ------- END OF REPORT Generic External Data Provider LAB CYTOLOGY PACO RENO Final Result [facility] [address] [place] [phone] [phone] * Hm Pap Smear (10/18/2022) Pap Negative for intraephithelial lesion or malignancy Negative for intraephithelial lesion or malignancy, Other HPV Undetected Undetected, Indeterminate, Quantitative, Not Detected Historical Provider HEALTH MAINTENANCE Final Result * HIV 1/2 ANTIGEN/ANTIBODY,FOURTH GENERATION W/RFL (03/16/2022 1:14 PM EDT) HIV-1/2 ANTIGEN AND ANTIBODIES, 4TH GENERATION W/ REFLEX NON-REACT DELL NON-REACT DELL [facility] Comment: HIV-1 antigen and HIV-1/HIV-2 antibodies were not detected. There is no laboratory evidence of HIV infection. PLEASE NOTE: This information has been disclosed to you from records whose confidentiality may be protected by state law. If your state requires such protection, then the state law prohibits you from making any further disclosure of the information without the specific written consent of the person to whom it pertains, or as otherwise permitted by law. A general authorization for the release of medical or other information is NOT sufficient for this purpose. For additional information please refer to http://education.Genomas/faq/UJP861 (This link is being provided for informational/ educational purposes only.) The performance of this assay has not been clinically validated in patients less than 2 years old. 03/16/2022 1:14 PM EDT Zenaida Leal MD LAB BLOOD ORDERABLES Final Result Performing Organization Address City/State/[facility] Co de Phone Number [facility] Anywhere [address] from Last 3 Months or Most Recently Relevant to Health Maintenance Insurance [facility] C3 [facility] ADULT DENTAL - HSN PARTIAL (MEDICAID) Care Teams Coloring Machine Operator Relationship Specialty Start Date End Date Zenaida Allen MD [address] [place] [phone] PCP - General Family Medicine 01/10/19
[2025-07-31 16:23] LABS: Hematocrit 39.2 % (37.0-47.0); Hemoglobin 12.6 g/dl (12.0-16.0); Imm Gran Abs Auto 0.02 X10*3/uL (0.00-0.03); Imm Gran Pct Auto 0.3 % (0.0-0.4); Lymphocytes Absolute Auto 1.4 X10*3/uL (1.2-4.9); Mean Corpuscular HGB Conc 32.1 g/dl (31.0-35.0); Mean Corpuscular Hemoglobin 24.8 pg (27.0-33.0); Mean Corpuscular Volume 77.0 fL (80.0-98.0); NRBC Abs Auto 0.000 X10*3/uL (0.0-0.012); NRBC Pct Auto 0.0 /100WBC (0.0-0.2); Platelet Count 341 X10*3/uL (160-400); Red Blood Count 5.09 X10*6/uL (4.20-5.50); White Blood Count 5.8 X10*3/uL (4.8-10.8)
[2025-07-31 17:21] LABS: Iron 32 mcg/dL (30-160); Percent Iron Saturation 12 % (15-50); Total Iron Binding Capacity 275 mcg/dL (228-428); Unsaturated Iron Binding 243 ug/dL
[2025-07-31 17:37] LABS: Ferritin 32 ng/mL (10-250)
[2025-07-31 17:48] LABS: Folate 11.6 ng/mL (> or = 4.0); Vitamin B12 470 pg/mL (200-900)
== END 2025-07-31 14:31 | disposition home or self-care (01) ==
LOC: HO.HHCL 14:30
PROVIDERS: PCP Internal Medicine; Visit Provider Internal Medicine
DX: D50.9 Iron deficiency anemia, unspecified (principal)
CPT/HCPCS: 36415; 82607; 82728; 82746; 83540; 85025

== ENCOUNTER 2025-09-11 15:56 | Outpatient (REF) | payer MEDICAID, SELFPAY ==
--- OUTSIDE RECORDS SUMMARY | 2025-09-11 18:15 | XMS_ITS | Encounter Summary ---
Author Organization [employer] Address [address] [facility] [address] [place] [address] Care Team Providers Care Computer System Technician Name Role Phone Zenaida Allen MD Primary Care Provide r Encounter Details Date Type Department Care Team (Latest Contact Info) Description 01/27/2021 Abstract [facility] CONVERSIONS Dental, Provider, DDS Social [...] Care Team (Late st Contact Info) Description 09/17/2025 2:00 PM EST Telemedicine [facility] MEDICINE [address] [place] [phone] Zenaida Allen MD [address] [place] [address] 09/26/2025 3:00 PM EST Office Visit [facility] ADULT DENTAL [address] [place] [address] Gm Cadet DDS [address] [place] [address] 02/26/2026 2:15 PM EDT Office Visit [facility] ADULT DENTAL [address] [place], [place] [phone] Trini Yancey [address] [place] [address] documented as of this encounter Visit Diagnoses Not on filedocumented in this encounter Care Teams Computer System Technician Relationship Specialty Start Date End Date Zenaida Allen MD [address] [place] [address] PCP - General Family Medicine 01/10/19 documented as of this encounter
--- OUTSIDE RECORDS SUMMARY | 2025-09-11 18:15 | XMS_ITS | Encounter Summary ---
Author Organization [employer] Address [address] [facility] [address] [place] [address] Care Team Providers Care Compensation Administrator Name Role Phone Zenaida Allen MD Primary Care Provide r Encounter Details Date Type Department Care Team (Latest Contact Info) Description 07/08/2022 Abstract [facility] CONVERSIONS Dental, Provider, DDS Social History [...] Info) Description 09/17/2025 2:00 PM EST Telemedicine [facility] MEDICINE [address] [place] [phone] Zenaida Allen MD [address] [place] [address] 09/26/2025 3:00 PM EST Office Visit [facility] ADULT DENTAL [address] [place] [address] Gm Cadet DDS [address] [place] [address] 02/26/2026 2:15 PM EDT Office Visit [facility] ADULT DENTAL [address] [place], [place] [phone] Trini Yancey [address] [place] [address] documented as of this encounter Visit Diagnoses Not on filedocumented in this encounter Care Teams Compensation Administrator Relationship Specialty Start Date End Date Zenaida Allen MD [address] [place] [address] PCP - General Family Medicine 01/10/19 documented as of this encounter
--- OUTSIDE RECORDS SUMMARY | 2025-09-11 18:15 | XMS_ITS | Encounter Summary ---
Author Organization [employer] Address [address] [facility] [address] [place] [address] Care Team Providers Care Coil Winding Supervisor Name Role Phone Zenaida Allen MD Primary Care Provide r Encounter Details Date Type Department Care Team ([facility] Contact Info) Description 12/12/2022 Orders Only [facility] MEDICINE [address] [place] [phone] Teresa Santos MD [address] [place] [phone] Skin tags, multiple acquired (Primary Dx) Social [...] Encounters Date Type Department Care Team (Late Contact Info) Description 09/17/2025 2:00 PM EST Telemedicine [facility] MEDICINE [address] [place] [phone] Zenaida Allen MD [address] [place] [address] 09/26/2025 3:00 PM EST Office Visit [facility] ADULT DENTAL [address] [place] [address] Gm Cadet DDS [address] [place] [address] 02/26/2026 2:15 PM EDT Office Visit [facility] ADULT DENTAL [address] [place], [place] [phone] [employer] [address] [place] [address] documented as of this encounter Visit Diagnoses Diagnosis Skin tags, multiple acquired- Primary documented in this encounter Care Teams Coil Winding Supervisor Relationship Specialty Start Date End Date Zenaida Allen MD [address] [place], [place] [phone] PCP - General Family Medicine 01/10/19 documented as of this encounter
--- OUTSIDE RECORDS SUMMARY | 2025-09-11 18:15 | XMS_ITS | Encounter Summary ---
Author Organization [employer] Address [address] [facility] [address] [place] [address] Care Team Providers Care Facility Maintenance Technician Name Role Phone Zenaida Allen MD Primary Care Provide r Reason for Visit * Reason Onset Date Comments Request For Order(s) 11/09/2023 Encounter Details Date Type Department Care Team ([facility] Contact Info) Description 11/09/2023 Telephone [facility] MEDICINE [address] [place] [phone] Zenaida Allen MD [address] [place], [place] [phone] Request For Order(s) Social History Tobacco Use [...] EST Tc from pt was advised by [facility] [place] extremity Non vascular needs to be US to the breast. documented in this encounter Plan of Treatment Upcoming Encounters Date Type Department Care Team (Late st Contact Info) Description 09/17/2025 2:00 PM EST Telemedicine [facility] MEDICINE [address] [place] [address] Zenaida Allen MD [address] [place] [address] 09/26/2025 3:00 PM EST Office Visit [facility] ADULT DENTAL [address] [place] [address] Gm Cadet DDS [address] [place] [address] 02/26/2026 2:15 PM EDT Office Visit [facility] ADULT DENTAL [address] [place] [address] Trini Yancey [address] [place] [address] documented as of this encounter Visit Diagnoses Not on filedocumented in this encounter Additional Health Concerns Assessment Noted Time PHQ-9 Depression Total Score: 0 06/07/20 23 3:39 PM EDT documented as of this encounter Care Teams Facility Maintenance Technician Relationship Specialty Start Date End Date Zenaida Allen MD [address] [place] [address] PCP - General Family Medicine 01/10/19 documented as of this encounter
--- OUTSIDE RECORDS SUMMARY | 2025-09-11 18:15 | XMS_ITS | Encounter Summary ---
Author Organization [employer] Address [address] [facility] [address] [address] Care Team Providers Care Superintendent Recreation Name Role Phone Zenaida Allen MD Primary Care Provide r Reason for Referral * Imaging (Routine) - Closed Specialty Diagnoses / Procedures Referred By Contac t Referred To Contact Radiology Diagnoses Lump in armpit, right Procedures US Extremity Non Vascular Tung Watts MD [address] [place] [address] Phone: tel: fax: [address] Phone: tel: fax: Referral ID Status Reason Start Date Expiration Date Visits Re quested Visits Authorized [id number] Closed 10/25/2023 10/24/2024 1 1 Encounter Details Date Type Department Care Team (Late st Contact Info) Description 10/25/2023 Orders Only [facility] MED [facility] PEDS [address] [place], [place] [phone] Tung Watts MD [address] [place] [address] Lump in armpit, right (Primary Dx) Social [...] Info) Description 09/17/2025 2:00 PM EST Telemedicine [facility] MEDICINE [address] [place] [address] Zenaida Allen MD [address] [place] [address] 09/26/2025 3:00 PM EST Office Visit [facility] ADULT DENTAL [address] [place] [address] Gm Cadet DDS [address] [place] [address] 02/26/2026 2:15 PM EDT Office Visit [facility] ADULT DENTAL [address] [place] [address] Marv Yanceyaris [address] [place] [address] documented as of this encounter Procedures Procedure Name Priority Date/Time Associated Diagnosis Comments US EXTREMITY NON-VASCULAR Routine 01/02/2024 2:29 PM EST Lump in armpit, right documented in this encounter Results * US Extremity Non Vascular (01/02/2024 2:29 PM EST) Anatomical Region Laterality Modality Ultrasound 01/02/2024 2:29 PM EST Narrative 01/03/2024 7:30 PM EST [facility] [address] [place] [phone] Ultrasound Report Signed Patient: Luann Wellington MR#: [id number] : 1980 Acct:[id number] Age/Sex: 43 / F ADM Date: 01/02/24 Loc: HO.US Attending Dr: Tung Kelly MD Ordering Physician: Tung Watts MD Date of Service: 01/02/24 Procedure(s): US extremity nonvascular Accession Number(s): [id number] cc: Zenaida Allen MD; Tung Watts MD EXAMINATION: US UPPER EXTREMITY, NONVASCULAR, RIGHT CLINICAL INFORMATION: Right mid axillary lump. COMPARISON: None available. TECHNIQUE: Targeted ultrasound images were obtained by the microbiology lab technician of the area of concern as indicated by the patient in the right axilla. Radiologist was not in attendance. Images were later provided for interpretation. FINDINGS: No bulky adenopathy or fluid collection identified in the area of concern indicated by the patient to the microbiology lab technician in the right axilla. US/US extremity nonvascular IMPRESSION: 1. No bulky adenopathy or fluid collection identified in the area of concern indicated by the patient to the microbiology lab technician in the right axilla. 2. Decisions regarding further imaging, treatment or biopsy should be based on the clinical exam, as not all abnormalities are detectable on ultrasound studies. Dictated By: Elana Jc MD Signed By: <Electronically signed by Elana Jc MD in OV> 01/03/241925 DD/ 28 TD/TT: Clinical Lab Assistant: Procedure Note Donotuseinterpreter, Image - 01/03/2024 [place] [address] Ultrasound Report Signed Patient: Luann Wellington LMR#: [id number] : 1980Acct:[id number] Age/Sex: 43 / FADM Date: 01/02/24 Loc: HO.US Attending Dr: Tung Kelly MD Ordering Physician: Tung Watts MD Date of Service: 01/02/24 Procedure(s): US extremity nonvascular Accession Number(s): [id number] cc: Zenaida Allen MD; Tung Watts MD EXAMINATION: US UPPER EXTREMITY, NONVASCULAR, RIGHT CLINICAL INFORMATION: Right mid axillary lump. COMPARISON: None available. TECHNIQUE: Targeted ultrasound images were obtained by the microbiology lab technician of the area of concern as indicated by the patient in the right axilla. Radiologist was not in attendance. Images were later provided for interpretation. FINDINGS: No bulky adenopathy or fluid collection identified in the area of concern indicated by the patient to the microbiology lab technician in the right axilla. US/US extremity nonvascular IMPRESSION: 1. No bulky adenopathy or fluid collection identified in the area of concern indicated by the patient to the microbiology lab technician in the right axilla. 2. Decisions regarding further imaging, treatment or biopsy should be based on the clinical exam, as not all abnormalities are detectable on ultrasound studies. Dictated By: Elana Jc MD Signed By: <Electronically signed by Elana Jc MD in OV> 01/03/241925 DD/ 28 TD/TT: Clinical Lab Assistant: us Tung Kelly MD IMG US PROCEDURES Final Result documented in this encounter Visit Diagnoses Diagnosis Lump in armpit, right- Primary documented in this encounter Additional Health Concerns Assessment Noted Time PHQ-9 Depression Total Score: 0 06/07/20 23 3:39 PM EDT documented as of this encounter Care Teams Superintendent Recreation Relationship Specialty Start Date End Date Zenaida Allen MD [address] [place] [address] PCP - General Family Medicine 01/10/19 documented as of this encounter
--- OUTSIDE RECORDS SUMMARY | 2025-09-11 18:16 | XMS_ITS | Patient Health Record ---
Author Organization [facility] Address [address] [place] [address] Care Team Providers Care Patient Care Assistant Name Role Phone Chris GRIDER, Iogr Primary Care Provider Jose Patiño Unavailable [phone] Reason For Referral No Information Medications Medication SIG (Take, Route, Frequency, Duration) Notes Start Date End Date Status Hyoscyamine Sulfate 0.125 MG 1 or 2 tablets Orally TID prn abdominal pain; Duration: 30 days 12/02/2011 11/13/2024 Active Social History [...] Status W/U Status Risk Notes Problem Constipation (28583617) Unspecified constipation (564.00) Active confirmed Problem Irritable bowel syndrome (00909148) Irritable bowel syndrome (564.1) Active confirmed Problem Vomiting (907150132) Vomiting alone (787.03) Active confirmed Problem Left lower quadrant pain (322822203) Abdominal pain, left lower quadrant (789.04) Active confirmed Plan Of Treatment No Information Insurance Providers Payer Name Payer Address Payer Phone Subscriber Number Group Number Insured Name Patient Relationship to Insured Coverage Start Date Coverage End Date [facility] [employer] [facility] [address] [address] [place], [place] [id number] ROSALIA MUNSON Self - patient is the insured MEDICAID OF [facility] [address] [place] [address] [id number] ROSALIA MUNSON Self - patient is the insured Medical (General) History Medical History History ICD Code anemia Denies [place],DM,CVA,Lung disease,renal dise ase Surgical History Surgery Date(Month/Year) as per previous records, no new surgical history
--- OUTSIDE RECORDS SUMMARY | 2025-09-11 18:16 | XMS_ITS | Clinical Summary ---
Author Organization [employer] Address [address] [facility] [address] [place] [address] Care Team Providers Care Ragman Name Role Phone Zenaida Allen MD Primary Care Provide r Allergies Active Allergy Reactions Criticality Noted Date Comments Germanium 12/24/2024 Shellfish Protein-Containing Drug Products 02/25/2021 Medications sodium chloride ([place]) 0.65 % nasal spray apply every 8 hrs as needed 0 Active albuterol 108 (90 Base) MCG/ACT inhalerIndication s:Mild intermittent asthma without complication inhale 2 puffs by Inhalation route every 6 hours as needed for shortness of breath 18 g 1 3 Active Blood Pressure Monitor kitIndications:Pa lpitations Use kit to monitor blood pressure as needed 1 kit 3 Active EPINEPHrine (Epipen) 0.3 MG/0.3ML injection syringeIndication s:Hx of anaphylactic shock Inject 0.3 mL (0.3 mg) as directed 1 (one) time for 1 dose. Inject into upper leg. Call 911 after use. 1 each 5 Active cetirizine (ZyrTEC) 10 MG tabletIndications :Seasonal allergies TAKE 1 TABLET (10 MG) BY MOUTH ONCE PER DAY. 90 tablet 1 5 Active lidocaine (Lidoderm) 5 % patchIndications: Muscle spasm Apply 1 patch topically Once per day. Remove & discard patch within 12 hours or as directed by MD. 30 patch 1 5 Active Active Problems Problem Noted Date Diagnosed Date Abfraction 08/27/2025 Dental plaque 08/27/2025 Iron deficiency anemia 07/31/2025 Assessment & Plan (08/01/2025 1:01 PM EDT): Labs ordered patient will be contacted with results Muscle spasm 07/31/2025 Assessment & Plan (08/01/2025 1:01 PM EDT): I prescribed lidocaine patch apply on affected area Impacted molar 02/17/2025 Symptoms, such as flushing, [...] -pt reports already to be following w WIRER HELPER for this -advised pt to start iron daily prescribed by her PCP and pt was wondering if ok to take with MVI that she has been taking -pt explained that she can take both -advised to f w PCP in 2 months to monitor CBC ,iron panel -ok 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 but if causing any symptoms ok to [...] EDT): Patient is now being followed by admission discharge rn, she has an appointment for another office [...] Encounters Date Type Department Care Team Description 08/27/2025 3:00 PM EDT Office Visit [facility] ADULT DENTAL [address] [place] [address] BcTrini larson Abfraction (Primary Dx); Dental plaque 07/31/2025 1:45 PM EDT Office Visit [facility] MEDICINE [address] [place] [address] Zenaida Allen MD Iron deficiency anemia, unspecified iron deficiency anemia type (Primary Dx); Muscle spasm 07/31/2025 Travel 06/23/2025 Refill [facility] MEDICINE [address] [place] [address] Zenaida Allen MD Seasonal allergies from Last 3 Months Immunizations Immunization Administration [...] Sign Reading Time Taken Comments Blood Pressure 108/68 08/27/2025 2:55 PM EDT Pulse 86 07/31/2025 1:51 PM [...] Info) Description 09/17/2025 2:00 PM EST Telemedicine [facility] MEDICINE [address] [place] [address] Zenaida Allen MD [address] [place] [address] 09/26/2025 3:00 PM EST Office Visit [facility] ADULT DENTAL [address] [place] [address] Gm Cadet DDS [address] [place] [address] 02/26/2026 2:15 PM EDT Office Visit [facility] ADULT DENTAL [address] [place] [address] Trini Yancey [address] [place] [address] Health Maintenance Due Date Last Done Comments [...] 10/06/2010, 06/11/1997 COVID-19 Vaccine (3 - season) 2025 04/06/2021, 03/11/2021 Influenza Vaccine (#1) 2025 , 08/01/2013, 08/14/2012, Additional history exists Mammogram 09/05/2025 09/05/2024, 07/15, 08/11/2023, Additional history exists SDOH Screening 12/24/2025 12/24/2024 Dental X-Ray: Bitewings 02/18/2026 02/18/20 25, 12/21/2023, 07/08/2022, Additional history exists Dental Oral Exam 02/26/2026 08/27/2025, 05/2025, 12/21/2023, Additional history exists Dental Prophylaxis 02/26/2026 08/27/2025, 0 02/17/2025, 08/01/2024, Additional history exists Depression Screening 03/25/2026 03/25/2025, 03/25/20 Tobacco Screening 08/27/2026 08/27/2025 Cervical Cancer Screening 10/18/2027 HPV/Cotest 10/18/2027 10/18/2022 [...] Procedure Name Priority Date/Time Associated Diagnosis Comments PERIODIC ORAL EVALUATION - ESTABLISHED PATIENT Routine 08/27/2025 3:00 PM EDT CASE PRESENTATION, DETAILED AND EXTENSIVE TREATMENT PLANNING Routine 08/27/2025 3:00 PM EDT Abfraction Dental plaque ORAL HYGIENE INSTRUCTIONS Routine 08/27/2025 3:00 PM EDT Abfraction Dental plaque PROPHYLAXIS - ADULT Routine 08/27/2025 3 :00 PM EDT Abfraction Dental plaque VITAMIN B12/FOLATE, SERUM PANEL Routine 07/31/2025 2:35 PM EDT Iron deficiency anemia, unspecified iron deficiency anemia type FERRITIN Routine 07/31/2025 2:35 PM EDT Iron deficiency anemia, unspecified iron deficiency anemia type IRON AND TOTAL IRON BINDING CAPACITY Routine 07/31/2025 2:35 PM EDT Iron deficiency anemia, unspecified iron deficiency anemia type CBC WITH AUTO DIFFERENTIAL Routine 07/31/2025 2:35 PM EDT Iron deficiency anemia, unspecified iron deficiency anemia type PANORAMIC RADIOGRAPHIC IMAGE Routine 02/17/2025 3:00 PM EDT BITEWINGS - 4 RADIOGRAPHIC IMAGES Routine 02/17/2025 3:00 PM EDT Dental calculus BI MAMMOGRAM SCREENING TOMOSYNTHESIS BILATERAL Routine 09/05/2024 3:50 PM EDT HEPATITIS PANEL, GENERAL Routine 06/27/2024 3:08 PM EDT PAP SMEAR Routine 02/08/2024 3:47 PM EDT HM PAP/HPV Routine 10/18/2022 HIV 1/2 ANTIGEN/ANTIBODY, FOURTH GENERATION W/RFL Routine 03/16/2022 1:14 PM EDT from Last 3 Months or Most Recently Relevant to Health Maintenance Results * Vitamin B12 (Cobalamin) and Folate Panel, Serum (07/31/2025 2:35 PM EDT) Pathologist [facility] Vitamin B12 470 200 - 900 pg/mL [facility] Comment:NORMAL 200-900 PG/ML INDETERMINATE 160-199 PG/ML DEFICIENT < 160 PG/ML Folate 11.6 > or = 4.0 ng/mL [facility] Comment:Reference Values:> o r = 4.0 ng/mL< 4.0 ng/mL suggests folate deficiency Methotrexate, aminopterin and folinic acid(leucovorin) are chemotherapeutic agents whose molecularstructures are similar to folate; therefore, the Architectfolate assay cannot be used for patients using these drugs. Blood Venous blood specimen / Unknown 07/31/2025 2:35 PM EDT 07/31/2025 4:46 PM EDT Zenaida Leal MD LAB BLOOD ORDERABLES Final Result [facility] [address] [place] [phone] * (ABNORMAL) CBC auto differential (07/31/2025 2:35 PM EDT) Pathologist [facility] White Blood Count 5.8 4.8 - 10.8 X10*3/uL [facility] Red Blood Count 5.09 4.20 - 5.50 X10*6/uL [facility] Hemoglobin 12.6 12.0 - 16.0 g/dl [facility] Hematocrit 39.2 37.0 - 47.0 % [facility] Mean Corpuscular Volume 77.0(L) 80.0 - 98.0 fL [facility] Mean Corpuscular Hemoglobin 24.8(L) 27.0 - 33.0 pg [facility] Mean Corpuscular HGB Conc 32.1 31.0 - 35.0 g/dl [facility] Red Cell Distribution Width 15.1 11.0 - 16.0 % [facility] Platelet Count 341 160 - 400 X10*3/uL [facility] Mean Platelet Volume 10.0 9.4 - 12.3 fL [facility] Neutrophils Percent Auto 69.2 45 - 73 % [facility] Imm Gran Pct Auto 0.3 0.0 - 0.4 % [facility] Lymphocytes Percent Auto 23.5 20 - 40 % [facility] Monocytes Percent Auto 5.5 2 - 11 % [facility] Eosinophils Percent Auto 1.0 0 - 4 % [facility] Basophils Percent Auto 0.5 0 - 2 % [facility] NRBC Pct Auto 0.0 0.0 - 0.2 /100WBC [facility] Neutrophils Absolute Auto 4.0 2.0 - 8.3 x10*3/uL [facility] Imm Gran Abs Auto 0.02 0.00 - 0.03 X10*3/uL [facility] Lymphocytes Absolute Auto 1.4 1.2 - 4.9 X10*3/uL [facility] Monocytes Absolute Auto 0.3 0.1 - 1.2 X10*3/uL [facility] Eosinophils Absolute Auto 0.1 0.0 - 0.4 X10*3/uL [facility] Basophils Absolute Auto 0.0 0.0 - 0.2 X10*3/uL [facility] NRBC Abs Auto 0.000 0.0 - 0.012 X10*3/uL [facility] Blood Venous blood specimen / Unknown 07/31/2025 2:35 PM EDT 07/31/2025 4:09 PM EDT us Zenaida Leal MD LAB BLOOD ORDERABLES Final Result [facility] [address] [place] [address] [phone] * (ABNORMAL) Iron And Total Iron Binding Capacity (07/31/2025 2:35 PM EDT) Iron 32 30 - 160 mcg/dL [facility] Total Iron Binding Capacity 275 228 - 428 mcg/dL [facility] Percent Iron Saturation 12(L) 15 - 50 % [facility] Unsaturated Iron Binding 243 ug/dL [facility] Blood Venous blood specimen / Unknown 07/31/2025 2:35 PM EDT 07/31/2025 4:46 PM EDT us Zenaida Leal MD LAB BLOOD ORDERABLES Final Result Performing Organization Address [facility]/ZIP Co de Phone Number [facility] [address] [place] [address] [phone] * Ferritin (07/31/2025 2:35 PM EDT) Ferritin 32 10 - 250 ng/mL [facility] Blood Venous blood specimen / Unknown 07/31/2025 2:35 PM EDT 07/31/2025 4:46 PM EDT us Zenaida Leal MD LAB BLOOD ORDERABLES Final Result Performing Organization Address [facility] Co de Phone Number [facility] [address] [place] [address] [phone] * BI Mammogram Screening Tomosynthesis Bilateral (09/05/2024 3:50 PM EDT) Anatomical Region Laterality Modality Breast Bilateral Mammography 09/05/2024 3:50 PM EDT Narrative 09/17/2024 8:50 AM EST [facility] [address] [place] [address] Mammography Report Signed Patient: Luann Wellington MR#: [id number] : 1980 Acct:[id number] Age/Sex: 44 / F ADM Date: 09/05/24 Loc: MIAO Attending Dr: Zenaida Leal MD Ordering Physician: Zenaida Allen MD Results: 1Negative Date of Service: 09/05/24 Follow Up: 1 Year From Orig inal Mammogram Procedure(s): MM tomosynthesis screening BI Accession Number(s): [id number] cc: Zenaida Allen MD EXAMINATION: MM SCREENING [...] 09/17/24 0847 DD/ 1550 TD/TT: 09/05/24 1603 Cigar Making Machine Supervisor: Procedure Note Donotuseinterpreter, Image - 09/17/2024 [facility] [address] [place] [address] Mammography Report Signed Patient: Luann Wellington R#: [id number] : 1980Acct:[id number] Age/Sex: 44 / FADM Date: 09/05/24 Loc: HO.MAMMO Attending Dr: Zenaida Leal MD Ordering Physician: Zenaida Allen MDResults: 1Negative Date of Service: 09/05/24Follow Up: 1 Year From Orig inal Mammogram Procedure(s): MM tomosynthesis screening BI Accession Number(s): [id number] cc: Zenaida Allen MD EXAMINATION: MM SCREENING [...] 09/17/24 0847 DD/ 1550 TD/TT: 09/05/24 1603 Cigar Making Machine Supervisor: us Zenaida Leal MD IMG BI PROCEDURES Fin al Result * Hepatitis Panel, General (06/27/2024 3:08 PM EDT) Hepatitis A IgM Nonreactive Nonreactive [facility] Comment:IgM antibodies to MEDELLIN V not detected; does not exclude earlyacute or recovered HAV infection. ~Hepatitis B Surface Antibody NONREACTIVE Nonreactive [facility] Comment:Nonreactive: < 8.00 mIU/mL Hepatitis B Core Antibody Nonreactive Nonreactive [facility] Hepatitis C Antibody Nonreactive Nonreactive [facility] Comment:Antibodies to HCV no t detected; does not exclude early acuteHCV infection. Hepatitis B Surface Ag Negative Negative [facility] 06/27/2024 3:08 PM EDT 06/27/2024 3:08 PM EDT us Generic External Data Provider LAB BLOOD ORDERAB LES Final Result [facility] [address] [place] [address] [phone] * Pap Smear (02/08/2024 3:47 PM EDT) 02/08/2024 3:47 PM EDT 02/09/2024 9:30 AM EDT [facility] - 02/18/2024 5:56 PM EDT ----- ------- Name: Luann Wellington Age/Sex: 43/F : 1980 Unit#: [id number] Attend Dr: Cornelia Madden CNM Re02/08/24 Status: DEP REF Location: [facility] Disch: ----- ------- SPEC : [id number] RECD: 02/09/24 STATUS: OJHNNY JUNIOR NUM: [id number] URI: 02/08/24-1547 [facility] DR: Cornelia Madden CNM ENTERED: 02/09/24-0 SP TYPE: Pap Smr OTHR DR: Zenaida Allen MD ORDERED: Pap Smear Interpretation Satisfactory for evaluation. Negative for intraepithelial lesion or malignancy. HPV mRNA E6/E7: NOT DETECTED This assay detects E6/E7 viral messenger RNA (mRNA) from 14 high-risk HPV types (16, 18, 31, 33, 35, 39, 45, 51, 52, 56, 58, 59, 66, 68) HPV testing performed by [employer], [place], [place]. See reference laboratory portion of the EMR for entire report. Clinical Information LMP: 01/23/24 Previous PAP test: 06/30/2017, WNL Material Received ThinPrep-Cervical Copies To: Zenaida Allen MD [address] [place] [address] Cornelia Madden [address] [place] [address] ----- ------- Signed (signature on file) Nelly Quinn 02/18/24 1756 ----- ------- END OF REPORT Generic External Data Provider LAB CYTOLOGY PACO RENO Final Result [facility] [address] [place] [address] [phone] * Pap Smear (10/18/2022) Pap Negative for intraephithelial lesion or malignancy Negative for intraephithelial lesion or malignancy, Other HPV Undetected Undetected, Indeterminate, Quantitative, Not Detected Historical Provider HEALTH MAINTENANCE Final Result * HIV 1/2 ANTIGEN/ANTIBODY,FOURTH GENERATION W/RFL (03/16/2022 1:14 PM EDT) HIV-1/2 ANTIGEN AND ANTIBODIES, 4TH GENERATION W/ REFLEX NON-REACT DELL NON-REACT DELL [facility] Comment: HIV-1 antigen and HIV-1/HIV-2 [...] purpose. For additional information please refer to http://education.[employer]/faq/GSG425 (This link is being provided for informational/ educational purposes only.) The performance of this assay has not been clinically validated in patients less than 2 years old. 03/16/2022 1:14 PM EDT Zenaida Leal MD LAB BLOOD ORDERABLES Final Result Performing Organization Address City/State/[facility] Co de Phone Number [facility] [address] from Last 3 Months or Most Recently Relevant to Health Maintenance Insurance [facility] C3 HSN PARTIAL DENTAL[facility] MEDICAID STAND ADULT DENTAL - HSN PARTIAL (MEDICAID) Care Teams Ragman Relationship Specialty Start Date End Date Zenaida Allen MD [address] [place] [address] [phone] PCP - General Family Medicine 01/10/19
--- OUTSIDE RECORDS SUMMARY | 2025-09-11 18:16 | XMS_ITS | Encounter Summary ---
Author Organization [employer] Address [address] [facility] [address] [place] [address] Care Team Providers Care Motor Coach Driver Name Role Phone Zenaida Allen MD Primary Care Provide r Reason for Visit * Reason Onset Date Comments Results 06/06/2024 Encounter Details Date Type Department Care Team ([facility] st Contact Info) Description 06/06/2024 Telephone [facility] MEDICINE [address] [place] [address] Zenaida Allen MD [address] [place] [address] Results Social History Tobacco Use Types Packs/Day [...] 3:42 PM EDT Ordered by [facility] February Mejia. TC returned to pt. And advised pt. To call their office forresults.Pt. Reports she received results via [facility] and already called [facility] to discuss however they advised would have to wait to f/up appt. In June. Pt. Would like to discuss sooner. Advised pt. Results only showed mild fatty liver, no other concerning findings that can not wait until June for f/up. Reviewed dietary changes and increase physical activity as tolerated. Also reviewed pt.'s recent CBC results ordered by [facility] showing slightly low hemoglobin 11.2) at pt.'s baseline. Pt. Verbalizesunderstanding. Pt is requesting internal referral to log marker, please place if agreeable thank you! * Telephone Encounter - Cari Matthews - 06/06/2024 3:32 PM EDT Tc from pt requesting a call back with US results from 05/17 Guyanese speaker documented in this encounter Plan of Treatment Upcoming Encounters Date Type Department Care Team (Late st Contact Info) Description 09/17/2025 2:00 PM EST Telemedicine [facility] MEDICINE [address] [place] [phone] Zenaida Allen MD [address] [place] [address] 09/26/2025 3:00 PM EST Office Visit [facility] ADULT DENTAL [address] [place] [address] Gm Cadet DDS [address] [place] [address] 02/26/2026 2:15 PM EDT Office Visit [facility] ADULT DENTAL [address] [facility], [place] [phone] Marv Yanceyaris [address] [place] [address] documented as of this encounter Visit Diagnoses Not on filedocumented in this encounter Additional Health Concerns Assessment Noted Time PHQ-9 Depression Total Score: 0 06/07/20 23 3:39 PM EDT documented as of this encounter Care Teams Motor Coach Driver Relationship Specialty Start Date End Date Zenaida Allen MD [address] [place], [place] [phone] PCP - General Family Medicine 01/10/19 documented as of this encounter
--- OUTSIDE RECORDS SUMMARY | 2025-09-11 18:16 | XMS_ITS | Encounter Summary ---
Author Organization [employer] Address [address] [facility] 7t [place] [address] Care Team Providers Care Resource Room Special Education Teacher Name Role Phone Zenaida Allen MD Primary Care Provide r Reason for Visit * Reason Onset Date Comments Referral 10/22/2024 Encounter Details Date Type Department Care Team ([facility] st Contact Info) Description 10/22/2024 Telephone [facility] [address] [place] [address] Zenaida Allen MD [address] [place] [address] Referral Social History Tobacco Use Types Packs/Day [...] herhair. RN advised pt to come to [facility] for concerns d/t no available appt with PCP, RN did offer appt with [facility] but pt will be away on vacation. Pt declined and wants to wait for an appt with PCP, Please set up pt with an appt when recall opebns after 3pm thank you Tc from pt requesting a referral to a scheduling representative. Please call to clarify. * Telephone Encounter - Ashely Larkin - 10/22/2024 10:15 AM EST Tc from pt requesting a referral to a scheduling representative. Please call to clarify. documented in this encounter Plan of Treatment Upcoming Encounters Date Type Department Care Team (Late st Contact Info) Description 09/17/2025 2:00 PM EST Telemedicine [facility] [address] [place] [address] Zenaida Allen MD [address] [place] [address] 09/26/2025 3:00 PM EST Office Visit [facility]ULT D[facility] [address] [place], [place] [phone] Gm Cadet DDS [address] [place], [place] [phone] 02/26/2026 2:15 PM EDT Office Visit [facility] [address] [place], [place] [phone] Marv Yanceyaris [address] [place], [place] [phone] documented as of this encounter Visit Diagnoses Not on filedocumented in this encounter Additional Health Concerns Assessment Noted Time PHQ-9 Depression Total Score: 0 06/07/20 23 3:39 PM EDT documented as of this encounter Care Teams Resource Room Special Education Teacher Relationship Specialty Start Date End Date Zenaida Allen MD [address] [place], [place] [phone] PCP - General Family Medicine 01/10/19 documented as of this encounter
--- OUTSIDE RECORDS SUMMARY | 2025-09-11 18:16 | XMS_ITS | Data Portability ---
Author Organization [place] - [facility], [facility] Address [address] [place] [address] Care Team Providers Care Commissioned Police Officer Name Role Phone KIA KEE Meat Carrier Assessment No assessment recorded. Plan of Treatment [...] ction study No observ ation record ed. [facility] [address], [address], 07/04/2024 11:44:39 07/03/20 24 07/03/2024 elect romyo gram + nerve condu ction study No observ ation record ed. [facility] [address], [address], 07/04/2024 11:44:40 Result Notes None recorded. Medical Equipment None Reported. Allergies Allergen ID Allergen Name Allergen Category Reaction Reaction Severity Criticality Documentation Date Start Date Code Code System Note Provider Name and Address Organization Details Recorded Time 22533 shrimp allergeni c extract food Not available Not available Not available 01/15/20242021 64243 2 RxNorm Not Available [facility] 11:09:53 Medications Name Sig Start Date Stop [...] Updated DateTime 04/09/2024 152.4 cm 25.4 kg/m2 39684.01 [facility] 04/09/2024 15:07:30 Date Recorded Body height Body mass index (BMI) Body weight Provider Name and Address Organization Details Last Updated DateTime 07/19/2024 152.4 cm 25.4 kg/m2 92508.01 [facility] 07/19/2024 13:42:05 Social History None recorded. Functional Status None recorded. Mental Status None recorded. Family History Nothing Reported. Medical History No medical history recorded. Gynecological HistoryNo gynecological history recorded. 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 John Cifuentes MD [address], [place], [address], [facility] 04/10/2024 13:42:05 07/19/2024 text/html ROS as noted in the HPI Diagnosis: Right upper extremity pain resolvedThe patient [...] at her discretion. John Cifuentes MD [address], [place], [address], [facility] 07/19/2024 13:48:54 OBGyn Episode No OBEpisode recorded.
== END 2025-09-11 15:57 | disposition home or self-care (01) ==
LOC: HO.MAMMO 15:56
PROVIDERS: PCP Internal Medicine; Visit Provider Internal Medicine
DX: Z12.31 Encounter for screening mammogram for malignant neoplasm of breast (principal)
CPT/HCPCS: 77063; 77067

== ENCOUNTER → 2025-09-11 16:00 | Outpatient (BNV) | payer MEDICAID, SELFPAY | PROVIDERS: PCP Internal Medicine; Visit Provider Radiology Body Imaging | DX: Z12.31 Encounter for screening mammogram for malignant neoplasm of breast (principal) | CPT/HCPCS: 77063; 77067 ==

== ENCOUNTER 2025-09-18 14:52 | Outpatient (REF) | payer MEDICAID, SELFPAY ==
--- OUTSIDE RECORDS SUMMARY | 2025-09-17 14:00 | XMS_ITS | Encounter Summary ---
Author Organization [employer] Address [address] [facility] 7t [place] [address] Care Team Providers Care Hose Seamer Name Role Phone Zenaida Allen MD Primary Care Provide r Encounter Details Date Type Department Care Team ([facility] st Contact Info) Description 09/17/2025 2:00 PM EST Telemedicine [facility] [address] [place], [place] [phone] Zenaida Allen MD [address] [place] [address] Seasonal allergies (Primary Dx); Iron deficiency anemia, unspecified iron deficiency anemia type; Mild intermittent asthma without complication Social History Tobacco Use Types Packs/Day Years [...] your housing situation today? I have danika tommie 12/24/[address] you li [...] AM EDT documented as of this encounter Progress Notes * Zenaida Leal MD - 09/17/2025 2:00 PM EST SUBJECTIVE: Luann Becerra is a 45 y.o. year old female who presents for Follow up . Acute Concerns: Patient today tells me she has been having sneezing and runny nose due to seasonal allergies and isrequesting Flonase prescription I reviewed with her her lab results regarding her anemia I let her know her hemoglobin improved from 10.8 to 12.6 her iron is still a little low Social History Social History Narrative Not on file Problem List[1] Acute hemorrhagic cystitis Acute thoracic back pain Allergic rhinitis Anxiety Axillary lymphadenopathy Bilateral tinnitus Chest pain Constipation Dysuria Fatigue Fibromyalgia Gastroesophageal reflux disease Increased frequency of urination Iron (Fe) deficiency anemia Mild intermittent asthma Pain in lower limb Pain in right arm Palpitations Pure hypercholesterolemia Reducible umbilical hernia Umbilical pain Uterine leiomyoma Vitamin D deficiency trisomy 18 affecting care of mother, antepartum Anemia Painful rib Costochondritis Breast pain, left Urticaria Dental calculus Menopause syndrome Neck pain Chronic bilateral low back pain Chronic pain of both knees Tachycardia Seasonal allergies Hx of anaphylactic shock Motion sickness Dizziness Gingival bleeding Fatty liver Symptoms, such as flushing, sleeplessness, headache, lack of concentration, associated with the menopause Impacted molar Iron deficiency anemia Muscle spasm Abfraction Family History[2] Review of Systems Constitutional: Negative. HENT: Positive for postnasal drip, rhinorrhea and sneezing. Negative for congestion, dental problem, drooling, ear discharge, ear pain, facial swelling, hearing loss, mouth sores, nosebleeds, sinus pressure, sinus pain, sore throat, tinnitus and trouble swallowing. Respiratory: Negative. Cardiovascular: Negative. Follow Up: No follow-ups on file. Medications Ordered Prior to Encounter[3] Problem List Items Addressed This Visit Seasonal allergies - Primary Patient educated to avoid triggers for her allergies Flonase prescribed for her today Relevant Medications fluticasone (Flonase) 50 MCG/ACT nasal spray Iron (Fe) deficiency anemia Improved counseling regarding diet rich in iron done today We will continue to monitor Mild intermittent asthma Stable continue with same interventions Relevant Medications fluticasone (Flonase) 50 MCG/ACT nasal spray [1] Patient Active Problem List Diagnosis Acute hemorrhagic cystitis Acute thoracic back pain Allergic rhinitis Anxiety Axillary lymphadenopathy Bilateral tinnitus Chest pain Constipation Dysuria Fatigue Fibromyalgia Gastroesophageal reflux disease Increased frequency of urination Iron (Fe) deficiency anemia Mild intermittent asthma Pain in lower limb Pain in right arm Palpitations Pure hypercholesterolemia Reducible umbilical hernia Umbilical pain Uterine leiomyoma Vitamin D deficiency trisomy 18 affecting care of mother, antepartum Anemia Painful rib Costochondritis Breast pain, left Urticaria Dental calculus Menopause syndrome Neck pain Chronic bilateral low back pain Chronic pain of both knees Tachycardia Seasonal allergies Hx of anaphylactic shock Motion sickness Dizziness Gingival bleeding Fatty liver Symptoms, such as flushing, sleeplessness, headache, lack of concentration, associated with the menopause Impacted molar Iron deficiency anemia Muscle spasm Abfraction Dental plaque [2] No family history on file. [3] Current Outpatient Medications on File Prior to Visit Medication Sig Dispense Refill albuterol 108 (90 Base) MCG/ACT inhaler inhale 2 puffs by Inhalation route every 6 hours as needed for shortness of breath 18 g 1 Blood Pressure Monitor kit Use kit to monitor blood pressure as needed 1 kit 0 cetirizine (ZyrTEC) 10 MG tablet TAKE 1 TABLET (10 MG) BY MOUTH ONCE PER DAY. 90 tablet 1 EPINEPHrine (Epipen) 0.3 MG/0.3ML injection syringe Inject 0.3 mL (0.3 mg) as directed 1 (one) timefor 1 dose. Inject into upper leg. Call 911 after use. 1 each 0 lidocaine (Lidoderm) 5 % patch Apply 1 patch topically Once per day. Remove & discard patch within 12 hours or as directed by . 30 patch 1 sodium chloride ([place]) 0.65 % nasal spray apply every 8 hrs as needed No current facility-administered medications on file prior to visit. documented in this encounter Miscellaneous Notes * Assessment & Plan Note - Zenaida Leal MD - 09/17/2025 4:18 PM EST Associated Problem(s): Iron (Fe) deficiency anemia Improved counseling regarding diet rich in iron done today We will continue to monitor * Assessment & Plan Note - Zenaida Leal MD - 09/17/2025 4:17 PM EST Associated Problem(s): Mild intermittent asthma Stable continue with same interventions * Assessment & Plan Note - Zenaida Leal MD - 09/17/2025 4:17 PM EST Associated Problem(s): Seasonal allergies Patient educated to avoid triggers for her allergies Flonase prescribed for her today documented in this encounter Plan of Treatment Upcoming Encounters Date Type Department Care Team (Late st Contact Info) Description 09/26/2025 3:00 PM EST Office Visit [facility] [address] [place] [address] Gm Cadet DDS [address] [place] [address] 02/26/2026 2:15 PM EDT Office Visit [facility] [address] [place] [address] Trini Yancey [address] [place] [address] documented as of this encounter Visit Diagnoses Diagnosis Seasonal allergies- Primary Allergic rhinitis, cause unspecified Iron deficiency anemia, unspecified iron deficiency anemia type Mild intermittent asthma without complication documented in this encounter Additional Health Concerns Assessment Noted Time PHQ-9 Depression Total Score: 0 03/25/20 25 3:08 PM EDT documented as of this encounter Care Teams Hose Seamer Relationship Specialty Start Date End Date Zenaida Allen MD [address] [place] [address] PCP - General Family Medicine 01/10/19 documented as of this encounter
--- NOTE | ~2025-09-18 | US_ITS ---
EXAMINATION: US PELVIS CLINICAL INFORMATION: Leiomyoma of uterus COMPARISON: Ultrasound 02/25/2025 TECHNIQUE: Ultrasound of the pelvis is performed using both transabdominal and transvaginal transducers along with Doppler. Transvaginal imaging is performed due to inadequate visualization transabdominally. FINDINGS: LMP: 04/06 Uterus: The uterus is anteverted and measures 10.4 x 2.2 x 4.1 cm. The double wall endometrial thickness is 4 mm. There is a 7.6 x 5.3 x 6.2 cm fibroid with heterogeneous echotexture in the left fundus. This previously measured 7.6 x 6.8 x 6.2 cm. . Adnexa: Right ovary measures 1.5 x 1.6 x 1 cm. 1.3 mL. Ovary appears unremarkable. Left ovary: Not visualized No significant free fluid seen. US/US pelvic and transvaginal IMPRESSION: 7.6 cm left fundal fibroid redemonstrated. Electronically signed by: Lamberto Jacobson MD 09/18/2025 03:41 PM [facility]
--- OUTSIDE RECORDS SUMMARY | 2025-09-18 17:58 | XMS_ITS | Encounter Summary ---
Author Organization [employer] [facility] Address [address] [facility] [address] [place] [address] Care Team Providers Care Drawing In Hand Name Role Phone Zenaida Allen MD Primary Care Provide r Encounter Details Date Type Department Care Team (Latest Contact Info) Description 01/27/2021 Abstract [facility] CONVERSIONS Dental, Provider, DDS Social History [...] Care Team ( st Contact Info) Description 09/26/2025 3:00 PM EST Office Visit [facility] ADULT DENTAL [address] [place] [address] Gm Cadet DDS [address] [place] [address] 02/26/2026 2:15 PM EDT Office Visit [facility] ADULT D[facility] [address] [place] [address] Trini Yancey [address] [place] [address] documented as of this encounter Visit Diagnoses Not on filedocumented in this encounter Care Teams Drawing In Hand Relationship Specialty Start Date End Date Zenaida Allen MD [address] [place] [address] PCP - General Family Medicine 01/10/19 documented as of this encounter
--- OUTSIDE RECORDS SUMMARY | 2025-09-18 17:58 | XMS_ITS | Encounter Summary ---
Author Organization [employer] Address [address] [facility] 7t [place] [address] Care Team Providers Care Sprinkling System Installer Name Role Phone Zenaida Allen MD Primary Care Provide r Encounter Details Date Type Department Care Team ([facility] st Contact Info) Description 09/11/2025 Orders Only [facility] [address] [place] [address] Zenaida Allen MD [address] [place] [address] Social History Tobacco Use Types Packs/Day Years [...] Description 09/26/2025 3:00 PM EST Office Visit [facility]ULT D[facility] [address] [place] [address] Gm Cadet, DDS [address] [place] [address] 02/26/2026 2:15 PM EDT Office Visit [facility] [address] [place] [address] Bc, Trini [address] [place] [address] documented as of this encounter Procedures Procedure Name Priority Date/Time Associated Diagnosis Comments US PELVIS TRANSVAGINAL Routine 3:09 PM EST BI MAMMOGRAM SCREENING TOMOSYNTHESIS BILATERAL Routine 09/11/2025 4:10 PM EDT documented in this encounter Results * US Pelvis Transvaginal (09/18/2025 3:09 PM EST) Anatomical Region Laterality Modality Pelvis Ultrasound 09/18/2025 3:09 PM EST Narrative 09/18/2025 3:43 PM EST [address] [address] Ultrasound Report Signed Patient: Luann Wellington MR#: [id number] : 1980 Acct:[id number] Age/Sex: 45 / F ADM Date: 09/18/25 Loc: .US Attending Dr: Dmitry Enriquez MD Ordering Physician: Dmitry Enriquez MD Date of Service: 09/18/25 Procedure(s): US pelvic and transvaginal Accession Number(s): [id number] cc: Zenaida Allen MD; Dmitry Enriquez MD Reason for Exam: D25.9 - Leiomyoma of uterus, unspecified EXAMINATION: US PELVIS CLINICAL INFORMATION: Leiomyoma of uterus COMPARISON: Ultrasound 02/25/2025 TECHNIQUE: Ultrasound of the pelvis is performed using both transabdominal and transvaginal transducers along with Doppler. Transvaginal imaging is performed due to inadequate visualization transabdominally. FINDINGS: LMP: 04/06 Uterus: The uterus is anteverted and measures 10.4 x 2.2 x 4.1 cm. The double wall endometrial thickness is 4 mm. There is a 7.6 x 5.3 x 6.2 cm fibroid with heterogeneous echotexture in the left fundus. This previously measured 7.6 x 6.8 x 6.2 cm. . Adnexa: Right ovary measures 1.5 x 1.6 x 1 cm. 1.3 mL. Ovary appears unremarkable. Left ovary: Not visualized No significant free fluid seen. US/US pelvic and transvaginal IMPRESSION: 7.6 cm left fundal fibroid redemonstrated. Electronically signed by: Lamberto Jacobson MD 09/18/2025 03:41 PM [facility] Dictated By: Lamberto Jacobson MD Signed By: <Electronically signed by Lamberto Jacobson MD in OV> 09/18/25 1541 DD/ 1509 TD/TT: 09/18/25 1521 Steam Fitter Supervisor Maintenance: Procedure Note Donotuseinterpreter, Image - 09/18/[address] [address] Ultrasound Report Signed Patient: Luann Wellington LMR#: [id number] : 1980Acct:[id number] Age/Sex: 45 / FADM Date: 09/18/25 Loc: .US Attending Dr: Dmitry Enriquez MD Ordering Physician: Dmitry Enriquez MD Date of Service: 09/18/25 Procedure(s): US pelvic and transvaginal Accession Number(s): [id number] cc: Zenaida Allen MD; Dmitry Enriquez MD Reason for Exam: D25.9 - Leiomyoma of uterus, unspecified EXAMINATION: US PELVIS CLINICAL INFORMATION: Leiomyoma of uterus COMPARISON: Ultrasound 02/25/2025 TECHNIQUE: Ultrasound of the pelvis is performed using both transabdominal and transvaginal transducers along with Doppler. Transvaginal imaging is performed due to inadequate visualization transabdominally. FINDINGS: LMP: 04/06 Uterus: The uterus is anteverted and measures 10.4 x 2.2 x 4.1 cm. The double wall endometrial thickness is 4 mm. There is a 7.6 x 5.3 x 6.2 cm fibroid with heterogeneous echotexture in the left fundus. This previously measured 7.6 x 6.8 x 6.2 cm. . Adnexa: Right ovary measures 1.5 x 1.6 x 1 cm. 1.3 mL. Ovary appears unremarkable. Left ovary: Not visualized No significant free fluid seen. US/US pelvic and transvaginal IMPRESSION: 7.6 cm left fundal fibroid redemonstrated. Electronically signed by: Lamberto Jacobson MD 09/18/2025 03:41 PM [facility] Dictated By: Lamberto Jacobson MD Signed By: <Electronically signed by Lamberto Jacobson MD in OV> 09/18/25 1541 DD/ 1509 TD/TT: 09/18/25 1521 Steam Fitter Supervisor Maintenance: JOHNNA us [facility] External Provider IMG US PROCEDURES Final Result * BI Mammogram Screening Tomosynthesis Bilateral (09/11/2025 4:10 PM EDT) Anatomical Region Laterality Modality Breast Bilateral Mammography 09/11/2025 4:10 PM EDT Narrative 09/13/2025 11:18 PM EDT [facility] [address] [place] [address] Mammography Report Signed Patient: Luann Wellington MR#: [id number] : 1980 Acct:[id number] Age/Sex: 45 / F ADM Date: 09/11/25 Loc: HO.MAMMO Attending Dr: Zenaida Leal MD Ordering Physician: Zenaida Allen MD Results: 1Negative Date of Service: 09/11/25 Follow Up: 1 Year From Orig inal Mammogram Procedure(s): MM tomosynthesis screening BI Accession Number(s): [id number] cc: Zenaida Allen MD Reason For Exam: SCREENING EXAMINATION: MM SCREENING DIGITAL BREAST TOMOSYNTHESIS, BILATERAL CLINICAL INFORMATION: Screening. Asymptomatic. COMPARISON: Comparison made to multiple prior, most recent September 05, 2024, and most remote February 04, 2021. TECHNIQUE: Digital breast tomosynthesis is performed in mediolateral oblique and craniocaudal views along with computer-aided detection (CAD). Synthesized 2D images are generated from the tomosynthesis. FINDINGS: BREAST COMPOSITION: The breasts are heterogeneously dense, which may obscure small masses. BILATERAL BREASTS: No significant masses, suspicious calcifications or other abnormalities are seen in either breast. MM/MM tomosynthesis screening BI IMPRESSION: BILATERAL BREASTS: Negative, no mammographic evidence of malignancy. Normal interval follow-up is recommended in 12 months. ASSESSMENT: BI-RADS: Category 1: Negative RECOMMENDATION: Routine annual mammography screening. FOLLOW-UP: 1 year F/U This examination should not preclude the clinical evaluation of a suspicious palpable abnormality. This patient's information was entered into a reminder system with a target due date for their next mammogram. Electronically signed by: Purnima Randall MD 09/13/2025 11:15 PM EDT Dictated By: Purnima Randall MD Signed By: <Electronically signed by Purnima Randall MD in OV> 09/13/25 8275 DD/ 09 TD/TT: 09/11/25 161 Steam Fitter Supervisor Maintenance: Procedure Note Makedater, Image - [facility]/13/2025 [facility] [address] [place] [address] Mammography Report Signed Patient: Luann Wellington LMR#: [id number] : 1980Acct:[id number] Age/Sex: 45 / FADM Date: 09/11/25 Loc: HO.MAMMO Attending Dr: Zenaida Leal MD Ordering Physician: Zenaida Allenesults: 1Negative Date of Service: 09/11/25Follow Up: 1 Year From Orig inal Mammogram Procedure(s): MM tomosynthesis screening BI Accession Number(s): [id number] cc: Zenaida Allen MD Reason For Exam: SCREENING EXAMINATION: MM SCREENING DIGITAL BREAST TOMOSYNTHESIS, BILATERAL CLINICAL INFORMATION: Screening. Asymptomatic. COMPARISON: Comparison made to multiple prior, most recent September 05, 2024, and most remote February 04, 2021. TECHNIQUE: Digital breast tomosynthesis is performed in mediolateral oblique and craniocaudal views along with computer-aided detection (CAD). Synthesized 2D images are generated from the tomosynthesis. FINDINGS: BREAST COMPOSITION: The breasts are heterogeneously dense, which may obscure small masses. BILATERAL BREASTS: No significant masses, suspicious calcifications or other abnormalities are seen in either breast. MM/MM tomosynthesis screening BI IMPRESSION: BILATERAL BREASTS: Negative, no mammographic evidence of malignancy. Normal interval follow-up is recommended in 12 months. ASSESSMENT: BI-RADS: Category 1: Negative RECOMMENDATION: Routine annual mammography screening. FOLLOW-UP: 1 year F/U This examination should not preclude the clinical evaluation of a suspicious palpable abnormality. This patient's information was entered into a reminder system with a target due date for their next mammogram. Electronically signed by: Purnima Randall MD 09/13/2025 11:15 PM EDT Dictated By: Purnima Randall MD Signed By: <Electronically signed by Purnima Randall MD in OV> 09/13/25 3385 DD/ 161 TD/TT: 09/11/25 1610 Steam Fitter Supervisor Maintenance: us Zenaida Leal MD IMG BI PROCEDURES Rober roshni Result - Final documented in this encounter Visit Diagnoses Not on filedocumented in this encounter Additional Health Concerns Assessment Noted Time PHQ-9 Depression Total Score: 0 03/25/20 3:08 PM EDT documented as of this encounter Care Teams Sprinkling System Installer Relationship Specialty Start Date End Date Zenaida Allen MD [address] [place] [address] PCP - General Family Medicine 01/10/19 documented as of this encounter
--- OUTSIDE RECORDS SUMMARY | 2025-09-18 17:58 | XMS_ITS | Encounter Summary ---
Author Organization [employer] [facility] Address [address] [place] [address] Care Team Providers Care Reporter Name Role Phone Zenaida Allen MD Primary Care Provide r Encounter Details Date Type Department Care Team (Latest Contact Info) Description 07/08/2022 Abstract [facility] CONVERSIONS Dental, Provider, DDS Social History [...] Description 09/26/2025 3:00 PM EST Office Visit [facility]ULT [facility]ENT[facility] [address] [place] [address] Gm Cadet DDS [address] [place] [address] 02/26/2026 2:15 PM EDT Office Visit [facility] [address] [place] [address] Trini Yancey [address] [place] [address] documented as of this encounter Visit Diagnoses Not on filedocumented in this encounter Care Teams Reporter Relationship Specialty Start Date End Date Zenaida Allen MD [address] [place] [address] PCP - General Family Medicine 01/10/19 documented as of this encounter
--- OUTSIDE RECORDS SUMMARY | 2025-09-18 17:58 | XMS_ITS | Encounter Summary ---
Author Organization [employer] Address [address] [facility] [address] [place] [address] Care Team Providers Care Drawing Instructor Name Role Phone Zenaida Allen MD Primary Care Provide r Reason for Visit * Reason Onset Date Comments Referral 10/22/2024 Encounter Details Date Type Department Care Team ([facility] st Contact Info) Description 10/22/2024 Telephone [facility] MEDICINE [address] [place] [address] Zenaida Allen MD [address] [place] [address] Referral Social History Tobacco Use Types Packs/Day [...] herhair. RN advised pt to come to [facility] for concerns d/t no available appt with PCP, RN did offer appt with PROTEOMICS SCIENTIST but pt will be away on vacation. Pt declined and wants to wait for an appt with PCP, Please set up pt with an appt when recall opebns after 3pm thank you Tc from pt requesting a referral to a duct layer supervisor. Please call to clarify. * Telephone Encounter - Ashely Larkin - 10/22/2024 10:15 AM EST Tc from pt requesting a referral to a duct layer supervisor. Please call to clarify. documented in this encounter Plan of Treatment Upcoming Encounters Date Type Department Care Team (Late st Contact Info) Description 09/26/2025 3:00 PM EST Office Visit [facility] ADULT DENTAL [address] [place] [address] Gm Cadet DDS [address] [place] [address] 02/26/2026 2:15 PM EDT Office Visit [facility] ADULT DENTAL [address] [place] [address] Trini Yancey [address] [place], [place] [phone] documented as of this encounter Visit Diagnoses Not on filedocumented in this encounter Additional Health Concerns Assessment Noted Time PHQ-9 Depression Total Score: 0 06/07/20 23 3:39 PM EDT documented as of this encounter Care Teams Drawing Instructor Relationship Specialty Start Date End Date Zenaida Allen MD [address] [place] [address] PCP - General Family Medicine 01/10/19 documented as of this encounter
--- OUTSIDE RECORDS SUMMARY | 2025-09-18 17:58 | XMS_ITS | Encounter Summary ---
Author Organization [employer] Address [address] [facility] [place], [place] [address] Care Team Providers Care Securities Clerk Name Role Phone Zenaida Allen MD Primary Care Provide r Reason for Referral * Imaging (Routine) - Closed Specialty Diagnoses / Procedures Referred By Contac t Referred To Contact Radiology Diagnoses Lump in armpit, right Procedures US Extremity Non Vascular Tung Watts MD [address] [place] [address] Phone: tel: fax: [address] Phone: tel: fax: Referral ID Status Reason Start Date Expiration Date Visits Re quested Visits Authorized [id number] Closed 10/25/2023 10/24/2024 1 1 Encounter Details Date Type Department Care Team (Late st Contact Info) Description 10/25/2023 Orders Only [facility] MED & PEDS [address] [place], [place] [phone] Tung Watts MD [address] [place] [address] Lump in armpit, right (Primary Dx) Social [...] Description 09/26/2025 3:00 PM EST Office Visit [facility] ADULT DENTAL [address] [place] [address] Gm Cadet DDS [address] [place] [address] 02/26/2026 2:15 PM EDT Office Visit [facility] ADULT DENTAL [address] [place] [address] Trini Yancey [address] [place] [address] documented as of this encounter Procedures Procedure Name Priority Date/Time Associated Diagnosis Comments US EXTREMITY NON-VASCULAR Routine 01/02/2024 2:29 PM EST Lump in armpit, right documented in this encounter Results * US Extremity Non Vascular (01/02/2024 2:29 PM EST) Anatomical Region Laterality Modality Ultrasound 01/02/2024 2:29 PM EST Narrative 01/03/2024 7:30 PM EST [place] [address] Ultrasound Report Signed Patient: Luann Wellington MR#: [id number] : 1980 Acct:[id number] Age/Sex: 43 / F ADM Date: 01/02/24 Loc: HO.US Attending Dr: Tung Kelly MD Ordering Physician: Tung Watts MD Date of Service: 01/02/24 Procedure(s): US extremity nonvascular Accession Number(s): [id number] cc: Zenaida Allen MD; Tung Watts MD EXAMINATION: US UPPER EXTREMITY, NONVASCULAR, RIGHT CLINICAL INFORMATION: Right mid axillary lump. COMPARISON: None available. TECHNIQUE: Targeted ultrasound images were obtained by the commercial insulator of the area of concern as indicated by the patient in the right axilla. Radiologist was not in attendance. Images were later provided for interpretation. FINDINGS: No bulky adenopathy or fluid collection identified in the area of concern indicated by the patient to the commercial insulator in the right axilla. US/US extremity nonvascular IMPRESSION: 1. No bulky adenopathy or fluid collection identified in the area of concern indicated by the patient to the commercial insulator in the right axilla. 2. Decisions regarding further imaging, treatment or biopsy should be based on the clinical exam, as not all abnormalities are detectable on ultrasound studies. Dictated By: Elana Jc MD Signed By: <Electronically signed by Elana Jc MD in OV> 01/03/241925 DD/ 1429 TD/TT: Cant Gang Sawyer: Procedure Note Donotuseinterpreter, Image - 01/03/[address] [address] Ultrasound Report Signed Patient: Luann Wellington LMR#: [id number] : 1980Acct:[id number] Age/Sex: 43 / FADM Date: 01/02/24 Loc: HO.US Attending Dr: Tung Kelly MD Ordering Physician: Tung Watts MD Date of Service: 01/02/24 Procedure(s): US extremity nonvascular Accession Number(s): [id number] cc: Zenaida Allen MD; Tung Watts MD EXAMINATION: US UPPER EXTREMITY, NONVASCULAR, RIGHT CLINICAL INFORMATION: Right mid axillary lump. COMPARISON: None available. TECHNIQUE: Targeted ultrasound images were obtained by the commercial insulator of the area of concern as indicated by the patient in the right axilla. Radiologist was not in attendance. Images were later provided for interpretation. FINDINGS: No bulky adenopathy or fluid collection identified in the area of concern indicated by the patient to the commercial insulator in the right axilla. US/US extremity nonvascular IMPRESSION: 1. No bulky adenopathy or fluid collection identified in the area of concern indicated by the patient to the commercial insulator in the right axilla. 2. Decisions regarding further imaging, treatment or biopsy should be based on the clinical exam, as not all abnormalities are detectable on ultrasound studies. Dictated By: Elana Jc MD Signed By: <Electronically signed by Elana Jc MD in OV> 01/03/24 1926 DD/ 1429 TD/TT: Cant Gang Sawyer: us Tung Kelly MD IMG US PROCEDURES Final Result documented in this encounter Visit Diagnoses Diagnosis Lump in armpit, right- Primary documented in this encounter Additional Health Concerns Assessment Noted Time PHQ-9 Depression Total Score: 0 06/07/20 23 3:39 PM EDT documented as of this encounter Care Teams Securities Clerk Relationship Specialty Start Date End Date Zenaida Allen MD [address] [place] [address] PCP - General Family Medicine 01/10/19 documented as of this encounter
--- OUTSIDE RECORDS SUMMARY | 2025-09-18 17:58 | XMS_ITS | Data Portability ---
Author Organization [place] - [facility] Address [address] [place] [address] Care Team Providers Care Station Installation Supervisor Name Role Phone KIA KEE Pulp Cooker Assessment No assessment recorded. Plan of Treatment [...] orthosis: noneTreatment: ROM, edema control Referring Physician: Jonh Cifuentes, Orthopedic Surgery, Encounter Date: 04/09/2024 Results Created Date Observation Date Name Description Value Unit Range Abnormal Flag Note LastModifiedBy Organization Detail LastModifiedTime 07/03/20 24 07/03/2024 elect romyo gram + nerve condu ction study No observ ation record ed. [facility] [address], [address], 07/04/2024 11:44:39 07/03/20 24 07/03/2024 elect romyo gram + nerve condu ction study No observ ation record ed. [facility] [address], [address], 07/04/2024 11:44:40 Result Notes None recorded. Medical Equipment None Reported. Allergies Allergen ID Allergen Name Allergen Category Reaction Reaction Severity Criticality Documentation Date Start Date Code Code System Note Provider Name and Address Organization Details Recorded Time 46837 shrimp allergeni c extract food Not available Not available Not available 01/15/20242021 69061 2 RxNorm Not Available [facility] 11:09:53 Medications Name Sig Start Date Stop [...] Updated DateTime 04/09/2024 152.4 cm 25.4 kg/m2 58151.01 [facility] 04/09/2024 15:07:30 Date Recorded Body height Body mass index (BMI) Body weight Provider Name and Address Organization Details Last Updated DateTime 07/19/2024 152.4 cm 25.4 kg/m2 88348.01 [facility] 07/19/2024 13:42:05 Social History None recorded. Functional Status None recorded. Mental Status None recorded. Family History Nothing Reported. Medical History No medical history recorded. Gynecological HistoryNo gynecological history recorded. 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 John Cifuentes MD [email or web address], [place], [address], [facility] 04/10/2024 13:42:05 07/19/2024 text/html ROS as noted [...] at her discretion. John Cifuentes MD [address], [place], [address], [facility] 07/19/2024 13:48:54 OBGyn Episode No OBEpisode recorded.
--- OUTSIDE RECORDS SUMMARY | 2025-09-18 17:58 | XMS_ITS | Encounter Summary ---
Author Organization [employer] Address [address] [facility] [address] [place] [address] Care Team Providers Care Supervisor Electron Tube Processing Name Role Phone Zenaida Allen MD Primary Care Provide r Reason for Visit * Reason Onset Date Comments Results 06/06/2024 Encounter Details Date Type Department Care Team ([facility] st Contact Info) Description 06/06/2024 Telephone [facility] MEDICINE [address] [place] [address] Zenaida Allen MD [address] [place] [address] Results Social History Tobacco Use Types Packs/Day [...] - 06/06/2024 3:42 PM EDT Ordered by [facility] February Mejia. TC returned to pt. And advised pt. To call their office forresults.Pt. Reports she received results via [employer] and already called [facility] to discuss however they advised would have to wait to f/up appt. In June. Pt. Would like to discuss sooner. Advised pt. Results only showed mild fatty liver, no other concerning findings that can not wait until June for f/up. Reviewed dietary changes and increase physical activity as tolerated. Also reviewed pt.'s recent CBC results ordered by [facility] showing slightly low hemoglobin 11.2) at pt.'s baseline. Pt. Verbalizesunderstanding. Pt is requesting internal referral to finish saw operator, please place if agreeable thank you! * Telephone Encounter - Cari Matthews - 06/06/2024 3:32 PM EDT Tc from pt requesting a call back with US results from 05/17 Nauruan speaker documented in this encounter Plan of Treatment Upcoming Encounters Date Type Department Care Team (Late st Contact Info) Description 09/26/2025 3:00 PM EST Office Visit [facility] ADULT DENTAL [address] [place] [address] Gm Cadet DDS [address] [place] [address] 02/26/2026 2:15 PM EDT Office Visit [facility] ADULT DENTAL [address] [place], [place] [phone] Trini Yancey [address] [place] [address] documented as of this encounter Visit Diagnoses Not on filedocumented in this encounter Additional Health Concerns Assessment Noted Time PHQ-9 Depression Total Score: 0 06/07/20 23 3:39 PM EDT documented as of this encounter Care Teams Supervisor Electron Tube Processing Relationship Specialty Start Date End Date Zenaida Allen MD [address] [place] [address] PCP - General Family Medicine 01/10/19 documented as of this encounter
--- OUTSIDE RECORDS SUMMARY | 2025-09-18 17:58 | XMS_ITS | Encounter Summary ---
Author Organization [employer] Address [address] [facility] 7t [place] [address] Care Team Providers Care Set Up Operator Name Role Phone Zenaida Allen MD Primary Care Provide r Encounter Details Date Type Department Care Team (Late st Contact Info) Description 12/12/2022 Orders Only [facility] MEDICINE [address] [place] [address] Teresa Santos MD [address] [place] [address] Skin tags, multiple acquired (Primary Dx) Social [...] Description 09/26/2025 3:00 PM EST Office Visit [facility] ADULT DENTAL [address] [place] [address] Gm Cadet DDS [address] [place] [address] 02/26/2026 2:15 PM EDT Office Visit [facility] ADULT DENTAL [address] [place], [place] [phone] Marv Yanceyaris [address] [place], [place] [phone] documented as of this encounter Visit Diagnoses Diagnosis Skin tags, multiple acquired- Primary documented in this encounter Care Teams Set Up Operator Relationship Specialty Start Date End Date Zenaida Allen MD [address] [place], [place] [phone] PCP - General Family Medicine 01/10/19 documented as of this encounter
--- OUTSIDE RECORDS SUMMARY | 2025-09-18 17:58 | XMS_ITS | Encounter Summary ---
Author Organization [employer] Address [address] [facility] 7t [place] [address] Care Team Providers Care Drywall Metal Stud Worker Name Role Phone Zenaida Allen MD Primary Care Provide r Reason for Visit * Reason Onset Date Comments Request For Order(s) 11/09/2023 Encounter Details Date Type Department Care Team ([facility] Contact Info) Description 11/09/[address] [facility] MEDICINE [address] [place] [address] Zenaida Allen MD [address] [place], [place] [phone] Request For Order(s) Social History Tobacco Use [...] EST Tc from pt was advised by [facility] order for US extremity Non vascular needs to be US to the breast. documented in this encounter Plan of Treatment Upcoming Encounters Date Type Department Care Team (Late st Contact Info) Description 09/26/2025 3:00 PM EST Office Visit [facility] ADULT DENTAL [address] [place] [address] Gm Cadet DDS [address] [place] [address] 02/26/2026 2:15 PM EDT Office Visit [facility] ADULT DENTAL [address] [place] [address] Marv Yanceyaris [address] [place] [address] documented as of this encounter Visit Diagnoses Not on filedocumented in this encounter Additional Health Concerns Assessment Noted Time PHQ-9 Depression Total Score: 0 06/07/20 23 3:39 PM EDT documented as of this encounter Care Teams Drywall Metal Stud Worker Relationship Specialty Start Date End Date Zenaida Allen MD [address] [place] [address] PCP - General Family Medicine 01/10/19 documented as of this encounter
--- OUTSIDE RECORDS SUMMARY | 2025-09-18 17:58 | XMS_ITS | Encounter Summary ---
Author Organization [employer] Address [address] [facility] [address]t [place] [address] Care Team Providers Care Manager Local Name Role Phone Zenaida Allen MD Primary Care Provide r Encounter Details Date Type Department Care Team (Latest Contact Info) Description 09/17/2025 Travel Social History Tobacco Use Types Packs/Day [...] Description 09/26/2025 3:00 PM EST Office Visit [facility] ADULT DENTAL [address] [place] [address] Gm Cadet DDS [address] [place] [address] 02/26/2026 2:15 PM EDT Office Visit [facility] ADULT DENTAL [address] [place] [address] Marv Yanceyaris [address] [place] [address] documented as of this encounter Visit Diagnoses Not on filedocumented in this encounter Additional Health Concerns Assessment Noted Time PHQ-9 Depression Total Score: 0 03/25/20 25 3:08 PM EDT documented as of this encounter Care Teams Manager Local Relationship Specialty Start Date End Date Zenaida Allen MD [address] [place] [address] PCP - General Family Medicine 01/10/19 documented as of this encounter
--- OUTSIDE RECORDS SUMMARY | 2025-09-18 17:58 | XMS_ITS | Patient Health Record ---
Author Organization [facility] Address [address] [place] [address] Care Team Providers Care Engineering Group Leader Name Role Phone Chris GRIDER, Igor Primary Care Provider Jose Patiño Unavailable [phone] Reason For Referral No Information Medications Medication [...] Status W/U Status Risk Notes Problem Constipation (18019158) Unspecified constipation (564.00) Active confirmed Problem Irritable bowel syndrome (49939442) Irritable bowel syndrome (564.1) Active confirmed Problem Vomiting (447249897) Vomiting alone (787.03) Active confirmed Problem Left lower quadrant pain (558199094) Abdominal pain, left lower quadrant (789.04) Active confirmed Plan Of Treatment No Information Insurance Providers Payer Name Payer Address Payer Phone Subscriber Number Group Number Insured Name Patient Relationship to Insured Coverage Start Date Coverage End Date [facility] [employer] [facility] [address] [address] [place], [place] [id number] ROSALIA MUNSON Self - patient is the insured MEDICAID OF [facility] [address] [place] [address] [phone] [id number] ROSALIA MUNSON Self - patient is the insured Medical (General) History Medical History History ICD Code anemia Denies WA,DM,CVA,Lung disease,renal dise ase Surgical History Surgery Date(Month/Year) as per previous records, no new surgical history
--- OUTSIDE RECORDS SUMMARY | 2025-09-18 17:58 | XMS_ITS | Clinical Summary ---
Author Organization [employer] Address [address] [facility] [address] [place] [address] Care Team Providers Care Catalytic Converter Operator Name Role Phone Zenaida Allen MD Primary Care Provide r Allergies Active Allergy Reactions Criticality Noted Date Comments Germanium 12/24/2024 Shellfish Protein-Containing Drug Products 02/25/2021 Medications sodium chloride (Dubois) 0.65 % nasal spray apply every 8 [...] by MD. 30 patch 1 5 Active fluticasone (Flonase) 50 MCG/ACT nasal sprayIndications: Seasonal allergies Administer 1-2 sprays into each nostril Once per day. Shake gently. Before first use, prime pump. After use, clean tip and replace cap. 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 [...] (Fe) deficiency anemia 10/18/2022 Assessment & Plan (09/17/2025 4:18 PM EST): Improved counseling regarding diet rich in iron done today We will continue to monitor Assessment & Plan (07/27/2023 5:47 PM EDT): Pt with iron def anemia 2/2 menorrhagia 05/2023 Hb1AC 9.8 <---12.2<--10.9 Possible symptoms of dizziness,MEDELLIN and palpitations could be from anemia - currently denies to be symptomatic for the past 2 weeks here w normal VS and exam -pt reports already to be following w [facility] for this -advised pt to start iron daily prescribed by her PCP and pt was wondering if ok to take with MVI that she has been taking -pt explained that she can take both -advised to f w PCP in 2 months to monitor CBC ,iron panel -ok to 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 but if causing any symptoms ok [...] Mild intermittent asthma 10/18/2022 Assessment & Plan (09/17/2025 4:17 PM EST): Stable continue with same interventions Assessment & Plan (06/07/2023 4:23 PM EDT): Continue with albuterol PRN Avoid asthma triggers Pain in right arm 10/18/2022 Reducible umbilical hernia 10/18/2022 Umbilical pain 10/18/2022 Uterine leiomyoma 07/09/2018 Assessment & Plan (03/25/2025 5:18 PM EDT): Patient is now being followed by air operations manager, she has an appointment for another office [...] Encounters Date Type Department Care Team Description 09/17/2025 2:00 PM EST Telemedicine [facility] [address] [place] [address] Zenaida Allen MD Seasonal allergies (Primary Dx); Iron deficiency anemia, unspecified iron deficiency anemia type; Mild intermittent asthma without complication 09/17/2025 Travel 09/11/2025 Orders Only [facility] [address] [place] [address] Zenaida Allen MD 08/27/2025 3:00 PM EDT Office Visit [facility] [address] [place] [address] Bc, Trini Abfraction (Primary Dx); Dental plaque 07/31/2025 1:45 PM EDT Office Visit [facility] [address], [place] [phone] Zenaida Allen MD Iron deficiency anemia, unspecified iron deficiency anemia type (Primary Dx); Muscle spasm 07/31/2025 Travel 06/23/2025 Refill [facility] [address] [place] [address] Zenaida Allen MD Seasonal allergies from Last [...] Description 09/26/2025 3:00 PM EST Office Visit [facility] [address] [place] [address] Gm Cadet DDS [address] [place] [address] 02/26/2026 2:15 PM EDT Office Visit [facility] [address] [place] [address] Trini Yancey [address] [place] [address] Health Maintenance Due Date Last Done Comments CT Colonography 1980 Colonoscopy 1980 Colorectal Cancer Screening 1980 FIT DNA/Cologuard 1980 FIT 1980 FOBT 1980 Sigmoidoscopy 1980 Family Planning (PISQ) 1995 HPV Vaccines (1 - 3-dose series) 1995 Hepatitis A Vaccines (1 of 2 - Risk 2-dose series) 1999 Pneumococcal Vaccine: Pediatrics (0 to 5 Years) and At-Risk Patients (6 to 49) Years (1 of 2 - PCV) 1999 Hepatitis B Vaccines (3 of 3 - 3-dose series) 12/01/2010 10/06/2010, 06/11/1997 COVID-19 Vaccine ( - 2024- season) 2025 04/06/2021, 03/11/2021 Influenza Vaccine (#1) 2025 , 08/01/2013, 08/14/2012, Additional history exists SDOH Screening 12/24/2025 12/24/2024 Dental X-Ray: Bitewings 02/18/2026 02/18/20 25, 12/21/2023, 07/08/2022, Additional history exists Dental Oral Exam 02/26/2026 08/27/2025, 05/2025, 12/21/2023, Additional history exists Dental Prophylaxis 02/26/2026 08/27/2025, 0 02/17/2025, 08/01/2024, Additional history exists Depression Screening 03/25/2026 03/25/2025, 03/25/20 25 Tobacco Screening 08/27/2026 08/27/2025 Mammogram 09/11/2026 09/11/2025, 08/14, 08/11/2023, Additional history exists Alcohol/Substance Use Screening 09/17/2026 09/17/2025 Disability Screening 09/17/2026 09/17/2025 Cervical Cancer Screening 10/18/2027 HPV/Cotest 10/18/2027 10/18/2022 [...] TOMOSYNTHESIS BILATERAL Routine 09/11/2025 4:10 PM EDT PERIODIC ORAL EVALUATION - ESTABLISHED [...] Routine 02/17/2025 3:00 PM EDT Dental calculus HEPATITIS PANEL, GENERAL Routine 06/27/2024 3:08 PM EDT PAP SMEAR Routine 02/08/2024 3:47 PM EDT HM PAP/HPV Routine 10/18/2022 HIV 1/2 ANTIGEN/ANTIBODY, FOURTH GENERATION W/RFL Routine 03/16/2022 1:14 PM EDT from Last 3 Months or Most Recently Relevant to Health Maintenance Results * US Pelvis Transvaginal (09/18/2025 3:09 PM EST) Anatomical Region Laterality Modality Pelvis Ultrasound 09/18/2025 3:09 PM EST Narrative 09/18/2025 3:43 PM EST [place] [address] Ultrasound Report Signed Patient: Luann Wellington MR#: [id number] : 1980 Acct:[id number] Age/Sex: 45 / F ADM Date: 09/18/25 Loc: HO.US Attending Dr: Dmitry Enriquez MD Ordering Physician: Dmitry Enriquez MD Date of Service: 09/18/25 Procedure(s): US pelvic and transvaginal Accession Number(s): [id number] cc: Zenaida Allen MD; Dmitry Enriquez MD [...] by: Lamberto Jacobson MD 09/18/2025 03:[address] [facility] Dictated By: Lamberto Jacobson MD Signed By: <Electronically signed by Lamberto Jacobson MD in OV> 09/18/25 1541 DD/ 1509 TD/TT: 09/18/25 1521 Release Of Information Clerk: JOHNNA Procedure Note Donotuseinterpreter, Image - 09/18/2025 [place] [address] Ultrasound Report Signed Patient: Luann Wellington LMR#: [id number] : 1980Acct:[id number] Age/Sex: 45 / FADM Date: 09/18/25 Loc: HO.US Attending Dr: Dmitry Enriquez MD Ordering Physician: Dmitry Enriquez MD Date of Service: 09/18/25 Procedure(s): US pelvic and transvaginal Accession Number(s): [id number] cc: Zenaida Allen MD; Dmitry Enriquez MD [...] by: Lamberto Jacobson MD 09/18/2025 03:[address] [facility] Dictated By: Lamberto Jacobson MD Signed By: <Electronically signed by Lamberto Jacobson MD in OV> 09/18/25 1541 DD/ 1509 TD/TT: 09/18/25 1521 Release Of Information Clerk: JHONNA [facility] External Provider IMG US PROCEDURES Final Result * BI Mammogram Screening Tomosynthesis Bilateral (09/11/2025 4:10 PM EDT) Anatomical Region Laterality Modality Breast Bilateral Mammography 09/11/2025 4:10 PM EDT Narrative 09/13/2025 11:18 PM EDT [facility] [address] [place] [address] Mammography Report Signed Patient: Luann Wellington MR#: [id number] : 1980 Acct:[id number] Age/Sex: 45 / F ADM Date: 09/11/25 Loc: HO.MAMMO Attending Dr: Zenaida Leal MD Ordering Physician: Zenaida Allen MD Results: 1Negative Date of Service: 09/11/25 Follow Up: 1 Year From Orig inal Mammogram Procedure(s): MM tomosynthesis screening BI Accession Number(s): [id number] cc: Zenaida Allen MD Reason For Exam: [...] by Purnima Randall MD in OV> 09/13/25 2315 DD/ 161 TD/TT: 09/11/25 1610 Release Of Information Clerk: Procedure Note Donotuseinterpreter, Image - 09/13/2025 [facility] [address] [place] [address] Mammography Report Signed Patient: Luann Wellington LMR#: [id number] : 1980Acct:[id number] Age/Sex: 45 / FADM Date: 09/11/25 Loc: HO.MAMMO Attending Dr: Zenaida Leal MD Ordering Physician: Zenaida Allen MDResults: 1Negative Date of Service: 09/11/25Follow Up: 1 Year From [facility] ina Mammogram Procedure(s): MM tomosynthesis screening BI Accession Number(s): [id number] cc: Zenaida Allen MD Reason For Exam: [...] by Purnima Randall MD in OV> 09/13/25 9635 DD/ 1610 TD/TT: 09/11/25 1610 Release Of Information Clerk: Zenaida Leal MD IMG BI PROCEDURES Rober roshni Result - Final * Vitamin B12 (Cobalamin) and Folate Panel, Serum (07/31/2025 2:35 PM EDT) Vitamin B12 470 200 - 900 pg/mL [facility] Comment:NORMAL 200-900 PG/ML INDETERMINATE 160-199 PG/ML DEFICIENT < 160 PG/ML Folate 11.6 > or = 4.0 ng/mL [facility] Comment:Reference Values:> o r = 4.0 ng/mL< 4.0 ng/mL suggests folate deficiency Methotrexate, aminopterin and folinic acid(leucovorin) are chemotherapeutic agents whose molecularstructures are similar to folate; therefore, the Architectfolate assay cannot be used for patients using these drugs. Blood Venous blood specimen / Unknown 07/31/2025 2:35 PM EDT 07/31/2025 4:46 PM EDT us Zenaida Leal MD LAB BLOOD ORDERABLES Final Result [facility] [address] [place] [address] [phone] * (ABNORMAL) CBC auto differential (07/31/2025 2:35 PM EDT) White Blood Count 5.8 4.8 - 10.8 X10*3/uL [facility] Red Blood Count 5.09 4.20 - 5.50 X10*6/uL [facility] Hemoglobin 12.6 12.0 - 16.0 g/dl [facility] Hematocrit 39.2 37.0 - 47.0 % [facility] Mean Corpuscular Volume 77.0(L) 80.0 - 98.0 fL [facility] Mean Corpuscular Hemoglobin 24.8(L) 27.0 - 33.0 pg [facility] Mean Corpuscular HGB Conc 32.1 31.0 - 35.0 g/dl [facility] Red Cell Distribution Width 15.1 11.0 - 16.0 % [facility] Platelet Count 341 160 - 400 X10*3/uL [facility] Mean Platelet Volume 10.0 9.4 - 12.3 fL [facility] Neutrophils Percent Auto 69.2 45 - 73 % [facility] Imm Gran Pct Auto 0.3 0.0 - 0.4 % [facility] Lymphocytes Percent Auto 23.5 20 - 40 % [facility] Monocytes Percent Auto 5.5 2 - 11 % [facility] Eosinophils Percent Auto 1.0 0 - 4 % [facility] Basophils Percent Auto 0.5 0 - 2 % [facility] NRBC Pct Auto 0.0 0.0 - 0.2 /100WBC [facility] Neutrophils Absolute Auto 4.0 2.0 - 8.3 x10*3/uL [facility] Imm Gran Abs Auto 0.02 0.00 - 0.03 X10*3/uL [facility] Lymphocytes Absolute Auto 1.4 1.2 - 4.9 X10*3/uL [facility] Monocytes Absolute Auto 0.3 0.1 - 1.2 X10*3/uL [facility] Eosinophils Absolute Auto 0.1 0.0 - 0.4 X10*3/uL [facility] Basophils Absolute Auto 0.0 0.0 - 0.2 X10*3/uL [facility] NRBC Abs Auto 0.000 0.0 - 0.012 X10*3/uL [facility] Blood Venous blood specimen / Unknown 07/31/2025 2:35 PM EDT 07/31/2025 4:09 PM EDT us Zenaida Leal MD LAB BLOOD ORDERABLES Final Result [facility] [address] [place] [phone] * (ABNORMAL) Iron And Total Iron Binding Capacity (07/31/2025 2:35 PM EDT) Iron 32 30 - 160 mcg/dL [facility] Total Iron Binding Capacity 275 228 - 428 mcg/dL [facility] Percent Iron Saturation 12(L) 15 - 50 % [facility] Unsaturated Iron Binding 243 ug/dL [facility] Blood Venous blood specimen / Unknown 07/31/2025 2:35 PM EDT 07/31/2025 4:46 PM EDT us Zenaida Leal MD LAB BLOOD ORDERABLES Final Result Performing Organization Address [facility]/ZIP Co de Phone Number [facility] [address] [place] [phone] * Ferritin (07/31/2025 2:35 PM EDT) Ferritin 32 10 - 250 ng/mL [facility] Blood Venous blood specimen / Unknown 07/31/2025 2:35 PM EDT 07/31/2025 4:46 PM EDT us Zenaida Leal MD LAB BLOOD ORDERABLES Final Result Performing Organization Address [facility] Phone Number [facility] [address] [place] [phone] * Hepatitis Panel, General (06/27/2024 3:08 PM EDT) Pathologist [facility] Hepatitis A IgM Nonreactive Nonreactive [facility] Comment:IgM antibodies to MEDELLIN V not detected; does not exclude earlyacute or recovered HAV infection. ~Hepatitis B Surface Antibody NONREACTIVE Nonreactive [facility] Comment:Nonreactive: < 8.00 mIU/mL Hepatitis B Core Antibody Nonreactive Nonreactive [facility] Hepatitis C Antibody Nonreactive Nonreactive [facility] Comment:Antibodies to HCV no t detected; does not exclude early acuteHCV infection. Hepatitis B Surface Ag Negative Negative [facility] 06/27/2024 3:08 PM EDT 06/27/2024 3:08 PM EDT us Generic External Data Provider LAB BLOOD ORDERAB LES Final Result Performing Organization Address [facility] Co de Phone Number [facility] [address] [place] [phone] * Pap Smear (02/08/2024 3:47 PM EDT) 02/08/2024 3:47 PM EDT 02/09/2024 9:30 AM EDT [facility] - 02/18/2024 5:56 PM EDT ----- ------- Name: Richard BecerraLuann cannon Age/Sex: 43/F : 1980 Unit#: [id number] Attend Dr: Cornelia Madden CNM Re02/08/24 Status: DEP REF Location: [facility] Disch: ----- ------- SPEC : [id number] RECD: 02/09/24-929 STATUS: JOHNNY JUNIOR NUM: [id number] URI: 02/08/24-15[address] [facility] [address]: Cornelia Madden ENTERED: 02/09/24-1020 SP TYPE: Pap Smr OTHR DR: Zenaida Allen MD ORDERED: Pap Smear Interpretation Satisfactory for evaluation. Negative for intraepithelial lesion or malignancy. HPV mRNA E6/E7: NOT DETECTED This assay detects E6/E7 viral messenger RNA (mRNA) from 14 high-risk HPV types (16, 18, 31, 33, 35, 39, 45, 51, 52, 56, 58, 59, 66, 68) HPV testing performed by [employer], [place], [place]. See reference laboratory portion of the EMR for entire report. Clinical Information LMP: 01/23/24 Previous PAP test: 06/30/2017, WNL Material Received ThinPrep-Cervical Copies To: Zenaida Allen MD [address] [place] [address] Cornelia Madden [address] [place] [address] ----- ------- Signed (signature on file) Nelly Taveras Kai 02/18/24 1756 ----- ------- END OF REPORT Generic External Data Provider LAB CYTOLOGY PACO RENO Final Result [facility] [address] [place] [phone] * Hm Pap Smear (10/18/2022) Pap Negative for intraephithelial lesion or malignancy Negative for intraephithelial lesion or malignancy, Other HPV Undetected Undetected, Indeterminate, Quantitative, Not Detected Historical Provider HEALTH MAINTENANCE Final Result * HIV 1/2 ANTIGEN/ANTIBODY,FOURTH GENERATION W/RFL (03/16/2022 1:14 PM EDT) HIV-1/2 ANTIGEN AND ANTIBODIES, 4TH GENERATION W/ REFLEX NON-REACT DELL NON-REACT DELL [facility] Comment: HIV-1 antigen and HIV-1/HIV-2 [...] purpose. For additional information please refer to http://education.JamOrigin/faq/JGC603 (This link is being provided for informational/ educational purposes only.) The performance of this assay has not been clinically validated in patients less than 2 years old. 03/16/2022 1:14 PM EDT Zenaida Leal MD LAB BLOOD ORDERABLES Final Result [facility] [address] from Last 3 Months or Most Recently Relevant to Health Maintenance [place] [place] [address] C3 [facility] ADULT DENTAL - HSN PARTIAL (MEDICAID) Care Teams Catalytic Converter Operator Relationship Specialty Start Date End Date Zenaida Allen MD [address] [place] [address] PCP - General Family Medicine 01/10/19
== END 2025-09-18 14:53 | disposition home or self-care (01) ==
LOC: HO.US 14:52
PROVIDERS: PCP Internal Medicine; Visit Provider Obstetrics & Gynecology
DX: D25.9 Leiomyoma of uterus, unspecified (principal)
CPT/HCPCS: 76830; 76856

== ENCOUNTER → 2025-09-18 14:54 | Outpatient (BNV) | payer MEDICAID, SELFPAY | PROVIDERS: PCP Internal Medicine; Visit Provider Radiology Diagnostic Ultrasound | DX: D25.9 Leiomyoma of uterus, unspecified (principal) | CPT/HCPCS: 76830; 76856 ==

== ENCOUNTER 2025-09-29 16:11 | Emergency (ER) | payer MEDICAID, SELFPAY ==
--- NOTE | ~2025-09-29 | CT_ITS ---
CLINICAL HISTORY: headache, visual changes CT head without contrast Comparison: None provided Findings: No acute intracranial fluid collection or hematoma. No acute process in sinuses or mastoids. No acute bony abnormality. Impression: No acute intracranial process This document has been electronically signed by: Mike Pabon MD on 09/29/2025 19:18:49
[2025-09-29 16:38] VITALS: BP 144/65; PULSE 95; RESP 18; TEMP 36.6; O2SAT 100; BMI 24.4
--- NOTE | 2025-09-29 16:44 | ED.GENADULT ---
HPI - General Adult General Chief complaint: Eye Problems Stated complaint: blurred vission Time Seen by Provider: 09/29/25 17:13 History of Present Illness ED Provider: Ratna MOREIRA narrative: The patient is a 45-year-old who says that she has no significant past medical history. She is on no medications. She says that she considers herself perimenopausal. She is on no control. The patient says that she was driving today when she experienced a visual phenomenon that she thought was from the bright sun hitting her eyes. She says that she started to feel that there was some blurriness in the right side of her visual field and that she was having trouble seeing letters on signs on the highway. She says that she checked her phone and she had trouble reading her cell phone. She subsequently developed some pain in the left side of her head that she describes as moderate and not severe. No neck stiffness. No definite photophobia. No significant nausea. The patient came to the emergency room for evaluation of the symptoms. She says that her visual symptoms have largely resolved. The patient says that she also experienced a sense of palpitations in her chest during the episode. The patient has no history of similar episodes. She has no history of migraines. Related Data Home Medications ?Medication ?Instructions ?Recorded ?Confirmed cetirizine 10 mg tablet 10 mg PO DAILY PRN allergies 02/09/23 08/29/24 pgdxthshpmhu-Ih-mvkr-minerals 18 tab PO 02/08/24 08/29/24 mg-0.4 mg tablet vitamin E mixed 400 unit capsule 400 unit PO 06/19/24 08/29/24 epinephrine 0.3 mg/0.3 mL IM 04/30/25 injection, auto-injector Previous Rx's ?Medication ?Instructions ?Recorded albuterol sulfate 90 mcg/actuation 2 puff inhalation Q4-6H PRN 03/30/21 aerosol inhaler shortness of breath or wheezing 30 days #1 ea bisacodyl 5 mg tablet,delayed See Rx Instructions PO BEDTIME 2 04/30/25 release (Dulcolax (bisacodyl)) days #8 tabs methylcellulose (laxative) 2 g PO BID #907 grams 04/30/25 (Citrucel Sugar Free oral powder) sodium,potassium,mag sulfates 17.5 480 ml PO .COMPLEX #354 mL 04/30/25 gram-3.13 gram-1.6 gram oral soln (Suprep Bowel Prep Kit) acetaminophen 500 mg capsule 1,000 mg (2 x 500 mg) PO Q8H PRN 09/29/25 fever or pain #14 caps ibuprofen 400 mg tablet 400 mg PO Q6H PRN pain #14 tabs 09/29/25 Allergies Allergy/AdvReac Type Severity Reaction Status Date / Time shrimp Allergy Severe MOUTH Verified 09/29/25 16:42 SWELLING No Known Drug Allergies Allergy Unknown none Verified 09/29/25 16:42 Seasonal Allergies Allergy Itchy Eyes Verified 09/29/25 16:42 Review of Systems Review of Systems: Yes all other systems are reviewed and are negative [facility] Past Medical History Medical History Diarrhea IBS (irritable bowel syndrome) Esophagitis Chronic gastritis with bleeding Family planning education, guidance, and counseling Abnormal x-ray of thoracic spine Abnormal x-ray of thoracic spine Sleep disorder Uses control Cervical cancer screening Well woman exam with routine gynecological exam Surgical History Hx of colonoscopy History of esophagogastroduodenoscopy (EGD) Family History Family History Father Cirrhosis of liver Cancer Liver transplanted Mother Apnea Paternal Grandfather Cancer Social History Social History Household Members: Spouse Household Members Other:: son Housing: Apartment Alcohol intake: never Patient Tobacco Use Status: Never used Tobacco Smoked in Last 30 Days: No Use of substances other than those prescribed or required for medical reasons: No Advance Directives: No Advance Directives Information Provided: No Do you have a plan to hurt others: No Plan Current occupational status: employed Current occupation: [employer] and paid Sexual orientation: Straight/Heterosexual Gender identity: Female Physical Exam ED Vital Signs: Vital Signs - 24 hr 09/29/25 16:38 09/29/25 18:01 09/29/25 20:01 Temperature 98 F 98.3 F 98.3 F Pulse Rate 95 85 85 Respiratory Rate 18 16 16 Blood Pressure 144/65 H 119/69 119/69 Pulse Oximetry 100 99 99 Oxygen Delivery Method Room Air Room Air Room Air BMI result Body Mass Index 24.4 Const Other: The patient is awake, alert, pleasant, cooperative. She is a very healthy looking 45-year-old and looks younger than her age. She appears in no distress. HENMT Other: The face is symmetrical. Mucous membranes moist. Eyes Other: Pupils are round, equal, reactive to light, extraocular movements are intact, visual novak are intact to confrontation, the patient has 20/20 vision in both eyes when she uses her regular corrective glasses. Neck Neck: Yes normal visual inspection, Yes full ROM and Yes no meningeal signs Resp Effort & Inspection: normal respiratory effort Auscultation: clear to auscultation bilaterally Cardio Rate: regular rate Rhythm: regular rhythm Heart sounds: S1 normal heart sound present and S2 normal heart sound present Skin Other: The skin is dry and unremarkable Neuro Other: the patient is awake and alert with a normal mental status. Pupils are round, equal, and reactive to light, extraocular movements are intact, visual novak are intact to confrontation, the patient's visual acuity is 20/20 in each of her eyes tested separately when she wears her regular prescription glasses. Face is symmetrical. Speech is clear. Neck is supple. She has normal strength and sensation in her extremities. No pronator drift. Finger-nose is normal. Gait is normal. She seems entirely neurologically intact. General: no meningeal signs Extrem Other: There is no calf swelling or tenderness. No asymmetry. No peripheral edema. Medications Administered Discontinued Medications Generic Name Dose Route Start Last Admin Trade Name Freq PRN Reason Stop Dose Admin Ibuprofen 400 mg 09/29/25 17:32 09/29/25 17:48 Ibuprofen 400 Mg Tablet PO 09/29/25 17:33 400 mg ONCE ONE Administration Medical Decision Making Medical Decision Making [facility] Narrative: clinically I felt the patient with driving the symptoms most consistent with a migraine phenomenon. she had right-sided visual abnormalities that were succeeded by a left-sided headache, although not a very severe headache. The visual abnormalities have largely resolved. Her vision is excellent When she wears her usual distance vision glasses. Clinically the patient looks well. The patient did not wish to have any IV therapy. Nevertheless she was insistent on additional testing and so a head CT was done which was negative. During that time she was given a dose of ibuprofen with improvement in her headache. She will be discharged with instruction to follow up with the regular doctor. I have sent prescriptions for ibuprofen and acetaminophen. Lab Data 09/29/25 16:48 09/29/25 16:48 Labs: Lab Results 09/29/25 Range/Units 16:48 WBC 7.6 (4.8-10.8) X10*3/uL RBC 5.35 (4.20-5.50) X10*6/uL Hgb 13.7 (12.0-16.0) g/dl Hct 42.7 (37.0-47.0) % MCV 79.8 L (80.0-98.0) fL MCH 25.6 L (27.0-33.0) pg MCHC 32.1 (31.0-35.0) g/dl RDW 14.0 (11.0-16.0) % Plt Count 325 (160-400) X10*3/uL MPV 9.0 L (9.4-12.3) fL Immature Gran % (Auto) 0.3 (0.0-0.4) % Neut % (Auto) 69.5 (45-73) % Lymph % (Auto) 23.6 (20-40) % Erath % (Auto) 5.3 (2-11) % Eos % (Auto) 0.9 (0-4) % Baso % (Auto) 0.4 (0-2) % Lymph # (Auto) 1.8 (1.2-4.9) X10*3/uL Erath # (Auto) 0.4 (0.1-1.2) X10*3/uL Eos # (Auto) 0.1 (0.0-0.4) X10*3/uL Baso # (Auto) 0.0 (0.0-0.2) X10*3/uL Abs Immat Gran (auto) 0.02 (0.00-0.03) X10*3/uL Absolute Neuts (auto) 5.3 (2.0-8.3) x10*3/uL Absolute Nucleated RBC 0.000 (0.0-0.012) X10*3/uL Nucleated RBC % (auto) 0.0 (0.0-0.2) /100WBC PT 13.4 (11.2-13.5) SEC INR 1.1 (0.9-1.1) APTT 35.6 H (26.7-34.1) SEC Sodium 139 (135-145) mmol/L Potassium 3.9 (3.3-5.1) mmol/L Chloride 104 (96-108) mmol/L Carbon Dioxide 24 (22-29) mmol/L Anion Gap 15 (12-20) BUN 14 (9-16) mg/dL Creatinine 0.76 (0.5-1.4) mg/dL Estim Creat Clear Calc 73.7 Estimated GFR > 60 Random Glucose 107 (60-115) mg/dL Calcium 10.1 D (8.4-10.2) mg/dL Total Bilirubin 0.2 (0.0-1.0) mg/dL AST 20 (5-31) U/L ALT 12 (0-31) U/L Alkaline Phosphatase 133 H (39-117) U/L Total Protein 8.6 H (6.5-8.0) g/dL Albumin 4.6 (3.5-5.0) g/dL Beta HCG, Quant < 2 mIU/mL Independent Interpretation I performed an independent interpretation of an: EKG Interpretation: EKG at 17:54 shows normal sinus rhythm at 81 beats per minute. It is a normal EKG. Discharge Plan Discharge Clinical Impression: Headache, Visual blurriness Patient Disposition: Home, Self-Care Instructions: Migraine Headache (ED), Ocular Migraine (ED) Additional Instructions: I believe that what you experienced today was a migraine phenomenon. Please plan on resting and taking it easy tonight. You may feel much better after a good night's sleep. I have sent prescriptions for ibuprofen and acetaminophen which you may use as needed for pain. Please contact your regular doctor's office in the morning for a follow up appointment to discuss this episode further. Return to the emergency room if you feel significantly worse. Prescriptions: New ibuprofen 400 mg tablet 400 mg PO Q6H PRN (Reason: pain) Qty: 14 0RF acetaminophen 500 mg capsule 1,000 mg PO Q8H PRN (Reason: fever or pain) Qty: 14 0RF No Action albuterol sulfate 90 mcg/actuation HFA aerosol inhaler 2 puff inhalation Q4-6H PRN (Reason: shortness of breath or wheezing) 30 Days Qty: 1 3RF cetirizine 10 mg tablet 10 mg PO DAILY PRN (Reason: allergies) vitamin E mixed 400 unit capsule 400 unit PO ovsjqpuemqct-Ms-nyzg-minerals 18-0.4 mg tablet PO bisacodyl [Dulcolax (bisacodyl)] 5 mg tablet,delayed release (DR/EC) See Rx Instructions PO BEDTIME 2 Days Qty: 8 0RF Rx Instructions: take 2 qhs for 3 days prior to colonoscopy for prep orally bedtime; epinephrine 0.3 mg/0.3 mL auto-injector IM sodium,potassium,mag sulfates [Suprep Bowel Prep Kit] 17.5-3.13-1.6 gram recon soln 480 ml PO .COMPLEX Qty: 354 0RF Rx Instructions: 480 mL orally; FOR COLONOSCOPY PREP Citrucel Sugar Free Powder 2 g PO BID Qty: 907 6RF Referrals: Zenaida Allen MD [Primary Care Provider, Internal Medicine] Interventions: ED Discharge Assessment Last Done: 09/29/25 20:01 Discharge Date/Time: 09/29/25 20:01 Print Language: Samoan
[2025-09-29 16:53] LABS: MANUAL DIFF FLAG NO
[2025-09-29 16:55] LABS: Hematocrit 42.7 % (37.0-47.0); Hemoglobin 13.7 g/dl (12.0-16.0); Imm Gran Abs Auto 0.02 X10*3/uL (0.00-0.03); Imm Gran Pct Auto 0.3 % (0.0-0.4); Lymphocytes Absolute Auto 1.8 X10*3/uL (1.2-4.9); Mean Corpuscular HGB Conc 32.1 g/dl (31.0-35.0); Mean Corpuscular Hemoglobin 25.6 pg (27.0-33.0); Mean Corpuscular Volume 79.8 fL (80.0-98.0); NRBC Abs Auto 0.000 X10*3/uL (0.0-0.012); NRBC Pct Auto 0.0 /100WBC (0.0-0.2); Platelet Count 325 X10*3/uL (160-400); Red Blood Count 5.35 X10*6/uL (4.20-5.50); White Blood Count 7.6 X10*3/uL (4.8-10.8)
[2025-09-29 16:59] LABS: INTERNATIONAL NORM RATIO 1.1 (0.9-1.1); Prothrombin Time 13.4 SEC (11.2-13.5)
[2025-09-29 17:02] LABS: Partial Thromboplastin Time 35.6 SEC (26.7-34.1)
[2025-09-29 17:19] LABS: Alanine Aminotransferase 12 U/L (0-31); Albumin Level 4.6 g/dL (3.5-5.0); Alkaline Phosphatase 133 U/L (39-117); Anion Gap 15 (12-20); Aspartate Amino Transferase 20 U/L (5-31); Blood Urea Nitrogen 14 mg/dL (9-16); Calcium 10.1 mg/dL (8.4-10.2); Carbon Dioxide 24 mmol/L (22-29); Chloride 104 mmol/L (96-108); Creatinine Clr Calc Pharmacy 73.7; Estimated Glomerular Filt Rate > 60; Potassium 3.9 mmol/L (3.3-5.1); Sodium 139 mmol/L (135-145); Total Protein 8.6 g/dL (6.5-8.0)
--- NOTE | 2025-09-29 17:32 | ECG_ITS ---
Test Reason : PALPITATION Blood Pressure : */* mmHG Vent. Rate : 81 BPM Atrial Rate : 81 BPM P-R Int : 150 ms QRS Dur : 70 ms QT Int : 380 ms P-R-T Axes : 61 56 28 degrees QTcB Int : 441 ms Normal sinus rhythm Normal ECG When compared with ECG of 09-Mar-2018 23:58, No significant change was found Referred By: Sarabjit Segundo Electronically Signed By: SHAMA GOINS
[2025-09-29 18:01] VITALS: BP 119/69; PULSE 85; RESP 16; TEMP 36.8; O2SAT 99
[2025-09-29 20:01] VITALS: BP 119/69; PULSE 85; RESP 16; TEMP 36.8; O2SAT 99
== END 2025-09-29 20:01 | disposition home or self-care (01) ==
PROVIDERS: Physician Assistant; Emergency Provider Emergency Medicine; PCP Internal Medicine
DX: H53.8 Other visual disturbances (principal); R51.9 Headache, unspecified; R00.2 Palpitations; N95.9 Unspecified menopausal and perimenopausal disorder; Z79.899 Other long term (current) drug therapy
CPT/HCPCS: 36415; 70450; 80053; 84702; 85025; 85610; 85730; 93005; 99284

== ENCOUNTER → 2025-09-29 17:32 | Outpatient (BNV) | payer MEDICAID, SELFPAY | PROVIDERS: Emergency Provider Emergency Medicine; PCP Internal Medicine; Visit Provider Radiology Diagnostic Radiology | DX: R51.9 Headache, unspecified (principal); H53.9 Unspecified visual disturbance | CPT/HCPCS: 70450 ==

== ENCOUNTER → 2025-09-29 17:32 | Outpatient (BNV) | payer MEDICAID, SELFPAY | PROVIDERS: Emergency Provider Emergency Medicine; PCP Internal Medicine; Visit Provider Internal Medicine | DX: R00.2 Palpitations (principal) | CPT/HCPCS: 93010 ==

== ENCOUNTER 2025-10-07 15:04 | Outpatient (AMB) | payer MEDICAID, SELFPAY ==
[2025-10-07 15:31] VITALS: BP 116/72; BMI 24.8
--- NOTE | 2025-10-07 15:31 | MHC.OFFVIS ---
Vital Signs 10/07/25 15:31 Height 5 ft Weight 127 lb BMI 24.8 BP 116/72 Intake Visit Reasons: ultrasound results Vehicle Painter Required: Yes Vehicle Painter Language: Chief Mechanical Engineer Services: Vehicle Painter Present (in person) Vehicle Painter Name: Shabnam Newton SHAVONNE Information Interpreted: non-clinical & clinical Accompanied by: Self / Same As Patient Allergies shrimp Allergy (Severe, Verified 10/07/25 15:40) MOUTH SWELLING No Known Drug Allergies Allergy (Unknown, Verified 10/07/25 15:40) none Seasonal Allergies Allergy (Verified 10/07/25 15:40) Itchy Eyes HPI Comments Details: Presenting for ultrasound follow-up regarding uterine myoma with no complaints no pelvic pressure or heavy bleeding or pelvic pain. Pelvic ultrasound showed the following: Uterus: The uterus is anteverted and measures 10.4 x 2.2 x 4.1 cm. The double wall endometrial thickness is 4 mm. There is a 7.6 x 5.3 x 6.2 cm fibroid with heterogeneous echotexture in the left fundus. This previously measured 7.6 x 6.8 x 6.2 cm. . Adnexa: Right ovary measures 1.5 x 1.6 x 1 cm. 1.3 mL. Ovary appears unremarkable. Left ovary: Not visualized No significant free fluid seen. US/US pelvic and transvaginal IMPRESSION: 7.6 cm left fundal fibroid redemonstrated. [facility] Medical History Diarrhea IBS (irritable bowel syndrome) Esophagitis Chronic gastritis with bleeding Family planning education, guidance, and counseling Abnormal x-ray of thoracic spine Abnormal x-ray of thoracic spine Sleep disorder Uses control Cervical cancer screening Well woman exam with routine gynecological exam Surgical History Hx of colonoscopy History of esophagogastroduodenoscopy (EGD) Family History Father Cirrhosis of liver Cancer Liver transplanted Mother Apnea Paternal Grandfather Cancer Social History Household Members: Spouse Household Members Other:: son Housing: Apartment Alcohol intake: never Patient Tobacco Use Status: Never used Tobacco Current occupational status: employed Current occupation: [employer] and paid Sexual orientation: Straight/Heterosexual Gender identity: Female Female Reproductive History Menstrual Age of Menarche: 12 Review of Systems Const All systems reviewed & are unremarkable except as noted in HPI and below Reports as per HPI and Reports no additional complaints GI Reports no additional complaints Reports no additional complaints Physical Exam Vital Signs: Last Vital Signs BP 116/72 10/07/25 15:31 BMI result Body Mass Index 24.8 Assessment & Plan Assessment & Plan (1) Uterine myoma: Code(s): D25.9 - Leiomyoma of uterus, unspecified Category: Medical Plan: Discussed with the patient the findings on pelvic ultrasound & the risk of myosarcoma; in addition reviewed with the patient that malignancy and pre malignancy cannot be ruled out without hysterectomy for pathological evaluation ; furthermore, explained to the patient the limitation of pelvic ultrasound and endometrial biopsy in the setting. Discussed with the patient the options of treatment including expectant management versus hysterectomy; the pros and cons, risks benefits of each approach were discussed with the patient including the fact that in cases of myosarcoma, surgical treatment can lead to early diagnosis and positively affects the prognosis; after further discussion, the patient decided to proceed with expectant management. Will repeat pelvic ultrasound periodically. Instructions given to patient to call in case any of the following occurs: pressure symptoms, abnormal uterine bleeding, pelvic pain; and to schedule a six-months pelvic ultrasound (order placed) and a follow-up appointment . All questions answered, the patient verbalized understanding and agreed with the plan . Orders: Orders US pelvic and transvaginal 6 Months D25.9 - Leiomyoma of uterus, unspecified Coding Level of Care Code Est Pt Level 3 (75002) Diagnoses Uterine myoma D25.9
--- OUTSIDE RECORDS SUMMARY | 2025-10-07 18:46 | XMS_ITS | Encounter Summary ---
Author Organization [employer] Address [address] [facility] [address] [place] [address] Care Team Providers Care Senior Android Developer Name Role Phone Zenaida Allen MD Primary Care Provide r Reason for Visit * Reason Onset Date Comments Results 06/06/2024 Encounter Details Date Type Department Care Team ([facility] st Contact Info) Description 06/06/2024 Telephone [facility] [address] [place] [address] Zenaida Allen MD [address] [place] [address] Results Social History Tobacco Use Types Packs/Day [...] - 06/06/2024 3:42 PM EDT Ordered by [facility] February Mejia. TC returned to pt. And advised pt. To call their office forresults.Pt. Reports she received results via [employer] and already called [facility] to discuss however they advised would have to wait to f/up appt. In June. Pt. Would like to discuss sooner. Advised pt. Results only showed mild fatty liver, no other concerning findings that can not wait until June for f/up. Reviewed dietary changes and increase physical activity as tolerated. Also reviewed pt.'s recent CBC results ordered by [facility] showing slightly low hemoglobin 11.2) at pt.'s baseline. Pt. Verbalizesunderstanding. Pt is requesting internal referral to addressing machine operator, please place if agreeable thank you! * Telephone Encounter - Cari Matthews - 06/06/2024 3:32 PM EDT Tc from pt requesting a call back with US results from 05/17 Paraguayan speaker documented in this encounter Plan of Treatment Upcoming Encounters Date Type Department Care Team (Late st Contact Info) Description 11/25/2025 3:00 PM EST Office Visit [facility] [address] [place] [address] Gm Cadet DDS [address] [place] [address] 02/26/2026 2:15 PM EDT Office Visit [facility] [address] [place], [place] [phone] Trini Yancey [address] [place] [address] documented as of this encounter Visit Diagnoses Not on filedocumented in this encounter Additional Health Concerns Assessment Noted Time PHQ-9 Depression Total Score: 0 06/07/20 23 3:39 PM EDT documented as of this encounter Care Teams Senior Android Developer Relationship Specialty Start Date End Date Zenaida Allen MD [address] [place] [address] PCP - General Family Medicine 01/10/19 documented as of this encounter
--- OUTSIDE RECORDS SUMMARY | 2025-10-07 18:46 | XMS_ITS | Encounter Summary ---
Author Organization [employer] Address [address] [facility] [address] [address] Care Team Providers Care Window Unit Air Conditioning Mechanic Name Role Phone Zenaida Allen MD Primary Care Provide r Reason for Referral * Imaging (Routine) - Closed Specialty Diagnoses / Procedures Referred By Contac t Referred To Contact Radiology Diagnoses Lump in armpit, right Procedures US Extremity Non Vascular Tung Watts MD [address] [place] [address] Phone: tel: fax: [address] [phone] Phone: tel: fax: Referral ID Status Reason Start Date Expiration Date Visits Re quested Visits Authorized [id number] Closed 10/25/2023 10/24/2024 1 1 Encounter Details Date Type Department Care Team (Late st Contact Info) Description 10/25/[address] [facility] [address] [place], [place] [phone] Tung Watts MD [address] [place] [phone] Lump in armpit, right (Primary Dx) Social [...] Description 11/25/2025 3:00 PM EST Office Visit [facility] [address] [place] [address] Gm Cadet DDS [address] [place] [address] 02/26/2026 2:15 PM EDT Office Visit [facility] [address] [place] [address] Trini Yancey [address] [place] [address] documented as of this encounter Procedures Procedure Name Priority Date/Time Associated Diagnosis Comments US EXTREMITY NON-VASCULAR Routine 01/02/2024 2:29 PM EST Lump in armpit, right documented in this encounter Results * US Extremity Non Vascular (01/02/2024 2:29 PM EST) Anatomical Region Laterality Modality Ultrasound 01/02/2024 2:29 PM EST Narrative 01/03/2024 7:30 PM EST [address] [address] Ultrasound Report Signed Patient: Luann Wellington MR#: [id number] : 1980 Acct:[id number] Age/Sex: 43 / F ADM Date: 01/02/24 Loc: HO.US Attending Dr: Tung Kelly MD Ordering Physician: Tung Watts MD Date of Service: 01/02/24 Procedure(s): US extremity nonvascular Accession Number(s): [id number] cc: Zenaida Allen MD; Tung Watts MD EXAMINATION: US UPPER EXTREMITY, NONVASCULAR, RIGHT CLINICAL INFORMATION: Right mid axillary lump. COMPARISON: None available. TECHNIQUE: Targeted ultrasound images were obtained by the basketballs and footballs reverser of the area of concern as indicated by the patient in the right axilla. Radiologist was not in attendance. Images were later provided for interpretation. FINDINGS: No bulky adenopathy or fluid collection identified in the area of concern indicated by the patient to the basketballs and footballs reverser in the right axilla. US/US extremity nonvascular IMPRESSION: 1. No bulky adenopathy or fluid collection identified in the area of concern indicated by the patient to the basketballs and footballs reverser in the right axilla. 2. Decisions regarding further imaging, treatment or biopsy should be based on the clinical exam, as not all abnormalities are detectable on ultrasound studies. Dictated By: Elana Jc MD Signed By: <Electronically signed by Elana Jc MD in OV> 01/03/241925 DD/ 1429 TD/TT: Composite Technician: Procedure Note Donotuseinterpreter, Image - 01/03/[address] [address] Ultrasound Report Signed Patient: Luann Wellington LMR#: [id number] : 1980Acct:[id number] Age/Sex: 43 / FADM Date: 01/02/24 Loc: HO.US Attending Dr: Tung Kelly MD Ordering Physician: Tung Watts MD Date of Service: 01/02/24 Procedure(s): US extremity nonvascular Accession Number(s): [id number] cc: Zenaida Allen MD; Tung Watts MD EXAMINATION: US UPPER EXTREMITY, NONVASCULAR, RIGHT CLINICAL INFORMATION: Right mid axillary lump. COMPARISON: None available. TECHNIQUE: Targeted ultrasound images were obtained by the basketballs and footballs reverser of the area of concern as indicated by the patient in the right axilla. Radiologist was not in attendance. Images were later provided for interpretation. FINDINGS: No bulky adenopathy or fluid collection identified in the area of concern indicated by the patient to the basketballs and footballs reverser in the right axilla. US/US extremity nonvascular IMPRESSION: 1. No bulky adenopathy or fluid collection identified in the area of concern indicated by the patient to the basketballs and footballs reverser in the right axilla. 2. Decisions regarding further imaging, treatment or biopsy should be based on the clinical exam, as not all abnormalities are detectable on ultrasound studies. Dictated By: Elana Jc MD Signed By: <Electronically signed by Elana Jc MD in OV> 01/03/24 1926 DD/ 1429 TD/TT: Composite Technician: us Tung Kelly MD IMG US PROCEDURES Final Result documented in this encounter Visit Diagnoses Diagnosis Lump in armpit, right- Primary documented in this encounter Additional Health Concerns Assessment Noted Time PHQ-9 Depression Total Score: 0 06/07/20 23 3:39 PM EDT documented as of this encounter Care Teams Window Unit Air Conditioning Mechanic Relationship Specialty Start Date End Date Zenaida Allen MD [address] [place] [phone] PCP - General Family Medicine 01/10/19 documented as of this encounter
--- OUTSIDE RECORDS SUMMARY | 2025-10-07 18:46 | XMS_ITS | Encounter Summary ---
Author Organization [employer] Address [address] [facility] [address] [place] [address] Care Team Providers Care Strap Machine Operator Automatic Name Role Phone Zenaida Allen MD Primary Care Provide r Reason for Visit * Reason Onset Date Comments Request For Order(s) 11/09/2023 Encounter Details Date Type Department Care Team ([facility] Contact Info) Description 11/09/2023 Telephone [facility] MEDICINE [address] [place] [address] Zenaida Allen MD [address] [place], [place] [phone] Request For Order(s) Social History Tobacco Use [...] EST Tc from pt was advised by [facility] order for US extremity Non vascular needs to be US to the breast. documented in this encounter Plan of Treatment Upcoming Encounters Date Type Department Care Team (Late st Contact Info) Description 11/25/2025 3:00 PM EST Office Visit [facility] ADULT DENTAL [address] [place] [address] Gm Cadet DDS [address] [place] [address] 02/26/2026 2:15 PM EDT Office Visit [facility] ADULT DENTAL [address] [place] [address] Marv Yanceyaris [address] [place] [address] documented as of this encounter Visit Diagnoses Not on filedocumented in this encounter Additional Health Concerns Assessment Noted Time PHQ-9 Depression Total Score: 0 06/07/20 23 3:39 PM EDT documented as of this encounter Care Teams Strap Machine Operator Automatic Relationship Specialty Start Date End Date Zenaida Allen MD [address] [place] [address] PCP - General Family Medicine 01/10/19 documented as of this encounter
--- OUTSIDE RECORDS SUMMARY | 2025-10-07 18:46 | XMS_ITS | Patient Health Record ---
Author Organization [facility] Address [address] [place] [address] Care Team Providers Care Residential Designer Name Role Phone Igor Perez NP Primary Care Provider Jose Patiño Unavailable [phone] Reason For Referral No Information Medications Medication SIG (Take, Route, Frequency, Duration) Notes Start Date End Date Status Hyoscyamine Sulfate 0.125 MG Tablet 1 or 2 tablets Orally TID prn abdominal pain; Duration: 30 days 12/02/2011 Active Social History Tobacco Use: Social History Observation Description Date Details (start date - stop date) Never Smoker NA - NA Social History Tobacco Use: Social Info Question Answer Notes Tobacco Use/Smoking Patient is a nonsmoker Section Notes: She does not smoke nor use a ny significant amounts of alcohol Problems Problem Type SNOMED Code ICD Code Onset Dates Problem Status W/U Status Risk Notes Problem Constipation (90982384) Unspecified constipation (564.00) Active confirmed Problem Irritable bowel syndrome (24248050) Irritable bowel syndrome (564.1) Active confirmed Problem Vomiting (249487983) Vomiting alone (787.03) Active confirmed Problem Left lower quadrant pain (543318334) Abdominal pain, left lower quadrant (789.04) Active confirmed Plan Of Treatment No Information Insurance Providers Payer Name Payer Address Payer Phone Subscriber Number Group Number Insured Name Patient Relationship to Insured Coverage Start Date Coverage End Date [facility] [employer] Plan [address] [address] [place], [place] [id number] ROSALIA MUNSON Self - patient is the insured MEDICAID OF [facility] [address] [place] [phone] [id number] ROSALIA MUNSON Self - patient is the insured Medical (General) History Medical History History ICD Code anemia Denies OK,DM,CVA,Lung disease,renal dise ase Surgical History Surgery Date(Month/Year) as per previous records, no new surgical history
--- OUTSIDE RECORDS SUMMARY | 2025-10-07 18:46 | XMS_ITS | Encounter Summary ---
Author Organization [employer] [facility] Address [address] [facility] [address] [place] [address] Care Team Providers Care Manager Dialysis Name Role Phone Zenaida Allen MD Primary Care Provide r Encounter Details Date Type Department Care Team (Latest Contact Info) Description 01/27/2021 Abstract [facility] CONVERSIONS Dental, Provider, DDS Social History [...] Care Team ( st Contact Info) Description 11/25/2025 3:00 PM EST Office Visit [facility] ADULT DENTAL [address] [place] [address] Gm Cadet DDS [address] [place] [address] 02/26/2026 2:15 PM EDT Office Visit [facility] ADULT DENTAL [address] [place] [address] Trini Yancey [address] [place] [address] documented as of this encounter Visit Diagnoses Not on filedocumented in this encounter Care Teams Manager Dialysis Relationship Specialty Start Date End Date Zenaida Allen MD [address] [place] [address] PCP - General Family Medicine 01/10/19 documented as of this encounter
--- OUTSIDE RECORDS SUMMARY | 2025-10-07 18:46 | XMS_ITS | Encounter Summary ---
Author Organization [employer] Address [address] [facility] [address] [place] [address] Care Team Providers Care Engraver Machine Name Role Phone Zenaida Allen MD Primary Care Provide r Encounter Details Date Type Department Care Team (Late st Contact Info) Description 12/12/2022 Orders Only [facility] MEDICINE [address] [place] [address] Teresa Santos MD [address] [place] [address] Skin tags, multiple acquired (Primary Dx) Social [...] Description 11/25/2025 3:00 PM EST Office Visit [facility] ADULT DENTAL [address] [place] [address] Gm Cadet DDS [address] [place] [address] 02/26/2026 2:15 PM EDT Office Visit [facility] ADULT DENTAL [address] [place], [place] [phone] Marv Yanceyaris [address] [place], [place] [phone] documented as of this encounter Visit Diagnoses Diagnosis Skin tags, multiple acquired- Primary documented in this encounter Care Teams Engraver Machine Relationship Specialty Start Date End Date Zenaida Allen MD [address] [place], [place] [phone] PCP - General Family Medicine 01/10/19 documented as of this encounter
--- OUTSIDE RECORDS SUMMARY | 2025-10-07 18:46 | XMS_ITS | Encounter Summary ---
Author Organization [employer] Address [address] [facility] [address] [place] [address] Care Team Providers Care Yoker Machine Operator Name Role Phone Zenaida Allen MD Primary Care Provide r Reason for Visit * Reason Onset Date Comments Referral 10/22/2024 Encounter Details Date Type Department Care Team ([facility] st Contact Info) Description 10/22/2024 Telephone [facility] MEDICINE [address] [place] [address] Zenaida Allen MD [address] [place] [address] Referral Social History Tobacco Use Types Packs/Day [...] herhair. RN advised pt to come to [facility] for concerns d/t no available appt with PCP, RN did offer appt with [facility] but pt will be away on vacation. Pt declined and wants to wait for an appt with PCP, Please set up pt with an appt when recall opebns after 3pm thank you Tc from pt requesting a referral to a formula checker. Please call to clarify. * Telephone Encounter - Ashely Larkin - 10/22/2024 10:15 AM EST Tc from pt requesting a referral to a formula checker. Please call to clarify. documented in this encounter Plan of Treatment Upcoming Encounters Date Type Department Care Team (Late st Contact Info) Description 11/25/2025 3:00 PM EST Office Visit [facility] ADULT DENTAL [address] [place] [address] Gm Cadet DDS [address] [place] [address] 02/26/2026 2:15 PM EDT Office Visit [facility] ADULT DENTAL [address] [place] [address] Trini Yancey [address] [place], [place] [phone] documented as of this encounter Visit Diagnoses Not on filedocumented in this encounter Additional Health Concerns Assessment Noted Time PHQ-9 Depression Total Score: 0 06/07/20 23 3:39 PM EDT documented as of this encounter Care Teams Yoker Machine Operator Relationship Specialty Start Date End Date Zenaida Allen MD [address] [place] [address] PCP - General Family Medicine 01/10/19 documented as of this encounter
--- OUTSIDE RECORDS SUMMARY | 2025-10-07 18:46 | XMS_ITS | Clinical Summary ---
Author Organization [employer] Address [address] [facility] 7t [place] [address] Care Team Providers Care Medicaid Eligibility Specialist Name Role Phone Zenaida Allen MD Primary Care Provide r Allergies Active Allergy Reactions Criticality Noted Date Comments Germanium 12/24/2024 Shellfish Protein-Containing Drug Products 02/25/2021 Medications sodium chloride (Alpine) 0.65 % nasal spray apply every 8 [...] -pt reports already to be following w STUDY DIRECTOR for this -advised pt to start iron daily prescribed by her PCP and pt was wondering if ok to take with MVI that she has been taking -pt explained that she can take both -advised to f w PCP in 2 months to monitor CBC ,iron panel -ok to continue metoprolol px by her wood panel inspector but if causing any symptoms ok to [...] EDT): Patient is now being followed by breaster, she has an appointment for another office [...] Encounters Date Type Department Care Team Description 09/30/2025 5:40 PM EST Office Visit [facility] [address] [place] [phone] Alyssa Wilkins MD Other migraine without status migrainosus, not intractable (Primary Dx) 09/30/2025 Travel 09/30/[address] [facility] [address] [place] [phone] Zenaida Allen MD Nurse Triage 09/29/2025 Orders Only GENERIC EXTERNAL DATA DEPARTMENT Provider, Generic External Data 09/17/2025 2:[address] [facility] [address] [place] [phone] Zenaida Allen MD Seasonal allergies (Primary Dx); Iron deficiency anemia, unspecified iron deficiency anemia type; Mild intermittent asthma without complication 09/17/2025 Travel 09/11/[address] [facility] [address] [facility] [place] [address] Zenaida Allen MD 08/27/2025 3:00 PM EDT Office Visit [facility] [address] [facility] [place] [address] BcTrini larson Abfraction (Primary Dx); Dental plaque 07/31/2025 1:45 PM EDT Office Visit [facility] [address] [facility] [place] [address] Zenaida Allen MD Iron deficiency anemia, unspecified iron deficiency anemia type (Primary Dx); Muscle spasm 07/31/2025 Travel from Last 3 Months Immunizations Immunization Administration [...] Sign Reading Time Taken Comments Blood Pressure 127/79 09/30/2025 5:21 PM EST Pulse 71 09/30/2025 5:21 PM EST Temperature 37.3 C (99.1 F) 09/30/2025 5:21 PM EST Respiratory Rate 17 09/30/2025 5:21 PM EST Oxygen Saturation 100% 09/30/2025 5:21 PM EST Inhaled Oxygen Concentration - - Weight 57.7 kg (127 lb 4 oz) 09/30/2025 5:21 PM EST Height 152.4 cm (5') 09/30/2025 5:21 PM EST Body Mass Index 24.85 09/30/2025 5:21 PM EST Plan of Treatment Upcoming Encounters Date Type Department Care Team (Late st Contact Info) Description 11/25/2025 3:00 PM EST Office Visit [facility] [address] [place], [place] [phone] Gm Cadet DDS [address] [place], [place] [phone] 02/26/2026 2:15 PM EDT Office Visit [facility] [address] [place], [place] [phone] Trini Yancey [address] [place] [address] Health Maintenance Due Date Last Done Comments CT Colonography 1980 FIT DNA/Cologuard 1980 FIT 1980 FOBT [...] history exists Depression Screening 03/25/2026 03/25/2025, 03/25/20 Mammogram 09/11/2026 09/11/2025, 08/14, 08/11/2023, Additional history exists Alcohol/Substance Use Screening 09/17/2026 09/17/2025 Disability Screening 09/17/2026 09/17/2025 Tobacco Screening 09/30/2026 09/30/2025 HPV/Cotest 10/18/2027 10/18/2022 Dental X-Ray: Full Mouth 02/19/2028 025, 04/19/2023, 02/12/2021, Additional history exists Cervical Cancer Screening 02/07/2029 Pap Smear 02/07/2029 02/08/2024, 10/18/2022 DTaP/Tdap/Td Vaccines (6 - Td or Tdap) 05/06/2030 05/06/2020, 05/15/2007, 10/15/1996, Additional history exists Zoster Vaccines (1 of 2) 2030 Colonoscopy 10/17/2034 10/17/2024 Colorectal Cancer Screening 10/17/2034 RSV Patients and Patients Aged 60 years [...] Procedure Name Priority Date/Time Associated Diagnosis Comments CT HEAD WO CONTRAST Routine 09/29/2025 7 :18 PM EST HCG, TOTAL, QN Routine 09/29/2025 4:48 PM EST COMPREHENSIVE METABOLIC PANEL Routine 09/29/2025 4:48 PM EST APTT Routine 09/29/2025 4:48 PM EST PROTHROMBIN TIME-INR Routine 09/29/2025 4:48 PM EST CBC WITH AUTO DIFFERENTIAL Routine 09/29/2025 4:48 PM EST US PELVIS TRANSVAGINAL Routine 3:09 PM EST [...] Recently Relevant to Health Maintenance Results * CT Head w/o Contrast (09/29/2025 7:18 PM EST) Anatomical Region Laterality Modality Head, Neck Computed Tomogra phy 09/29/2025 7:18 PM EST Narrative 09/29/2025 7:19 PM EST [address] [address] [address] Scan Report Signed Patient: Luann Wellington MR#: [id number] : 1980 Acct:[id number] Age/Sex: 45 / F ADM Date: 09/29/25 Loc: HO.ED Attending Dr: Ordering Physician: Sarabjit Segundo MD Date of Service: 09/29/25 Procedure(s): CT head/brain wo IV con Accession Number(s): [id number] cc: Zenaida Allen MD; Sarabjit Segundo MD Report Number: [id number]: Total DLP = 518.00 mGy-cm Reason for Exam: headache, visual changes CLINICAL HISTORY: headache, visual changes CT head without contrast Comparison: None provided Findings: No acute intracranial fluid collection or hematoma. No acute process in sinuses or mastoids. No acute bony abnormality. Impression: No acute intracranial process This document has been electronically signed by: Mike Pabon MD on 09/29/2025 19:18:49 Dictated By: Mike Pabon MD Signed By: <Electronically signed by Mike Pabon MD in OV> 09/29/251918 DD/ 17 TD/TT: 09/29/251917 Glaucoma Specialist: Procedure Note Donotuseinterpreter, Image - 09/29/[address] [address] [address] Scan Report Signed Patient: Luann Wellington LMR#: [id number] : 1980Acct:[id number] Age/Sex: 45 / FADM Date: 09/29/25 Loc: HO.ED Attending Dr: Ordering Physician: Sarabjit Segundo MD Date of Service: 09/29/25 Procedure(s): CT head/brain wo IV con Accession Number(s): [id number] cc: Zenaida Allen MD; Sarabjit Segundo MD Report Number: [id number]: Total DLP = 518.00 mGy-cm Reason for Exam: headache, visual changes CLINICAL HISTORY: headache, visual changes CT head without contrast Comparison: None provided Findings: No acute intracranial fluid collection or hematoma. No acute process in sinuses or mastoids. No acute bony abnormality. Impression: No acute intracranial process This document has been electronically signed by: Mike Pabon MD on 09/29/2025 19:18:49 Dictated By: Mike Pabon MD Signed By: <Electronically signed by Mike Pabon MD in OV> 09/29/251918 DD/ 17 TD/TT: 09/29/251917 Glaucoma Specialist: [facility] External Provider IMG CT PROCEDURES Final Result * (ABNORMAL) CBC auto differential (09/29/2025 4:48 PM EST) Only the most recent of2 resultswithin the time period is included. White Blood Count 7.6 4.8 - 10.8 X10*3/uL [facility] Red Blood Count 5.35 4.20 - 5.50 X10*6/uL [facility] Hemoglobin 13.7 12.0 - 16.0 g/dl [facility] Hematocrit 42.7 37.0 - 47.0 % [facility] Mean Corpuscular Volume 79.8(L) 80.0 - 98.0 fL [facility] Mean Corpuscular Hemoglobin 25.6(L) 27.0 - 33.0 pg [facility] Mean Corpuscular HGB Conc 32.1 31.0 - 35.0 g/dl [facility] Red Cell Distribution Width 14.0 11.0 - 16.0 % [facility] Platelet Count 325 160 - 400 X10*3/uL [facility] Mean Platelet Volume 9.0(L) 9.4 - 12.3 fL [facility] Neutrophils Percent Auto 69.5 45 - 73 % [facility] Imm Gran Pct Auto 0.3 0.0 - 0.4 % [facility] Lymphocytes Percent Auto 23.6 20 - 40 % [facility] Monocytes Percent Auto 5.3 2 - 11 % [facility] Eosinophils Percent Auto 0.9 0 - 4 % [facility] Basophils Percent Auto 0.4 0 - 2 % [facility] NRBC Pct Auto 0.0 0.0 - 0.2 /100WBC [facility] Neutrophils Absolute Auto 5.3 2.0 - 8.3 x10*3/uL [facility] Imm Gran Abs Auto 0.02 0.00 - 0.03 X10*3/uL [facility] Lymphocytes Absolute Auto 1.8 1.2 - 4.9 X10*3/uL [facility] Monocytes Absolute Auto 0.4 0.1 - 1.2 X10*3/uL [facility] Eosinophils Absolute Auto 0.1 0.0 - 0.4 X10*3/uL [facility] Basophils Absolute Auto 0.0 0.0 - 0.2 X10*3/uL [facility] NRBC Abs Auto 0.000 0.0 - 0.012 X10*3/uL [facility] 09/29/2025 4:48 PM EST 09/29/2025 4:51 PM EST us Generic External Data Provider LAB BLOOD ORDERAB LES Final Result [facility] [address] [place] [address] [phone] * (ABNORMAL) Partial Thromboplastin Time, Activated (APTT) (09/29/2025 4:48 PM EST) Partial Thromboplastin Time 35.6(H) 26.7 - 34.1 SEC [facility] 09/29/2025 4:48 PM EST 09/29/2025 4:51 PM EST Generic External Data Provider LAB BLOOD ORDERAB LES Final Result Performing Organization Address [facility] Co de Phone Number [facility] [address] [place] [phone] * Prothrombin Time-INR (09/29/2025 4:48 PM EST) Prothrombin Time 13.4 11.2 - 13.5 SEC [facility] INTERNATIONAL NORM RATIO 1.1 0.9 - 1.1 [facility] Comment:INTERNATIONAL NORMAL IZED RATIO (INR) REFERENCE RANGES Reference RangeFor patients not on anticoagulant therapy: 0.9 - 1.1INR ranges for oral anticoagulanttherapy:For prevention and treatment of venous thrombosis and pulmonary embolism: 2.0 - 3.0For acute myocardial infarction with aspirin therapy: 2.0 - 3.0For acute myocardial infarction without aspirin therapy: 3.0 - 4.0For patients with mechanical prosthetic heart valves: 2.5 - 3.5 09/29/2025 4:48 PM EST 09/29/2025 4:51 PM EST Generic External Data Provider LAB BLOOD ORDERAB LES Final Result Performing Organization Address [facility] de Phone Number [facility] [address] [place] [phone] * hCG, Total, Quantitative (09/29/2025 4:48 PM EST) HCG Quantitative <2 mIU/mL [facility] Comment:Weeks post LMP Appro ximate hCG(Last Menstrual Period) Range (mIU/ml)3 - 4 weeks 9 - 1304 - 5 weeks 75 - 2,6005 - 6 weeks 850 - 20,8006 - 7 weeks 4000 - 100,2007 - 12 weeks 11,500 - 289,76231 - 16 weeks 18,300 - 137,45127 - 29 weeks (2nd trimester) 1,400 - 53,73196 - 41 weeks (3rd trimester) 940 - 60,000The Merino B- hCG assay is used for the early detection ofpregnancy; it cannot be used to diagnose any conditionunrelated to . If a B-hCG level is not supportedby the clinical evidence, results should be confirmed by analternative method (qualitative urine hCG, for example). 09/29/2025 4:48 PM EST 09/29/2025 4:51 PM EST us Generic External Data Provider LAB BLOOD ORDERAB LES Final Result [facility] [address] [place] [phone] * (ABNORMAL) Comprehensive Metabolic Panel (09/29/2025 4:48 PM EST) Sodium 139 135 - 145 mmol/L [facility] Potassium 3.9 3.3 - 5.1 mmol/L [facility] Chloride 104 96 - 108 mmol/L [facility] Carbon Dioxide 24 22 - 29 mmol/L [facility] Anion Gap 15 12 - 20 [facility] Urea Nitrogen (BUN) 14 9 - 16 mg/dL [facility] Creatinine, Serum 0.76 0.5 - 1.4 mg/dL [facility] Creatinine Clr Calc Pharmacy 73.7 [facility] Comment:Provided height and weight: 152.4 cm,56.699 kg.eGFR (calculated from the MDRD study equation) and eCrCl(calculated from the Cockcroft-Gault equation) are based ondifferent parameters and may not yield comparable results.If eCrCl result is absurd, please check patient'sheight/weight. Estimated Glomerular Filt Rate >60 [facility] Comment:Chronic Kidney Disea se: Estimated GFR < 60 mL/min/1.37x2Uplfqk Kidney Disease: Estimated GFR < 15 mL/min/1.73m2 Glucose 107 60 - 115 mg/dL [facility] Calcium 10.1 8.4 - 10.2 mg/dL [facility] Bilirubin, Total 0.2 0.0 - 1.0 mg/dL [facility] Aspartate Amino Transferase 20 5 - 31 U/L [facility] Alanine Aminotransferase 12 0 - 31 U/L [facility] Total Protein 8.6(H) 6.5 - 8.0 g/dL [facility] Albumin Level 4.6 3.5 - 5.0 g/dL [facility] Alkaline Phosphatase 133(H) 39 - 117 U/L [facility] 09/29/2025 4:48 PM EST 09/29/2025 4:51 PM EST us Generic External Data Provider LAB BLOOD ORDERAB LES Final Result Performing Organization Address City/State/[facility] Co de Phone Number [facility] [address] [place] [phone] * US Pelvis Transvaginal (09/18/2025 3:09 PM EST) Anatomical Region Laterality Modality Pelvis Ultrasound 09/18/2025 3:09 PM EST Narrative 09/18/2025 3:43 PM EST [address] [address] Ultrasound Report Signed Patient: Luann Wellington MR#: [id number] : 1980 Acct:[id number] Age/Sex: 45 / F ADM Date: 09/18/25 Loc: .US Attending Dr: Dmitry Enriquez MD Ordering Physician: Dmitry Enriquez MD Date of Service: 09/18/25 Procedure(s): US pelvic and transvaginal Accession Number(s): [id number] cc: Zenaida Allen MD; Dmitry Enriquez MD [...] by: Lamberto Jacobson MD 09/18/2025 03:41 PM EST Dictated By: Lamberto Jacobson MD Signed By: <Electronically signed by Lamberto Jacobson MD in OV> 09/18/25 1541 DD/ 1509 TD/TT: 09/18/25 1521 Glaucoma Specialist: Procedure Note Donotuseinterpreter, Image - 09/18/2025 [place] [address] Ultrasound Report Signed Patient: Luann Wellington LMR#: [id number] : 1980Acct:[id number] Age/Sex: 45 / FADM Date: 09/18/25 Loc: .US Attending Dr: Dmitry Enriquez MD Ordering Physician: Dmitry Enriquez MD Date of Service: 09/18/25 Procedure(s): US pelvic and transvaginal Accession Number(s): [id number] cc: Zenaida Allen MD; Dmitry Enriquez MD [...] by: Lamberto Jacobson MD 09/18/2025 03:41 PM EST Dictated By: Lamberto Jacobson MD Signed By: <Electronically signed by Lamberto Jacobson MD in OV> 09/18/25 1541 DD/ 1509 TD/TT: 09/18/25 1521 Glaucoma Specialist: JOHNNA [facility] External Provider IMG US PROCEDURES Final Result * BI Mammogram Screening Tomosynthesis Bilateral (09/11/2025 4:10 PM EDT) Anatomical Region Laterality Modality Breast Bilateral Mammography 09/11/2025 4:10 PM EDT Narrative 09/13/2025 11:18 PM EDT [facility] [address] [place] [address] Mammography Report Signed Patient: Luann Wellington MR#: [id number] : 1980 Acct:[id number] Age/Sex: 45 / F ADM Date: 09/11/25 Loc: HO.MAMMO Attending Dr: Zenaida Leal MD Ordering Physician: Zenaida Allen MD Results: 1Negative Date of Service: 09/11/25 Follow Up: 1 Year From Orig inal Mammogram Procedure(s): MM tomosynthesis screening BI Accession Number(s): [id number] cc: Zenaida Allen MD Reason For Exam: [...] by Purnima Randall MD in OV> 09/13/25 2105 DD/ 161 TD/TT: 09/11/25 1610 Glaucoma Specialist: Procedure Note Donotuseinterpreter, Image - 09/13/2025 [facility] [address] [place] [address] Mammography Report Signed Patient: Luann Wellington LMR#: [id number] : 1980Acct:[id number] Age/Sex: 45 / FADM Date: 09/11/25 Loc: MIAO Attending Dr: Zenaida Leal MD Ordering Physician: Zenaida Allen MDResults: 1Negative Date of Service: 09/11/25Follow Up: 1 Year From Orig inal Mammogram Procedure(s): MM tomosynthesis screening BI Accession Number(s): [id number] cc: Zenaida Allen MD Reason For Exam: [...] Randall MD in OV> 09/13/25 2315 DD/ 1610 TD/TT: 09/11/25 1610 Glaucoma Specialist: Zenaida Leal MD IMG BI PROCEDURES Rober roshni Result - Final * Vitamin B12 (Cobalamin) and Folate Panel, Serum (07/31/2025 2:35 PM EDT) Vitamin B12 470 200 - 900 pg/mL [facility] Comment:NORMAL 200-900 PG/ML INDETERMINATE 160-199 PG/ML DEFICIENT < 160 PG/ML Folate 11.6 > or = 4.0 ng/mL [facility] Comment:Reference Values:> o r = [...] BLOOD ORDERABLES Final Result Performing Organization Address [facility] Co de Phone Number [facility] [address] [place] [phone] * (ABNORMAL) Iron And Total Iron Binding Capacity (07/31/2025 2:35 PM EDT) Iron 32 30 - 160 mcg/dL [facility] Total Iron Binding Capacity 275 228 - 428 mcg/dL [facility] Percent Iron Saturation 12(L) 15 - 50 % [facility] Unsaturated Iron Binding 243 ug/dL [facility] Blood Venous blood specimen / Unknown 07/31/2025 2:35 PM EDT 07/31/2025 4:46 PM EDT us Zenaida Leal MD LAB BLOOD ORDERABLES Final Result Performing Organization Address [facility] Phone Number [facility] [address] [place] [phone] * Ferritin (07/31/2025 2:35 PM EDT) Ferritin 32 10 - 250 ng/mL [facility] Blood Venous blood specimen / Unknown 07/31/2025 2:35 PM EDT 07/31/2025 4:46 PM EDT us Zenaida Leal MD LAB BLOOD ORDERABLES Final Result Performing Organization Address [facility] Co de Phone Number [facility] [address] [place] [phone] * Hepatitis Panel, General (06/27/2024 3:08 PM EDT) Hepatitis A IgM Nonreactive Nonreactive [facility] Comment:IgM antibodies to MEDELLIN V not detected; does not exclude earlyacute or recovered HAV infection. ~Hepatitis B Surface Antibody NONREACTIVE Nonreactive [facility] Comment:Nonreactive: < 8.00 mIU/mL Hepatitis B Core Antibody Nonreactive Nonreactive [facility] Hepatitis C Antibody Nonreactive Nonreactive [facility] Comment:Antibodies to HCV no t detected; does not exclude early acuteHCV infection. Hepatitis B Surface Ag Negative Negative [facility] 06/27/2024 3:08 PM EDT 06/27/2024 3:08 PM EDT us Generic External Data Provider LAB BLOOD ORDERAB LES Final Result Performing Organization Address City/State/[facility] Co de Phone Number [facility] [address] [place] [phone] * Pap Smear (02/08/2024 3:47 PM EDT) 02/08/2024 3:47 PM EDT 02/09/2024 9:30 AM EDT Narrative [facility] - 02/18/2024 5:56 PM EDT ----- ------- Name: Luann Wellington Age/Sex: 43/F : 1980 Unit#: [id number] Attend Dr: Cornelia Madden CNM Re02/08/24 Status: DEP REF Location: [facility] Disch: ----- ------- SPEC : [id number] RECD: 02/09/24-929 STATUS: JOHNNY JUNIOR NUM: [id number] URI: 02/08/24-[address] [facility] [address]ED: 02/09/24-1020 SP TYPE: Pap Smr OTHR DR: Zenaida Allen MD ORDERED: Pap Smear Interpretation Satisfactory for evaluation. Negative for intraepithelial lesion or malignancy. HPV mRNA E6/E7: NOT DETECTED This assay detects E6/E7 viral messenger RNA (mRNA) from 14 high-risk HPV types (16, 18, 31, 33, 35, 39, 45, 51, 52, 56, 58, 59, 66, 68) HPV testing performed by [employer], [place], [place]. See reference laboratory portion of the EMR for entire report. Clinical Information LMP: 01/23/24 Previous PAP test: 06/30/2017, WNL Material Received ThinPrep-Cervical Copies To: Zenaida Allen MD [address] [place] [address] [place] [address] [place] [phone] ----- ------- Signed (signature on file) Nelly Darcy Quinn 02/18/24 1756 ----- ------- END OF REPORT Generic External Data Provider LAB CYTOLOGY PACO RENO Final Result [facility] [address] [place] [phone] * Hm Pap Smear (10/18/2022) Pap Negative for intraephithelial lesion or malignancy Negative for intraephithelial lesion or malignancy, Other HPV Undetected Undetected, Indeterminate, Quantitative, Not Detected Historical Provider HEALTH MAINTENANCE Final Result * HIV 1/2 ANTIGEN/ANTIBODY,FOURTH GENERATION W/RFL (03/16/2022 1:14 PM EDT) HIV-1/2 ANTIGEN AND ANTIBODIES, 4TH GENERATION W/ REFLEX NON-[facility] Comment: HIV-1 antigen and [...] purpose. For additional information please refer to http://education.[employer]/faq/MHJ468 (This link is being provided for informational/ educational purposes only.) The performance of this assay has not been clinically validated in patients less than 2 years old. 03/16/2022 1:14 PM EDT Zenaida Leal MD LAB BLOOD ORDERABLES Final Result [facility] [address] from Last 3 Months or Most Recently Relevant to Health Maintenance Insurance [place] [facility] MEDICAID STAND ADULT DENTAL - HSN PARTIAL (MEDICAID) Care Teams Medicaid Eligibility Specialist Relationship Specialty Start Date End Date Zenaida Allen MD [address] [place] [phone] PCP - General Family Medicine 01/10/19
--- OUTSIDE RECORDS SUMMARY | 2025-10-07 18:46 | XMS_ITS | Encounter Summary ---
Author Organization [employer] [facility] Address [address] [facility] [address] [place] [address] Care Team Providers Care Java Engineer Name Role Phone Zenaida Allen MD Primary Care Provide r Encounter Details Date Type Department Care Team (Latest Contact Info) Description 07/08/2022 Abstract [facility] CONVERSIONS Dental, Provider, DDS Social History [...] Description 11/25/2025 3:00 PM EST Office Visit [facility] [address] [place] [address] Gm Cadet DDS [address] [place] [address] 02/26/2026 2:15 PM EDT Office Visit [facility] [address] [place] [address] Trini Ynacey [address] [place] [address] documented as of this encounter Visit Diagnoses Not on filedocumented in this encounter Care Teams Java Engineer Relationship Specialty Start Date End Date Zenaida Allen MD [address] [place] [address] PCP - General Family Medicine 01/10/19 documented as of this encounter
--- OUTSIDE RECORDS SUMMARY | 2025-10-07 18:46 | XMS_ITS | Data Portability ---
Author Organization [place] - [facility], [facility] Address [address] [place] [address] Care Team Providers Care Cigarette Tester Name Role Phone KIA KEE Operations Section Manager [phone] Assessment No assessment recorded. Plan of Treatment [...] orthosis: noneTreatment: ROM, edema control Referring Physician: Jhon Cifuentes, Orthopedic Surgery, Encounter Date: 04/09/2024 Results Created Date Observation Date Name Description Value Unit Range Abnormal Flag Note LastModifiedBy Organization Detail LastModifiedTime 07/03/20 24 07/03/2024 elect romyo gram + nerve condu ction study No observ ation record ed. [facility] [address], [address], 07/04/2024 11:44:39 07/03/20 24 07/03/2024 elect romyo gram + nerve condu ction study No observ ation record ed. [facility] [address], [address], 07/04/2024 11:44:40 Result Notes None recorded. Medical Equipment None Reported. Allergies Allergen ID Allergen Name Allergen Category Reaction Reaction Severity Criticality Documentation Date Start Date Code Code System Note Provider Name and Address Organization Details Recorded Time 46958 shrimp allergeni c extract food Not available Not available Not available 01/15/20242021 60275 2 RxNorm Not Available [facility] 11:09:53 Medications Name Sig Start Date [...] Updated DateTime 04/09/2024 152.4 cm 25.4 kg/m2 10853.01 fela RACHELINTEGRIS [facility] 04/09/2024 15:07:30 Date Recorded Body height Body mass index (BMI) Body weight Provider Name and Address Organization Details Last Updated DateTime 07/19/2024 152.4 cm 25.4 kg/m2 24993.01 fela RACHELINTEGRIS [facility] 07/19/2024 13:42:05 Social History None [...] ICD10 Code Diagnosis IMO Codes Diagnosis Note [id number] John Cifuentes MD [facility] [address] [place] [address] 04/09/2024 14:34:20 04/18/2024 12:49:33 Strain of muscle of right wrist [id number] S66.911A 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 John Cifuentes MD [address], [place], [address], [facility] 04/10/2024 13:42:05 07/19/2024 text/html ROS [...] at her discretion. John Cifuentes MD [address], [place], [address], [facility] 07/19/2024 13:48:54 OBGyn Episode No OBEpisode recorded.
== END 2025-10-07 16:06 | disposition home or self-care (01) ==
LOC: HO.HWS 15:05
PROVIDERS: PCP Internal Medicine; Visit Provider Obstetrics & Gynecology
DX: D25.9 Leiomyoma of uterus, unspecified (principal)
CPT/HCPCS: 99213

== ENCOUNTER → 2025-10-07 15:04 | Outpatient (BNVA) | payer MEDICAID, SELFPAY | PROVIDERS: PCP Internal Medicine; Visit Provider Obstetrics & Gynecology | DX: Z71.2 Person consulting for explanation of examination or test findings (principal); D25.9 Leiomyoma of uterus, unspecified | CPT/HCPCS: 99212 ==